=== PATIENT | female | born 1950 ===

== ENCOUNTER 2017-09-09 10:27 | Emergency (ER) | payer BC, MEDICARE ==
[2017-09-09 10:28] VITALS: BMI 35.9
[2017-09-09 10:37] VITALS: RESP 18
--- NOTE | 2017-09-09 11:09 | C.PDOC ---
History Of Present Illness 66-YEAR-OLD FEMALE, PRESENTS TO THE EMERGENCY DEPARTMENT, REFERRED FOR POSSIBLE HIGH GLUCOSE. PS HAD OUTPT LABS 09/08, "GLU OVER 600". PT OTHERWISE ASYMPT. COMPLIANT W MEDS. HAD COFFEE W SUGAR THIS MORNING EXAM NEG Time Seen by Provider: 09/09/17 10:39 Chief Complaint (Nursing): Abnormal Labs History Per: Patient History/Exam Limitations: no limitations Onset/Duration Of Symptoms: Days Current Symptoms Are (Timing): Still Present Past Medical History Reviewed: Historical Data, Nursing Documentation, Vital Signs Vital Signs: Last Vital Signs Temp 97.9 F 09/09/17 12:23 Pulse 75 09/09/17 12:23 Resp 18 09/09/17 12:23 BP 148/77 09/09/17 12:23 Pulse Ox 96 09/09/17 13:05 - Medical History PMH: Asthma, Atrial Fibrillation, Fractures (left foot), HTN Surgical History: Coronary Stent (03/2014), Tonsillectomy - [facility] Procedures CORONAR ARTERIOGR-2 CATH (04/10/14) CORONARY ARTERY STENT INSERTION [id number] (04/10/14) DX ULTRASOUND-HEART (04/09/14) HEART COUNTERSHOCK NEC (04/09/14) INJECT/INFUSE PLATELET INHIBITOR (04/10/14) INSERTION OF ONE VASCULAR STENT (04/10/14) INSERTION OF TWO VASCULAR STENTS (04/09/14) LEFT HEART CARDIAC CATH (04/10/14) LT HEART ANGIOCARDIOGRAM (04/10/14) PERCUTANEOUS TRANSLUMINAL CORONARY ANGIOPLASTY [PTCA] (04/10/14) PROCEDURE ON SINGLE VESSEL (04/10/14) PROCEDURE ON TWO VESSELS (04/09/14) Family History: States: No Known Family Hx - Social History Hx Tobacco Use: No Hx Alcohol Use: No Hx Substance Use: No - Immunization History Hx Tetanus Toxoid Vaccination: No Hx Influenza Vaccination: No Hx Pneumococcal Vaccination: No Review Of Systems Except As Marked, All Systems Reviewed And Found Negative. Constitutional: Negative for: Fever, Chills Cardiovascular: Negative for: Chest Pain, Palpitations Respiratory: Negative for: Cough, Shortness of Breath Gastrointestinal: Negative for: Vomiting Genitourinary: Negative for: Dysuria, Frequency Musculoskeletal: Negative for: Neck Pain, Back Pain Skin: Negative for: Rash Neurological: Negative for: Weakness, Numbness, Headache Physical Exam - Physical Exam Appears: Non-toxic, No Acute Distress Skin: Normal Color, Warm, Dry, No Rash Head: Normacephalic Eye(s): bilateral: PERRL Nose: Normal Oral Mucosa: Moist Lips: Normal Appearing Neck: Normal ROM Chest: Symmetrical Cardiovascular: Rhythm Regular, No Murmur Respiratory: Normal Breath Sounds, No Accessory Muscle Use Extremity: Normal ROM, No Deformity, No Swelling Neurological/Psych: Oriented x3, Normal Speech ED Course And Treatment - Laboratory Results Result Diagrams: 09/09/17 11:20 09/09/17 11:20 O2 Sat by Pulse Oximetry: 96 (RA) Pulse Ox Interpretation: Normal Progress - Re-Evaluation Re-evaluation Note: 09/09/17 12:17 APPEARS COMFORTABLE NONTOXIC. ADVISED DIET MODIFICATION, POSSIBLE NEED FOR ADDL DM CONTROL. PS HAS GLUCOMETER BUT DOESNT USE. FU PMD - Data Reviewed Data Reviewed: Lab Disposition Counseled Patient/Family Regarding: Studies Performed, Diagnosis, Need For Followup - Disposition Referrals: YOUR,PMD [Other] Disposition: HOME/ ROUTINE Disposition Time: 12:18 Condition: IMPROVED Instructions: Hyperglycemia, Adult (DC) Forms: [employer] (Macedonian) - Clinical Impression Clinical Impression: Hyperglycemia - Scribe Statement The provider has reviewed the documentation as recorded by the Scribe (Mere Mooney) All medical record entries made by the Scribe were at my direction and personally dictated by me. I have reviewed the chart and agree that the record accurately reflects my personal performance of the history, physical exam, medical decision making, and the department course for this patient. I have also personally directed, reviewed, and agree with the discharge instructions and disposition.
[2017-09-09 11:23] LABS: BASO % 0.4 % (0.0-2.0); EOS % 0.4 % (0.0-4.0); HEMOGLOBIN 13.7 g/dL (11.0-16.0); LYMPH # 0.5 K/uL (1.0-4.3); LYMPH % 4.9 % (20.0-40.0); MEAN CORPUSCULAR HEMOGLOBIN 28.1 pg (27.0-31.0); MEAN CORPUSCULAR HGB CONC 33.7 g/dL (33.0-37.0); MEAN PLATELET VOLUME 8.7 fL (7.2-11.7); MONO # 0.6 K/uL (0.0-0.8); MONO % 5.3 % (0.0-10.0); NEUT # 9.5 K/uL (1.8-7.0); PLATELET COUNT 192 K/uL (130-400); RBC 4.86 Mil/uL (3.80-5.20)
[2017-09-09 11:25] LABS: MEAN CELL VOLUME 83.5 fL (81.0-99.0); WHITE BLOOD COUNT 10.7 K/uL (4.8-10.8)
[2017-09-09 11:30] LABS: VENOUS BLOOD GAS BASE EXCESS 2.8 mmol/L (0.0-2.0); VENOUS BLOOD GAS PCO2 47 mmHg (40-60); VENOUS BLOOD GAS PO2 44 mm/Hg (30-55); VENOUS BLOOD PH 7.39 (7.32-7.43)
[2017-09-09] MEDS ORDERED: Sodium Chloride 0.9% 1,000 ML IV SCH (11:30)
[2017-09-09 11:32] LABS: SQUAMOUS EPITHIAL < 1 /hpf (0-5); URINE BACTERIA RARE (<OCC); URINE BILIRUBIN NEGATIVE (NEGATIVE); URINE BLOOD 1+ (NEGATIVE); URINE CLARITY Clear (Clear); URINE COLOR Straw (YELLOW); URINE GLUCOSE (UA) 3+ mg/dL (Normal); URINE LEUKOCYTE ESTERASE TRACE Leu/uL (Negative); URINE PROTEIN NEGATIVE (NEGATIVE); URINE UROBILINOGEN NORMAL mg/dL (0.2-1.0)
[2017-09-09 11:55] LABS: ANISOCYTOSIS SLIGHT; BANDS 1 % (0-2); HYPOCHROMIC SLIGHT; LYMPHOCYTE 5 % (20-40); MONOCYTE 6 % (0-10); NEUTROPHIL 88 % (50-75); PLATELET ESTIMATE NORMAL (NORMAL); POLYCHROMIC SLIGHT; TOTAL CELLS COUNTED 100
[2017-09-09 11:56] LABS: LARGE PLATELETS PRESENT
[2017-09-09 11:57] LABS: ALBUMIN 3.2 g/dL (3.5-5.0); ALT/SGPT 42 U/L (9-52); AST/SGOT 31 U/L (14-36); BLOOD UREA NITROGEN 10 mg/dL (7-17); CALCIUM 8.7 mg/dl (8.6-10.4); GFR AFRICAN-AMERICAN > 60; GFR NON-AFRICAN AMERICAN > 60
[2017-09-09] MEDS ORDERED: (Novolin R) Insulin Human Regular 100 units/ml vial IV STA (12:00)
[2017-09-09] MEDS ORDERED: (Novolin R) Insulin Human Regular 100 units/ml vial ONE (12:14)
[2017-09-09 12:24] VITALS: BP 148/77; PULSE 75; TEMP 97.9
[2017-09-09 12:41] VITALS: O2SAT 96
== END 2017-09-09 12:43 | disposition home or self-care (01) ==
LOC: C.ER 10:27
DX: R73.9 Hyperglycemia, unspecified (principal); I10 Essential (primary) hypertension; I48.91 Unspecified atrial fibrillation
CPT/HCPCS: 80053; 81001; 82009; 82803; 85025; 99283; J7040

== ENCOUNTER 2017-12-11 12:17 | Observation (INO) | payer MEDICARE ==
[2017-12-11 12:17] VITALS: BMI 35.9
[2017-12-11 13:47] LABS: BASO % 0.5 % (0.0-2.0); EOS % 0.5 % (0.0-4.0); HEMOGLOBIN 12.4 g/dL (11.0-16.0); LYMPH # 0.9 K/uL (1.0-4.3); LYMPH % 9.8 % (20.0-40.0); MEAN CORPUSCULAR HEMOGLOBIN 26.9 pg (27.0-31.0); MEAN CORPUSCULAR HGB CONC 33.4 g/dL (33.0-37.0); MEAN PLATELET VOLUME 7.7 fL (7.2-11.7); MONO # 0.4 K/uL (0.0-0.8); MONO % 4.5 % (0.0-10.0); NEUT # 7.5 K/uL (1.8-7.0); NEUT % 84.7 % (50.0-75.0); PLATELET COUNT 258 K/uL (130-400); RBC 4.62 Mil/uL (3.80-5.20); RED CELL DISTRIBUTION WIDTH 15.7 % (11.5-14.5); WHITE BLOOD COUNT 8.9 K/uL (4.8-10.8)
--- NOTE | 2017-12-11 13:47 | RAD ---
PROCEDURE: CHEST RADIOGRAPH, 1 VIEW HISTORY: SOB COMPARISON: 08/19/2015. FINDINGS: LUNGS: There is worsening diffuse interstitial thickening in both lungs. PLEURA: No pneumothorax or pleural fluid seen. CARDIOVASCULAR: There is mild cardiomegaly. OSSEOUS STRUCTURES: No significant abnormalities. VISUALIZED UPPER ABDOMEN: Normal. OTHER FINDINGS: None. IMPRESSION: Worsening diffuse interstitial thickening in the lungs which may represent interstitial fibrosis or lymphangitis carcinomatosis. Clinical correlation and follow-up is advised. No acute findings.
[2017-12-11 14:03] LABS: MEAN CELL VOLUME 80.6 fL (81.0-99.0)
[2017-12-11 14:06] LABS: ALB/GLOB RATIO 1.2 (1.0-2.1); ALBUMIN 3.7 g/dL (3.5-5.0); ALT/SGPT 26 U/L (9-52); AST/SGOT 23 U/L (14-36); BLOOD UREA NITROGEN 15 mg/dL (7-17); CALCIUM 9.6 mg/dl (8.6-10.4); GFR AFRICAN-AMERICAN > 60; GFR NON-AFRICAN AMERICAN > 60
--- NOTE | 2017-12-11 14:07 | C.PDOC ---
History Of Present Illness 66 y/o female presents to the ER for evaluation upon referral of her PMD Dr. Arjun Trimble secondary to abnormal EKG. Patient denies having any active physical complaint at thus time. 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 Time Seen by Provider: 12/11/17 12:51 Chief Complaint (Nursing): Medical Clearance History Per: Patient History/Exam Limitations: no limitations Past Medical History Reviewed: Historical Data, Nursing Documentation, Vital Signs Vital Signs: Last Vital Signs Temp 97.6 F 12/11/17 14:33 Pulse 84 12/11/17 14:33 Resp 16 12/11/17 14:33 BP 160/84 H 12/11/17 14:33 Pulse Ox 98 12/11/17 14:46 - Medical History PMH: Asthma, Atrial Fibrillation, Fractures (left foot), HTN Surgical History: Coronary Stent (03/2014), Tonsillectomy - [facility] Procedures CORONAR ARTERIOGR-2 CATH (04/10/14) CORONARY ARTERY STENT INSERTION [id number] (04/10/14) DX ULTRASOUND-HEART (04/09/14) HEART COUNTERSHOCK NEC (04/09/14) INJECT/INFUSE PLATELET INHIBITOR (04/10/14) INSERTION OF ONE VASCULAR STENT (04/10/14) INSERTION OF TWO VASCULAR STENTS (04/09/14) LEFT HEART CARDIAC CATH (04/10/14) LT HEART ANGIOCARDIOGRAM (04/10/14) PERCUTANEOUS TRANSLUMINAL CORONARY ANGIOPLASTY [PTCA] (04/10/14) PROCEDURE ON SINGLE VESSEL (04/10/14) PROCEDURE ON TWO VESSELS (04/09/14) Family History: States: No Known Family Hx - Social History Hx Tobacco Use: No Hx Alcohol Use: No Hx Substance Use: No - Immunization History Hx Tetanus Toxoid Vaccination: No Hx Influenza Vaccination: No Hx Pneumococcal Vaccination: No Review Of Systems Except As Marked, All Systems Reviewed And Found Negative. Constitutional: Negative for: Fever, Chills Cardiovascular: Negative for: Chest Pain Respiratory: Negative for: Cough, Shortness of Breath Physical Exam - Physical Exam Appears: Non-toxic, No Acute Distress Skin: Normal Color, Warm, Dry Head: Atraumatic, Normacephalic Eye(s): bilateral: Normal Inspection Nose: Normal Oral Mucosa: Moist Neck: Supple Chest: Symmetrical Cardiovascular: Rhythm Regular Respiratory: Normal Breath Sounds, No Rales, No Rhonchi, No Wheezing Gastrointestinal/Abdominal: Normal Exam, Bowel Sounds ((+) bowel sounds), Soft, No Tenderness, No Guarding, No Rebound Neurological/Psych: Oriented x3, Normal Speech ED Course And Treatment - Laboratory Results Result Diagrams: 12/11/17 13:41 12/11/17 13:41 ECG: Interpreted By Me, Viewed By Me ECG Rhythm: Sinus Rhythm Interpretation Of ECG: NSR with left axis deviation, LVH, T wave inversion in Lead V2, and biphasic T wave in Lead III Rate From EC O2 Sat by Pulse Oximetry: 98 (RA) Pulse Ox Interpretation: Normal Medical Decision Making Medical Decision Making: Plan: --Labs --CXR Updates: Case discussed with , hospitalist. Patient has been admitted to [facility] for abnormal EKG. Disposition Discussed With : Komal Thornton Doctor Will See Patient In The: Hospital Counseled Patient/Family Regarding: Studies Performed, Diagnosis - Disposition Disposition: HOSPITALIZED Disposition Time: 14:07 Condition: FAIR - Clinical Impression Clinical Impression: Abnormal EKG - Scribe Statement The provider has reviewed the documentation as recorded by the Scribe Robina Melendrez Provider Attestation: All medical record entries made by the Scribe were at my direction and personally dictated by me. I have reviewed the chart and agree that the record accurately reflects my personal performance of the history, physical exam, medical decision making, and the department course for this patient. I have also personally directed, reviewed, and agree with the discharge instructions and disposition.
[2017-12-11 14:14] LABS: B-TYPE NATRIURETIC PEPTIDE 269 pg/mL (0-900)
[2017-12-11 14:45] LABS: LYMPHOCYTE 6 % (20-40); MONOCYTE 3 % (0-10); NEUTROPHIL 91 % (50-75); PLATELET ESTIMATE NORMAL (NORMAL); TOTAL CELLS COUNTED 100
[2017-12-11 14:46] LABS: ANISOCYTOSIS SLIGHT; HYPOCHROMIC SLIGHT; OVALOCYTES SLIGHT; POLYCHROMIC SLIGHT
[2017-12-11 15:12] VITALS: RESP 20
[2017-12-11] MEDS ORDERED: Dextrose 50% SYRINGE Inj (50 ml) IV PRN (17:53)
[2017-12-11] MEDS ORDERED: Glucagon Recombinant 1 mg Inj IM PRN (17:53)
--- NOTE | 2017-12-11 18:05 | CP.PCM.HP ---
<JovannaShaekaleb Bose - Last Filed: 12/11/17 20:44> History of Present Illness - History of Present Illness History of Present Illness: H&P Hospitalist Service CC: sent here by PMD for new EKG finding T wave inversions HPI: Patient is a 66 year old female with history of CAD s/p coronary stent in 2016, Atrial fibrillation, HTN, DM, rheumatoid arthritis, renal lesion who presents to the ED after she was sent here by her PMD Dr. Faiza Trimble for abnormal EKG finding of T wave inversions in office today. She states she feels comfortable currently. She denies headache, dizziness, chest pain, palpitations , abdominal pain, vomiting, nausea. She denies calf tenderness, but states her calves feel sore due to her varicose veins. ROS: admits to rectal bleeding this week, has had colonoscopy with her GI Dr. Cortes. Admits that her calves feel sore but states she thinks it is because of her varicose veins. PMH: CAD with stents 2016, Atrial fibrillation, HTN, DM, RA, renal lesion, right shoulder pain, varicose veins. PSH: coronary stents, laser surgery of veins, tonsillectomy Family hx: Father - [place], Mother- cancer of stomach/colon, Daughter of myasthenia gravis few months ago social hx: former smoker; quit 30 years ago - smoked 2ppd for unknown period. Denies alcohol or drugs. Lives by herself - lives in a 3 family house with her son in the same building. Retired. Home Meds: Prednisone 5mg BID, Leflunomide 20mg QD, Metformin 500mg BID, Xarelto 10mg QD, Metoprolol 50mg QD, Allergies: PCN - unable to recall reaction PMD: Dr. Faiza Trimble Cardio: Dr. Plascencia Rheum: Dr. Reich Present on Admission - Present on Admission Any Indicators Present on Admission: Yes History of DVT/PE: No History of Uncontrolled Diabetes: Yes Review of Systems - Constitutional Constitutional: absent: Chills, Fever - EENT Eyes: absent: Change in Vision, Loss of Vision Nose/Mouth/Throat: absent: Dry Mouth, Sore Throat - Cardiovascular Cardiovascular: absent: Chest Pain, Chest Pain with Activity, Dyspnea, Dyspnea on Exertion, Pain Radiating to Arm/Neck/Jaw, Palpitations - Respiratory Respiratory: absent: Cough, Dyspnea - Gastrointestinal Gastrointestinal: absent: Abdominal Pain - Neurological Neurological: absent: Abnormal Movements, Behavioral Changes - Psychiatric Psychiatric: absent: Anxiety, Depression Past Patient History - Infectious Disease Hx of Infectious Diseases: None - Tetanus Immunizations Tetanus Immunization: Unknown - Past Medical History & Family History Past Medical History?: Yes - Past Social History Smoking Status: Never Smoked - CARDIAC Hx Atrial Fibrillation: Yes Hx Hypertension: Yes - PULMONARY Hx Asthma: Yes - HEENT Hx HEENT Problems: Yes Hx Cataracts: Yes (surgery both eyes) Other/Comment: tonsillectomy - INTEGUMENTARY Hx Dermatological Problems: Yes Hx Psoriasis: Yes - MUSCULOSKELETAL/RHEUMATOLOGICAL Hx Fractures: Yes (left foot) - GASTROINTESTINAL Hx Gastrointestinal Disorders: No - GENITOURINARY/GYNECOLOGICAL Hx Genitourinary Disorders: No - PSYCHIATRIC Hx Substance Use: No - SURGICAL HISTORY Hx Coronary Stent: Yes (03/2014) Hx Tonsillectomy: Yes - ANESTHESIA Hx Anesthesia: No Hx Anesthesia Reactions: No Meds Allergies/Adverse Reactions: Allergies Allergy/AdvReac Type Severity Reaction Status Date / Time Penicillins Allergy RASH Verified 12/11/17 12:36 Physical Exam - Constitutional Appears: Well, No Acute Distress - Head Exam Head Exam: ATRAUMATIC, NORMOCEPHALIC - Eye Exam Eye Exam: EOMI - ENT Exam ENT Exam: Mucous Membranes Moist - Expanded Neck Exam Expanded Expanded Neck Exam: absent: Carotid Bruit - Respiratory Exam Respiratory Exam: Clear to Auscultation Bilateral, NORMAL BREATHING PATTERN - Cardiovascular Exam Cardiovascular Exam: REGULAR RHYTHM, +S1, +S2 - GI/Abdominal Exam GI & Abdominal Exam: Normal Bowel Sounds, Soft. absent: Distended, Firm, Tenderness - Extremities Exam Extremities exam: Positive for: pedal pulses present. Negative for: pedal edema Additional comments: varicose veins present bilaterally. Results - Vital Signs Recent Vital Signs: Last Vital Signs Temp 97.7 F 12/11/17 15:15 Pulse 80 12/11/17 15:15 Resp 20 12/11/17 15:15 BP 151/81 H 12/11/17 15:15 Pulse Ox 94 L 12/11/17 15:15 - Labs Result Diagrams: 12/11/17 13:41 12/11/17 13:41 Labs: Laboratory Results - last 24 hr 12/11/17 12/11/17 13:41 13:41 WBC 8.9 RBC 4.62 Hgb 12.4 Hct 37.3 MCV 80.6 L D MCH 26.9 L MCHC 33.4 RDW 15.7 H Plt Count 258 MPV 7.7 Neut % (Auto) 84.7 H Lymph % (Auto) 9.8 L Ray % (Auto) 4.5 Eos % (Auto) 0.5 Baso % (Auto) 0.5 Neut # (Auto) 7.5 H Lymph # (Auto) 0.9 L Ray # (Auto) 0.4 Eos # (Auto) 0.0 Baso # (Auto) 0.0 Neutrophils % (Manual) 91 H Lymphocytes % (Manual) 6 L Monocytes % (Manual) 3 Platelet Estimate Normal Polychromasia Slight Hypochromasia (manual) Slight Anisocytosis (manual) Slight Ovalocytes Slight Sodium 139 Potassium 3.9 Chloride 102 Carbon Dioxide 27 Anion Gap 15 BUN 15 Creatinine 0.4 L Est GFR ( Amer) > 60 Est GFR (Non-Af Amer) > 60 Random Glucose 226 H Calcium 9.6 Total Bilirubin 0.8 AST 23 ALT 26 Alkaline Phosphatase 73 Troponin I < 0.0120 NT-Pro-B Natriuret Pep 269 Total Protein 6.9 Albumin 3.7 Globulin 3.1 Albumin/Globulin Ratio 1.2 Assessment & Plan - Assessment and Plan (Free Text) Plan: Assessment and plan 1. Abnormal EKG --> T wave inversions in V2, V3 * Admit to telemetry * Cardiology, Dr. Plascencia consulted, help appreciated * ROMIs and EKG Q 6 hrs x3 * lipid panel, HgbA1c, TSH in AM * Abnormal EKG: T waves inversions in V2/V3 * Cardiac risk factors: CAD, HTN, DM, former smoker, prior [place] * LIZZIE score: 3 points. 13% risk at 14 days * Heart score: 7, high risk for major adverse cardiac events * ASA 81mg PO daily * Crestor 10mg PO HS 2. Hypertension * Heart healthy diet * Start Coreg 3.125mg PO BID 3. Atrial fibrillation * CHADsVasc: 3+ * HASBLED: 1+ * Continue Xarelto 10mg PO daily * Start Coreg 3.125mg PO BID * Follow up with ECHO 4. Diabetes, insulin dependent * Hemoglobin A1c, lipid panel * Accuchecks QAC/HS * hypoglycemic protocol * Continue Lantus 30mg SQ Q12 * Continue Amaryl 4mg PO BID * Regular ISS SQ 5. abnormal CXR * CXR: Worsening diffuse interstitial thickening in the lungs which may represent interstitial fibrosis or lymphangitis carcinomatosis. Clinical correlation and follow-up is advised. No acute findings. * follow up CT chest without contrast 6. History of RA * Continue Prednisone 5mg PO BID * Follows with Dr. Reich outpatient for RA 7. Prophylaxis * Continue with Xarelto 10mg PO daily * Pepcid 20mg PO BID * PT/OT evaluation * Palliative care consulted for POLST form Kay Nugent, PGY1 Case discussed with Dr. Thornton - Date & Time Date: 12/11/17 Time: 21:22 <Komal Thornton V - Last Filed: 12/12/17 10:06> Results - Vital Signs Recent Vital Signs: Last Vital Signs Temp 97.7 F 12/12/17 07:25 Pulse 85 12/12/17 07:25 Resp 20 12/12/17 07:25 BP 178/97 H 12/12/17 07:25 Pulse Ox 96 12/12/17 07:25 - Labs Result Diagrams: 12/11/17 13:41 12/11/17 13:41 Labs: Laboratory Results - last 24 hr 12/11/17 12/11/17 12/11/17 13:41 13:41 19:24 WBC 8.9 RBC 4.62 Hgb 12.4 Hct 37.3 MCV 80.6 L D MCH 26.9 L MCHC 33.4 RDW 15.7 H Plt Count 258 MPV 7.7 Neut % (Auto) 84.7 H Lymph % (Auto) 9.8 L Ray % (Auto) 4.5 Eos % (Auto) 0.5 Baso % (Auto) 0.5 Neut # (Auto) 7.5 H Lymph # (Auto) 0.9 L Ray # (Auto) 0.4 Eos # (Auto) 0.0 Baso # (Auto) 0.0 Neutrophils % (Manual) 91 H Lymphocytes % (Manual) 6 L Monocytes % (Manual) 3 Platelet Estimate Normal Polychromasia Slight Hypochromasia (manual) Slight Anisocytosis (manual) Slight Ovalocytes Slight PT 15.8 H INR 1.4 APTT 33 Sodium 139 Potassium 3.9 Chloride 102 Carbon Dioxide 27 Anion Gap 15 BUN 15 Creatinine 0.4 L Est GFR ( Amer) > 60 Est GFR (Non-Af Amer) > 60 POC Glucose (mg/dL) Random Glucose 226 H Calcium 9.6 Total Bilirubin 0.8 AST 23 ALT 26 Alkaline Phosphatase 73 Total Creatine Kinase CK-MB (Mass) Troponin I < 0.0120 NT-Pro-B Natriuret Pep 269 Total Protein 6.9 Albumin 3.7 Globulin 3.1 Albumin/Globulin Ratio 1.2 Digoxin 12/11/17 12/11/17 12/11/17 19:24 19:24 22:14 WBC RBC Hgb Hct MCV MCH MCHC RDW Plt Count MPV Neut % (Auto) Lymph % (Auto) Ray % (Auto) Eos % (Auto) Baso % (Auto) Neut # (Auto) Lymph # (Auto) Ray # (Auto) Eos # (Auto) Baso # (Auto) Neutrophils % (Manual) Lymphocytes % (Manual) Monocytes % (Manual) Platelet Estimate Polychromasia Hypochromasia (manual) Anisocytosis (manual) Ovalocytes PT INR APTT Sodium Potassium Chloride Carbon Dioxide Anion Gap BUN Creatinine Est GFR ( Amer) Est GFR (Non-Af Amer) POC Glucose (mg/dL) 167 H Random Glucose Calcium Total Bilirubin AST ALT Alkaline Phosphatase Total Creatine Kinase 29 L CK-MB (Mass) 0.67 Troponin I < 0.0120 NT-Pro-B Natriuret Pep Total Protein Albumin Globulin Albumin/Globulin Ratio Digoxin < 0.4 L 12/12/17 12/12/17 02:20 06:18 WBC RBC Hgb Hct MCV MCH MCHC RDW Plt Count MPV Neut % (Auto) Lymph % (Auto) Ray % (Auto) Eos % (Auto) Baso % (Auto) Neut # (Auto) Lymph # (Auto) Ray # (Auto) Eos # (Auto) Baso # (Auto) Neutrophils % (Manual) Lymphocytes % (Manual) Monocytes % (Manual) Platelet Estimate Polychromasia Hypochromasia (manual) Anisocytosis (manual) Ovalocytes PT INR APTT Sodium Potassium Chloride Carbon Dioxide Anion Gap BUN Creatinine Est GFR ( Amer) Est GFR (Non-Af Amer) POC Glucose (mg/dL) 147 H Random Glucose Calcium Total Bilirubin AST ALT Alkaline Phosphatase Total Creatine Kinase < 20 L CK-MB (Mass) 0.59 Troponin I 0.0140 NT-Pro-B Natriuret Pep Total Protein Albumin Globulin Albumin/Globulin Ratio Digoxin Attending/Attestation - Attestation I have personally seen and examined this patient.: Yes I have fully participated in the care of the patient.: Yes I have reviewed all pertinent clinical information: Yes Notes (Text): This is a late entry for 12/11/2017. Patient seen on [facility] at 4: 30 p.m. on 12/11/2017 with company with her son Weston who is at bedside. Patient reports that she was following up with Dr. Arjun Trimble for routine visit for diabetes management. She denies any feeling any acute complaints in terms of chest pain shortness of breath or heart dyspnea however she at the office had abnormal EKG which is a change from prior in terms or T-wave inversions. Patient has significant cardiac history including for coronary artery disease with stent hypertension uncontrolled diabetic former smoker as well as a perform history of [place]. Cardiology on the case help appreciated. Will be scheduled for stress test in the a.m. In addition patient has also abnormal chest x-ray are smoking history as well as a rheumatologic disease we will further evaluate with CT chest without contrast impossibly consult pulmonary depending on the results of CT chest. Patient also reports that she is DNR/DNI does not have any formal documentation does not have an official health proxy though she defers to her son Weston I have suggested return for her to create POLST plan we will consult palliative care for creation of one. Admitting orders and assessment plan discussed with the resident at time of admission. Assessment and plan 1. Abnormal EKG --> T wave inversions in V2, V3 * Admit to telemetry * Cardiology, Dr. Plascencia consulted, help appreciated * ROMIs and EKG Q 6 hrs x3 * lipid panel, HgbA1c, TSH in AM * Abnormal EKG: T waves inversions in V2/V3 * Cardiac risk factors: CAD, HTN, DM, former smoker, prior [place] * LIZZIE score: 3 points. 13% risk at 14 days * Heart score: 7, high risk for major adverse cardiac events * ASA 81mg PO daily * Crestor 10mg PO HS 2. Hypertension * Heart healthy diet * Start Coreg 3.125mg PO BID 3. Known hx of Atrial fibrillation * CHADsVasc: 3+ * HASBLED: 1+ * Continue Xarelto 10mg PO daily * Start Coreg 3.125mg PO BID * Follow up with ECHO 4. Diabetes, insulin dependent * Hemoglobin A1c, lipid panel * Accuchecks QAC/HS * hypoglycemic protocol * Continue Lantus 30mg SQ Q12 * Continue Amaryl 4mg PO BID * Regular ISS SQ 5. Abnormal CXR * CXR: Worsening diffuse interstitial thickening in the lungs which may represent interstitial fibrosis or lymphangitis carcinomatosis. Clinical correlation and follow-up is advised. No acute findings. * follow up CT chest without contrast 6. History of RA * Continue Prednisone 5mg PO BID * Follows with Dr. Reich outpatient for RA 7. Prophylaxis * Continue with Xarelto 10mg PO daily * Pepcid 20mg PO BID * PT/OT evaluation * Palliative care consulted for POLST form
[2017-12-11 19:38] LABS: INR 1.4; PROTHROMBIN TIME 15.8 SECONDS (9.7-12.2)
[2017-12-11 20:26] LABS: CK-MB 0.67 ng/mL (0.0-3.38)
[2017-12-11] MEDS: (Lantus) Insulin Glargine, Recombinant SC SCH (21:55)
[2017-12-11] MEDS: (Novolin R) Insulin Human Regular 100 units/ml vial SC SCH (22:23)
--- NOTE | 2017-12-11 23:13 | CP.PCM.CON ---
History of Present Illness - History of Present Illness History of Present Illness: Sent by PMD due to abnormal EKG HPI: Patient is a 66 year old female with history of CAD s/p coronary stent in 2016, Atrial fibrillation, HTN, DM, rheumatoid arthritis, renal lesion who presents to the ED after she was sent here by her PMD Dr. Faiza Trimble for abnormal EKG finding of T wave inversions in office today. She states she feels comfortable currently. She denies headache, dizziness, chest pain, palpitations , abdominal pain, vomiting, nausea. She denies calf tenderness, but states her calves feel sore due to her varicose veins. ROS: admits to rectal bleeding this week, has had colonoscopy with her GI Dr. Cortes. Admits that her calves feel sore but states she thinks it is because of her varicose veins. PMH: CAD with stents 2016, Atrial fibrillation, HTN, DM, RA, renal lesion, right shoulder pain, varicose veins. PSH: coronary stents, laser surgery of veins, tonsillectomy Family hx: Father - OR, Mother- cancer of stomach/colon, Daughter of myasthenia gravis few months ago social hx: former smoker; quit 30 years ago - smoked 2ppd for unknown period. Denies alcohol or drugs. Lives by herself - lives in a 3 family house with her son in the same building. Retired. Home Meds: Prednisone 5mg BID, Leflunomide 20mg QD, Metformin 500mg BID, Xarelto 10mg QD, Metoprolol 50mg QD, Allergies: PCN - unable to recall reaction PMD: Dr. Faiza Trimble Cardio: Dr. Plascencia Rheum: Dr. Reich Present on Admission - Present on Admission Any Indicators Present on Admission: Yes History of DVT/PE: No History of Uncontrolled Diabetes: Yes Review of Systems - Constitutional Constitutional: absent: Chills, Fever - EENT Eyes: absent: Change in Vision, Loss of Vision Nose/Mouth/Throat: absent: Dry Mouth, Sore Throat - Cardiovascular Cardiovascular: absent: Chest Pain, Chest Pain with Activity, Dyspnea, Dyspnea on Exertion, Pain Radiating to Arm/Neck/Jaw, Palpitations - Respiratory Respiratory: absent: Cough, Dyspnea - Gastrointestinal Gastrointestinal: absent: Abdominal Pain - Neurological Neurological: absent: Abnormal Movements, Behavioral Changes - Psychiatric Psychiatric: absent: Anxiety, Depression Physical Exam - Constitutional Appears: Well, No Acute Distress - Head Exam Head Exam: ATRAUMATIC, NORMOCEPHALIC - Eye Exam Eye Exam: EOMI - ENT Exam ENT Exam: Mucous Membranes Moist - Expanded Neck Exam Expanded Expanded Neck Exam: absent: Carotid Bruit - Respiratory Exam Respiratory Exam: Clear to Auscultation Bilateral, NORMAL BREATHING PATTERN - Cardiovascular Exam Cardiovascular Exam: REGULAR RHYTHM, +S1, +S2 - GI/Abdominal Exam GI & Abdominal Exam: Normal Bowel Sounds, Soft. absent: Distended, Firm, Tenderness - Extremities Exam Extremities exam: Positive for: pedal pulses present. Negative for: pedal edema Additional comments: varicose veins present bilaterally. Past Patient History - Infectious Disease Hx of Infectious Diseases: None - Tetanus Immunizations Tetanus Immunization: Unknown - Past Medical History & Family History Past Medical History?: Yes - Past Social History Smoking Status: Never Smoked - CARDIAC Hx Atrial Fibrillation: Yes Hx Hypertension: Yes - PULMONARY Hx Asthma: Yes - HEENT Hx HEENT Problems: Yes Hx Cataracts: Yes (surgery both eyes) Other/Comment: tonsillectomy - INTEGUMENTARY Hx Dermatological Problems: Yes Hx Psoriasis: Yes - MUSCULOSKELETAL/RHEUMATOLOGICAL Hx Fractures: Yes (left foot) - GASTROINTESTINAL Hx Gastrointestinal Disorders: No - GENITOURINARY/GYNECOLOGICAL Hx Genitourinary Disorders: No - PSYCHIATRIC Hx Substance Use: No - SURGICAL HISTORY Hx Coronary Stent: Yes (03/2014) Hx Tonsillectomy: Yes - ANESTHESIA Hx Anesthesia: No Hx Anesthesia Reactions: No Meds Allergies/Adverse Reactions: Allergies Allergy/AdvReac Type Severity Reaction Status Date / Time Penicillins Allergy RASH Verified 12/11/17 12:36 - Medications Medications: Current Medications Aspirin (Aspirin Chewable) 81 mg PO DAILY [facility] Carvedilol (Coreg) 3.125 mg PO BID [facility] Last Admin: 12/11/17 18:52 Dose: 3.125 mg Dextrose (Dextrose 50% Inj) 0 ml IV STAT PRN; Protocol PRN Reason: Hypoglycemia Protocol Dextrose (Glutose 15) 0 gm PO ONCE PRN; Protocol PRN Reason: Hypoglycemia Protocol Famotidine (Pepcid) 20 mg PO BID [facility] Last Admin: 12/11/17 18:52 Dose: 20 mg Glimepiride (Amaryl) 4 mg PO BID [facility] Last Admin: 12/11/17 18:52 Dose: 4 mg Glucagon (Glucagen Diagnostic Kit) 0 mg IM STAT PRN; Protocol PRN Reason: Hypoglycemia Protocol Dextrose (Dextrose 5% In Water 1000 Ml) 1,000 mls @ 0 mls/hr IV .Q0M PRN; Protocol; Per Protocol PRN Reason: Hypoglycemia Protocol Insulin Glargine (Lantus) 30 unit SC Q12 [facility] Last Admin: 12/11/17 21:55 Dose: 30 units Insulin Human Regular (Novolin R) 0 unit SC ACHS [facility] PRN Reason: Protocol Last Admin: 12/11/17 22:23 Dose: Not Given Prednisone (Prednisone Tab) 5 mg PO BID [facility] Last Admin: 12/11/17 18:52 Dose: 5 mg Rivaroxaban (Xarelto) 10 mg PO DAILY [facility] Rosuvastatin Calcium (Crestor) 10 mg PO HS [facility] Last Admin: 12/11/17 21:54 Dose: 10 mg Results - Vital Signs Recent Vital Signs: Last Vital Signs Temp 97.7 F 12/11/17 15:15 Pulse 95 H 12/11/17 16:44 Resp 20 12/11/17 15:15 BP 151/81 H 12/11/17 15:15 Pulse Ox 94 L 12/11/17 15:15 - Labs Result Diagrams: 12/11/17 13:41 12/11/17 13:41 Labs: Laboratory Results - last 24 hr 12/11/17 12/11/17 12/11/17 13:41 13:41 19:24 WBC 8.9 RBC 4.62 Hgb 12.4 Hct 37.3 MCV 80.6 L D MCH 26.9 L MCHC 33.4 RDW 15.7 H Plt Count 258 MPV 7.7 Neut % (Auto) 84.7 H Lymph % (Auto) 9.8 L Dunn % (Auto) 4.5 Eos % (Auto) 0.5 Baso % (Auto) 0.5 Neut # (Auto) 7.5 H Lymph # (Auto) 0.9 L Dunn # (Auto) 0.4 Eos # (Auto) 0.0 Baso # (Auto) 0.0 Neutrophils % (Manual) 91 H Lymphocytes % (Manual) 6 L Monocytes % (Manual) 3 Platelet Estimate Normal Polychromasia Slight Hypochromasia (manual) Slight Anisocytosis (manual) Slight Ovalocytes Slight PT 15.8 H INR 1.4 APTT 33 Sodium 139 Potassium 3.9 Chloride 102 Carbon Dioxide 27 Anion Gap 15 BUN 15 Creatinine 0.4 L Est GFR ( Amer) > 60 Est GFR (Non-Af Amer) > 60 POC Glucose (mg/dL) Random Glucose 226 H Calcium 9.6 Total Bilirubin 0.8 AST 23 ALT 26 Alkaline Phosphatase 73 Total Creatine Kinase CK-MB (Mass) Troponin I < 0.0120 NT-Pro-B Natriuret Pep 269 Total Protein 6.9 Albumin 3.7 Globulin 3.1 Albumin/Globulin Ratio 1.2 Digoxin 12/11/17 12/11/17 12/11/17 19:24 19:24 22:14 WBC RBC Hgb Hct MCV MCH MCHC RDW Plt Count MPV Neut % (Auto) Lymph % (Auto) Dunn % (Auto) Eos % (Auto) Baso % (Auto) Neut # (Auto) Lymph # (Auto) Dunn # (Auto) Eos # (Auto) Baso # (Auto) Neutrophils % (Manual) Lymphocytes % (Manual) Monocytes % (Manual) Platelet Estimate Polychromasia Hypochromasia (manual) Anisocytosis (manual) Ovalocytes PT INR APTT Sodium Potassium Chloride Carbon Dioxide Anion Gap BUN Creatinine Est GFR ( Amer) Est GFR (Non-Af Amer) POC Glucose (mg/dL) 167 H Random Glucose Calcium Total Bilirubin AST ALT Alkaline Phosphatase Total Creatine Kinase 29 L CK-MB (Mass) 0.67 Troponin I < 0.0120 NT-Pro-B Natriuret Pep Total Protein Albumin Globulin Albumin/Globulin Ratio Digoxin < 0.4 L Assessment & Plan - Assessment and Plan (Free Text) Assessment: 1. Abnormal EKG --> T wave inversions in V2, V3 * Admit to telemetry * ROMIs and EKG Q 6 hrs x3 * lipid panel, HgbA1c, TSH in AM * Abnormal EKG: T waves inversions in V2/V3 * Cardiac risk factors: CAD, HTN, DM, former smoker, prior OR * LIZZIE score: 3 points. 13% risk at 14 days * Heart score: 7, high risk for major adverse cardiac events * ASA 81mg PO daily * Crestor 10mg PO HS 2. Hypertension * Heart healthy diet * Start Coreg 3.125mg PO BID 3. Atrial fibrillation * CHADsVasc: 3+ * HASBLED: 1+ * Continue Xarelto 10mg PO daily * Start Coreg 3.125mg PO BID * Follow up with ECHO 4. Diabetes, insulin dependent * Hemoglobin A1c, lipid panel * Accuchecks QAC/HS * hypoglycemic protocol * Continue Lantus 30mg SQ Q12 * Continue Amaryl 4mg PO BID * Regular ISS SQ 5. abnormal CXR * CXR: Worsening diffuse interstitial thickening in the lungs which may represent interstitial fibrosis or lymphangitis carcinomatosis. Clinical correlation and follow-up is advised. No acute findings. * follow up CT chest without contrast 6. History of RA * Continue Prednisone 5mg PO BID * Follows with Dr. Reich outpatient for RA 7. Prophylaxis * Continue with Xarelto 10mg PO daily * Pepcid 20mg PO BID * PT/OT evaluation * Palliative care consulted for POLST form Will check stress test in am
[2017-12-12 03:27] LABS: CK-MB 0.59 ng/mL (0.0-3.38)
--- NOTE | 2017-12-12 07:28 | CP.PCM.PN ---
Subjective - Date & Time of Evaluation Date of Evaluation: 12/12/17 Time of Evaluation: 07:28 - Subjective Subjective: Patient seen and examined at bedside. She states that she did not have rectal bleeding over the past week, but has noticed blood in her urine instead. She states she is hungry since she has been NPO for her studies today. She denies chest pain, shortness of breath, palpitations, abdominal pain, nausea, vomiting, diarrhea, rectal bleeding. She states her legs feel sore due to her varicose veins. Objective - Vital Signs/Intake and Output Vital Signs (last 24 hours): Temp Pulse Resp BP Pulse Ox 97.7 F 85 20 178/97 H 96 12/12/17 07:25 12/12/17 07:25 12/12/17 07:25 12/12/17 07:25 12/12/17 07:25 - Medications Medications: Current Medications Aspirin (Aspirin Chewable) 81 mg PO DAILY [facility] B[facility]S AT [facility] Carvedilol (Coreg) 3.125 mg PO BID [facility] 234 BEDS AT THE [facility] Last Admin: 12/11/17 18:52 Dose: 3.125 mg Dextrose (Dextrose 50% Inj) 0 ml IV STAT PRN; Protocol PRN Reason: Hypoglycemia Protocol Dextrose (Glutose 15) 0 gm PO ONCE PRN; Protocol PRN Reason: Hypoglycemia Protocol Famotidine (Pepcid) 20 mg PO BID [facility] 234 B[facility]S AT [facility] Last Admin: 12/11/17 18:52 Dose: 20 mg Glimepiride (Amaryl) 4 mg PO BID [facility] 234 BEDS AT THE [facility] Last Admin: 12/11/17 18:52 Dose: 4 mg Glucagon (Glucagen Diagnostic Kit) 0 mg IM STAT PRN; Protocol PRN Reason: Hypoglycemia Protocol Dextrose (Dextrose 5% In Water 1000 Ml) 1,000 mls @ 0 mls/hr IV .Q0M PRN; Protocol; Per Protocol PRN Reason: Hypoglycemia Protocol Insulin Glargine (Lantus) 30 unit SC Q12 [facility] 234 B[facility]S AT [facility] Last Admin: 12/11/17 21:55 Dose: 30 units Insulin Human Regular (Novolin R) 0 unit SC ACHS [facility] 234 BEDS AT [facility] PRN Reason: Protocol Last Admin: 12/11/17 22:23 Dose: Not Given Prednisone (Prednisone Tab) 5 mg PO BID [facility] 234 BEDS AT [facility] Last Admin: 12/11/17 18:52 Dose: 5 mg Rivaroxaban (Xarelto) 10 mg PO DAILY [facility] 234 BEDS AT [facility] Rosuvastatin Calcium (Crestor) 10 mg PO HS [facility] 234 BEDS AT THE [facility] Last Admin: 12/11/17 21:54 Dose: 10 mg - Labs Labs: 12/11/17 13:41 12/11/17 13:41 PT 15.8 SECONDS (9.7-12.2) H 12/11/17 19:24 INR 1.4 12/11/17 19:24 APTT 33 SECONDS (21-34) 12/11/17 19:24
[2017-12-12] MEDS: (Novolin R) Insulin Human Regular 100 units/ml vial SC SCH ×2 (08:22→12:30)
[2017-12-12] MEDS: (Lantus) Insulin Glargine, Recombinant SC SCH (10:45)
[2017-12-12 11:09] LABS: BASO % 0.5 % (0.0-2.0); EOS # 0.1 K/uL (0.0-0.7); EOS % 1.6 % (0.0-4.0); LYMPH # 1.1 K/uL (1.0-4.3); MEAN CELL VOLUME 80.5 fL (81.0-99.0); MEAN CORPUSCULAR HEMOGLOBIN 26.3 pg (27.0-31.0); MEAN CORPUSCULAR HGB CONC 32.6 g/dL (33.0-37.0); MEAN PLATELET VOLUME 8.1 fL (7.2-11.7); MONO # 0.6 K/uL (0.0-0.8); MONO % 7.6 % (0.0-10.0); NEUT % 76.3 % (50.0-75.0); NRBC % 0.1 % (0.0-2.0); RBC 4.58 Mil/uL (3.80-5.20); RED CELL DISTRIBUTION WIDTH 15.4 % (11.5-14.5); WHITE BLOOD COUNT 7.8 K/uL (4.8-10.8)
[2017-12-12 11:28] VITALS: O2SAT 96
[2017-12-12 11:57] LABS: LDL CHOLESTEROL 63 mg/dL (0-129)
[2017-12-12 12:03] LABS: ALB/GLOB RATIO 1.1 (1.0-2.1); ALBUMIN 3.4 g/dL (3.5-5.0); ALT/SGPT 24 U/L (9-52); AST/SGOT 22 U/L (14-36); BLOOD UREA NITROGEN 10 mg/dL (7-17); CALCIUM 9.2 mg/dl (8.6-10.4); GFR AFRICAN-AMERICAN > 60; GFR NON-AFRICAN AMERICAN > 60; HDL CHOLESTEROL 37 mg/dL (30-70)
--- NOTE | 2017-12-12 12:37 | CP.PCM.CON ---
History of Present Illness - History of Present Illness History of Present Illness: Palliative consult requested by Doctor Thornton for Code status discussion per patient's request Patient is a 66 yo female sent from her PMD's office, Doctor Faiza Trimble with abnormal EKG. Patient was asymptomatic at the office as well on admission. CXR showed some changes indicating fibrosis vs. carcinomatosis. CT chest fallows. Stress test done this am. PMH: asthma, A fib, HTN, Left foot fracture, arthritis of both hands Soc. 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 Hx: daughter 7 months ago from [place], mother from unknown form of cancer. Review of Systems - Constitutional Constitutional: absent: As Per HPI, Anorexia, Chills, Daytime Sleepiness, Excessive Sweating, Fatigue, Fever, Frequent Falls, Headache, Increased Appetite , Lethargy, Malaise, Night Sweats, Snoring, Sleep Apnea, Weight Gain, Weight Loss, Weakness, Other - EENT Eyes: absent: As Per HPI, Blind Spots, Blurred Vision, Change in Vision, Decreased Night Vision, Diplopia, Discharge, Dry Eye, Exophthalmos, Floaters, Irritation, Itchy Eyes, Loss of Peripheral Vision, Pain, Photophobia, Requires Corrective Lenses, Sees Flashes, Spots in Vision, Tunnel Vision, Other Visual Disturbances, Loss of Vision, Other Ears: absent: As Per HPI, Decreased Hearing, Ear Discharge, Ear Pain, Tinnitus, Abnormal Hearing, Disequilibrium, Dizziness, Other Nose/Mouth/Throat: absent: As Per HPI, Epistaxis, Nasal Congestion, Nasal Discharge, Nasal Obstruction, Nasal Trauma, Nose Pain, Post Nasal Drip, Sinus Pain, Sinus Pressure, Bleeding Gums, Change in Voice, Dental Pain, Dry Mouth, Dysphagia, Halitosis, Hoarsness, Lip Swelling, Mouth Lesions, Mouth Pain, Odynophagia, Sore Throat, Throat Swelling, Tongue Swelling, Facial Pain, Neck Pain, Neck Mass, Other - Breasts Breasts: absent: As Per HPI, Change in Shape, Mass, Pain, Nipple Discharge, Nipple Inversion, Skin Changes, Swelling, Other - Cardiovascular Cardiovascular: absent: As Per HPI, Acrocyanosis, Chest Pain, Chest Pain at Rest , Chest Pain with Activity, Claudication, Diaphoresis, Dyspnea, Dyspnea on Exertion, Edema, Irregular Heart Rhythm, Pain Radiating to Arm/Neck/Jaw, Leg Edema, Leg Ulcers, Lightheadedness, Orthopnea, Palpitations, Paroxysmal Nocturnal Dyspnea, Pedal Edema, Radiating Pain, Rapid Heart Rate, Slow Heart Rate, Syncope, Other - Respiratory Respiratory: absent: As Per HPI, Cough, Dyspnea, Hemoptysis, Dyspnea on Exertion , Wheezing, Snoring, Stridor, Pain on Inspiration, Chest Congestion, Excessive Mucous Production, Change in Mucous Color, Pain with Coughing, Other - Gastrointestinal Gastrointestinal: absent: As Per HPI, Abdominal Pain, Belching, Bloating, Change in Bowel Habits, Change in Stool Character, Coffee Ground Emesis, Constipation, Cramping, Diarrhea, Dyspepsia, Dysphagia, Early Satiety, Excessive Flatus, Fecal Incontinence, Heartburn, Hematemesis, Hematochezia, Loose Stools, Melena, Nausea, Odynophagia, Temesmus, Vomiting, Other - Genitourinary Genitourinary: absent: As Per HPI, Change in Urinary Stream, Difficulty Urinating, Dysuria, Flank Pain, Hematuria, Pyuria, Nocturia, Urinary Incontinence, Urinary Frequency, Urinary Hesitance, Urinary Urgency, Voiding Freq/Small Amts, Freq UTI, Hx Renal/Bladder Calculi, Hx /Renal Surgery, Bladder Distension, Other - Reproductive: Female Reproductive:Female: Post Menopausal - Menstruation Menstruation: Post Menopausal - Musculoskeletal Musculoskeletal: absent: As Per HPI, Abnormal Gait, Arthralgias, Atrophy, Back Pain, Deformity, Joint Swelling, Limited Range of Motion, Loss of Height, Muscle Cramps, Muscle Weakness, Myalgias, Neck Pain, Numbness, Radiating Pain into Limb, Stiffness, Tingling, Other - Integumentary Integumentary: absent: As Per HPI, Acne, Alopecia, Bleeding Lesions, Change in Hair, Change in Nails, Change in Pigmentation, Changing Lesions, Dry Skin, Erythema, Furuncle, Hirsutism, Lesions, New Lesions, Non-Healing Lesions, Photosensitivity, Pruritus, Rash, Skin Pain, Skin Ulcer, Sores, Striae, Swelling , Unusual Bruising, Wounds, Jaundice, Other - Neurological Neurological: absent: As Per HPI, Abnormal Gait, Abnormal Hearing, Abnormal Movements, Abnormal Speech, Behavioral Changes, Burning Sensations, Confusion, Convulsions, Disequilibrium, Dizziness, Numbness, Focal Weakness, Frequent Falls , Headaches, Lack of Coordination, Loss of Vision, Memory Loss, Paresthesias, Radicular Pain, Restless Legs, Sensory Deficit, Syncope, Tingling, Tremor, Vertigo, Weakness, Other Visual Disturbances, Other - Psychiatric Psychiatric: absent: As Per HPI, Abnormal Sleep Pattern, Anhedonia, Anxiety, Auditory Hallucinations, Behavioral Changes, Change in Appetite, Change in Libido, Confusion, Depression, Difficulty Concentrating, Hallucinations, Homicidal Ideation, Hopelessness, Irritability, Memory Loss, Mood Swings, Panic Attacks, Paranoia, Suicidal Ideation, Visual Hallucinations, Tactile Hallucinations, Other - Endocrine Endocrine: absent: As Per HPI, Change in Body Appearance, Change in Libido, Cold Intolorance, Deepening of Voice, Excessive Sweating, Fatigue, Flushing, Heat Intolorance, Increase in Ring/Shoe/Hat Size, Palpitations, Polydipsia, Polyphagia, Polyuria, Other - Hematologic/Lymphatic Hematologic: absent: As Per HPI, Easy Bleeding, Easy Bruising, Lymphadenopathy, Other Past Patient History - Infectious Disease Hx of Infectious Diseases: None - Tetanus Immunizations Tetanus Immunization: Unknown - Past Medical History & Family History Past Medical History?: Yes - Past Social History Smoking Status: Never Smoked - CARDIAC Hx Hypertension: Yes - PULMONARY Hx Asthma: Yes - HEENT Hx HEENT Problems: Yes Hx Cataracts: Yes (surgery both eyes) Other/Comment: tonsillectomy - INTEGUMENTARY Hx Dermatological Problems: Yes Hx Psoriasis: Yes - MUSCULOSKELETAL/RHEUMATOLOGICAL Hx Fractures: Yes (left foot) - GASTROINTESTINAL Hx Gastrointestinal Disorders: No - GENITOURINARY/GYNECOLOGICAL Hx Genitourinary Disorders: No - PSYCHIATRIC Hx Substance Use: No - SURGICAL HISTORY Hx Coronary Stent: Yes (03/2014) Hx Tonsillectomy: Yes - ANESTHESIA Hx Anesthesia: No Hx Anesthesia Reactions: No Meds Allergies/Adverse Reactions: Allergies Allergy/AdvReac Type Severity Reaction Status Date / Time Penicillins Allergy RASH Verified 12/11/17 12:36 - Medications Medications: Current Medications Aspirin (Aspirin Chewable) 81 mg PO DAILY [facility] Last Admin: 12/12/17 10:46 Dose: 81 mg Carvedilol (Coreg) 3.125 mg PO BID [facility] Last Admin: 12/12/17 10:46 Dose: 3.125 mg Dextrose (Dextrose 50% Inj) 0 ml IV STAT PRN; Protocol PRN Reason: Hypoglycemia Protocol Dextrose (Glutose 15) 0 gm PO ONCE PRN; Protocol PRN Reason: Hypoglycemia Protocol Famotidine (Pepcid) 20 mg PO BID [facility] Last Admin: 12/12/17 10:46 Dose: 20 mg Glimepiride (Amaryl) 4 mg PO BID [facility] Last Admin: 12/12/17 10:45 Dose: Not Given Glucagon (Glucagen Diagnostic Kit) 0 mg IM STAT PRN; Protocol PRN Reason: Hypoglycemia Protocol Dextrose (Dextrose 5% In Water 1000 Ml) 1,000 mls @ 0 mls/hr IV .Q0M PRN; Protocol; Per Protocol PRN Reason: Hypoglycemia Protocol Insulin Glargine (Lantus) 30 unit SC Q12 [facility] Last Admin: 12/12/17 10:45 Dose: Not Given Insulin Human Regular (Novolin R) 0 unit SC ACHS [facility] PRN Reason: Protocol Last Admin: 12/12/17 08:22 Dose: Not Given Prednisone (Prednisone Tab) 5 mg PO BID [facility] Last Admin: 12/12/17 10:46 Dose: 5 mg Rivaroxaban (Xarelto) 10 mg PO DAILY [facility] Last Admin: 12/12/17 10:46 Dose: 10 mg Rosuvastatin Calcium (Crestor) 10 mg PO HS [facility] Last Admin: 12/11/17 21:54 Dose: 10 mg Physical Exam - Constitutional Appears: No Acute Distress - Head Exam Head Exam: ATRAUMATIC, NORMAL INSPECTION, NORMOCEPHALIC - Eye Exam Eye Exam: EOMI, Normal appearance, PERRL Pupil Exam: NORMAL ACCOMODATION, PERRL - ENT Exam ENT Exam: Mucous Membranes Moist, Normal Exam - Neck Exam Neck exam: Positive for: Normal Inspection - Respiratory Exam Respiratory Exam: Clear to Auscultation Bilateral, NORMAL BREATHING PATTERN - Cardiovascular Exam Cardiovascular Exam: Tachycardia - GI/Abdominal Exam GI & Abdominal Exam: Normal Bowel Sounds, Soft - Rectal Exam Rectal Exam: Deferred - Extremities Exam Extremities exam: Positive for: normal inspection - Back Exam Back exam: NORMAL INSPECTION - Neurological Exam Neurological exam: Alert, Normal Gait, Oriented x3 - Psychiatric Exam Psychiatric exam: Normal Affect, Normal Mood - Skin Skin Exam: Dry, Intact, Normal Color, Warm Results - Vital Signs Recent Vital Signs: Last Vital Signs Temp 98.7 F 12/12/17 10:44 Pulse 93 H 12/12/17 10:44 Resp 20 12/12/17 10:44 BP 161/88 H 12/12/17 11:16 Pulse Ox 96 12/12/17 11:16 - Labs Result Diagrams: 12/12/17 10:58 12/12/17 10:58 Labs: Laboratory Results - last 24 hr 12/11/17 12/11/17 12/11/17 13:41 13:41 19:24 WBC 8.9 RBC 4.62 Hgb 12.4 Hct 37.3 MCV 80.6 L D MCH 26.9 L MCHC 33.4 RDW 15.7 H Plt Count 258 MPV 7.7 Neut % (Auto) 84.7 H Lymph % (Auto) 9.8 L [place] % (Auto) 4.5 Eos % (Auto) 0.5 Baso % (Auto) 0.5 Neut # (Auto) 7.5 H Lymph # (Auto) 0.9 L [place] # (Auto) 0.4 Eos # (Auto) 0.0 Baso # (Auto) 0.0 Neutrophils % (Manual) 91 H Lymphocytes % (Manual) 6 L Monocytes % (Manual) 3 Platelet Estimate Normal Polychromasia Slight Hypochromasia (manual) Slight Anisocytosis (manual) Slight Ovalocytes Slight PT 15.8 H INR 1.4 APTT 33 Sodium 139 Potassium 3.9 Chloride 102 Carbon Dioxide 27 Anion Gap 15 BUN 15 Creatinine 0.4 L Est GFR ( Amer) > 60 Est GFR (Non-Af Amer) > 60 POC Glucose (mg/dL) Random Glucose 226 H Hemoglobin A1c Calcium 9.6 Total Bilirubin 0.8 AST 23 ALT 26 Alkaline Phosphatase 73 Total Creatine Kinase CK-MB (Mass) Troponin I < 0.0120 NT-Pro-B Natriuret Pep 269 Total Protein 6.9 Albumin 3.7 Globulin 3.1 Albumin/Globulin Ratio 1.2 Triglycerides Cholesterol LDL Cholesterol Direct HDL Cholesterol Free T4 TSH 3rd Generation Digoxin 12/11/17 12/11/17 12/11/17 19:24 19:24 22:14 WBC RBC Hgb Hct MCV MCH MCHC RDW Plt Count MPV Neut % (Auto) Lymph % (Auto) [place] % (Auto) Eos % (Auto) Baso % (Auto) Neut # (Auto) Lymph # (Auto) [place] # (Auto) Eos # (Auto) Baso # (Auto) Neutrophils % (Manual) Lymphocytes % (Manual) Monocytes % (Manual) Platelet Estimate Polychromasia Hypochromasia (manual) Anisocytosis (manual) Ovalocytes PT INR APTT Sodium Potassium Chloride Carbon Dioxide Anion Gap BUN Creatinine Est GFR ( Amer) Est GFR (Non-Af Amer) POC Glucose (mg/dL) 167 H Random Glucose Hemoglobin A1c Calcium Total Bilirubin AST ALT Alkaline Phosphatase Total Creatine Kinase 29 L CK-MB (Mass) 0.67 Troponin I < 0.0120 NT-Pro-B Natriuret Pep Total Protein Albumin Globulin Albumin/Globulin Ratio Triglycerides Cholesterol LDL Cholesterol Direct HDL Cholesterol Free T4 TSH 3rd Generation Digoxin < 0.4 L 12/12/17 12/12/17 12/12/17 02:20 06:18 10:58 WBC RBC Hgb Hct MCV MCH MCHC RDW Plt Count MPV Neut % (Auto) Lymph % (Auto) [place] % (Auto) Eos % (Auto) Baso % (Auto) Neut # (Auto) Lymph # (Auto) [place] # (Auto) Eos # (Auto) Baso # (Auto) Neutrophils % (Manual) Lymphocytes % (Manual) Monocytes % (Manual) Platelet Estimate Polychromasia Hypochromasia (manual) Anisocytosis (manual) Ovalocytes PT INR APTT Sodium 140 Potassium 3.5 L Chloride 104 Carbon Dioxide 26 Anion Gap 14 BUN 10 Creatinine 0.4 L Est GFR ( Amer) > 60 Est GFR (Non-Af Amer) > 60 POC Glucose (mg/dL) 147 H Random Glucose 217 H Hemoglobin A1c Calcium 9.2 Total Bilirubin 0.5 AST 22 ALT 24 Alkaline Phosphatase 66 Total Creatine Kinase < 20 L CK-MB (Mass) 0.59 Troponin I 0.0140 NT-Pro-B Natriuret Pep Total Protein 6.4 Albumin 3.4 L Globulin 3.0 Albumin/Globulin Ratio 1.1 Triglycerides 166 H D Cholesterol 127 LDL Cholesterol Direct 63 HDL Cholesterol 37 Free T4 TSH 3rd Generation 1.57 Digoxin 12/12/17 12/12/17 12/12/17 10:58 10:58 10:58 WBC 7.8 RBC 4.58 Hgb 12.0 Hct 36.9 MCV 80.5 L MCH 26.3 L MCHC 32.6 L RDW 15.4 H Plt Count 247 MPV 8.1 Neut % (Auto) 76.3 H Lymph % (Auto) 14.0 L [place] % (Auto) 7.6 Eos % (Auto) 1.6 Baso % (Auto) 0.5 Neut # (Auto) 6.0 Lymph # (Auto) 1.1 [place] # (Auto) 0.6 Eos # (Auto) 0.1 Baso # (Auto) 0.0 Neutrophils % (Manual) Lymphocytes % (Manual) Monocytes % (Manual) Platelet Estimate Polychromasia Hypochromasia (manual) Anisocytosis (manual) Ovalocytes PT INR APTT Sodium Potassium Chloride Carbon Dioxide Anion Gap BUN Creatinine Est GFR ( Amer) Est GFR (Non-Af Amer) POC Glucose (mg/dL) Random Glucose Hemoglobin A1c 9.2 H D Calcium Total Bilirubin AST ALT Alkaline Phosphatase Total Creatine Kinase CK-MB (Mass) Troponin I NT-Pro-B Natriuret Pep Total Protein Albumin Globulin Albumin/Globulin Ratio Triglycerides Cholesterol LDL Cholesterol Direct HDL Cholesterol Free T4 1.49 TSH 3rd Generation Digoxin Assessment & Plan - Assessment and Plan (Free Text) Assessment: Palliative consult Full Code prior to consult, no Advance directive on the chart, PPS 100% I reviewed medical records, all diagnostic studies, examined and interviewed patient in the bed. Patient is alert, oriented X 3, S/P stress test this am, states is hungry. Patient also ambulated with PT in all way and had no complaints of SOB or chest an. Head to toe physical exam was negative acute findings. BP 161/88,Coreg on board. Per Doctor Thornton, patient stated she wanted to be DNR/DNI. I questioned patient about it. Patient said she had bad experience with her mother suffering before she . Patient stated she wanted to natural without use of agressive measures. I specifically asked about CPR and gave enough information to patient about it. Patient was very clear she had made her mind long ago and wanted DNR/DNi status. Patient also stated , in this way her wishes will be known to er health care givers as well as to her children. RASHAWN introduced. Patient chose DNR/DNI. This was shared wt Doctor Norberto andKamila NUNEZ. Patient was given copy for herself and for her primary MD. Impression * No acute distress * CT chest still pending * Patient is requesting DNR/DNI Suggestion * Discharge home if CT chest and stress test negative * DNR/DNI Advance planing time 30 min
--- NOTE | 2017-12-12 13:41 | CT ---
PROCEDURE: CT Chest without contrast HISTORY: abnormal CXR COMPARISON: None. TECHNIQUE: Contiguous axial images were obtained through the chest without intravenous contrast enhancement. Sagittal and coronal reconstructions were performed. Radiation dose (DLP): 475.66 mGy-cm. This CT exam was performed using one or more of the following dose reduction techniques: Automated exposure control, adjustment of the mA and/or kV according to patient size, and/or use of iterative reconstruction technique. FINDINGS: LUNGS: Interlobular septal thickening most prominent at the lung bases. Scattered bilateral subpleural fibrosis. No mass. No consolidation. MEDIASTINUM: Unremarkable thoracic aorta. No aneurysm. Normal sized heart. Coronary arterial calcification. Main pulmonary artery unremarkable. No lymphadenopathy. Small hiatal hernia. 1.5 cm nodule in right lobe of thyroid. Recommend correlation with thyroid ultrasound examination. PLEURA: No pleural fluid. No pneumothorax. BONES: No fracture. No destructive lesion. UPPER ABDOMEN: In the jhonathan hepatis region, there is a rounded structure measuring approximately 3.6 cm in diameter. There is a fluid fluid level within this structure. There is floating fat attenuation material. Significance uncertain. This is only partially included in the most caudal aspect of this examination. Recommend CT of the abdomen/pelvis with oral and intravenous contrast administration. OTHER FINDINGS: None. IMPRESSION: Nonspecific interstitial infiltrate with interlobular septal thickening at lung bases and scattered subpleural fibrosis bilaterally. No acute infiltrate. Incidental nodule in right lobe of thyroid. Correlate with ultrasound examination. Nonspecific 3.6 cm rounded structure in jhonathan hepatis region only partially included in this examination. Recommend further evaluation with abdominal/ pelvic CT as detailed above.
[2017-12-12] MEDS ORDERED: Potassium Chloride 20 mEq ER Tab PO ONE (15:44)
[2017-12-12 16:36] VITALS: PULSE 90
[2017-12-12 16:40] VITALS: BP 118/73; TEMP 97.3
--- NOTE | 2017-12-12 17:26 | CP.PCM.DIS ---
<Kay Nugent - Last Filed: 12/12/17 19:38> Provider - Provider Date of Admission: 12/11/17 14:06 Attending physician: Komal Thornton DO Primary care physician: Dr. Faiza Trimble Consults: Cardiology: Dr. Plascencia Palliative care: Jessica Webber Pulmonology: Dr. Wilson Time Spent in preparation of Discharge (in minutes): 35 Hospital Course - Lab Results Lab Results: Most Recent Lab Values WBC 7.8 K/uL (4.8-10.8) 12/12/17 10:58 RBC 4.58 Mil/uL (3.80-5.20) 12/12/17 10:58 Hgb 12.0 g/dL (11.0-16.0) 12/12/17 10:58 Hct 36.9 % (34.0-47.0) 12/12/17 10:58 MCV 80.5 fL (81.0-99.0) L 12/12/17 10:58 MCH 26.3 pg (27.0-31.0) L 12/12/17 10:58 MCHC 32.6 g/dL (33.0-37.0) L 12/12/17 10:58 RDW 15.4 % (11.5-14.5) H 12/12/17 10:58 Plt Count 247 K/uL (130-400) 12/12/17 10:58 MPV 8.1 fL (7.2-11.7) 12/12/17 10:58 Neut % (Auto) 76.3 % (50.0-75.0) H 12/12/17 10:58 Lymph % (Auto) 14.0 % (20.0-40.0) L 12/12/17 10:58 Berg[place] % (Auto) 7.6 % (0.0-10.0) 12/12/17 10:58 Eos % (Auto) 1.6 % (0.0-4.0) 12/12/17 10:58 Baso % (Auto) 0.5 % (0.0-2.0) 12/12/17 10:58 Neut # (Auto) 6.0 K/uL (1.8-7.0) 12/12/17 10:58 Lymph # (Auto) 1.1 K/uL (1.0-4.3) 12/12/17 10:58 Bergen # (Auto) 0.6 K/uL (0.0-0.8) 12/12/17 10:58 Eos # (Auto) 0.1 K/uL (0.0-0.7) 12/12/17 10:58 Baso # (Auto) 0.0 K/uL (0.0-0.2) 12/12/17 10:58 Neutrophils % (Manual) 91 % (50-75) H 12/11/17 13:41 Lymphocytes % (Manual) 6 % (20-40) L 12/11/17 13:41 Monocytes % (Manual) 3 % (0-10) 12/11/17 13:41 Platelet Estimate Normal (NORMAL) 12/11/17 13:41 Polychromasia Slight 12/11/17 13:41 Hypochromasia (manual) Slight 12/11/17 13:41 Anisocytosis (manual) Slight 12/11/17 13:41 Ovalocytes Slight 12/11/17 13:41 PT 15.8 SECONDS (9.7-12.2) H 12/11/17 19:24 INR 1.4 12/11/17 19:24 APTT 33 SECONDS (21-34) 12/11/17 19:24 Sodium 140 mmol/L (132-148) 12/12/17 10:58 Potassium 3.5 mmol/L (3.6-5.2) L 12/12/17 10:58 Chloride 104 mmol/L (98-107) 12/12/17 10:58 Carbon Dioxide 26 mmol/L (22-30) 12/12/17 10:58 Anion Gap 14 (10-20) 12/12/17 10:58 BUN 10 mg/dL (7-17) 12/12/17 10:58 Creatinine 0.4 mg/dL (0.7-1.2) L 12/12/17 10:58 Est GFR ( Amer) > 60 12/12/17 10:58 Est GFR (Non-Af Amer) > 60 12/12/17 10:58 POC Glucose (mg/dL) 230 mg/dL (65-110) H 12/12/17 11:43 Random Glucose 217 mg/dL (65-105) H 12/12/17 10:58 Hemoglobin A1c 9.2 % (4.2-6.5) H D 12/12/17 10:58 Calcium 9.2 mg/dl (8.6-10.4) 12/12/17 10:58 Magnesium 1.8 mg/dL (1.6-2.3) 12/12/17 10:58 Total Bilirubin 0.5 mg/dL (0.2-1.3) 12/12/17 10:58 AST 22 U/L (14-36) 12/12/17 10:58 ALT 24 U/L (9-52) 12/12/17 10:58 Alkaline Phosphatase 66 U/L (38-126) 12/12/17 10:58 Total Creatine Kinase < 20 U/L (30-135) L 12/12/17 02:20 CK-MB (Mass) 0.59 ng/mL (0.0-3.38) 12/12/17 02:20 Troponin I 0.0140 ng/mL (0.00-0.120) 12/12/17 02:20 NT-Pro-B Natriuret Pep 269 pg/mL (0-900) 12/11/17 13:41 Total Protein 6.4 g/dL (6.3-8.3) 12/12/17 10:58 Albumin 3.4 g/dL (3.5-5.0) L 12/12/17 10:58 Globulin 3.0 gm/dL (2.2-3.9) 12/12/17 10:58 Albumin/Globulin Ratio 1.1 (1.0-2.1) 12/12/17 10:58 Triglycerides 166 mg/dL (0-149) H D 12/12/17 10:58 Cholesterol 127 mg/dL (0-199) 12/12/17 10:58 LDL Cholesterol Direct 63 mg/dL (0-129) 12/12/17 10:58 HDL Cholesterol 37 mg/dL (30-70) 12/12/17 10:58 Free T4 1.49 ng/dL (0.78-2.19) 12/12/17 10:58 TSH 3rd Generation 1.57 mIU/L (0.46-4.68) 12/12/17 10:58 Digoxin < 0.4 ng/mL (0.8-2.0) L 12/11/17 19:24 - Hospital Course Hospital Course: HPI: Patient is a 66 year old female with history of CAD s/p coronary stent in 2016, Atrial fibrillation, HTN, DM, rheumatoid arthritis, renal lesion who presents to the ED after she was sent here by her PMD Dr. Faiza Trimble for abnormal EKG finding of T wave inversions in office today. She states she feels comfortable currently. She denies headache, dizziness, chest pain, palpitations , abdominal pain, vomiting, nausea She denies calf tenderness, but states her calves feel sore due to her varicose veins. Hospital course: patient was admitted to telemetry for observation. During admission, she denied chest pain, shortness of breath, palpitations, abdominal pain, nausea, vomiting , diarrhea. She stated that she did not have rectal bleeding. Instead, she stated that she had blood in her urine for which she had seen Dr. Faiza Trimble who recommended that she follow up outpatient with a bladder and kidney ultrasound. She was worked up to rule out acute coronary syndrome. Troponins and EKGs x3 were done, which were negative for acute coronary syndrome. Hemoglobin a1c was found to be 9.2 and lipid panel revealed triglycerides 166, total cholesterol 127, LDL 63 HDL 37. TSH was normal at 1.57. She had stress test, ECHO and nuclear scan performed during her hospitalization. Per Dr. Plascencia, patient's cardiology tests were normal and she could be discharged and follow up outpatient in his office. Patient was started on Coreg 3.125mg PO BID and ASA 81mg PO daily. Imaging: CXR: worsening diffuse interstitial thickening in the lungs which may represent interstitial fibrosis or lymphangitis carcinomatosis. clinical correlation and follow up is advised. no acute findings. Chest CT: nonspecific interstital infiltrate with interlobular septal thickening at lung abases and scattered subpleurla fibrosis bilateraly. no acute infiltrate. incidental nodule in right lobe of thyroid. correlate with ultrasound examination. nonspecific 3.6cm rounded structure in jhonathan hepatis region only partially included in this examination. recommend further evaluation with abdominal/pelvic CT as detailed above. Nuclear scan: official report to follow. Can follow up with Dr. Plascencia in office for report. ECHO: official report to follow. Can follow up with Dr. Plascencia in office for report. Discharge instructions: Patient is stable for discharge per Dr. Thornton. Patient is to follow up with PMD Dr. Faiza Trimble within 1 week of discharge. Patient is to follow up with Dr. Plascencia within the next week. Patient is to complete renal ultrasound as outpatient and follow results up with PMD. Patient can follow up outpatient for thyroid ultrasound and abdominal/pelvis CT. Patient is to resume her home medications, in addition to Coreg 3.125mg by mouth twice a day and Aspirin 81mg by mouth once daily. Patient should return to ER if symptoms recur or worsen. This was explained to the patient who understands and agrees. This is a summary of patient's hospital course. Please refer to EMR for full medical course. - Date & Time of H&P Date of H&P: 12/11/17 Time of H&P: 16:00 Discharge Exam - Head Exam Head Exam: ATRAUMATIC, NORMOCEPHALIC - Eye Exam Eye Exam: EOMI - ENT Exam ENT Exam: Mucous Membranes Moist - Neck Exam Neck exam: Full Rom - Respiratory Exam Respiratory Exam: Clear to PA & Lateral, NORMAL BREATHING PATTERN. absent: Rales, Rhonchi, Wheezes, Respiratory Distress, Stridor - Cardiovascular Exam Cardiovascular Exam: REGULAR RHYTHM, +S1, +S2 Additional comments: no carotid bruit - GI/Abdominal Exam GI & Abdominal Exam: Normal Bowel Sounds. absent: Distended, Firm, Guarding, Tenderness - Extremities Exam Extremities exam: pedal pulses present Additional comments: no calf tenderness, (+) varicose veins present. no pedal edema. - Psychiatric Exam Psychiatric exam: Normal Mood Discharge Plan - Discharge Medications Prescriptions: Aspirin [Aspirin Chewable] 81 mg PO DAILY #30 chew Carvedilol [Coreg] 3.125 mg PO BID #60 tab - Follow Up Plan Condition: STABLE Disposition: HOME/ ROUTINE Instructions: Heart Healthy Diet, Atrial Fibrillation (DC), High Blood Pressure (DC), Low Salt Diet, Aspirin, Carvedilol Additional Instructions: Patient is stable for discharge per Dr. Thornton. Patient is to follow up with PMD Dr. Faiza Trimble within 1 week of discharge. Patient is to follow up with Dr. Plascencia within the next week. Patient is to complete renal ultrasound as outpatient and follow results up with PMD. Patient is to resume her home medications, in addition to Coreg 3.125mg by mouth twice a day and Aspirin 81mg by mouth once daily. Patient should return to ER if symptoms recur or worsen. This was explained to the patient who understands and agrees. Referrals: Driss Plascencia MD [Staff Provider] - Tala Trimble MD [Staff Provider] - <Komal Thornton V - Last Filed: 12/12/17 21:04> Provider - Provider Date of Admission: 12/11/17 14:06 Attending physician: Komal Thornton DO Diagnosis - Discharge Diagnosis (1) Abnormal EKG Status: Resolved (2) Diabetes Status: Chronic (3) Hypertension Status: Chronic (4) Left bundle branch block Status: Chronic (5) Atrial fibrillation Status: Chronic Hospital Course - Lab Results Lab Results: Most Recent Lab Values WBC 7.8 K/uL (4.8-10.8) 12/12/17 10:58 RBC 4.58 Mil/uL (3.80-5.20) 12/12/17 10:58 Hgb 12.0 g/dL (11.0-16.0) 12/12/17 10:58 Hct 36.9 % (34.0-47.0) 12/12/17 10:58 MCV 80.5 fL (81.0-99.0) L 12/12/17 10:58 MCH 26.3 pg (27.0-31.0) L 12/12/17 10:58 MCHC 32.6 g/dL (33.0-37.0) L 12/12/17 10:58 RDW 15.4 % (11.5-14.5) H 12/12/17 10:58 Plt Count 247 K/uL (130-400) 12/12/17 10:58 MPV 8.1 fL (7.2-11.7) 12/12/17 10:58 Neut % (Auto) 76.3 % (50.0-75.0) H 12/12/17 10:58 Lymph % (Auto) 14.0 % (20.0-40.0) L 12/12/17 10:58 [place] % (Auto) 7.6 % (0.0-10.0) 12/12/17 10:58 Eos % (Auto) 1.6 % (0.0-4.0) 12/12/17 10:58 Baso % (Auto) 0.5 % (0.0-2.0) 12/12/17 10:58 Neut # (Auto) 6.0 K/uL (1.8-7.0) 12/12/17 10:58 Lymph # (Auto) 1.1 K/uL (1.0-4.3) 12/12/17 10:58 [place] # (Auto) 0.6 K/uL (0.0-0.8) 12/12/17 10:58 Eos # (Auto) 0.1 K/uL (0.0-0.7) 12/12/17 10:58 Baso # (Auto) 0.0 K/uL (0.0-0.2) 12/12/17 10:58 Neutrophils % (Manual) 91 % (50-75) H 12/11/17 13:41 Lymphocytes % (Manual) 6 % (20-40) L 12/11/17 13:41 Monocytes % (Manual) 3 % (0-10) 12/11/17 13:41 Platelet Estimate Normal (NORMAL) 12/11/17 13:41 Polychromasia Slight 12/11/17 13:41 Hypochromasia (manual) Slight 12/11/17 13:41 Anisocytosis (manual) Slight 12/11/17 13:41 Ovalocytes Slight 12/11/17 13:41 PT 15.8 SECONDS (9.7-12.2) H 12/11/17 19:24 INR 1.4 12/11/17 19:24 APTT 33 SECONDS (21-34) 12/11/17 19:24 Sodium 140 mmol/L (132-148) 12/12/17 10:58 Potassium 3.5 mmol/L (3.6-5.2) L 12/12/17 10:58 Chloride 104 mmol/L (98-107) 12/12/17 10:58 Carbon Dioxide 26 mmol/L (22-30) 12/12/17 10:58 Anion Gap 14 (10-20) 12/12/17 10:58 BUN 10 mg/dL (7-17) 12/12/17 10:58 Creatinine 0.4 mg/dL (0.7-1.2) L 12/12/17 10:58 Est GFR ( Amer) > 60 12/12/17 10:58 Est GFR (Non-Af Amer) > 60 12/12/17 10:58 POC Glucose (mg/dL) 230 mg/dL (65-110) H 12/12/17 11:43 Random Glucose 217 mg/dL (65-105) H 12/12/17 10:58 Hemoglobin A1c 9.2 % (4.2-6.5) H D 12/12/17 10:58 Calcium 9.2 mg/dl (8.6-10.4) 12/12/17 10:58 Magnesium 1.8 mg/dL (1.6-2.3) 12/12/17 10:58 Total Bilirubin 0.5 mg/dL (0.2-1.3) 12/12/17 10:58 AST 22 U/L (14-36) 12/12/17 10:58 ALT 24 U/L (9-52) 12/12/17 10:58 Alkaline Phosphatase 66 U/L (38-126) 12/12/17 10:58 Total Creatine Kinase < 20 U/L (30-135) L 12/12/17 02:20 CK-MB (Mass) 0.59 ng/mL (0.0-3.38) 12/12/17 02:20 Troponin I 0.0140 ng/mL (0.00-0.120) 12/12/17 02:20 NT-Pro-B Natriuret Pep 269 pg/mL (0-900) 12/11/17 13:41 Total Protein 6.4 g/dL (6.3-8.3) 12/12/17 10:58 Albumin 3.4 g/dL (3.5-5.0) L 12/12/17 10:58 Globulin 3.0 gm/dL (2.2-3.9) 12/12/17 10:58 Albumin/Globulin Ratio 1.1 (1.0-2.1) 12/12/17 10:58 Triglycerides 166 mg/dL (0-149) H D 12/12/17 10:58 Cholesterol 127 mg/dL (0-199) 12/12/17 10:58 LDL Cholesterol Direct 63 mg/dL (0-129) 12/12/17 10:58 HDL Cholesterol 37 mg/dL (30-70) 12/12/17 10:58 Free T4 1.49 ng/dL (0.78-2.19) 12/12/17 10:58 TSH 3rd Generation 1.57 mIU/L (0.46-4.68) 12/12/17 10:58 Digoxin < 0.4 ng/mL (0.8-2.0) L 12/11/17 19:24 Attending/Attestation - Attestation I have personally seen and examined this patient.: Yes I have fully participated in the care of the patient.: Yes I have reviewed all pertinent clinical information, including history, physical exam and plan: Yes Notes (Text): Patient seen, examined, case discussed with medical data entry clerk. Patient seen this morning patient is doing well patient denies acute complaints. Patient denies any dyspnea on exertion denies cough denies chest pain denies palpitation. Patient does note mild rectal bleeding. Patient also notes some mild hematuria. Patient has prescriptions for outpatient renal bladder ultrasound. Patient underwent nuclear stress test today and discussed with Dr. Plascencia following suit results are normal with a normal LV patient is stable from cardiac standpoint for discharge today. Patient also underwent a CT chest noting for interstitial fibrosis. Case discussed with with pulmonary noted for interstitial fibrosis does not recommend treatment since patient is asymptomatic. Discharge Diagnoses: 1. Abnormal EKG --> T wave inversions in V2, V3-->resolved Assessment/Plan * Admit to telemetry * Cardiology, Dr. Plascencia consulted, help appreciated * Cardiac enzymes are negative * lipid panel: triglycerides 166, cholesterol 127, HDL 37, LDL 63 * Abnormal EKG: T waves inversions in V2/V3 * Cardiac risk factors: CAD, HTN, DM, former smoker, prior RI * LIZZIE score: 3 points. 13% risk at 14 days * Heart score: 7, high risk for major adverse cardiac events * ASA 81mg PO daily * Crestor 10mg PO HS * Coreg 3.125mg PO BID * Per cardiology, patient is stable for discharge after reviewing myocardial stress test and echocardiogram 2. Hypertension-->chronic Assessment/Plan * Heart healthy diet * Start Coreg 3.125mg PO BID * Discussed with cardiology, agrees. Will need blood pressure check as outpatient. 3. Known hx of Atrial fibrillation-->chronic Assessment/Plan * CHADsVasc: 3+ * HASBLED: 1+ * Continue Xarelto 10mg PO daily * Start Coreg 3.125mg PO BID * Per cardiology, patient is stable for discharge after reviewing myocardial stress test and echocardiogram 4. 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 Abnormal CXR-->stable Interstital Fibrosis Assessment/Plan * CXR: Worsening diffuse interstitial thickening in the lungs which may represent interstitial fibrosis or lymphangitis carcinomatosis. Clinical correlation and follow-up is advised. No acute findings. * CT Chest (12/12/17): nonspecific interstitial infiltrate with interlocular septal thickening at lung bases and scattered subpleural fibrosis bilaterally. no acute infiltrate. Incidental nodule in the right lobe of thyroid. * Pulmonary (Dr. Wilson) seen and evaluated patient-->stable from his standpoint; asymptomatic, no treatment at this time 6. History of RA-->chronic * Continue Prednisone 5mg PO BID * Follows with Dr. Reich outpatient for RA 7. Prophylaxis * Continue with Xarelto 10mg PO daily * Pepcid 20mg PO BID Case discussed with patient's primary care doctor, Dr. Arjun Trimble at time of discharge.
--- NOTE | 2017-12-12 17:59 | CP.PCM.CON ---
History of Present Illness - History of Present Illness History of Present Illness: 66 year old female patient with past medical history of Afib, asthma, and HTN. Patient presented to the emergency room as instructed by primary care physician Dr. Faiza Trimble after abnormal EKG performed in the office. Patient was examined at bedside. Patient is asymptomatic and has no acute complaints. Patient had CXR performed on 12/11/17 showed worsening diffuse interstitial thickening in both lungs. Chest CT performed on 12/11/17 showed interlobular septal thickening that is most prominent at the lung bases. ROS: Constitutional: Patient denies fever and chills. Cardiovascular: Patient denies chest pain, palpitations Respiratory: Patient denies shortness of breath and cough. Gastrointestinal: Patient denies nausea, vomiting, diarrhea. PMHx: Afib, asthma, HTN, arthritis Medications: Aspirin 81 mg PO daily Carvedilol 3.125 mg PO BID Famotidine 20 mg PO BID Glimepiride - 4mg PO BID Insulin Glargine - 30 units SC Q 12 Prednisone - 5 mg PO BID Rivaroxaban - 10 mg PO Daily Rosuvastatin Calcium - 10 mg PO HS Physical Exam HEENT: Atraumatic, normocephalic, mucuous membranes moist, EOMI Repiratory: Clear to auscultation bilaterally, no rales, wheezing, rhonchi. No use of accessory muscles. Cardiovascular: +S1/ S2, regular rate and rhythm GI: Normal bowel sounds in all 4 quadrants, no tenderness, no distention Extremities: No LE edema. Neurological: Alert, awake, oriented X3 Assessment: 66 year old female patient with past medical history of Afib, asthma, and HTN; patient found to have pulmonary fibrosis. 1. Pulmonary Fibrosis Status: Chronic 2. Hypertension Status: Chronic - Carvedilol 3.125 mg PO BID 3.Diabetes Status: Chronic - Glimepiride - 4mg PO BID -Insulin Glargine - 30 units SC Q 12 Past Patient History - Infectious Disease Hx of Infectious Diseases: None - Tetanus Immunizations Tetanus Immunization: Unknown - Past Medical History & Family History Past Medical History?: Yes - Past Social History Smoking Status: Never Smoked - CARDIAC Hx Hypertension: Yes - PULMONARY Hx Asthma: Yes - HEENT Hx HEENT Problems: Yes Hx Cataracts: Yes (surgery both eyes) Other/Comment: tonsillectomy - INTEGUMENTARY Hx Dermatological Problems: Yes Hx Psoriasis: Yes - MUSCULOSKELETAL/RHEUMATOLOGICAL Hx Fractures: Yes (left foot) - GASTROINTESTINAL Hx Gastrointestinal Disorders: No - GENITOURINARY/GYNECOLOGICAL Hx Genitourinary Disorders: No - PSYCHIATRIC Hx Substance Use: No - SURGICAL HISTORY Hx Coronary Stent: Yes (03/2014) Hx Tonsillectomy: Yes - ANESTHESIA Hx Anesthesia: No Hx Anesthesia Reactions: No Meds Home Medications: Home Medication List Medication Instructions Recorded Confirmed Type Aspirin [Aspirin Chewable] 81 mg PO DAILY #30 chew 12/12/17 Rx Carvedilol [Coreg] 3.125 mg PO BID #60 tab 12/12/17 Rx Glimepiride [amaRYL] 4 mg PO BID tab 12/12/17 Rx Insulin Glargine, Recombina 30 unit SC Q12 unit 12/12/17 Rx [Lantus] Rosuvastatin Calcium [Crestor] 10 mg PO HS tab 12/12/17 Rx predniSONE [predniSONE Tab] 5 mg PO BID tab 12/12/17 Rx Allergies/Adverse Reactions: Allergies Allergy/AdvReac Type Severity Reaction Status Date / Time Penicillins Allergy RASH Verified 12/11/17 12:36 - Medications Medications: Current Medications Aspirin (Aspirin Chewable) 81 mg PO DAILY [facility] Last Admin: 12/12/17 10:46 Dose: 81 mg Carvedilol (Coreg) 3.125 mg PO BID [facility] Last Admin: 12/12/17 17:31 Dose: 3.125 mg Dextrose (Dextrose 50% Inj) 0 ml IV STAT PRN; Protocol PRN Reason: Hypoglycemia Protocol Dextrose (Glutose 15) 0 gm PO ONCE PRN; Protocol PRN Reason: Hypoglycemia Protocol Famotidine (Pepcid) 20 mg PO BID [facility] Last Admin: 12/12/17 17:31 Dose: 20 mg Glimepiride (Amaryl) 4 mg PO BID [facility] Last Admin: 12/12/17 17:31 Dose: 4 mg Glucagon (Glucagen Diagnostic Kit) 0 mg IM STAT PRN; Protocol PRN Reason: Hypoglycemia Protocol Dextrose (Dextrose 5% In Water 1000 Ml) 1,000 mls @ 0 mls/hr IV .Q0M PRN; Protocol; Per Protocol PRN Reason: Hypoglycemia Protocol Insulin Glargine (Lantus) 30 unit SC Q12 [facility] Last Admin: 12/12/17 10:45 Dose: Not Given Insulin Human Regular (Novolin R) 0 unit SC ACHS [facility] PRN Reason: Protocol Last Admin: 12/12/17 12:30 Dose: Not Given Prednisone (Prednisone Tab) 5 mg PO BID [facility] Last Admin: 12/12/17 17:31 Dose: 5 mg Rivaroxaban (Xarelto) 10 mg PO DAILY [facility] Last Admin: 12/12/17 10:46 Dose: 10 mg Rosuvastatin Calcium (Crestor) 10 mg PO HS [facility] Last Admin: 12/11/17 21:54 Dose: 10 mg Results - Vital Signs Recent Vital Signs: Last Vital Signs Temp 97.3 F L 12/12/17 15:39 Pulse 90 12/12/17 16:00 Resp 20 12/12/17 15:39 BP 118/73 12/12/17 15:39 Pulse Ox 96 12/12/17 15:39 - Labs Result Diagrams: 12/12/17 10:58 12/12/17 10:58 Labs: Laboratory Results - last 24 hr 12/11/17 12/11/17 12/11/17 19:24 19:24 19:24 WBC RBC Hgb Hct MCV MCH MCHC RDW Plt Count MPV Neut % (Auto) Lymph % (Auto) [place] % (Auto) Eos % (Auto) Baso % (Auto) Neut # (Auto) Lymph # (Auto) [place] # (Auto) Eos # (Auto) Baso # (Auto) PT 15.8 H INR 1.4 APTT 33 Sodium Potassium Chloride Carbon Dioxide Anion Gap BUN Creatinine Est GFR ( Amer) Est GFR (Non-Af Amer) POC Glucose (mg/dL) Random Glucose Hemoglobin A1c Calcium Magnesium Total Bilirubin AST ALT Alkaline Phosphatase Total Creatine Kinase 29 L CK-MB (Mass) 0.67 Troponin I < 0.0120 Total Protein Albumin Globulin Albumin/Globulin Ratio Triglycerides Cholesterol LDL Cholesterol Direct HDL Cholesterol Free T4 TSH 3rd Generation Digoxin < 0.4 L 12/11/17 12/12/17 12/12/17 22:14 02:20 06:18 WBC RBC Hgb Hct MCV MCH MCHC RDW Plt Count MPV Neut % (Auto) Lymph % (Auto) [place] % (Auto) Eos % (Auto) Baso % (Auto) Neut # (Auto) Lymph # (Auto) [place] # (Auto) Eos # (Auto) Baso # (Auto) PT INR APTT Sodium Potassium Chloride Carbon Dioxide Anion Gap BUN Creatinine Est GFR ( Amer) Est GFR (Non-Af Amer) POC Glucose (mg/dL) 167 H 147 H Random Glucose Hemoglobin A1c Calcium Magnesium Total Bilirubin AST ALT Alkaline Phosphatase Total Creatine Kinase < 20 L CK-MB (Mass) 0.59 Troponin I 0.0140 Total Protein Albumin Globulin Albumin/Globulin Ratio Triglycerides Cholesterol LDL Cholesterol Direct HDL Cholesterol Free T4 TSH 3rd Generation Digoxin 12/12/17 12/12/17 12/12/17 10:58 10:58 10:58 WBC RBC Hgb Hct MCV MCH MCHC RDW Plt Count MPV Neut % (Auto) Lymph % (Auto) [place] % (Auto) Eos % (Auto) Baso % (Auto) Neut # (Auto) Lymph # (Auto) [place] # (Auto) Eos # (Auto) Baso # (Auto) PT INR APTT Sodium 140 Potassium 3.5 L Chloride 104 Carbon Dioxide 26 Anion Gap 14 BUN 10 Creatinine 0.4 L Est GFR ( Amer) > 60 Est GFR (Non-Af Amer) > 60 POC Glucose (mg/dL) Random Glucose 217 H Hemoglobin A1c 9.2 H D Calcium 9.2 Magnesium 1.8 Total Bilirubin 0.5 AST 22 ALT 24 Alkaline Phosphatase 66 Total Creatine Kinase CK-MB (Mass) Troponin I Total Protein 6.4 Albumin 3.4 L Globulin 3.0 Albumin/Globulin Ratio 1.1 Triglycerides 166 H D Cholesterol 127 LDL Cholesterol Direct 63 HDL Cholesterol 37 Free T4 1.49 TSH 3rd Generation 1.57 Digoxin 12/12/17 12/12/17 10:58 11:43 WBC 7.8 RBC 4.58 Hgb 12.0 Hct 36.9 MCV 80.5 L MCH 26.3 L MCHC 32.6 L RDW 15.4 H Plt Count 247 MPV 8.1 Neut % (Auto) 76.3 H Lymph % (Auto) 14.0 L [place] % (Auto) 7.6 Eos % (Auto) 1.6 Baso % (Auto) 0.5 Neut # (Auto) 6.0 Lymph # (Auto) 1.1 [place] # (Auto) 0.6 Eos # (Auto) 0.1 Baso # (Auto) 0.0 PT INR APTT Sodium Potassium Chloride Carbon Dioxide Anion Gap BUN Creatinine Est GFR ( Amer) Est GFR (Non-Af Amer) POC Glucose (mg/dL) 230 H Random Glucose Hemoglobin A1c Calcium Magnesium Total Bilirubin AST ALT Alkaline Phosphatase Total Creatine Kinase CK-MB (Mass) Troponin I Total Protein Albumin Globulin Albumin/Globulin Ratio Triglycerides Cholesterol LDL Cholesterol Direct HDL Cholesterol Free T4 TSH 3rd Generation Digoxin
--- NOTE | 2017-12-12 20:12 | CP.PCM.PN ---
Subjective - Date & Time of Evaluation Date of Evaluation: 12/12/17 Time of Evaluation: 15:20 - Subjective Subjective: Patient seen and evaluated denies chest pain and dyspnea Review of Systems - Constitutional Constitutional: absent: Chills, Fever - EENT Eyes: absent: Change in Vision, Loss of Vision Nose/Mouth/Throat: absent: Dry Mouth, Sore Throat - Cardiovascular Cardiovascular: absent: Chest Pain, Chest Pain with Activity, Dyspnea, Dyspnea on Exertion, Pain Radiating to Arm/Neck/Jaw, Palpitations - Respiratory Respiratory: absent: Cough, Dyspnea - Gastrointestinal Gastrointestinal: absent: Abdominal Pain - Neurological Neurological: absent: Abnormal Movements, Behavioral Changes - Psychiatric Psychiatric: absent: Anxiety, Depression Physical Exam - Constitutional Appears: Well, No Acute Distress - Head Exam Head Exam: ATRAUMATIC, NORMOCEPHALIC - Eye Exam Eye Exam: EOMI - ENT Exam ENT Exam: Mucous Membranes Moist - Expanded Neck Exam Expanded Expanded Neck Exam: absent: Carotid Bruit - Respiratory Exam Respiratory Exam: Clear to Auscultation Bilateral, NORMAL BREATHING PATTERN - Cardiovascular Exam Cardiovascular Exam: REGULAR RHYTHM, +S1, +S2 - GI/Abdominal Exam GI & Abdominal Exam: Normal Bowel Sounds, Soft. absent: Distended, Firm, Tenderness - Extremities Exam Extremities exam: Positive for: pedal pulses present. Negative for: pedal edema Additional comments: varicose veins present bilaterally. Objective - Vital Signs/Intake and Output Vital Signs (last 24 hours): Temp Pulse Resp BP Pulse Ox 97.3 F L 90 20 118/73 96 12/12/17 15:39 12/12/17 16:00 12/12/17 15:39 12/12/17 15:39 12/12/17 15:39 - Labs Labs: 12/12/17 10:58 12/12/17 10:58 PT 15.8 SECONDS (9.7-12.2) H 12/11/17 19:24 INR 1.4 12/11/17 19:24 APTT 33 SECONDS (21-34) 12/11/17 19:24 Assessment and Plan - Assessment and Plan (Free Text) Assessment: 1. Abnormal EKG --> T wave inversions in V2, V3 * Admit to telemetry * ROMIs and EKG Q 6 hrs x3 * lipid panel, HgbA1c, TSH in AM * Abnormal EKG: T waves inversions in V2/V3 * Cardiac risk factors: CAD, HTN, DM, former smoker, prior IA * LIZZIE score: 3 points. 13% risk at 14 days * Heart score: 7, high risk for major adverse cardiac events * ASA 81mg PO daily * Crestor 10mg PO HS 2. Hypertension * Heart healthy diet * Start Coreg 3.125mg PO BID 3. Atrial fibrillation * CHADsVasc: 3+ * HASBLED: 1+ * Continue Xarelto 10mg PO daily * Start Coreg 3.125mg PO BID * Follow up with ECHO 4. Diabetes, insulin dependent * Hemoglobin A1c, lipid panel * Accuchecks QAC/HS * hypoglycemic protocol * Continue Lantus 30mg SQ Q12 * Continue Amaryl 4mg PO BID * Regular ISS SQ 5. abnormal CXR * CXR: Worsening diffuse interstitial thickening in the lungs which may represent interstitial fibrosis or lymphangitis carcinomatosis. Clinical correlation and follow-up is advised. No acute findings. * follow up CT chest without contrast 6. History of RA * Continue Prednisone 5mg PO BID * Follows with Dr. Reich outpatient for RA 7. Prophylaxis * Continue with Xarelto 10mg PO daily * Pepcid 20mg PO BID * PT/OT evaluation * Palliative care consulted for POLST form Patient s/p stress test and ECHO EF Normal Stress test normal D/C patient to f/u as out patient
--- NOTE | 2017-12-12 23:23 | CARD ---
APPROVED REPORT EKG Measurement Heart [id number] [id number] <Conclusion> Normal sinus rhythm Left axis deviation Left ventricular hypertrophy with repolarization abnormality Prolonged QT Abnormal ECG
--- NOTE | 2017-12-12 23:42 | CARD ---
APPROVED REPORT EKG Measurement Heart [id number] NM [id number] <Conclusion> Normal sinus rhythm Left axis deviation Left ventricular hypertrophy with repolarization abnormality Prolonged QT Abnormal ECG
--- NOTE | 2017-12-13 00:17 | CARD ---
APPROVED REPORT EXAM: Two-dimensional and M-mode echocardiogram with Doppler and color Doppler. Other Information Quality : GoodRhythm : INDICATION Abnormal EKG/Arrhythmia Acute MS Dyspnea Atrial Fibrillation RISK FACTORS Hypertension 2D DIMENSIONS IVSd1.1 (0.7-1.1cm)LVDd5.7 (3.9-5.9cm) PWd1.1 (0.7-1.1cm)LVDs3.4 (2.5-4.0cm) FS (%) 41.4 %PWs3.7 (0.8-1.2cm) LVEF (%)71.6 (>50%) M-Mode DIMENSIONS RVDd1.01 (2.1-3.2cm)Left Atrium (MM)4.03 (2.5-4.0cm) IVSd1.17 (0.7-1.1cm)Aortic Root3.35 (2.2-3.7cm) LVDd5.82 (4.0-5.6cm)Aortic Cusp Exc.2.16 (1.5-2.0cm) PWd1.14 (0.7-1.1cm)FS (%) 35 % LVDs3.77 (2.0-3.8cm)LVEF (%)64 (>50%) Mitral Valve MV E Ybxvsiov65.2cm/sMV A Loegbebm024.7cm/sE/A ratio0.6 TDI E/Lateral E'0.0E/Medial E'0.0 Tricuspid Valve TR Peak Tshqfeuh789ro/sTR Peak Gr.21lnCjKTHI74scJr LEFT VENTRICLE The left ventricle is normal size. There is borderline concentric left ventricular hypertrophy. Left ventricle systolic function is normal. The Ejection Fraction is >70%. There is normal LV segmental wall motion. Tissue Doppler imaging reveals abnormal left ventricular diastolic dysfunction. RIGHT VENTRICLE The right ventricle is normal size. There is normal right ventricular wall thickness. The right ventricular systolic function is normal. ATRIA The left atrium is mildly dilated. The right atrium size is normal. The interatrial septum is intact with no evidence for an atrial septal defect. AORTIC VALVE The aortic valve is normal in structure. No aortic regurgitation is present. There is no aortic valvular stenosis. There is no aortic valvular vegetation. MITRAL VALVE The mitral valve is normal in structure. There is no evidence of mitral valve prolapse. There is no mitral valve stenosis. Mitral regurgitation is mild. TRICUSPID VALVE The tricuspid valve is normal in structure. There is trace to mild tricuspid regurgitation. Right ventricular systolic pressure is estimated at less than 30 mmHg. There is no pulmonary hypertension. PULMONIC VALVE The pulmonary valve is normal in structure. There is no pulmonic valvular regurgitation. There is no pulmonic valvular stenosis. GREAT VESSELS The aortic root is normal in size. PERICARDIAL EFFUSION There is no significant pericardial effusion. <Conclusion> Left ventricle systolic function is normal. The Ejection Fraction is >70%. Hypertensive heart disease. Diastolic dysfunction. No aortic regurgitation is present. Mitral regurgitation is mild. There is trace to mild tricuspid regurgitation. There is no pulmonary hypertension. There is no pulmonic valvular regurgitation.
[2017-12-13] MEDS ORDERED: Potassium Chloride 20 mEq ER Tab PO SCH (10:00)
[2017-12-13] MEDS ORDERED: Potassium Chloride 20 mEq ER Tab PO ONE (15:30)
--- NOTE | 2017-12-13 21:08 | CARD ---
APPROVED REPORT EKG Measurement Heart [id number] [place] 158P7 [id number] <Conclusion> Normal sinus rhythm Left axis deviation Left ventricular hypertrophy with QRS widening and repolarization abnormality Prolonged QT Abnormal ECG
--- NOTE | 2017-12-14 07:05 | CARD ---
APPROVED REPORT Protocol: LEXISCAN Test Type: LEXISCAN STRESS Test Indications: CHEST PAIN Medications: LIST Target HR: 153 bpm Resting ECG: NSR W/ NS ST T CHANGES Resting Heart Rate: 81 bpm Resting Blood Pressure: 150/80mmHg submaximum (85%): 130 bpm TEST SUMMARY QEBYDRLQIRDNFK45:01..1.081/.0. PREINFSNHYPERV.02:540.00.01.112275/80.1. INFUSIONDOSE 100:300.00.01.082/.1. XJAZOTLAR06:[id number]/50.0. PROCEDURE Pharmacologic stress testing was performed using 0.4mg per 5ml of regadenoson given intravenously over 7-10 seconds. Reversal agent aminophyline 100 mg, given intravenously for Headache. POST EXERCISE Reason for Termination: Protocol Completed Target HR: No Max HR: 82 bpm 69% of Maximum Predicted HR: 153 bpm Exercise duration: 00:30 min:sec, 0 Stage Exercise capacity: 1.0METs Max Blood Pressure: 150/80mmHg Blood Pressure response to exercise: normal resting BP - appropriate response Heart Rate response to exercise: appropriate Chest Pain: No, none Angina index: 0 Arrhythmia: No, none ST Change: No, none FROM BASELINE Deviation: 0 mm INTERPRETATION Stress EKG Conclusion: NEGATIVE LEXISCAN STRESS TEST NORMAL BP RESPONSE TO LEXISCAN NUCLEAR STUDIES TO BE READ SEPARATELY EXAM: Myocardial Perfusion STRESS/REST Imaging Protocol The imaging protocol used to acquire images was Stress Tc-99m/rest Tc-99m 1 day Stress Spect myocardial perfusion imaging was performed in supine position 40 minutes following the injection of 13 mCi of Tc-99 Myoview. Gated Rest Spect was performed 41 minutes after intravenous 32 mCi Tc-99 Myoview injection. The images were gated to evaluate regional wall motion and calculate ventricular ejection fraction.Images were reconstructed using backfilter projection method in short horizontal and verticle long axis. Spect slices were generated. RESTING DATA UNV917.34etWZ0.90L/min ESV44.00mlMyocardial Qadh579.00g Av. Heart Rate84.00bpm EF57.00% STRESS DATA WYN643.29acYA0.40L/min ESV43.00mlMyocardial Yugz400.00g EF65.00% Regional WT score at stress:0.00 Regional WM score at stress:0.00 Summed WT score at stress:10.00 Av. Heart Rate82.00bpmSummed WM score at stress:1.00 LV Perf. Quant 17 Seg. SSS0.00 17 Seg. SRS7.00 17 Seg. SDS0.00 Stress Defect Extent (% LAD)0.00Rest Defect Extent (% LAD)0.00Rev. Defect Extent (% LAD)0.00 Stress Defect Extent (% LCX)5.00Rest Defect Extent (% LCX)46.30Rev. Defect Extent (% LCX)0.00 Stress Defect Extent (% RCA)6.70Rest Defect Extent (% RCA)27.80Rev. Defect Extent (% RCA)0.00 Stress Defect Extent (% FLOWER)2.80Rest Defect Extent (% FLOWER)18.00Rev. Defect Extent (% FLOWER)0.00 Other Information Quality:Good IMPRESSION Normal Myocardial Perfusion exercise stress study Left Ventricle LV Function:Left ventricle systolic function is normal. The Ejection Fraction is >55%. Metabolism/Perfusion There are no perfusion/metabolism defects. Conclusion 1. Normal Lexiscan Nuclear stress test. Normal EF
== END 2017-12-12 18:05 | disposition home or self-care (01) ==
LOC: C.ER 12:17 → C.9E 14:06 → C.6T 14:25
PROVIDERS: ADMIT Hospitalist; ATTEND Hospitalist
DX: I44.7 Left bundle-branch block, unspecified (principal); I48.91 Unspecified atrial fibrillation; I10 Essential (primary) hypertension; I25.10 Atherosclerotic heart disease of native coronary artery without angina pectoris; E11.9 Type 2 diabetes mellitus without complications; J45.909 Unspecified asthma, uncomplicated; Z66 Do not resuscitate; Z79.4 Long term (current) use of insulin; Z87.891 Personal history of nicotine dependence; Z95.5 Presence of coronary angioplasty implant and graft; I25.2 Old myocardial infarction
CPT/HCPCS: 36415; 71045; 71250; 80053; 80061; 80162; 82948; 83036; 83735; 83880; 84439; 84443; 84484; 85025; 85610; 85730; 93005; 93306; 97116; 97162; 97165; 97530; 99283; G0378; G8987; G8988; G8989; J2785

== ENCOUNTER 2018-10-08 16:32 | Inpatient (IN) | payer MEDICARE ==
[2018-10-08 16:32] VITALS: BMI 35.9
--- NOTE | 2018-10-08 19:42 | C.PDOC ---
History Of Present Illness 67-year-old female presents to the ED for evaluation of abnormal labs. Patient states she followed-up with Dr. Gaytan for a regular checkup. During her visit, patient's lab results from her previous visit were reviewed and she was found to be anemic, with hemoglobin level noted to be 9.6 on 09/24. Patient previous bloodwork from 02/10/18 was reviewed, and she had hemoglobin of 11.4 at the time. Patient states she was advised by her proofreader, Dr. Miltons, staff to present to the ED for evaluation of possible internal bleeding. She states she is currently asymptomatic and denies fever, chills, chest pain, shortness of breath, vomiting, changes in bowel habits, dark/bloody stools. Time Seen by Provider: 10/08/18 18:13 Chief Complaint (Nursing): Abnormal Labs History Per: Patient History/Exam Limitations: no limitations Additional History Per: Patient Past Medical History Reviewed: Historical Data, Nursing Documentation, Vital Signs Vital Signs: Last Vital Signs Temp 98.1 F 10/08/18 16:52 Pulse 108 H 10/08/18 16:52 Resp 18 10/08/18 16:52 BP 162/79 H 10/08/18 16:52 Pulse Ox 94 L 10/08/18 16:52 - Medical History PMH: Asthma, Atrial Fibrillation, Fractures (left foot), HTN Surgical History: Coronary Stent (03/2014), Tonsillectomy - [facility] CORONAR ARTERIOGR-2 CATH (04/10/14) CORONARY ARTERY STENT INSERTION [id number] (04/10/14) DX ULTRASOUND-HEART (04/09/14) HEART COUNTERSHOCK NEC (04/09/14) INJECT/INFUSE PLATELET INHIBITOR (04/10/14) INSERTION OF ONE VASCULAR STENT (04/10/14) INSERTION OF TWO VASCULAR STENTS (04/09/14) LEFT HEART CARDIAC CATH (04/10/14) LT HEART ANGIOCARDIOGRAM (04/10/14) PERCUTANEOUS TRANSLUMINAL CORONARY ANGIOPLASTY [PTCA] (04/10/14) PROCEDURE ON SINGLE VESSEL (04/10/14) PROCEDURE ON TWO VESSELS (04/09/14) Family History: States: Unknown Family Hx - Social History Hx Tobacco Use: No Hx Alcohol Use: No Hx Substance Use: No - Immunization History Hx Tetanus Toxoid Vaccination: No Hx Influenza Vaccination: No Hx Pneumococcal Vaccination: No Review Of Systems Except As Marked, All Systems Reviewed And Found Negative. Respiratory: Negative for: Shortness of Breath Gastrointestinal: Negative for: Vomiting Physical Exam - Physical Exam Additional Physical Exam Comments: Constitutional: No acute distress. Head: Normocephalic. Atraumatic. Eyes: PERRL. No pallor. ENT: Moist mucous membranes. Neck: Supple. Cardiovascular: Regular rate. Radial pulse 2+ bilaterally. Chest: No tenderness. Respiratory: Clear to auscultation bilaterally. GI: Soft. Nontender. Nondistended. Rectal: negative guiac test Back: No CVA tenderness. Musculoskeletal: No tenderness or swelling of extremities. Skin: No rash. Neurologic: Alert, no focal deficit. ED Course And Treatment - Laboratory Results Result Diagrams: 10/08/18 20:31 10/08/18 20:31 O2 Sat by Pulse Oximetry: 94 Medical Decision Making Medical Decision Making: Discussed case with Dr Plascencia, recommends patient observation, needs colonoscopy, needs to continue Xarelto, recommends consult to Dr. Mann, Dr. Plascencia states he will notify him. Disposition - Disposition Disposition: HOSPITALIZED Disposition Time: 19:16 Condition: FAIR Forms: [facility] (Mongolian) - Clinical Impression Clinical Impression: Anemia, Chronic anticoagulation - Scribe Statement The provider has reviewed the documentation as recorded by the Scribe (Clari Trimble) Provider Attestation: All medical record entries made by the Scribe were at my direction and personally dictated by me. I have reviewed the chart and agree that the record accurately reflects my personal performance of the history, physical exam, medical decision making, and the department course for this patient. I have also personally directed, reviewed, and agree with the discharge instructions and disposition.
[2018-10-08 20:45] LABS: BASO % 0.4 % (0.0-2.0); EOS # 0.1 K/uL (0.0-0.7); EOS % 2.1 % (0.0-4.0); HEMOGLOBIN 9.8 g/dL (11.0-16.0); LYMPH # 1.6 K/uL (1.0-4.3); LYMPH % 23.2 % (20.0-40.0); MEAN CELL VOLUME 66.6 fL (81.0-99.0); MEAN CORPUSCULAR HEMOGLOBIN 20.4 pg (27.0-31.0); MEAN CORPUSCULAR HGB CONC 30.6 g/dL (33.0-37.0); MEAN PLATELET VOLUME 7.3 fL (7.2-11.7); MONO # 0.7 K/uL (0.0-0.8); MONO % 10.7 % (0.0-10.0); NEUT # 4.3 K/uL (1.8-7.0); NEUT % 63.6 % (50.0-75.0); NRBC % 0.1 % (0.0-2.0); RBC 4.81 Mil/uL (3.80-5.20); WHITE BLOOD COUNT 6.8 K/uL (4.8-10.8)
[2018-10-08 20:49] LABS: INR 1.3; PROTHROMBIN TIME 14.2 SECONDS (9.7-12.2)
[2018-10-08 21:14] LABS: BLOOD UREA NITROGEN 14 mg/dL (7-17); CALCIUM 10.3 mg/dl (8.6-10.4); GFR NON-AFRICAN AMERICAN > 60
[2018-10-08 21:46] LABS: ALB/GLOB RATIO 1.1 (1.0-2.1); ALT/SGPT 11 U/L (9-52); AST/SGOT 61 U/L (14-36)
--- NOTE | 2018-10-08 23:05 | CP.PCM.HP ---
<Kay Nugent - Last Filed: 10/09/18 06:26> History of Present Illness - History of Present Illness History of Present Illness: H&P for Dr. Walker HPI: Patient is a 67 year old female with history of A fib on Xarelto who presents after she was sent in Dr. Ryan and Dr. Plascencia for a drop in Hb from 11.4 from January 2018 to 9.6 in September 2018. She denies any current bleeding however she admits that she had intermittent bright blood in her urine, about once every few days, from last fall until Jun 2018 which resolved after she had a procedure for kidney stones with Dr. San. She denies any current bleeding in her urine or stool. She has not had her period since age 34, no current vaginal bleeding. She admits to losing about 40lbs unintentionally over the past year, denies night sweats, unspecified if decreased appetite stating she doesn't usually eat much. She states she had her last colonoscopy 2 years ago which was normal. She states she has normal brown stools, with no change in stool size. She states she has a nonproductive cough currently, but states it is from allergies. She denies any blood in her cough. She denies fevers, chills, headache, lightheadedness, dizzness, sore throat, pain with swallowing, chest pain, palpitations, abdominal pain, nausea, vomiting, diarrhea, constipation, easy bruising, recent travel, sick contacts. Of note, she recently started Olumiant (Baricitinib 2mg one tablet daily last week) for her rheumatoid arthritis. PMH: CAD with stents, A fib, HTN, DM, RA PSH: cardiac stents, vein surgery, tonsillectomy, tubal ligation Family hx: Father of DE in 60s, Mother of stomach cancer in 70s Social hx: former smoker - quit 30 years, smoked 2ppd x20 years, denies alcohol or drug use. Retired 2 years ago, worked as [email or web address] and [employer]. Has 4 children. Home meds: Baricitinib 2mg once in AM, Prednisone 5mg once daily , Sulfasalazine 500mg 3 tabs BID, Tramadol 50mg QHS, Metformin 500mg PO BID, Glimepiride 4mg PO BID, Insulin 20 units in AM, Metoprolol 50mg PO BID, Xarelto 15mg daily, Crestor 10mg PO HS Allergies: PCN - unsure of reaction, she was told she was allergic, PMD: Dr. Arjun Trimble Endo: Dr. Lake Cardio: Temo Uro: Jaswinder DNR/DNI, confirmed with patient. POLST signed during last admission in December 2017 Healthcare proxy: Son Jerry [phone] Present on Admission - Present on Admission Any Indicators Present on Admission: No Review of Systems - Constitutional Constitutional: Weight Loss. absent: Chills, Fever - EENT Eyes: absent: Change in Vision Ears: absent: Decreased Hearing Nose/Mouth/Throat: absent: Sore Throat - Cardiovascular Cardiovascular: absent: Chest Pain, Dyspnea, Palpitations, Syncope - Respiratory Respiratory: Cough. absent: Dyspnea - Gastrointestinal Gastrointestinal: absent: Abdominal Pain, Change in Stool Character, Constipation, Diarrhea, Nausea, Vomiting - Genitourinary Genitourinary: Hematuria. absent: Dysuria - Reproductive: Female Reproductive:Female: Post Menopausal - Musculoskeletal Musculoskeletal: absent: Neck Pain, Tingling - Neurological Neurological: absent: Confusion, Headaches, Syncope, Tingling - Psychiatric Psychiatric: absent: Anxiety, Depression - Hematologic/Lymphatic Hematologic: absent: Easy Bruising Past Patient History - Infectious Disease Hx of Infectious Diseases: None - Tetanus Immunizations Tetanus Immunization: Unknown - Past Medical History & Family History Past Medical History?: Yes - Past Social History Smoking Status: Never Smoked - CARDIAC Hx Atrial Fibrillation: Yes Hx Hypertension: Yes - PULMONARY Hx Asthma: Yes - HEENT Hx HEENT Problems: Yes Hx Cataracts: Yes (surgery both eyes) Other/Comment: tonsillectomy - INTEGUMENTARY Hx Dermatological Problems: Yes Hx Psoriasis: Yes - MUSCULOSKELETAL/RHEUMATOLOGICAL Hx Fractures: Yes (left foot) - GASTROINTESTINAL Hx Gastrointestinal Disorders: No - GENITOURINARY/GYNECOLOGICAL Hx Genitourinary Disorders: No - PSYCHIATRIC Hx Substance Use: No - SURGICAL HISTORY Hx Coronary Stent: Yes (03/2014) Hx Tonsillectomy: Yes - ANESTHESIA Hx Anesthesia: No Hx Anesthesia Reactions: No Meds Allergies/Adverse Reactions: Allergies Allergy/AdvReac Type Severity Reaction Status Date / Time Penicillins Allergy RASH Verified 12/11/17 12:36 Physical Exam - Constitutional Appears: Well, Non-toxic, No Acute Distress - Head Exam Head Exam: ATRAUMATIC, NORMOCEPHALIC - Eye Exam Eye Exam: EOMI, PERRL. absent: Scleral icterus Additional comments: Mild conjunctival pallor - ENT Exam ENT Exam: Mucous Membranes Moist - Neck Exam Neck exam: Positive for: Full Rom. Negative for: Lymphadenopathy, Tenderness, Thyromegaly - Respiratory Exam Respiratory Exam: Clear to Auscultation Bilateral, NORMAL BREATHING PATTERN. absent: Rales, Rhonchi, Wheezes, Respiratory Distress, Stridor - Cardiovascular Exam Cardiovascular Exam: REGULAR RHYTHM, +S1, +S2. absent: Gallop, Rubs, Systolic Murmur - GI/Abdominal Exam GI & Abdominal Exam: Normal Bowel Sounds, Soft. absent: Distended, Guarding, Hernia, Tenderness Additional comments: Scar from tubal ligation - Extremities Exam Extremities exam: Positive for: normal capillary refill (Cap refill <2 secs ), pedal edema (trace ), pedal pulses present. Negative for: calf tenderness Additional comments: bilateral varicosities of veins on lower extremities with erythema that does not resolve with elevation of legs no calf tenderness - Back Exam Back exam: absent: CVA tenderness (L), CVA tenderness (R), rash noted - Neurological Exam Neurological exam: Alert, CN II-XII Intact, Oriented x3 - Psychiatric Exam Psychiatric exam: Normal Affect, Normal Mood - Skin Skin Exam: Dry, Intact, Warm Results - Vital Signs Recent Vital Signs: Last Vital Signs Temp 98.4 F 10/08/18 23:04 Pulse 91 H 10/08/18 23:04 Resp 18 10/08/18 23:04 BP 146/81 10/08/18 23:04 Pulse Ox 95 10/08/18 23:04 - Labs Result Diagrams: 10/08/18 20:31 10/08/18 20:31 Labs: Laboratory Results - last 24 hr 10/08/18 10/08/18 10/08/18 20:31 20:31 20:31 WBC 6.8 RBC 4.81 Hgb 9.8 L D Hct 32.0 L MCV 66.6 L D MCH 20.4 L MCHC 30.6 L RDW 18.0 H Plt Count 317 MPV 7.3 Neut % (Auto) 63.6 Lymph % (Auto) 23.2 Schuyler % (Auto) 10.7 H Eos % (Auto) 2.1 Baso % (Auto) 0.4 Neut # (Auto) 4.3 Lymph # (Auto) 1.6 Schuyler # (Auto) 0.7 Eos # (Auto) 0.1 Baso # (Auto) 0.0 Differential Comment PT 14.2 H INR 1.3 APTT 38.0 H Sodium 139 Potassium 5.1 Chloride 102 Carbon Dioxide 28 Anion Gap 15 BUN 14 Creatinine 0.4 L Est GFR ( Amer) > 60 Est GFR (Non-Af Amer) > 60 Random Glucose 134 H D Calcium 10.3 Total Bilirubin 0.8 AST 61 H D ALT 11 Alkaline Phosphatase 56 Total Protein 7.8 Albumin 4.0 Globulin 3.8 Albumin/Globulin Ratio 1.1 Assessment & Plan - Assessment and Plan (Free Text) Assessment: 67 year old female with history of DM, HTN, RA, A fib on Xarelto who presents for drop in hemoglobin from 11.4 to 9.6. Plan: Drop in Hemoglobin Possible GI Bleed H/H 9.8/32.0 - baseline Hb in 11s Follow up repeat CBC in AM. GI Dr. Mann consulted, help appreciated NPO Protonix 40mg IV BID NS @ 100cc/hr IV Repeat FOBT x3 ordered, initial guaic in ED negative CT abdomen/pelvis with PO and IV contrast ordered History of recent stephy hematuria UA and urine culture ordered History of A fib Cardio Dr. Plascencia consulted, help appreciated On Xarelto 15mg daily - held History of CAD with stents Crestor 10mg PO HS EKG: SR 98 LVH History of HTN Continue Metoprolol 50mg PO BID History of DM Confirm insulin dose with pharmacy in AM, patient does not have insulin with her NPO Low dose ISS Hypoglycemic protocol History of RA On Baricitinib 2mg in AM - held currently Prednisone 5mg daily Sulfasalazine held currently Prophylaxis: DVT prophlaxis held given drop in Hb On Protonox 40mg IV BID NPO Code status: DNR/DNI Case discussed with Dr. Denise Nugent, PGY1 <Dilan Walker - Last Filed: 10/09/18 06:35> Results - Vital Signs Recent Vital Signs: Last Vital Signs Temp 98.7 F 10/09/18 00:37 Pulse 93 H 10/09/18 00:37 Resp 20 10/09/18 00:37 BP 163/80 H 10/09/18 00:37 Pulse Ox 96 10/09/18 00:37 - Labs Result Diagrams: 10/08/18 20:31 10/08/18 20:31 Labs: Laboratory Results - last 24 hr 10/08/18 10/08/18 10/08/18 20:31 20:31 20:31 WBC 6.8 RBC 4.81 Hgb 9.8 L D Hct 32.0 L MCV 66.6 L D MCH 20.4 L MCHC 30.6 L RDW 18.0 H Plt Count 317 MPV 7.3 Neut % (Auto) 63.6 Lymph % (Auto) 23.2 Schuyler % (Auto) 10.7 H Eos % (Auto) 2.1 Baso % (Auto) 0.4 Neut # (Auto) 4.3 Lymph # (Auto) 1.6 Schuyler # (Auto) 0.7 Eos # (Auto) 0.1 Baso # (Auto) 0.0 Differential Comment PT 14.2 H INR 1.3 APTT 38.0 H Sodium 139 Potassium 5.1 Chloride 102 Carbon Dioxide 28 Anion Gap 15 BUN 14 Creatinine 0.4 L Est GFR ( Amer) > 60 Est GFR (Non-Af Amer) > 60 Random Glucose 134 H D Calcium 10.3 Total Bilirubin 0.8 AST 61 H D ALT 11 Alkaline Phosphatase 56 Total Protein 7.8 Albumin 4.0 Globulin 3.8 Albumin/Globulin Ratio 1.1 Urine Color Urine Clarity Urine pH Ur Specific Cumming Urine Protein Urine Glucose (UA) Urine Ketones Urine Blood Urine Nitrate Urine Bilirubin Urine Urobilinogen Ur Leukocyte Esterase Urine WBC (Auto) Urine RBC (Auto) Ur Squamous Epith Cells Calcium Oxalate Crystal 10/09/18 03:19 WBC RBC Hgb Hct MCV MCH MCHC RDW Plt Count MPV Neut % (Auto) Lymph % (Auto) Schuyler % (Auto) Eos % (Auto) Baso % (Auto) Neut # (Auto) Lymph # (Auto) Schuyler # (Auto) Eos # (Auto) Baso # (Auto) Differential Comment PT INR APTT Sodium Potassium Chloride Carbon Dioxide Anion Gap BUN Creatinine Est GFR ( Amer) Est GFR (Non-Af Amer) Random Glucose Calcium Total Bilirubin AST ALT Alkaline Phosphatase Total Protein Albumin Globulin Albumin/Globulin Ratio Urine Color Yellow Urine Clarity Clear Urine pH 5.0 Ur Specific Cumming 1.018 Urine Protein Negative Urine Glucose (UA) Normal Urine Ketones Negative Urine Blood Negative Urine Nitrate Negative Urine Bilirubin Negative Urine Urobilinogen Normal Ur Leukocyte Esterase Neg Urine WBC (Auto) 2 Urine RBC (Auto) 1 Ur Squamous Epith Cells 3 Calcium Oxalate Crystal Occ H Assessment & Plan - Date & Time Date: 10/09/18 (I have seen and examined the patient. I agree with the findings and plan of care as documented by Dr. Nugent. Patient with anemia. Sent by Dr. Plascencia for suspicion of GI bleed. Consult to GI. Check for stool OB. History of a fib and CAD with stents. Hold Xarelto for now. Protonix drip. Monitor for acute changes. Monitor hemodynamic stability.) Time: 06:33 Attending/Attestation - Attestation I have personally seen and examined this patient.: Yes I have fully participated in the care of the patient.: Yes I have reviewed all pertinent clinical information: Yes
[2018-10-08] MEDS ORDERED: Sodium Chloride 0.9% 250 ML IV ONE (23:33)
[2018-10-08] MEDS ORDERED: Dextrose 50% SYRINGE Inj (50 ml) IV PRN (23:41)
[2018-10-08] MEDS ORDERED: Glucagon Recombinant 1 mg Inj IM PRN (23:41)
[2018-10-09] MEDS: Sodium Chloride 0.9% 1,000 ML IV SCH ×3 (00:28→18:46)
[2018-10-09 04:18] LABS: SQUAMOUS EPITHIAL 3 /hpf (0-5); URINE BILIRUBIN NEGATIVE (NEGATIVE); URINE BLOOD NEGATIVE (NEGATIVE); URINE CALCIUM OXALATE CRYSTALS OCC /hpf (<OCC); URINE CLARITY Clear (Clear); URINE COLOR Yellow (YELLOW); URINE GLUCOSE (UA) NORMAL (Normal); URINE LEUKOCYTE ESTERASE NEG Leu/uL (Negative); URINE PROTEIN NEGATIVE (NEGATIVE); URINE UROBILINOGEN NORMAL mg/dL (0.2-1.0)
[2018-10-09] MEDS ORDERED: Phytonadione 10 mg/ml Inj (Adult) SC STA ×2 (07:16→07:35)
[2018-10-09] MEDS ORDERED: (Novolin R) Insulin Human Regular 100 units/ml vial SC SCH (07:30)
[2018-10-09 07:55] LABS: BASO % 0.6 % (0.0-2.0); EOS # 0.1 K/uL (0.0-0.7); EOS % 1.9 % (0.0-4.0); HEMOGLOBIN 9.4 g/dL (11.0-16.0); MEAN CELL VOLUME 67.9 fL (81.0-99.0); MEAN CORPUSCULAR HEMOGLOBIN 20.9 pg (27.0-31.0); MEAN CORPUSCULAR HGB CONC 30.8 g/dL (33.0-37.0); MEAN PLATELET VOLUME 7.2 fL (7.2-11.7); MONO # 0.7 K/uL (0.0-0.8); MONO % 10.4 % (0.0-10.0); NEUT # 4.6 K/uL (1.8-7.0); NEUT % 71.1 % (50.0-75.0); RBC 4.49 Mil/uL (3.80-5.20); RED CELL DISTRIBUTION WIDTH 18.7 % (11.5-14.5); WHITE BLOOD COUNT 6.5 K/uL (4.8-10.8)
[2018-10-09 08:24] LABS: ALB/GLOB RATIO 1.2 (1.0-2.1); ALBUMIN 3.7 g/dL (3.5-5.0); ALT/SGPT 19 U/L (9-52); AST/SGOT 23 U/L (14-36); BLOOD UREA NITROGEN 14 mg/dL (7-17); CALCIUM 9.8 mg/dl (8.6-10.4); GFR NON-AFRICAN AMERICAN > 60
--- NOTE | 2018-10-09 08:53 | CP.PCM.PN ---
<Antoinette Norris - Last Filed: 10/09/18 17:52> Subjective - Date & Time of Evaluation Date of Evaluation: 10/09/18 Time of Evaluation: 08:53 - Subjective Subjective: PGY-1 Antoinette Norris D.O. Medicine progress note for Dr. Patrick Trimble's service: Patient was seen and examined this morning. She is sitting up in bed. She says that she feels very tired and a little frustrated because she is not allowed to eat, specifically she wants coffee. She denies any weakness or lightheadedness, SOB or palpitations. She denies any bleeding or bruising. She affirms she had a colonscopy in the past (2 years ago) but never EGD. Objective - Vital Signs/Intake and Output Vital Signs (last 24 hours): Temp Pulse Resp BP Pulse Ox 98.1 F 91 H 20 165/87 H 95 10/09/18 08:33 10/09/18 08:33 10/09/18 08:33 10/09/18 08:33 10/09/18 08:33 - Medications Medications: Current Medications Dextrose (Dextrose 50% Inj) 0 ml IV STAT PRN; Protocol PRN Reason: Hypoglycemia Protocol Dextrose (Glutose 15) 0 gm PO ONCE PRN; Protocol PRN Reason: Hypoglycemia Protocol Glucagon (Glucagen Diagnostic Kit) 0 mg IM STAT PRN; Protocol PRN Reason: Hypoglycemia Protocol Dextrose (Dextrose 5% In Water 1000 Ml) 1,000 mls @ 0 mls/hr IV .Q0M PRN; Protocol PRN Reason: Hypoglycemia Protocol Sodium Chloride (Sodium Chloride 0.9%) 1,000 mls @ 100 mls/hr IV .Q10H KIM Last Admin: 10/09/18 00:28 Dose: 100 mls/hr Insulin Human Regular (Novolin R) 0 unit SC ACHS KIM; Protocol Last Admin: 10/09/18 07:47 Dose: Not Given Metoprolol Tartrate (Lopressor) 50 mg PO BID [facility] Metoprolol Tartrate (Lopressor) 50 mg PO DAILY [facility] Pantoprazole Sodium (Protonix Inj) 40 mg IVP Q12H KIM Last Admin: 10/09/18 00:28 Dose: 40 mg Prednisone (Prednisone Tab) 5 mg PO DAILY [facility] Rosuvastatin Calcium (Crestor) 10 mg PO HS KIM - Labs Labs: 10/09/18 07:45 10/09/18 07:45 PT 14.2 SECONDS (9.7-12.2) H 10/08/18 20:31 INR 1.3 10/08/18 20:31 APTT 38.0 SECONDS (21-34) H 10/08/18 20:31 - Constitutional Appears: Non-toxic, No Acute Distress - Head Exam Head Exam: ATRAUMATIC, NORMAL INSPECTION - Eye Exam Eye Exam: EOMI, Normal appearance - ENT Exam ENT Exam: Mucous Membranes Moist - Neck Exam Neck Exam: Normal Inspection - Respiratory Exam Respiratory Exam: Clear to Ausculation Bilateral, NORMAL BREATHING PATTERN - Cardiovascular Exam Cardiovascular Exam: RRR, +S1, +S2 - GI/Abdominal Exam GI & Abdominal Exam: Soft. 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 Patient is asymptomatic. Her cruise consultant wants to r/o GI bleed as she needs to be anticoagulated for her Afib. Plan: Anemia, acute - Baseline Hgb 12-14, now 9.4 - MCV low (67) - UA: no blood - CT C/A/P pending - FOBT x3 pending (negative in ED) - Iron studies, B12/folate pending - Monitor H&H - NPO after midnight - Vit K 10 mg SC in ED - NS @ 100 cc/hr - Protonix 40 mg IV Q12H - GI consulted (Johnathan)- EGD tomorrow 10/10 Pancreatic abnormality- suspicious for malignancy - CT A/P: Hypoattenuation of the liver compatible with hepatic steatosis. Splenomegaly. 3 mm too small to characterize hypodensity within the anterior aspect of the spleen, nonspecific. Heterogeneity/fullness of the pancreatic head; underlying neoplasm such as adenocarcinoma must be excluded. Alternatives such as focal pancreatitis may also be considered. No associated inflammatory changes are evident. No evidence of bulky adenopathy. Recommend correlation with amylase and lipase as well as CT pancreatic protocol for further evaluation. - Pancreatic protocol CT pending - Amylase, lipase pending - Tumor markers pending - Hepatobiliary surgery consulted (Alexander) Gallbladder distention - CT A/P: Gallbladder distension. Punctate density at the gallbladder neck, favored to reflect tiny gallstone. Common bile duct measures approximately 7 mm, mildly dilated. - Abd US pending - Hepatobiliary surgery consulted (Alexander) Atrial fibrillation on anticoagulation - EKG: NSR, LVH - Hold Xarelto - Cardiology consulted (Temo) Coronary artery disease, chronic- s/p stents - EKG: NSR, LVH - Crestor 10 mg PO QHS Hypertension, chronic - Vitals Q6H - Metoprolol 50 mg PO BID Type 2 diabetes mellitus, chronic - Accuchecks Q6H - Hypoglycemia protocol - ISS low Rheumatoid arthritis - Hold Baricitinib - Hold Sulfasalazine - Prednisone 5 mg PO daily Ppx: VTE: contraindicated GI: Protonix 40 mg IV Q12H Diet: Full liquids Code status: DNR/DNI- POLST 12/2017 Healthcare proxy: SonJerry [phone] Dispo: Monitor H&H. Patient for CT, US, and EGD tomorrow. Case discussed with attending, Dr. Patrick Trimble. <Geovanny Trimble - Last Filed: 10/12/18 19:02> Objective - Vital Signs/Intake and Output Vital Signs (last 24 hours): Temp Pulse Resp BP Pulse Ox 98.1 F 89 20 145/90 95 10/12/18 17:12 10/12/18 17:12 10/12/18 17:12 10/12/18 17:12 10/12/18 17:12 Intake and Output: 10/12/18 10/13/18 18:59 06:59 Intake Total 480 Balance 480 - Medications Medications: Current Medications Dextrose (Dextrose 50% Inj) 0 ml IV STAT PRN; Protocol PRN Reason: Hypoglycemia Protocol Dextrose (Glutose 15) 0 gm PO ONCE PRN; Protocol PRN Reason: Hypoglycemia Protocol Enoxaparin Sodium (Lovenox) 80 mg SC Q12 [facility] Last Admin: 10/11/18 22:24 Dose: 80 mg Glucagon (Glucagen Diagnostic Kit) 0 mg IM STAT PRN; Protocol PRN Reason: Hypoglycemia Protocol Dextrose (Dextrose 5% In Water 1000 Ml) 1,000 mls @ 0 mls/hr IV .Q0M PRN; Protocol PRN Reason: Hypoglycemia Protocol Insulin Human Regular (Novolin R) 0 unit SC Q6H KIM; Protocol Last Admin: 10/12/18 17:35 Dose: 3 units Metoprolol Tartrate (Lopressor) 50 mg PO BID [facility] Last Admin: 10/12/18 17:34 Dose: 50 mg Pantoprazole Sodium (Protonix Inj) 40 mg IVP DAILY [facility] Last Admin: 10/12/18 11:01 Dose: 40 mg Prednisone (Prednisone Tab) 5 mg PO DAILY [facility] Last Admin: 10/12/18 11:00 Dose: 5 mg Rosuvastatin Calcium (Crestor) 10 mg PO HS [facility] Last Admin: 10/11/18 22:23 Dose: 10 mg - Labs Labs: 10/12/18 08:21 10/12/18 08:21 PT 13.1 SECONDS (9.7-12.2) H 10/12/18 08:21 INR 1.2 10/12/18 08:21 APTT 38.0 SECONDS (21-34) H 10/08/18 20:31 Attending/Attestation - Attestation I have personally seen and examined this patient.: Yes I have fully participated in the care of the patient.: Yes I have reviewed all pertinent clinical information, including history, physical exam and plan: Yes Notes (Text): 10/12/18 19:02 This is a late entry. Patient was seen and examined with resident Dr. Norris. Care of this patient was gone over in detail with resident Dr. Norris. Geovanny Trimble D.O.
[2018-10-09] MEDS ORDERED: Iohexol 240 (50 ml) PO ONE (09:00)
[2018-10-09] MEDS: (Novolin R) Insulin Human Regular 100 units/ml vial SC SCH ×3 (10:18→21:22)
[2018-10-09 11:45] LABS: IRON 13 ug/dL (37-170)
[2018-10-09 11:54] LABS: % IRON SATURATION 3 (20-55); TOTAL IRON BINDING CAPACITY 391 ug/dL (250-450)
[2018-10-09] MEDS ORDERED: Iodixanol 320 MG/ML 100 ML BOTTLE IV ONE (12:14)
[2018-10-09 12:21] LABS: FERRITIN 6.9 ng/mL
--- NOTE | 2018-10-09 12:47 | CP.PCM.PN ---
Subjective - Date & Time of Evaluation Date of Evaluation: 10/09/18 Time of Evaluation: 14:00 - Subjective Subjective: GI Fellow PGY 5 Pt seen and examined at bedside, doing okay, Pt was scheduled for EGD this am but received po contrast for imaging prior to EGD. Procedure was canceled and re-scheduled for tomorrow. No active GI bleeding at this time. Pt denies any abdominal pain, jaundice, hx of pancreatitis or family hx of pancreatic cancer. Pt reports unintentional weight loss and back pain. ROS: A 12pt ROS was negative except as above. Objective - Vital Signs/Intake and Output Vital Signs (last 24 hours): Temp Pulse Resp BP Pulse Ox 98.1 F 91 H 20 165/87 H 95 10/09/18 08:33 10/09/18 08:33 10/09/18 08:33 10/09/18 08:33 10/09/18 08:33 - Medications Medications: Current Medications Dextrose (Dextrose 50% Inj) 0 ml IV STAT PRN; Protocol PRN Reason: Hypoglycemia Protocol Dextrose (Glutose 15) 0 gm PO ONCE PRN; Protocol PRN Reason: Hypoglycemia Protocol Glucagon (Glucagen Diagnostic Kit) 0 mg IM STAT PRN; Protocol PRN Reason: Hypoglycemia Protocol Dextrose (Dextrose 5% In Water 1000 Ml) 1,000 mls @ 0 mls/hr IV .Q0M PRN; Protocol PRN Reason: Hypoglycemia Protocol Sodium Chloride (Sodium Chloride 0.9%) 1,000 mls @ 100 mls/hr IV .Q10H [facility] Last Admin: 10/09/18 10:19 Dose: Not Given Insulin Human Regular (Novolin R) 0 unit SC Q6H [facility]IM; Protocol Last Admin: 10/09/18 10:18 Dose: Not Given Metoprolol Tartrate (Lopressor) 50 mg PO BID [facility] Last Admin: 10/09/18 09:17 Dose: 50 mg Pantoprazole Sodium (Protonix Inj) 40 mg IVP Q12H [facility] Last Admin: 10/09/18 11:05 Dose: 40 mg Prednisone (Prednisone Tab) 5 mg PO DAILY [facility] Last Admin: 10/09/18 09:17 Dose: 5 mg Rosuvastatin Calcium (Crestor) 10 mg PO HS [facility]IM - Labs Labs: 10/09/18 07:45 10/09/18 07:45 PT 14.2 SECONDS (9.7-12.2) H 10/08/18 20:31 INR 1.3 10/08/18 20:31 APTT 38.0 SECONDS (21-34) H 10/08/18 20:31 - Constitutional Appears: Non-toxic, No Acute Distress - Head Exam Head Exam: ATRAUMATIC, NORMAL INSPECTION, NORMOCEPHALIC - Eye Exam Eye Exam: EOMI, Normal appearance, PERRL - ENT Exam ENT Exam: Mucous Membranes Moist, Normal Exam - Neck Exam Neck Exam: Full ROM, Normal Inspection - Respiratory Exam Respiratory Exam: Clear to Ausculation Bilateral, NORMAL BREATHING PATTERN - Cardiovascular Exam Cardiovascular Exam: REGULAR RHYTHM, RRR, +S1, +S2 - GI/Abdominal Exam GI & Abdominal Exam: Soft, Normal Bowel Sounds - Rectal Exam Rectal Exam: Deferred - Extremities Exam Extremities Exam: Full ROM, Normal Inspection - Neurological Exam Neurological Exam: Alert, Awake, Oriented x3 - Psychiatric Exam Psychiatric exam: Normal Affect, Normal Mood - Skin Skin Exam: Dry, Intact, Normal Color, Warm Assessment and Plan - Assessment and Plan (Free Text) Assessment: Patient is a 67 yo female with Afib, CAD s/p stents, HTN, T2DM, and RA who presented after being sent by her doctor for anemia. 1. Acute Anemia-Baseline Hgb 12-14, now 9.4. 2. Afib on OAC 3. CAD 4. RA 5. Pancreatic head lesion -Pt was planned for EGD today, pt received po contrast prior to procedure, rescheduled for tomorrow -Full liquid diet today -NPO for tomorrow -Monitor H&H -Protonix 40 mg IV Q12H -Hold Xarelto -Most likely multifactorial from OAC, steroid use -Recommend CT Pancreatic Protocil for tomorrow -Will do EGD tomorrow and after review of CT and EGD will decide on EUS -Will continue to follow
[2018-10-09 12:52] LABS: FOLATE 14.8 ng/mL
--- NOTE | 2018-10-09 14:39 | CT ---
Date of service: 10/09/2018 CT chest, abdomen, and pelvis with IV contrast Indication: unintentional weight loss, former smoker Technique: Contiguous axial images of the chest, abdomen, and pelvis. Coronal and Sagittal reformats generated and reviewed. This CT exam was performed using 1 or more of the following dose reduction techniques: Automated exposure control, adjustment of the MAA and/or kV according to patient size, and/or use of iterative reconstruction technique. Contrast: Chest CT without contrast performed 12/11/17 Radiation dose: Total exam DLP = 1410.15 MGy-cm. Comparison: Noncontrast chest CT performed 12/11/17 Findings: Visualized portions of the inferior thyroid gland demonstrates hypodense nodules measuring up to 7 mm at the right lower pole. The mediastinal and hilar vascular structures appear within normal limits. The heart appears within normal limits of size. Coronary artery calcifications. Interlobular septal thickening. Scattered regions of subpleural fibrosis. No focal consolidation. No pleural effusion. No pneumothorax. Hypoattenuation of the liver compatible with hepatic steatosis. Gallbladder distension. No calcified gallstones identified. Splenomegaly. 3 mm too small to characterize hypodensity within the anterior aspect of the spleen, nonspecific. Fatty atrophy of the pancreas. The kidneys enhance symmetrically. No evidence of hydronephrosis or obstructing calculus. Nonobstructing bilateral renal calculi. Small to moderate hiatal hernia with evidence of gastroesophageal reflux. The stomach is nondistended. The bowel loops appear within normal limits of caliber without evidence of intestinal obstruction. There is no definite free air. The appendix appears within normal limits of caliber. No secondary signs of acute appendicitis. Uterus is present. The urinary bladder appears unremarkable. Kyphosis. Mild degenerative changes. Impression: Nonspecific interlobular septal thickening and scattered subpleural fibrosis. Visualized portions of the inferior thyroid gland demonstrates hypodense nodules measuring up to 7 mm at the right lower pole. Hypoattenuation of the liver compatible with hepatic steatosis. Gallbladder distension. No calcified gallstones identified. Splenomegaly. 3 mm too small to characterize hypodensity within the anterior aspect of the spleen, nonspecific. Fatty atrophy of the pancreas. Small to moderate hiatal hernia with evidence of gastroesophageal reflux.
--- NOTE | 2018-10-09 16:53 | CP.PCM.CON ---
History of Present Illness - History of Present Illness History of Present Illness: 67 year old woman with a history of afib admitted for anemia. She denies fatigue, however admits to a 40 pound weight loss over the last year as well as being diagnosed with non-insulin dependent diabetes about 1-2 years ago. She has a remote smoking history. She had a routine CT scan of the chest abdomen and pelvis that showed a markedly distended gallbladder and an irregular head of pancreas. The liver and lungs are clear. Past Patient History - Infectious Disease Hx of Infectious Diseases: None - Tetanus Immunizations Tetanus Immunization: Unknown - Past Medical History & Family History Past Medical History?: Yes - Past Social History Smoking Status: Never Smoked - CARDIAC Hx Atrial Fibrillation: Yes Hx Hypertension: Yes - PULMONARY Hx Asthma: Yes - HEENT Hx HEENT Problems: Yes Hx Cataracts: Yes (surgery both eyes) Other/Comment: tonsillectomy - INTEGUMENTARY Hx Dermatological Problems: Yes Hx Psoriasis: Yes - MUSCULOSKELETAL/RHEUMATOLOGICAL Hx Fractures: Yes (left foot) - GASTROINTESTINAL Hx Gastrointestinal Disorders: No - GENITOURINARY/GYNECOLOGICAL Hx Genitourinary Disorders: No - PSYCHIATRIC Hx Substance Use: No - SURGICAL HISTORY Hx Coronary Stent: Yes (03/2014) Hx Tonsillectomy: Yes - ANESTHESIA Hx Anesthesia: No Hx Anesthesia Reactions: No Meds Allergies/Adverse Reactions: Allergies Allergy/AdvReac Type Severity Reaction Status Date / Time Penicillins Allergy RASH Verified 12/11/17 12:36 - Medications Medications: Current Medications Dextrose (Dextrose 50% Inj) 0 ml IV STAT PRN; Protocol PRN Reason: Hypoglycemia Protocol Dextrose (Glutose 15) 0 gm PO ONCE PRN; Protocol PRN Reason: Hypoglycemia Protocol Glucagon (Glucagen Diagnostic Kit) 0 mg IM STAT PRN; Protocol PRN Reason: Hypoglycemia Protocol Dextrose (Dextrose 5% In Water 1000 Ml) 1,000 mls @ 0 mls/hr IV .Q0M PRN; Protocol PRN Reason: Hypoglycemia Protocol Sodium Chloride (Sodium Chloride 0.9%) 1,000 mls @ 100 mls/hr IV .Q10H KIM Last Admin: 10/09/18 10:19 Dose: Not Given Insulin Human Regular (Novolin R) 0 unit SC Q6H KIM; Protocol Last Admin: 10/09/18 10:18 Dose: Not Given Metoprolol Tartrate (Lopressor) 50 mg PO BID KIM Last Admin: 10/09/18 09:17 Dose: 50 mg Pantoprazole Sodium (Protonix Inj) 40 mg IVP Q12H [facility] Last Admin: 10/09/18 11:05 Dose: 40 mg Prednisone (Prednisone Tab) 5 mg PO DAILY [facility] Last Admin: 10/09/18 09:17 Dose: 5 mg Rosuvastatin Calcium (Crestor) [address] [facility] Physical Exam - Head Exam Head Exam: NORMAL INSPECTION - Eye Exam Eye Exam: Normal appearance - Neck Exam Neck exam: Positive for: Normal Inspection - Respiratory Exam Respiratory Exam: NORMAL BREATHING PATTERN - Cardiovascular Exam Cardiovascular Exam: REGULAR RHYTHM - GI/Abdominal Exam GI & Abdominal Exam: Soft - Rectal Exam Rectal Exam: Deferred Results - Vital Signs Recent Vital Signs: Last Vital Signs Temp 98.5 F 10/09/18 16:00 Pulse 91 H 10/09/18 16:00 Resp 20 10/09/18 16:00 BP 158/89 H 10/09/18 16:00 Pulse Ox 95 10/09/18 16:00 - Labs Result Diagrams: 10/09/18 07:45 10/09/18 07:45 Labs: Laboratory Results - last 24 hr 10/08/18 10/08/18 10/08/18 20:31 20:31 20:31 WBC 6.8 RBC 4.81 Hgb 9.8 L D Hct 32.0 L MCV 66.6 L D MCH 20.4 L MCHC 30.6 L RDW 18.0 H Plt Count 317 MPV 7.3 Neut % (Auto) 63.6 Lymph % (Auto) 23.2 [place] % (Auto) 10.7 H Eos % (Auto) 2.1 Baso % (Auto) 0.4 Neut # (Auto) 4.3 Lymph # (Auto) 1.6 [place] # (Auto) 0.7 Eos # (Auto) 0.1 Baso # (Auto) 0.0 Differential Comment PT 14.2 H INR 1.3 APTT 38.0 H Sodium 139 Potassium 5.1 Chloride 102 Carbon Dioxide 28 Anion Gap 15 BUN 14 Creatinine 0.4 L Est GFR ( Amer) > 60 Est GFR (Non-Af Amer) > 60 POC Glucose (mg/dL) Random Glucose 134 H D Calcium 10.3 Phosphorus Magnesium Iron TIBC % Saturation Ferritin Total Bilirubin 0.8 AST 61 H D ALT 11 Alkaline Phosphatase 56 Total Protein 7.8 Albumin 4.0 Globulin 3.8 Albumin/Globulin Ratio 1.1 Vitamin B12 Folate Urine Color Urine Clarity Urine pH Ur Specific [place] Urine Protein Urine Glucose (UA) Urine Ketones Urine Blood Urine Nitrate Urine Bilirubin Urine Urobilinogen Ur Leukocyte Esterase Urine WBC (Auto) Urine RBC (Auto) Ur Squamous Epith Cells Calcium Oxalate Crystal Blood Type Antibody Screen 10/09/18 10/09/18 10/09/18 03:19 07:29 07:45 WBC 6.5 RBC 4.49 Hgb 9.4 L Hct 30.5 L MCV 67.9 L MCH 20.9 L MCHC 30.8 L RDW 18.7 H Plt Count 291 MPV 7.2 Neut % (Auto) 71.1 Lymph % (Auto) 16.0 L [place] % (Auto) 10.4 H Eos % (Auto) 1.9 Baso % (Auto) 0.6 Neut # (Auto) 4.6 Lymph # (Auto) 1.0 [place] # (Auto) 0.7 Eos # (Auto) 0.1 Baso # (Auto) 0.0 Differential Comment PT INR APTT Sodium Potassium Chloride Carbon Dioxide Anion Gap BUN Creatinine Est GFR ( Amer) Est GFR (Non-Af Amer) POC Glucose (mg/dL) 137 H Random Glucose Calcium Phosphorus Magnesium Iron TIBC % Saturation Ferritin Total Bilirubin AST ALT Alkaline Phosphatase Total Protein Albumin Globulin Albumin/Globulin Ratio Vitamin B12 Folate Urine Color Yellow Urine Clarity Clear Urine pH 5.0 Ur Specific [place] 1.018 Urine Protein Negative Urine Glucose (UA) Normal Urine Ketones Negative Urine Blood Negative Urine Nitrate Negative Urine Bilirubin Negative Urine Urobilinogen Normal Ur Leukocyte Esterase Neg Urine WBC (Auto) 2 Urine RBC (Auto) 1 Ur Squamous Epith Cells 3 Calcium Oxalate Crystal Occ H Blood Type Antibody Screen 10/09/18 10/09/18 10/09/18 07:45 07:45 11:15 WBC RBC Hgb Hct MCV MCH MCHC RDW Plt Count MPV Neut % (Auto) Lymph % (Auto) [place] % (Auto) Eos % (Auto) Baso % (Auto) Neut # (Auto) Lymph # (Auto) [place] # (Auto) Eos # (Auto) Baso # (Auto) Differential Comment PT INR APTT Sodium 142 Potassium 3.7 Chloride 102 Carbon Dioxide 29 Anion Gap 14 BUN 14 Creatinine 0.4 L Est GFR ( Amer) > 60 Est GFR (Non-Af Amer) > 60 POC Glucose (mg/dL) Random Glucose 125 H Calcium 9.8 Phosphorus 3.5 Magnesium 1.6 Iron 13 L TIBC 391 % Saturation 3 L Ferritin Total Bilirubin 0.3 AST 23 ALT 19 Alkaline Phosphatase 73 Total Protein 7.0 Albumin 3.7 Globulin 3.2 Albumin/Globulin Ratio 1.2 Vitamin B12 Folate Urine Color Urine Clarity Urine pH Ur Specific [place] Urine Protein Urine Glucose (UA) Urine Ketones Urine Blood Urine Nitrate Urine Bilirubin Urine Urobilinogen Ur Leukocyte Esterase Urine WBC (Auto) Urine RBC (Auto) Ur Squamous Epith Cells Calcium Oxalate Crystal Blood Type A POSITIVE Antibody Screen Negative 10/09/18 10/09/18 11:15 11:26 WBC RBC Hgb Hct MCV MCH MCHC RDW Plt Count MPV Neut % (Auto) Lymph % (Auto) [place] % (Auto) Eos % (Auto) Baso % (Auto) Neut # (Auto) Lymph # (Auto) [place] # (Auto) Eos # (Auto) Baso # (Auto) Differential Comment PT INR APTT Sodium Potassium Chloride Carbon Dioxide Anion Gap BUN Creatinine Est GFR ( Amer) Est GFR (Non-Af Amer) POC Glucose (mg/dL) 140 H Random Glucose Calcium Phosphorus Magnesium Iron TIBC % Saturation Ferritin 6.9 Total Bilirubin AST ALT Alkaline Phosphatase Total Protein Albumin Globulin Albumin/Globulin Ratio Vitamin B12 336 Folate 14.8 Urine Color Urine Clarity Urine pH Ur Specific [place] Urine Protein Urine Glucose (UA) Urine Ketones Urine Blood Urine Nitrate Urine Bilirubin Urine Urobilinogen Ur Leukocyte Esterase Urine WBC (Auto) Urine RBC (Auto) Ur Squamous Epith Cells Calcium Oxalate Crystal Blood Type Antibody Screen - Imaging and Cardiology CT scan - abdomen Status: Image reviewed by me (distended gallbladder, no stones, heterogenous head of pancreas, no obvious adenopathy) Assessment & Plan - Assessment and Plan (Free Text) Assessment: 67 year old female with a distended gallbladder and heterogenous pancreas in the setting of a 40 pound unexplained weight loss and relatively recent onset diabetes. She is also on prednisone for rheumatoid arthritis. Given these findings, one must consider a head of pancreas neoplasm/malignancy. There is no obvious portal vein invasion. Plan: Send tumor markers CEA, [id number], chromogranin A. Patient should be considered for endoscopic ultrasound with biopsy of questionable areas. - Date & Time Date: 10/09/18 Time: 16:42
[2018-10-10] MEDS: (Novolin R) Insulin Human Regular 100 units/ml vial SC SCH ×5 (04:33→22:01)
[2018-10-10] MEDS: Sodium Chloride 0.9% 1,000 ML IV SCH ×2 (06:17→15:30)
--- NOTE | 2018-10-10 06:39 | CP.PCM.CON ---
History of Present Illness - History of Present Illness History of Present Illness: CC: Anemia, A Fib on NOAC HPI: Patient is a 67 year old female with history of A fib on Xarelto who presents after she was sent in Dr. Ryan for a drop in Hb from 11.4 from January 2018 to 9.6 in September 2018. She denies any current bleeding however she admits that she had intermittent bright blood in her urine, about once every few days, from last fall until Jun 2018 which resolved after she had a procedure for kidney stones with Dr. San. She denies any current bleeding in her urine or stool. She has not had her period since age 34, no current vaginal bleeding. She admits to losing about 40lbs unintentionally over the past year, denies night sweats, unspecified if decreased appetite stating she doesn't usually eat much. She states she had her last colonoscopy 2 years ago which was normal. She states she has normal brown stools, with no change in stool size. She states she has a nonproductive cough currently, but states it is from allergies. She denies any blood in her cough. She denies fevers, chills, headache, lightheadedness, dizzness, sore throat, pain with swallowing, chest pain, palpitations, abdominal pain, nausea, vomiting, diarrhea, constipation, easy bruising, recent travel, sick contacts. Of note, she recently started Olumiant (Baricitinib 2mg one tablet daily last week) for her rheumatoid arthritis. PMH: CAD with stents, A fib, HTN, DM, RA PSH: cardiac stents, vein surgery, tonsillectomy, tubal ligation Family hx: Father of [place] in 60s, Mother of stomach cancer in 70s Social hx: former smoker - quit 30 years, smoked 2ppd x20 years, denies alcohol or drug use. Retired 2 years ago, worked as [employer] and [employer]. Has 4 children. Home meds: Baricitinib 2mg once in AM, Prednisone 5mg once daily , Sulfasalazine 500mg 3 tabs BID, Tramadol 50mg QHS, Metformin 500mg PO BID, Glimepiride 4mg PO BID, Insulin 20 units in AM, Metoprolol 50mg PO BID, Xarelto 15mg daily, Crestor 10mg PO HS Allergies: PCN - unsure of reaction, she was told she was allergic, PMD: Dr. Arjun Trimble Endo: Dr. Lake Uro: Jaswinder DNR/DNI, confirmed with patient. POLST signed during last admission in December 2017 Healthcare proxy: Son Jerry [phone] Present on Admission - Present on Admission Any Indicators Present on Admission: No Review of Systems - Constitutional Constitutional: Weight Loss. absent: Chills, Fever - EENT Eyes: absent: Change in Vision Ears: absent: Decreased Hearing Nose/Mouth/Throat: absent: Sore Throat - Cardiovascular Cardiovascular: absent: Chest Pain, Dyspnea, Palpitations, Syncope - Respiratory Respiratory: Cough. absent: Dyspnea - Gastrointestinal Gastrointestinal: absent: Abdominal Pain, Change in Stool Character, Constipation, Diarrhea, Nausea, Vomiting - Genitourinary Genitourinary: Hematuria. absent: Dysuria - Reproductive: Female Reproductive:Female: Post Menopausal - Musculoskeletal Musculoskeletal: absent: Neck Pain, Tingling - Neurological Neurological: absent: Confusion, Headaches, Syncope, Tingling - Psychiatric Psychiatric: absent: Anxiety, Depression - Hematologic/Lymphatic Hematologic: absent: Easy Bruising Physical Exam - Constitutional Appears: Well, Non-toxic, No Acute Distress - Head Exam Head Exam: ATRAUMATIC, NORMOCEPHALIC - Eye Exam Eye Exam: EOMI, PERRL. absent: Scleral icterus Additional comments: Mild conjunctival pallor - ENT Exam ENT Exam: Mucous Membranes Moist - Neck Exam Neck exam: Positive for: Full Rom. Negative for: Lymphadenopathy, Tenderness, Thyromegaly - Respiratory Exam Respiratory Exam: Clear to Auscultation Bilateral, NORMAL BREATHING PATTERN. absent: Rales, Rhonchi, Wheezes, Respiratory Distress, Stridor - Cardiovascular Exam Cardiovascular Exam: REGULAR RHYTHM, +S1, +S2. absent: Gallop, Rubs, Systolic Murmur - GI/Abdominal Exam GI & Abdominal Exam: Normal Bowel Sounds, Soft. absent: Distended, Guarding, Hernia, Tenderness Additional comments: Scar from tubal ligation - Extremities Exam Extremities exam: Positive for: normal capillary refill (Cap refill <2 secs ), pedal edema (trace ), pedal pulses present. Negative for: calf tenderness Additional comments: bilateral varicosities of veins on lower extremities with erythema that does not resolve with elevation of legs no calf tenderness - Back Exam Back exam: absent: CVA tenderness (L), CVA tenderness (R), rash noted - Neurological Exam Neurological exam: Alert, CN II-XII Intact, Oriented x3 - Psychiatric Exam Psychiatric exam: Normal Affect, Normal Mood - Skin Skin Exam: Dry, Intact, Warm Assessment & Plan - Assessment and Plan (Free Text) Assessment: 67 year old female with history of DM, HTN, RA, A fib on Xarelto who presents for drop in hemoglobin from 11.4 to 9.6. Plan: Drop in Hemoglobin Possible GI Bleed H/H 9.8/32.0 - baseline Hb in 11s Follow up repeat CBC in AM. GI Dr. Mann consulted, help appreciated NPO Protonix 40mg IV BID NS @ 100cc/hr IV Repeat FOBT x3 ordered, initial guaic in ED negative CT abdomen/pelvis with PO and IV contrast ordered History of recent stephy hematuria UA and urine culture ordered History of A fib On Xarelto 15mg daily - held History of CAD with stents Crestor 10mg PO HS EKG: SR 98 LVH History of HTN Continue Metoprolol 50mg PO BID History of DM Confirm insulin dose with pharmacy in AM, patient does not have insulin with her NPO Low dose ISS Hypoglycemic protocol History of RA On Baricitinib 2mg in AM - held currently Prednisone 5mg daily Sulfasalazine held currently Prophylaxis: DVT prophlaxis held given drop in Hb On Protonox 40mg IV BID NPO Code status: DNR/DNI Past Patient History - Infectious Disease Hx of Infectious Diseases: None - Tetanus Immunizations Tetanus Immunization: Unknown - Past Medical History & Family History Past Medical History?: Yes - Past Social History Smoking Status: Never Smoked - CARDIAC Hx Atrial Fibrillation: Yes Hx Hypertension: Yes - PULMONARY Hx Asthma: Yes - HEENT Hx HEENT Problems: Yes Hx Cataracts: Yes (surgery both eyes) Other/Comment: tonsillectomy - INTEGUMENTARY Hx Dermatological Problems: Yes Hx Psoriasis: Yes - MUSCULOSKELETAL/RHEUMATOLOGICAL Hx Fractures: Yes (left foot) - GASTROINTESTINAL Hx Gastrointestinal Disorders: No - GENITOURINARY/GYNECOLOGICAL Hx Genitourinary Disorders: No - PSYCHIATRIC Hx Substance Use: No - SURGICAL HISTORY Hx Coronary Stent: Yes (03/2014) Hx Tonsillectomy: Yes - ANESTHESIA Hx Anesthesia: No Hx Anesthesia Reactions: No Meds Allergies/Adverse Reactions: Allergies Allergy/AdvReac Type Severity Reaction Status Date / Time Penicillins Allergy RASH Verified 12/11/17 12:36 - Medications Medications: Current Medications Dextrose (Dextrose 50% Inj) 0 ml IV STAT PRN; Protocol PRN Reason: Hypoglycemia Protocol Dextrose (Glutose 15) 0 gm PO ONCE PRN; Protocol PRN Reason: Hypoglycemia Protocol Glucagon (Glucagen Diagnostic Kit) 0 mg IM STAT PRN; Protocol PRN Reason: Hypoglycemia Protocol Dextrose (Dextrose 5% In Water 1000 Ml) 1,000 mls @ 0 mls/hr IV .Q0M PRN; Protocol PRN Reason: Hypoglycemia Protocol Sodium Chloride (Sodium Chloride 0.9%) 1,000 mls @ 100 mls/hr IV .Q10H KIM Last Admin: 10/10/18 06:17 Dose: 100 mls/hr Insulin Human Regular (Novolin R) 0 unit SC Q6H KIM; Protocol Last Admin: 10/10/18 05:44 Dose: Not Given Metoprolol Tartrate (Lopressor) 50 mg PO BID [facility] Last Admin: 10/09/18 17:58 Dose: 50 mg Pantoprazole Sodium (Protonix Inj) 40 mg IVP Q12H [facility] Last Admin: 10/09/18 23:52 Dose: 40 mg Prednisone (Prednisone Tab) 5 mg PO DAILY KIM Last Admin: 10/09/18 09:17 Dose: 5 mg Rosuvastatin Calcium (Crestor) 10 mg PO HS [facility] Last Admin: 10/09/18 21:24 Dose: 10 mg Results - Vital Signs Recent Vital Signs: Last Vital Signs Temp 98.1 F 10/10/18 00:00 Pulse 77 10/10/18 00:00 Resp 20 10/10/18 00:00 BP 153/80 H 10/10/18 00:00 Pulse Ox 94 L 10/10/18 00:00 - Labs Result Diagrams: 10/09/18 07:45 10/09/18 07:45 Labs: Laboratory Results - last 24 hr 10/09/18 10/09/18 10/09/18 07:29 07:45 07:45 WBC 6.5 RBC 4.49 Hgb 9.4 L Hct 30.5 L MCV 67.9 L MCH 20.9 L MCHC 30.8 L RDW 18.7 H Plt Count 291 MPV 7.2 Neut % (Auto) 71.1 Lymph % (Auto) 16.0 L [place] % (Auto) 10.4 H Eos % (Auto) 1.9 Baso % (Auto) 0.6 Neut # (Auto) 4.6 Lymph # (Auto) 1.0 [place] # (Auto) 0.7 Eos # (Auto) 0.1 Baso # (Auto) 0.0 Sodium 142 Potassium 3.7 Chloride 102 Carbon Dioxide 29 Anion Gap 14 BUN 14 Creatinine 0.4 L Est GFR ( Amer) > 60 Est GFR (Non-Af Amer) > 60 POC Glucose (mg/dL) 137 H Random Glucose 125 H Calcium 9.8 Phosphorus 3.5 Magnesium 1.6 Iron TIBC % Saturation Ferritin Total Bilirubin 0.3 AST 23 ALT 19 Alkaline Phosphatase 73 Total Protein 7.0 Albumin 3.7 Globulin 3.2 Albumin/Globulin Ratio 1.2 Amylase Lipase Alpha Fetoprotein Carcinoembryonic Ag CA 19-9 Antigen CA 125 Antigen Vitamin B12 Folate Blood Type Antibody Screen 10/09/18 10/09/18 10/09/18 07:45 11:15 11:15 WBC RBC Hgb Hct MCV MCH MCHC RDW Plt Count MPV Neut % (Auto) Lymph % (Auto) [place] % (Auto) Eos % (Auto) Baso % (Auto) Neut # (Auto) Lymph # (Auto) [place] # (Auto) Eos # (Auto) Baso # (Auto) Sodium Potassium Chloride Carbon Dioxide Anion Gap BUN Creatinine Est GFR ( Amer) Est GFR (Non-Af Amer) POC Glucose (mg/dL) Random Glucose Calcium Phosphorus Magnesium Iron 13 L TIBC 391 % Saturation 3 L Ferritin 6.9 Total Bilirubin AST ALT Alkaline Phosphatase Total Protein Albumin Globulin Albumin/Globulin Ratio Amylase Lipase Alpha Fetoprotein Carcinoembryonic Ag CA 19-9 Antigen CA 125 Antigen Vitamin B12 336 Folate 14.8 Blood Type A POSITIVE Antibody Screen Negative 10/09/18 10/09/18 10/09/18 11:26 16:28 17:34 WBC RBC Hgb Hct MCV MCH MCHC RDW Plt Count MPV Neut % (Auto) Lymph % (Auto) [place] % (Auto) Eos % (Auto) Baso % (Auto) Neut # (Auto) Lymph # (Auto) [place] # (Auto) Eos # (Auto) Baso # (Auto) Sodium Potassium Chloride Carbon Dioxide Anion Gap BUN Creatinine Est GFR ( Amer) Est GFR (Non-Af Amer) POC Glucose (mg/dL) 140 H 216 H Random Glucose Calcium Phosphorus Magnesium Iron TIBC % Saturation Ferritin Total Bilirubin AST ALT Alkaline Phosphatase Total Protein Albumin Globulin Albumin/Globulin Ratio Amylase Lipase Alpha Fetoprotein 3.3 Carcinoembryonic Ag CA 19-9 Antigen CA 125 Antigen Vitamin B12 Folate Blood Type Antibody Screen 10/09/18 10/09/18 10/10/18 17:34 21:09 05:43 WBC RBC Hgb Hct MCV MCH MCHC RDW Plt Count MPV Neut % (Auto) Lymph % (Auto) [place] % (Auto) Eos % (Auto) Baso % (Auto) Neut # (Auto) Lymph # (Auto) [place] # (Auto) Eos # (Auto) Baso # (Auto) Sodium Potassium Chloride Carbon Dioxide Anion Gap BUN Creatinine Est GFR ( Amer) Est GFR (Non-Af Amer) POC Glucose (mg/dL) 202 H 165 H Random Glucose Calcium Phosphorus Magnesium Iron TIBC % Saturation Ferritin Total Bilirubin AST ALT Alkaline Phosphatase Total Protein Albumin Globulin Albumin/Globulin Ratio Amylase 72 Lipase 146 Alpha Fetoprotein Carcinoembryonic Ag 2.9 CA 19-9 Antigen 220 H CA 125 Antigen 65.1 H Vitamin B12 Folate Blood Type Antibody Screen
[2018-10-10 07:41] LABS: BASO % 0.5 % (0.0-2.0); EOS # 0.1 K/uL (0.0-0.7); EOS % 2.5 % (0.0-4.0); HEMOGLOBIN 9.4 g/dL (11.0-16.0); LYMPH # 0.8 K/uL (1.0-4.3); LYMPH % 14.5 % (20.0-40.0); MEAN CORPUSCULAR HGB CONC 30.4 g/dL (33.0-37.0); MEAN PLATELET VOLUME 7.3 fL (7.2-11.7); MONO # 0.7 K/uL (0.0-0.8); MONO % 11.6 % (0.0-10.0); NEUT # 4.1 K/uL (1.8-7.0); NEUT % 70.9 % (50.0-75.0); RBC 4.47 Mil/uL (3.80-5.20); RED CELL DISTRIBUTION WIDTH 18.4 % (11.5-14.5); WHITE BLOOD COUNT 5.7 K/uL (4.8-10.8)
[2018-10-10 08:26] LABS: ALB/GLOB RATIO 1.1 (1.0-2.1); ALBUMIN 3.6 g/dL (3.5-5.0); ALT/SGPT 23 U/L (9-52); AST/SGOT 32 U/L (14-36); BLOOD UREA NITROGEN 7 mg/dL (7-17); CALCIUM 9.7 mg/dl (8.6-10.4); GFR NON-AFRICAN AMERICAN > 60
--- NOTE | 2018-10-10 09:25 | CP.PCM.PN ---
<Hanane Root - Last Filed: 10/10/18 16:45> Subjective - Date & Time of Evaluation Date of Evaluation: 10/10/18 Time of Evaluation: 09:25 - Subjective Subjective: Progress note for Dr. Plascencia Patient was seen and examined at bedside in no acute distress. Patient complains about being hungry and still having leg swelling. She otherwise has no additional complaints. She denies chest pain, palpitations, dyspnea, abdominal pain, nausea, vomiting, fevers, headaches, leg pain. Objective - Vital Signs/Intake and Output Vital Signs (last 24 hours): Temp Pulse Resp BP Pulse Ox 97.6 F 86 20 167/90 H 95 10/10/18 08:20 10/10/18 08:20 10/10/18 08:20 10/10/18 08:20 10/10/18 08:20 Intake and Output: 10/10/18 10/10/18 06:59 18:59 Intake Total 800 Balance 800 - Medications Medications: Current Medications Dextrose (Dextrose 50% Inj) 0 ml IV STAT PRN; Protocol PRN Reason: Hypoglycemia Protocol Dextrose (Glutose 15) 0 gm PO ONCE PRN; Protocol PRN Reason: Hypoglycemia Protocol Glucagon (Glucagen Diagnostic Kit) 0 mg IM STAT PRN; Protocol PRN Reason: Hypoglycemia Protocol Dextrose (Dextrose 5% In Water 1000 Ml) 1,000 mls @ 0 mls/hr IV .Q0M PRN; Protocol PRN Reason: Hypoglycemia Protocol Sodium Chloride (Sodium Chloride 0.9%) 1,000 mls @ 100 mls/hr IV .Q10H [facility] Last Admin: 10/10/18 06:17 Dose: 100 mls/hr Insulin Human Regular (Novolin R) 0 unit SC Q6H [facility]; Protocol Last Admin: 10/10/18 05:44 Dose: Not Given Metoprolol Tartrate (Lopressor) 50 mg PO BID [facility] Last Admin: 10/09/18 17:58 Dose: 50 mg Pantoprazole Sodium (Protonix Inj) 40 mg IVP Q12H [facility] Last Admin: 10/09/18 23:52 Dose: 40 mg Prednisone (Prednisone Tab) 5 mg PO DAILY [facility] Last Admin: 10/09/18 09:17 Dose: 5 mg Rosuvastatin Calcium (Crestor) 10 mg PO HS [facility] Last Admin: 04/30/19 21:24 Dose: 10 mg - Labs Labs: 10/10/18 07:23 10/10/18 07:23 PT 14.2 SECONDS (9.7-12.2) H 10/08/18 20:31 INR 1.3 10/08/18 20:31 APTT 38.0 SECONDS (21-34) H 10/08/18 20:31 - Constitutional Appears: No Acute Distress - Head Exam Head Exam: ATRAUMATIC, NORMAL INSPECTION - Eye Exam Eye Exam: EOMI, Normal appearance - ENT Exam ENT Exam: Mucous Membranes Moist - Respiratory Exam Respiratory Exam: Clear to Ausculation Bilateral, NORMAL BREATHING PATTERN. absent: Rhonchi, Wheezes, Respiratory Distress - Cardiovascular Exam Cardiovascular Exam: Irregular Rhythm, +S1, +S2 - GI/Abdominal Exam GI & Abdominal Exam: Soft, Normal Bowel Sounds. absent: Tenderness - Extremities Exam Extremities Exam: Pedal Edema (mild pitting edema b/l extending from knee down). absent: Tenderness - Neurological Exam Neurological Exam: Alert, Awake, Oriented x3 - Psychiatric Exam Psychiatric exam: Normal Affect, Normal Mood - Skin Skin Exam: Dry, Normal Color, Warm Assessment and Plan - Assessment and Plan (Free Text) Plan: 67 year old female with history of DM, HTN, RA, A fib on Xarelto who presents for drop in hemoglobin from 11.4 to 9.6. Afib - Home medication: Xarelto 15mg PO daily- HELD for procedure. - Continue Metoprolol 50mg PO BID - Will start Lovenox 80mg BID post procedure Anemia - H/H 9.8/32.0 - baseline Hb in 11s - FOBT x3 pending (negative in ED) - On CT, Pancreatic abnormality- suspicious for malignancy. S/p EGD today. Will start Lovenox post procedure. CAD w/Stents - Crestor 10mg PO HS - EKG at admission: SR@98; LVH HTN - Continue Metoprolol 50mg PO BID Case discussed with Hanane Lynch, PGY2 <Driss Plascencia - Last Filed: 10/10/18 23:27> Objective - Vital Signs/Intake and Output Vital Signs (last 24 hours): Temp Pulse Resp BP Pulse Ox 98.4 F 86 20 162/83 H 95 10/10/18 16:00 10/10/18 16:00 10/10/18 16:00 10/10/18 21:38 10/10/18 17:02 Intake and Output: 10/10/18 10/11/18 18:59 06:59 Intake Total 700 1100 Balance 700 1100 - Medications Medications: Current Medications Dextrose (Dextrose 50% Inj) 0 ml IV STAT PRN; Protocol PRN Reason: Hypoglycemia Protocol Dextrose (Glutose 15) 0 gm PO ONCE PRN; Protocol PRN Reason: Hypoglycemia Protocol Enoxaparin Sodium (Lovenox) 80 mg SC Q12 [facility] Last Admin: 10/10/18 21:55 Dose: 80 mg Glucagon (Glucagen Diagnostic Kit) 0 mg IM STAT PRN; Protocol PRN Reason: Hypoglycemia Protocol Dextrose (Dextrose 5% In Water 1000 Ml) 1,000 mls @ 0 mls/hr IV .Q0M PRN; Pr otocol PRN Reason: Hypoglycemia Protocol Sodium Chloride (Sodium Chloride 0.9%) 1,000 mls @ 100 mls/hr IV .Q10H [facility] Last Admin: 10/10/18 15:30 Dose: 100 mls/hr Insulin Human Regular (Novolin R) 0 unit SC Q6H [facility]; Protocol Last Admin: 10/10/18 22:01 Dose: Not Given Metoprolol Tartrate (Lopressor) 50 mg PO BID [facility] Last Admin: 10/10/18 17:42 Dose: 50 mg Pantoprazole Sodium (Protonix Inj) 40 mg IVP Q12H [facility] Last Admin: 10/10/18 23:03 Dose: 40 mg Prednisone (Prednisone Tab) 5 mg PO DAILY [facility] Last Admin: 10/10/18 10:53 Dose: Not Given Rosuvastatin Calcium (Crestor) 10 mg PO HS [facility] Last Admin: 10/10/18 21:37 Dose: 10 mg - Labs Labs: 10/10/18 07:23 10/10/18 07:23 PT 14.2 SECONDS (9.7-12.2) H 10/08/18 20:31 INR 1.3 10/08/18 20:31 APTT 38.0 SECONDS (21-34) H 10/08/18 20:31 Assessment and Plan - Assessment and Plan (Free Text) Plan: Patient seen and evaluated pesronally by me. Plan of care d/w the medical assistant and as documented
--- NOTE | 2018-10-10 10:13 | US ---
Abdominal ultrasound History: Abdominal pain. Comparison: CT scan dated 10/09/2018 Technique: Real-time sonography was performed through the abdomen. Findings: Liver: 17.2 centimeters in length. Prominent. Increased echogenicity of the hepatic parenchymal cortex suggestive for fatty infiltration versus hepatic parenchymal disease. Clinical correlation. Gallbladder: Distended. Cholelithiasis. Top normal gallbladder wall thickness of 3 millimeters. No gross wall edema. Negative sonographic Collins's sign. Dilated common bile duct measuring up to 1.1 centimeters. Limited visualization of the pancreas. Prominent spleen measuring up to 12.5 centimeters in length. Small hypodensity seen on the CT scan was not well appreciated on the current study. Limited visualization of the aorta and IVC. Right kidney: 12.8 x 4.5 x 4.5 centimeters. Lower pole right renal calculus noted on CT scan was not well appreciated on the ultrasound. In addition, low-attenuation lesions seen within the midpole of the right kidney were not well appreciated on the ultrasound. Left Kidney: 12.6 x 5.2 x 4.9 centimeters. Midpole hypoechoic cyst measuring 1.5 x 1.3 x 1.5 centimeters. No calculi or hydronephrosis. Impression: Limited study secondary to gaseous distention of bowel. 1. Cholelithiasis in a distended gallbladder. Top normal wall thickness of 3 millimeters. No gross wall edema. Negative sonographic Collins's sign. 2. Dilated common bile duct. Further evaluation with MRCP is recommended if clinically indicated to better evaluate for possible calculi within the common bile duct. Clinical correlation. 3. Prominent liver measuring 17.2 centimeters in length with associated increased echogenicity of the hepatic parenchymal cortex suggestive for fatty infiltration versus hepatic parenchymal disease. Clinical correlation. 4. Limited visualization of the pancreas. 5. Prominent spleen measuring up to 12.5 centimeters in length. 6. Midpole 1.5 centimeter left renal cyst.
--- NOTE | 2018-10-10 10:35 | CP.PCM.PN ---
<Antoinette Norris - Last Filed: 10/10/18 20:06> Subjective - Date & Time of Evaluation Date of Evaluation: 10/10/18 Time of Evaluation: 10:34 - Subjective Subjective: PGY-1 Antoinette Norris D.O. Medicine progress note for Dr. Patrick Trimble's service: Patient was seen and examined this morning. She has no new complaints. Explained to patient and grandson the plan for the patient's continued hospitalization. Patient denies any weakness, fatigue, lightheadedness, abdominal pain. Objective - Vital Signs/Intake and Output Vital Signs (last 24 hours): Temp Pulse Resp BP Pulse Ox 97.6 F 86 20 167/90 H 95 10/10/18 08:20 10/10/18 08:20 10/10/18 08:20 10/10/18 08:20 10/10/18 08:20 Intake and Output: 10/10/18 10/10/18 06:59 18:59 Intake Total 800 Balance 800 - Medications Medications: Current Medications Dextrose (Dextrose 50% Inj) 0 ml IV STAT PRN; Protocol PRN Reason: Hypoglycemia Protocol Dextrose (Glutose 15) 0 gm PO ONCE PRN; Protocol PRN Reason: Hypoglycemia Protocol Glucagon (Glucagen Diagnostic Kit) 0 mg IM STAT PRN; Protocol PRN Reason: Hypoglycemia Protocol Dextrose (Dextrose 5% In Water 1000 Ml) 1,000 mls @ 0 mls/hr IV .Q0M PRN; Protocol PRN Reason: Hypoglycemia Protocol Sodium Chloride (Sodium Chloride 0.9%) 1,000 mls @ 100 mls/hr IV .Q10H [facility] Last Admin: 10/10/18 06:17 Dose: 100 mls/hr Insulin Human Regular (Novolin R) 0 unit SC Q6H [facility]; Protocol Last Admin: 10/10/18 05:44 Dose: Not Given Metoprolol Tartrate (Lopressor) 50 mg PO BID [facility] Last Admin: 10/09/18 17:58 Dose: 50 mg Pantoprazole Sodium (Protonix Inj) 40 mg IVP Q12H [facility] Last Admin: 10/09/18 23:52 Dose: 40 mg Prednisone (Prednisone Tab) 5 mg PO DAILY [facility] Last Admin: 10/09/18 09:17 Dose: 5 mg Rosuvastatin Calcium (Crestor) 10 mg PO HS [facility] Last Admin: 10/09/18 21:24 Dose: 10 mg - Labs Labs: 10/10/18 07:23 10/10/18 07:23 PT 14.2 SECONDS (9.7-12.2) H 10/08/18 20:31 INR 1.3 10/08/18 20:31 APTT 38.0 SECONDS (21-34) H 10/08/18 20:31 - Additional Findings Additional findings: - Constitutional Appears: Non-toxic, No Acute Distress - Head Exam Head Exam: ATRAUMATIC, NORMAL INSPECTION - Eye Exam Eye Exam: EOMI, Normal appearance - ENT Exam ENT Exam: Mucous Membranes Moist - Neck Exam Neck Exam: Normal Inspection - Respiratory Exam Respiratory Exam: Clear to Ausculation Bilateral, NORMAL BREATHING PATTERN - Cardiovascular Exam Cardiovascular Exam: RRR, +S1, +S2 - GI/Abdominal Exam GI & Abdominal Exam: Soft. absent: Distended, Tenderness - Extremities Exam Extremities Exam: absent: Pedal Edema, Tenderness Additional comments: bilateral varicosities of veins on lower extremities - Back Exam Back Exam: NORMAL INSPECTION - Neurological Exam Neurological Exam: Alert, Awake, CN II-XII Intact, Normal Gait, Oriented x3 - Psychiatric Exam Psychiatric exam: Normal Affect, Normal Mood - Skin Skin Exam: Dry, Normal Color, Warm Assessment and Plan - Assessment and Plan (Free Text) Assessment: Patient is a 67 yo female with Afib, CAD s/p stents, HTN, T2DM, and RA who presented after being sent by her workforce investment act career manager for acute drop in Hgb. Patient is asymptomatic. 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 Patient's anemia is stable and no GI bleed on EGD. CT showed abnormalities of pancreas. Plan: Pancreatic abnormality- suspicious for malignancy - CT A/P: Hypoattenuation of the liver compatible with hepatic steatosis. Splenomegaly. 3 mm too small to characterize hypodensity within the anterior aspect of the spleen, nonspecific. Heterogeneity/fullness of the pancreatic head; underlying neoplasm such as adenocarcinoma must be excluded. Alternatives such as focal pancreatitis may also be considered. No associated inflammatory changes are evident. No evidence of bulky adenopathy. Recommend correlation with amylase and lipase as well as CT pancreatic protocol for further evaluation. - Pancreatic protocol CT pending for 10/11 - NPO after midnight - Amylase, lipase wnl - CA 19-9 elev (220), CA-125 elev (65) - AFP, CEA wnl - Hepatobiliary surgery consulted (Alexander) - GI consulted (Emmy)- EUS on Thursday 10/12 Gallbladder distention - CT A/P: Gallbladder distension. Punctate density at the gallbladder neck, favored to reflect tiny gallstone. Common bile duct measures approximately 7 mm, mildly dilated. - Abd US: Cholelithiasis in a distended gallbladder. Top normal wall thickness of 3 millimeters. No gross wall edema. Negative sonographic Collins's sign. Dilated common bile duct. Further evaluation with MRCP is recommended if clinically indicated to better evaluate for possible calculi within the common bile duct. Prominent liver measuring 17.2 centimeters in length with associated increased echogenicity of the hepatic parenchymal cortex suggestive for fatty infiltration versus hepatic parenchymal disease. Limited visualization of the pancreas. Prominent spleen measuring up to 12.5 centimeters in length. Midpole 1.5 centimeter left renal cyst. - Hepatobiliary surgery consulted (Alexander) Anemia, acute, stable - Baseline Hgb 12-14, now 9.4, stable - MCV low (67) - UA: no blood - CT C/A/P: no signs of bleeding - FOBT x3 pending (negative in ED) - Iron low (13), ferritin low (6.9), % sat low (3), TIBC wnl (391 - B12, folate wnl - EGD: no active bleed - Monitor H&H - Vit K 10 mg SC in ED - NS @ 100 cc/hr - Protonix 40 mg IV Q12H - GI consulted (Johnathan)- EGD today 10/10 Atrial fibrillation on anticoagulation - EKG: NSR, LVH - Hold Xarelto - Start Lovenox 80 mg SC Q12H - Cardiology consulted (Temo) Coronary artery disease, chronic- s/p stents - EKG: NSR, LVH - Crestor 10 mg PO QHS Hypertension, chronic - Vitals Q6H - Metoprolol 50 mg PO BID Type 2 diabetes mellitus, chronic - Accuchecks Q6H - Hypoglycemia protocol - ISS low Rheumatoid arthritis - Hold Baricitinib - Hold Sulfasalazine - Prednisone 5 mg PO daily Ppx: VTE: SCDs, Lovenox 80 mg SC Q12H GI: Protonix 40 mg IV Q12H Diet: Full liquids, NPO after midnight for CT Code status: DNR/DNI- POLST 12/2017 Healthcare proxy: SonJerry [phone] Dispo: Pending CT pancreatic protocol and EUS. Case discussed with attending, Dr. Patrick Trimble. <Geovanny Trimble - Last Filed: 10/13/18 19:58> Objective - Vital Signs/Intake and Output Vital Signs (last 24 hours): Temp Pulse Resp BP Pulse Ox 98.3 F 86 20 166/85 H 95 10/13/18 16:00 10/13/18 17:31 10/13/18 16:00 10/13/18 17:31 10/13/18 16:00 Intake and Output: 10/13/18 10/14/18 18:59 06:59 Intake Total 240 Balance 240 - Medications Medications: Current Medications Dextrose (Dextrose 50% Inj) 0 ml IV STAT PRN; Protocol PRN Reason: Hypoglycemia Protocol Dextrose (Glutose 15) 0 gm PO ONCE PRN; Protocol PRN Reason: Hypoglycemia Protocol Enoxaparin Sodium (Lovenox) 80 mg SC Q12 [facility] Last Admin: 10/13/18 10:47 Dose: 80 mg Glucagon (Glucagen Diagnostic Kit) 0 mg IM STAT PRN; Protocol PRN Reason: Hypoglycemia Protocol Dextrose (Dextrose 5% In Water 1000 Ml) 1,000 mls @ 0 mls/hr IV .Q0M PRN; Protocol PRN Reason: Hypoglycemia Protocol Insulin Human Regular (Novolin R) 0 unit SC ACHS [facility]; Protocol Last Admin: 10/13/18 17:28 Dose: 2 units Metoprolol Tartrate (Lopressor) 50 mg PO BID [facility] Last Admin: 10/13/18 17:27 Dose: 50 mg Pantoprazole Sodium (Protonix Inj) 40 mg IVP DAILY [facility] Last Admin: 10/13/18 10:33 Dose: 40 mg Prednisone (Prednisone Tab) 5 mg PO DAILY [facility] Last Admin: 10/13/18 10:33 Dose: 5 mg Rosuvastatin Calcium (Crestor) 10 mg PO HS [facility] Last Admin: 10/12/18 21:34 Dose: 10 mg - Labs Labs: 10/13/18 07:37 10/13/18 07:37 PT 13.1 SECONDS (9.7-12.2) H 10/12/18 08:21 INR 1.2 10/12/18 08:21 APTT 38.0 SECONDS (21-34) H 10/08/18 20:31 Attending/Attestation - Attestation I have personally seen and examined this patient.: Yes I have fully participated in the care of the patient.: Yes I have reviewed all pertinent clinical information, including history, physical exam and plan: Yes Notes (Text): 10/13/18 19:56 This is a late entry. Care of this patient was gone over in detail with resident Dr. Norris. Geovanny Trimble D.O.
--- NOTE | 2018-10-10 11:25 | CARD ---
APPROVED REPORT Date of service: 10/09/2018 EKG Measurement Heart [id number] <Conclusion> Normal sinus rhythm Left axis deviation Left ventricular hypertrophy with repolarization abnormality Prolonged QT Abnormal ECG
[2018-10-10] MEDS ORDERED: Propofol 10 mg/ml Inj (20 ML) ONE (12:54)
[2018-10-10] MEDS ORDERED: Lidocaine Hydrochloride 5 ML INJ ONE (12:58)
--- NOTE | 2018-10-10 14:21 | CP.PCM.PN ---
<Marcos Navarrete - Last Filed: 10/10/18 14:19> Subjective - Date & Time of Evaluation Date of Evaluation: 10/10/18 Time of Evaluation: 12:30 - Subjective Subjective: Pt seen and examined in the endoscopy suite. Patient obtained upper EGD by Dr. Mann. Findings of bile gastritis noted. Patient currently denies any complaints. CT Abdomen Pancreatic triple phase protocol pending. Objective - Vital Signs/Intake and Output Vital Signs (last 24 hours): Temp Pulse Resp BP Pulse Ox 97.5 F L 74 11 L 146/75 94 L 10/10/18 13:12 10/10/18 13:42 10/10/18 13:42 10/10/18 13:42 10/10/18 13:42 Intake and Output: 10/10/18 10/10/18 06:59 18:59 Intake Total 800 200 Balance 800 200 - Medications Medications: Current Medications Dextrose (Dextrose 50% Inj) 0 ml IV STAT PRN; Protocol PRN Reason: Hypoglycemia Protocol Dextrose (Glutose 15) 0 gm PO ONCE PRN; Protocol PRN Reason: Hypoglycemia Protocol Glucagon (Glucagen Diagnostic Kit) 0 mg IM STAT PRN; Protocol PRN Reason: Hypoglycemia Protocol Dextrose (Dextrose 5% In Water 1000 Ml) 1,000 mls @ 0 mls/hr IV .Q0M PRN; Protocol PRN Reason: Hypoglycemia Protocol Sodium Chloride (Sodium Chloride 0.9%) 1,000 mls @ 100 mls/hr IV .Q10H [facility] Last Admin: 10/10/18 06:17 Dose: 100 mls/hr Insulin Human Regular (Novolin R) 0 unit SC Q6H [facility]; Protocol Last Admin: 10/10/18 10:53 Dose: Not Given Metoprolol Tartrate (Lopressor) 50 mg PO BID [facility] Last Admin: 10/10/18 10:52 Dose: 50 mg Pantoprazole Sodium (Protonix Inj) 40 mg IVP Q12H [facility] Last Admin: 10/10/18 10:53 Dose: 40 mg Prednisone (Prednisone Tab) 5 mg PO DAILY [facility] Last Admin: 10/10/18 10:53 Dose: Not Given Rosuvastatin Calcium (Crestor) 10 mg PO HS [facility] Last Admin: 10/09/18 21:24 Dose: 10 mg - Labs Labs: 10/10/18 07:23 10/10/18 07:23 PT 14.2 SECONDS (9.7-12.2) H 10/08/18 20:31 INR 1.3 10/08/18 20:31 APTT 38.0 SECONDS (21-34) H 10/08/18 20:31 - Constitutional Appears: Well, Non-toxic - Head Exam Head Exam: ATRAUMATIC, NORMAL INSPECTION, NORMOCEPHALIC - Eye Exam Eye Exam: EOMI, Normal appearance. absent: Scleral icterus - Respiratory Exam Respiratory Exam: NORMAL BREATHING PATTERN. absent: Accessory Muscle Use, Respiratory Distress - Cardiovascular Exam Cardiovascular Exam: absent: JVD - GI/Abdominal Exam GI & Abdominal Exam: Soft. absent: Distended, Guarding, Tenderness, Rebound - Extremities Exam Extremities Exam: Normal Inspection. absent: Calf Tenderness - Neurological Exam Neurological Exam: Awake Additional comments: somnolent but easily arousable. - Psychiatric Exam Psychiatric exam: Normal Affect, Normal Mood - Skin Skin Exam: Dry, Intact, Normal Color, Warm Assessment and Plan - Assessment and Plan (Free Text) Assessment: 67yo F with a distended GB and presumptive pancreatic head mass in the setting of unexplained weight loss. s/p EGD today by Dr. Mann. -CA 19-9 and CA 125 elevated -CEA and AFP are within normal limits Plan: - f/u Triple Phase Pancreatic CT scan - f/u MRCP as ordered by GI team - f/u possible EUS tomorrow for tissue bx pending results of the MRCP Further recs as per Dr. Patino PGY2 surgery <Rolo Lobo - Last Filed: 10/12/18 10:26> Objective - Vital Signs/Intake and Output Vital Signs (last 24 hours): Temp Pulse Resp BP Pulse Ox 98.9 F 81 20 138/72 95 10/12/18 00:00 10/12/18 00:00 10/12/18 00:00 10/12/18 00:00 10/12/18 00:00 Intake and Output: 10/12/18 10/12/18 06:59 18:59 Intake Total 0 Balance 0 - Medications Medications: Current Medications Dextrose (Dextrose 50% Inj) 0 ml IV STAT PRN; Protocol PRN Reason: Hypoglycemia Protocol Dextrose (Glutose 15) 0 gm PO ONCE PRN; Protocol PRN Reason: Hypoglycemia Protocol Enoxaparin Sodium (Lovenox) 80 mg SC Q12 [facility] Last Admin: 10/11/18 22:24 Dose: 80 mg Glucagon (Glucagen Diagnostic Kit) 0 mg IM STAT PRN; Protocol PRN Reason: Hypoglycemia Protocol Dextrose (Dextrose 5% In Water 1000 Ml) 1,000 mls @ 0 mls/hr IV .Q0M PRN; Protocol PRN Reason: Hypoglycemia Protocol Insulin Human Regular (Novolin R) 0 unit SC Q6H [facility]; Protocol Last Admin: 10/12/18 05:14 Dose: Not Given Metoprolol Tartrate (Lopressor) 50 mg PO BID [facility] Last Admin: 10/11/18 17:18 Dose: 50 mg Pantoprazole Sodium (Protonix Inj) 40 mg IVP DAILY [facility] Prednisone (Prednisone Tab) 5 mg PO DAILY [facility] Last Admin: 10/11/18 11:32 Dose: 5 mg Rosuvastatin Calcium (Crestor) 10 mg PO HS [facility] Last Admin: 10/11/18 22:23 Dose: 10 mg - Labs Labs: 10/12/18 08:21 10/12/18 08:21 PT 13.1 SECONDS (9.7-12.2) H 10/12/18 08:21 INR 1.2 10/12/18 08:21 APTT 38.0 SECONDS (21-34) H 10/08/18 20:31 Assessment and Plan - Assessment and Plan (Free Text) Plan: All medical record entries made by the resident were at my direction. I have reviewed the chart and agree that the record accurately reflects my personal performance of the history, physical exam, and medical decision making.
--- NOTE | 2018-10-10 16:16 | CARD ---
APPROVED REPORT Date of service: 10/10/2018 EXAM: Two-dimensional and M-mode echocardiogram with Doppler and color Doppler. INDICATION Abnormal EKG/Arrhythmia Atrial Fibrillation cad with stents, mi, nstemi, lbbb RISK FACTORS Hypertension Diabetes 2D DIMENSIONS IVSd1.1 (0.7-1.1cm)LVDd4.7 (3.9-5.9cm) PWd1.1 (0.7-1.1cm)LA Eenbss00 (18-58mL) LVDs3.1 (2.5-4.0cm)FS (%) 35.0 % LVEF (%)60.0 (>50%)LVEF (Zamudio's)55 % M-Mode DIMENSIONS Left Atrium (MM)3.69 (2.5-4.0cm)IVSd1.01 (0.7-1.1cm) Aortic Root3.69 (2.2-3.7cm)LVDd5.64 (4.0-5.6cm) Aortic Cusp Exc.2.16 (1.5-2.0cm)PWd0.85 (0.7-1.1cm) FS (%) 32 %LVDs3.84 (2.0-3.8cm) LVEF (%)59 (>50%) Mitral Valve MV E Xxjgxnvw90.6cm/sMV A Yrdelrkt085.9cm/sE/A ratio0.5 TDI Lateral E' Peak V7.83cm/sMedial E' Peak V3.45cm/sE/Lateral E'6.2 E/Medial E'14.1 <Conclusion> tds. poor window. normal size la,lv & ra rv. normal lv thickness & overall systolic funciton with lvef of 55-60%, inferoapical is hypokinetic.poss cad. lv diastolic dysfunciton grade one. normal aortic,mitral,tv & pv. moderate tr & trace pi. no pericrdial effusion. normal size aortic root.
--- NOTE | 2018-10-10 19:52 | CP.PCM.PCO ---
Physician Communication Note - Physician Communication Note Physician Communication Note: Please see above
[2018-10-10] MEDS: Enoxaparin 80 mg Syringe SC SCH (21:55)
[2018-10-11] MEDS: Sodium Chloride 0.9% 1,000 ML IV SCH ×2 (01:45→06:24)
[2018-10-11] MEDS: (Novolin R) Insulin Human Regular 100 units/ml vial SC SCH ×4 (05:41→22:25)
--- NOTE | 2018-10-11 07:10 | CP.PCM.PN ---
<Antoinette Norris - Last Filed: 10/11/18 14:53> Subjective - Date & Time of Evaluation Date of Evaluation: 10/11/18 Time of Evaluation: 07:09 - Subjective Subjective: PGY-1 Antoinette Norris D.O. Medicine progress note for Dr. Patrick Trmible's service: Patient was seen and examined this morning. She has no acute complaints. She is eager for the results of all of her tests. She says the main thing that bothers her is being NPO because she cannot have any coffee. She says last night was the first night she slept well in the hospital. Objective - Vital Signs/Intake and Output Vital Signs (last 24 hours): Temp Pulse Resp BP Pulse Ox 98.3 F 91 H 20 156/78 H 98 10/11/18 00:00 10/11/18 00:00 10/11/18 00:00 10/11/18 00:00 10/11/18 00:00 Intake and Output: 10/11/18 10/11/18 06:59 18:59 Intake Total 1900 Balance 1900 - Medications Medications: Current Medications Dextrose (Dextrose 50% Inj) 0 ml IV STAT PRN; Protocol PRN Reason: Hypoglycemia Protocol Dextrose (Glutose 15) 0 gm PO ONCE PRN; Protocol PRN Reason: Hypoglycemia Protocol Enoxaparin Sodium (Lovenox) 80 mg SC Q12 [facility] Last Admin: 10/10/18 21:55 Dose: 80 mg Glucagon (Glucagen Diagnostic Kit) 0 mg IM STAT PRN; Protocol PRN Reason: Hypoglycemia Protocol Dextrose (Dextrose 5% In Water 1000 Ml) 1,000 mls @ 0 mls/hr IV .Q0M PRN; Protocol PRN Reason: Hypoglycemia Protocol Sodium Chloride (Sodium Chloride 0.9%) 1,000 mls @ 100 mls/hr IV .Q10H [facility] Last Admin: 10/11/18 06:24 Dose: 100 mls/hr Insulin Human Regular (Novolin R) 0 unit SC Q6H [facility]; Protocol Last Admin: 10/11/18 05:41 Dose: Not Given Metoprolol Tartrate (Lopressor) 50 mg PO BID [facility] Last Admin: 10/10/18 17:42 Dose: 50 mg Pantoprazole Sodium (Protonix Inj) 40 mg IVP Q12H [facility] Last Admin: 10/10/18 23:03 Dose: 40 mg Prednisone (Prednisone Tab) 5 mg PO DAILY [facility] Last Admin: 10/10/18 10:53 Dose: Not Given Rosuvastatin Calcium (Crestor) 10 mg PO HS [facility] Last Admin: 10/10/18 21:37 Dose: 10 mg - Labs Labs: 10/10/18 07:23 10/10/18 07:23 PT 14.2 SECONDS (9.7-12.2) H 10/08/18 20:31 INR 1.3 10/08/18 20:31 APTT 38.0 SECONDS (21-34) H 10/08/18 20:31 - Additional Findings Additional findings: - Constitutional Appears: Non-toxic, No Acute Distress - Head Exam Head Exam: ATRAUMATIC, NORMAL INSPECTION - Eye Exam Eye Exam: EOMI, Normal appearance - ENT Exam ENT Exam: Mucous Membranes Moist - Neck Exam Neck Exam: Normal Inspection - Respiratory Exam Respiratory Exam: Clear to Auscultation Bilateral, NORMAL BREATHING PATTERN - Cardiovascular Exam Cardiovascular Exam: Irregular rhythm, +S1, +S2 - GI/Abdominal Exam GI & Abdominal Exam: Soft. 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 Patient is asymptomatic. Her divorce attorney wanted to r/o GI bleed as she needs to be anticoagulated for her Afib. Patient's anemia is stable and no GI bleed on EGD. CT showed abnormalities of pancreas. which patient is being worked up for. Plan: Pancreatic abnormality- suspicious for malignancy - CT A/P: Hypoattenuation of the liver compatible with hepatic steatosis. Splenomegaly. 3 mm too small to characterize hypodensity within the anterior aspect of the spleen, nonspecific. Heterogeneity/fullness of the pancreatic head; underlying neoplasm such as adenocarcinoma must be excluded. Alternatives such as focal pancreatitis may also be considered. No associated inflammatory changes are evident. No evidence of bulky adenopathy. Recommend correlation with amylase and lipase as well as CT pancreatic protocol for further evaluation. - MRCP: Poorly delineated region of decreased enhancement/heterogeneity noted at the pancreatic head on post-contrast imaging; infiltrating neoplasm must be excluded. A discrete pancreatic mass is not identified. No evidence of pancreatic duct dilatation. No peripancreatic inflammatory stranding evident. Splenomegaly. - Pancreatic protocol CT pending read - Amylase, lipase wnl - CA 19-9 elev (220), CA-125 elev (65) - AFP, CEA wnl - Hepatobiliary surgery consulted ([facility]) - GI consulted ([facility])- EUS tomorrow 10/12 Gallbladder distention - CT A/P: Gallbladder distension. Punctate density at the gallbladder neck, favored to reflect tiny gallstone. Common bile duct measures approximately 7 mm, mildly dilated. - Abd US: Cholelithiasis in a distended gallbladder. Top normal wall thickness of 3 millimeters. No gross wall edema. Negative sonographic Collins's sign. Dilated common bile duct. Further evaluation with MRCP is recommended if clinically indicated to better evaluate for possible calculi within the common b ile duct. Prominent liver measuring 17.2 centimeters in length with associated increased echogenicity of the hepatic parenchymal cortex suggestive for fatty infiltration versus hepatic parenchymal disease. Limited visualization of the pancreas. Prominent spleen measuring up to 12.5 centimeters in length. Midpole 1.5 centimeter left renal cyst. - MRCP: Marked gallbladder distension. Cholelithiasis. Gallstone noted at the gallbladder neck measuring approximately 11 mm. The common bile duct appears minimally dilated measuring approximately 7 mm without evidence of focal filling defect. - Hepatobiliary surgery consulted ([facility]) - GI consulted (Johnathan) Asymptomatic anemia, acute - Baseline Hgb 12-14, 9.4 on admission--> 8.5 - MCV low (67) - UA: no blood - CT C/A/P: no signs of bleeding - FOBT x3 pending (negative in ED) - Iron low (13), ferritin low (6.9), % sat low (3), TIBC wnl (391) - B12, folate wnl - EGD: no active bleed - Monitor H&H daily - Vit K 10 mg SC in ED - Discontinue NS @ 100 cc/hr - GI consulted (Johnathan) Atrial fibrillation on anticoagulation, chronic - EKG: NSR, LVH - Hold Xarelto - Lovenox 80 mg SC Q12H - Cardiology consulted ([facility]) Coronary artery disease, chronic- s/p stents - EKG: NSR, LVH - Stress test pending in anticipation of surgery - Crestor 10 mg PO QHS Hypertension, chronic - Vitals Q6H - Metoprolol 50 mg PO BID Type 2 diabetes mellitus, chronic - Accuchecks Q6H - Hypoglycemia protocol - ISS low Rheumatoid arthritis, chronic - Hold Baricitinib - Hold Sulfasalazine - Prednisone 5 mg PO daily Ppx: VTE: SCDs, Lovenox 80 mg SC Q12H GI: Protonix 40 mg IV daily Diet: Full liquids, NPO after midnight for EUS Code status: DNR/DNI- POLST 12/2017 Healthcare proxy: Jerry Rivera [phone] Dispo: Pending CT pancreatic protocol and EUS. Case discussed with attending, Dr. Patrick Trimble. <Geovanny Trimble - Last Filed: 10/14/18 18:04> Objective - Vital Signs/Intake and Output Vital Signs (last 24 hours): Temp Pulse Resp BP Pulse Ox 98 F 82 20 149/84 95 10/14/18 16:47 10/14/18 16:47 10/14/18 16:47 10/14/18 16:47 10/14/18 16:47 Intake and Output: 10/14/18 10/14/18 06:59 18:59 Intake Total 650 Balance 650 - Medications Medications: Current Medications Dextrose (Dextrose 50% Inj) 0 ml IV STAT PRN; Protocol PRN Reason: Hypoglycemia Protocol Dextrose (Glutose 15) 0 gm PO ONCE PRN; Protocol PRN Reason: Hypoglycemia Protocol Enoxaparin Sodium (Lovenox) 80 mg SC ONCE ONE Stop: 10/14/18 22:01 Glucagon (Glucagen Diagnostic Kit) 0 mg IM STAT PRN; Protocol PRN Reason: Hypoglycemia Protocol Dextrose (Dextrose 5% In Water 1000 Ml) 1,000 mls @ 0 mls/hr IV .Q0M PRN; Protocol PRN Reason: Hypoglycemia Protocol Insulin Human Regular (Novolin R) 0 unit SC [facility]; Protocol Last Admin: 10/14/18 17:43 Dose: 2 units Metoprolol Tartrate (Lopressor) 50 mg PO BID [facility] Last Admin: 10/14/18 17:43 Dose: 50 mg Pantoprazole Sodium (Protonix Inj) 40 mg IVP DAILY [facility] Last Admin: 10/14/18 10:33 Dose: 40 mg Prednisone (Prednisone Tab) 5 mg PO DAILY [facility] Last Admin: 10/14/18 10:33 Dose: 5 mg Rosuvastatin Calcium (Crestor) 10 mg PO HS [facility] Last Admin: 10/13/18 21:58 Dose: 10 mg - Labs Labs: 10/14/18 07:41 10/14/18 07:41 PT 12.3 SECONDS (9.7-12.2) H 10/14/18 11:18 INR 1.1 10/14/18 11:18 APTT 38.0 SECONDS (21-34) H 10/08/18 20:31 Attending/Attestation - Attestation I have personally seen and examined this patient.: Yes I have fully participated in the care of the patient.: Yes I have reviewed all pertinent clinical information, including history, physical exam and plan: Yes Notes (Text): 10/14/18 18:03 This is a late entry. Care of this patient was gone over in detail with resident Dr. Norris. Geovanny Trimble D.O.
[2018-10-11 07:26] LABS: BASO % 0.7 % (0.0-2.0); EOS # 0.1 K/uL (0.0-0.7); EOS % 2.7 % (0.0-4.0); HEMOGLOBIN 8.5 g/dL (11.0-16.0); LYMPH # 0.9 K/uL (1.0-4.3); LYMPH % 18.6 % (20.0-40.0); MEAN CELL VOLUME 68.1 fL (81.0-99.0); MEAN CORPUSCULAR HEMOGLOBIN 20.7 pg (27.0-31.0); MEAN CORPUSCULAR HGB CONC 30.3 g/dL (33.0-37.0); MEAN PLATELET VOLUME 7.6 fL (7.2-11.7); MONO # 0.6 K/uL (0.0-0.8); MONO % 12.8 % (0.0-10.0); NEUT # 3.2 K/uL (1.8-7.0); NEUT % 65.2 % (50.0-75.0); RBC 4.13 Mil/uL (3.80-5.20); RED CELL DISTRIBUTION WIDTH 18.5 % (11.5-14.5); WHITE BLOOD COUNT 4.9 K/uL (4.8-10.8)
[2018-10-11 07:53] LABS: ALB/GLOB RATIO 1.1 (1.0-2.1); ALBUMIN 3.2 g/dL (3.5-5.0); ALT/SGPT 31 U/L (9-52); AST/SGOT 33 U/L (14-36); BLOOD UREA NITROGEN 5 mg/dL (7-17); CALCIUM 9.2 mg/dl (8.6-10.4); GFR NON-AFRICAN AMERICAN > 60
--- NOTE | 2018-10-11 08:33 | CP.PCM.PN ---
<Bean Hernandez - Last Filed: 10/11/18 08:34> Subjective - Date & Time of Evaluation Date of Evaluation: 10/11/18 Time of Evaluation: 08:27 - Subjective Subjective: HBP Surgery Note for Dr. Liu Patient seen and examined at bedside. No acute event overnight. Patient has no complaints. He is hungry though. Patient to got fot CT pancreatic protocol today. Possible MRCP today as well. Objective - Vital Signs/Intake and Output Vital Signs (last 24 hours): Temp Pulse Resp BP Pulse Ox 98.7 F 98 H 20 142/89 95 10/11/18 07:57 10/11/18 07:57 10/11/18 07:57 10/11/18 07:57 10/11/18 07:57 Intake and Output: 10/11/18 10/11/18 06:59 18:59 Intake Total 1900 Balance 1900 - Medications Medications: Current Medications Dextrose (Dextrose 50% Inj) 0 ml IV STAT PRN; Protocol PRN Reason: Hypoglycemia Protocol Dextrose (Glutose 15) 0 gm PO ONCE PRN; Protocol PRN Reason: Hypoglycemia Protocol Enoxaparin Sodium (Lovenox) 80 mg SC Q12 [facility] Last Admin: 10/10/18 21:55 Dose: 80 mg Glucagon (Glucagen Diagnostic Kit) 0 mg IM STAT PRN; Protocol PRN Reason: Hypoglycemia Protocol Dextrose (Dextrose 5% In Water 1000 Ml) 1,000 mls @ 0 mls/hr IV .Q0M PRN; Protocol PRN Reason: Hypoglycemia Protocol Sodium Chloride (Sodium Chloride 0.9%) 1,000 mls @ 100 mls/hr IV .Q10H [facility] Last Admin: 10/11/18 06:24 Dose: 100 mls/hr Insulin Human Regular (Novolin R) 0 unit SC Q6H [facility]; Protocol Last Admin: 10/11/18 05:41 Dose: Not Given Metoprolol Tartrate (Lopressor) 50 mg PO BID [facility] Last Admin: 10/10/18 17:42 Dose: 50 mg Pantoprazole Sodium (Protonix Inj) 40 mg IVP Q12H [facility] Last Admin: 10/10/18 23:03 Dose: 40 mg Prednisone (Prednisone Tab) 5 mg PO DAILY [facility] Last Admin: 10/10/18 10:53 Dose: Not Given Rosuvastatin Calcium (Crestor) 10 mg PO HS [facility] Last Admin: 10/10/18 21:37 Dose: 10 mg - Labs Labs: 10/11/18 07:15 10/11/18 07:15 PT 14.2 SECONDS (9.7-12.2) H 10/08/18 20:31 INR 1.3 10/08/18 20:31 APTT 38.0 SECONDS (21-34) H 10/08/18 20:31 - Additional Findings Additional findings: - Constitutional Appears: Well, Non-toxic - Head Exam Head Exam: ATRAUMATIC, NORMAL INSPECTION, NORMOCEPHALIC - Eye Exam Eye Exam: EOMI, Normal appearance. absent: Scleral icterus - Respiratory Exam Respiratory Exam: NORMAL BREATHING PATTERN. absent: Accessory Muscle Use, Respiratory Distress - Cardiovascular Exam Cardiovascular Exam: absent: JVD - GI/Abdominal Exam GI & Abdominal Exam: Soft. absent: Distended, Guarding, Tenderness, Rebound - Extremities Exam Extremities Exam: Normal Inspection. absent: Calf Tenderness - Neurological Exam Neurological Exam: Awake Additional comments: somnolent but easily arousable. - Psychiatric Exam Psychiatric exam: Normal Affect, Normal Mood - Skin Skin Exam: Dry, Intact, Normal Color, Warm Assessment and Plan - Assessment and Plan (Free Text) Assessment: 67F with a distended GB and presumptive pancreatic head mass in the setting of u nexplained weight loss s/p EGD CA 19-9 and CA 125 elevated CEA and AFP are within normal limits Plan: - f/u Triple Phase Pancreatic CT scan - f/u MRCP - f/u GI for possible EUS - Will need stress test prior to OR - Further recs as per Dr. Alford PGY2 <Rolo Lobo N - Last Filed: 10/12/18 10:23> Objective - Vital Signs/Intake and Output Vital Signs (last 24 hours): Temp Pulse Resp BP Pulse Ox 98.9 F 81 20 138/72 95 10/12/18 00:00 10/12/18 00:00 10/12/18 00:00 10/12/18 00:00 10/12/18 00:00 Intake and Output: 10/12/18 10/12/18 06:59 18:59 Intake Total 0 Balance 0 - Medications Medications: Current Medications Dextrose (Dextrose 50% Inj) 0 ml IV STAT PRN; Protocol PRN Reason: Hypoglycemia Protocol Dextrose (Glutose 15) 0 gm PO ONCE PRN; Protocol PRN Reason: Hypoglycemia Protocol Enoxaparin Sodium (Lovenox) 80 mg SC Q12 [facility] Last Admin: 10/11/18 22:24 Dose: 80 mg Glucagon (Glucagen Diagnostic Kit) 0 mg IM STAT PRN; Protocol PRN Reason: Hypoglycemia Protocol Dextrose (Dextrose 5% In Water 1000 Ml) 1,000 mls @ 0 mls/hr IV .Q0M PRN; Protocol PRN Reason: Hypoglycemia Protocol Insulin Human Regular (Novolin R) 0 unit SC Q6H [facility]; Protocol Last Admin: 10/12/18 05:14 Dose: Not Given Metoprolol Tartrate (Lopressor) 50 mg PO BID [facility] Last Admin: 10/11/18 17:18 Dose: 50 mg Pantoprazole Sodium (Protonix Inj) 40 mg IVP DAILY [facility] Prednisone (Prednisone Tab) 5 mg PO DAILY [facility] Last Admin: 10/11/18 11:32 Dose: 5 mg Rosuvastatin Calcium (Crestor) 10 mg PO HS [facility] Last Admin: 10/11/18 22:23 Dose: 10 mg - Labs Labs: 10/12/18 08:21 10/12/18 08:21 PT 13.1 SECONDS (9.7-12.2) H 10/12/18 08:21 INR 1.2 10/12/18 08:21 APTT 38.0 SECONDS (21-34) H 10/08/18 20:31 Assessment and Plan - Assessment and Plan (Free Text) Assessment: All medical record entries made by the resident were at my direction. I have rev iewed the chart and agree that the record accurately reflects my personal performance of the history, physical exam, and medical decision making Await EUS, if cancer found, and a surgical candidate, will need stress test.
[2018-10-11] MEDS ORDERED: Iohexol 240 (50 ml) PO ONE ×2 (08:45→11:00)
[2018-10-11] MEDS ORDERED: Iodixanol 320 mg/ml 150 ml Bottle IV ONE (09:25)
--- NOTE | 2018-10-11 09:25 | CP.PCM.CON ---
<Angie Foster - Last Filed: 10/11/18 09:30> History of Present Illness - History of Present Illness History of Present Illness: GI Fellow PGY5 Consult Note This is a 67 year old female with a past medical history of A fib on Xarelto, CAD with stents, HTN, DM, RA who was sent to the ER by her doctor when found to have a low Hgb of 9.6 from 12 last year. She denies any melena, hematochezia, hematemesis. She reports having a Colonoscopy 2 years ago that was normal, no records for review. No prior EGD to this admission. She admits to losing about 40lbs unintentionally over the past year, decreased appetite stating she doesn't usually eat much. She reports chronic back pain, no hx of pancreatitis, no alcohol abuse, former heavy smoker quit 30yrs ago. No family hx of pancreatic cancer, but mother and sister both cancer, unknown to her. She denies fevers, abdominal pain, nausea, vomiting, diarrhea, constipation. Pt had an EGD with anemia in setting of OAC and steroid use, EGD just showed bile gastritis. Pt had a CT scan done which was concerning for a pancreatic head lesion and a c onsult was placed to Surgical Team and GI for possible EUS. ROS: A 12pt ROS was negative except as above. PMH: As stated in HPI PSH: cardiac stents, vein surgery, tonsillectomy, tubal ligation Family hx: Father of MD in 60s, Mother and sister of cancer Social hx: former smoker - quit 30 years, smoked 2ppd x20 years, denies alcohol or drug use Past Patient History - Infectious Disease Hx of Infectious Diseases: None - Tetanus Immunizations Tetanus Immunization: Unknown - Past Medical History & Family History Past Medical History?: Yes - Past Social History Smoking Status: Never Smoked - CARDIAC Hx Atrial Fibrillation: Yes Hx Hypertension: Yes - PULMONARY Hx Asthma: Yes - HEENT Hx HEENT Problems: Yes Hx Cataracts: Yes (surgery both eyes) Other/Comment: tonsillectomy - INTEGUMENTARY Hx Dermatological Problems: Yes Hx Psoriasis: Yes - MUSCULOSKELETAL/RHEUMATOLOGICAL Hx Falls: No - GASTROINTESTINAL Hx Gastrointestinal Disorders: No - GENITOURINARY/GYNECOLOGICAL Hx Genitourinary Disorders: No - PSYCHIATRIC Hx Substance Use: No - SURGICAL HISTORY Hx Coronary Stent: Yes (03/2014) Hx Tonsillectomy: Yes - ANESTHESIA Hx Anesthesia: No Hx Anesthesia Reactions: No Meds Allergies/Adverse Reactions: Allergies Allergy/AdvReac Type Severity Reaction Status Date / Time Penicillins Allergy RASH Verified 12/11/17 12:36 - Medications Medications: Current Medications Dextrose (Dextrose 50% Inj) 0 ml IV STAT PRN; Protocol PRN Reason: Hypoglycemia Protocol Dextrose (Glutose 15) 0 gm PO ONCE PRN; Protocol PRN Reason: Hypoglycemia Protocol Enoxaparin Sodium (Lovenox) 80 mg SC Q12 [facility] Last Admin: 10/10/18 21:55 Dose: 80 mg Glucagon (Glucagen Diagnostic Kit) 0 mg IM STAT PRN; Protocol PRN Reason: Hypoglycemia Protocol Dextrose (Dextrose 5% In Water 1000 Ml) 1,000 mls @ 0 mls/hr IV .Q0M PRN; Protocol PRN Reason: Hypoglycemia Protocol Sodium Chloride (Sodium Chloride 0.9%) 1,000 mls @ 100 mls/hr IV .Q10H [facility] Last Admin: 10/11/18 06:24 Dose: 100 mls/hr Insulin Human Regular (Novolin R) 0 unit SC Q6H [facility]; Protocol Last Admin: 10/11/18 05:41 Dose: Not Given Metoprolol Tartrate (Lopressor) 50 mg PO BID [facility] Last Admin: 10/10/18 17:42 Dose: 50 mg Pantoprazole Sodium (Protonix Inj) 40 mg IVP Q12H [facility] Last Admin: 10/10/18 23:03 Dose: 40 mg Prednisone (Prednisone Tab) 5 mg PO DAILY [facility] Last Admin: 10/10/18 10:53 Dose: Not Given Rosuvastatin Calcium (Crestor) 10 mg PO HS [facility] Last Admin: 10/10/18 21:37 Dose: 10 mg Physical Exam - Constitutional Appears: Non-toxic, No Acute Distress - Head Exam Head Exam: ATRAUMATIC, NORMAL INSPECTION, NORMOCEPHALIC - Eye Exam Eye Exam: EOMI, Normal appearance, PERRL - ENT Exam ENT Exam: Mucous Membranes Dry - Neck Exam Neck exam: Positive for: Full Rom, Normal Inspection - Respiratory Exam Respiratory Exam: Clear to Auscultation Bilateral, NORMAL BREATHING PATTERN - Cardiovascular Exam Cardiovascular Exam: REGULAR RHYTHM, RRR, +S1, +S2 - GI/Abdominal Exam GI & Abdominal Exam: Normal Bowel Sounds, Soft. absent: Distended, Firm, Guarding, Organomegaly, Tenderness - Rectal Exam Rectal Exam: Deferred - Extremities Exam Extremities exam: Positive for: full ROM, normal inspection - Neurological Exam Neurological exam: Alert, Oriented x3 - Psychiatric Exam Psychiatric exam: Normal Affect, Normal Mood - Skin Skin Exam: Dry, Intact, Normal Color, Warm Results - Vital Signs Recent Vital Signs: Last Vital Signs Temp 98.7 F 10/11/18 07:57 Pulse 98 H 10/11/18 07:57 Resp 20 10/11/18 07:57 BP 142/89 10/11/18 07:57 Pulse Ox 95 10/11/18 07:57 - Labs Result Diagrams: 10/11/18 07:15 10/11/18 07:15 Labs: Laboratory Results - last 24 hr 10/10/18 10/10/18 10/11/18 10:10 21:59 04:17 WBC RBC Hgb Hct MCV MCH MCHC RDW Plt Count MPV Neut % (Auto) Lymph % (Auto) [place] % (Auto) Eos % (Auto) Baso % (Auto) Neut # (Auto) Lymph # (Auto) [place] # (Auto) Eos # (Auto) Baso # (Auto) Sodium Potassium Chloride Carbon Dioxide Anion Gap BUN Creatinine Est GFR ( Amer) Est GFR (Non-Af Amer) POC Glucose (mg/dL) 172 H 211 H 133 H Random Glucose Calcium Phosphorus Magnesium Total Bilirubin AST ALT Alkaline Phosphatase Total Protein Albumin Globulin Albumin/Globulin Ratio 10/11/18 10/11/18 07:15 07:15 WBC 4.9 RBC 4.13 Hgb 8.5 L Hct 28.1 L MCV 68.1 L MCH 20.7 L MCHC 30.3 L RDW 18.5 H Plt Count 248 MPV 7.6 Neut % (Auto) 65.2 Lymph % (Auto) 18.6 L [place] % (Auto) 12.8 H Eos % (Auto) 2.7 Baso % (Auto) 0.7 Neut # (Auto) 3.2 Lymph # (Auto) 0.9 L [place] # (Auto) 0.6 Eos # (Auto) 0.1 Baso # (Auto) 0.0 Sodium 138 Potassium 3.6 Chloride 102 Carbon Dioxide 29 Anion Gap 11 BUN 5 L Creatinine 0.4 L Est GFR ( Amer) > 60 Est GFR (Non-Af Amer) > 60 POC Glucose (mg/dL) Random Glucose 122 H D Calcium 9.2 Phosphorus 3.7 Magnesium 1.6 Total Bilirubin 0.3 AST 33 ALT 31 Alkaline Phosphatase 66 Total Protein 6.1 L Albumin 3.2 L Globulin 2.9 Albumin/Globulin Ratio 1.1 Assessment & Plan - Assessment and Plan (Free Text) Assessment: 1. Anemia 2. Possible pancreatic head lesion 3. Dilated CBD 4. Elevated CA19-9 5. Afib on OAC with lovenox 6. CAD 7. RA -Pt s/p EGD with no active GI bleeding, PUD or esophagitis -Monitor H/H and transfuse if <7 -CT imaging, Abd US reviewed and discussed with Dr. Booth and Surgical team -LFTs are normal so unlikely to be obstruction -Surgical team ordered Pancreatic CT -GI team has also MRCP to r/o cholagiocarcinoma with such elevated CA19-9 and better evaluation of CBD -If MRCP concerning will plan for possible EUS tomorrow, if so patient's Lovenox tonight will need to be held and NPO past midnight -Pt only needs to be NPO for MRCP and can eat for CT scan -This plan was discussed with primary team <Shaunna Booth - Last Filed: 10/11/18 14:54> Meds - Medications Medications: Current Medications Dextrose (Dextrose 50% Inj) 0 ml IV STAT PRN; Protocol PRN Reason: Hypoglycemia Protocol Dextrose (Glutose 15) 0 gm PO ONCE PRN; Protocol PRN Reason: Hypoglycemia Protocol Enoxaparin Sodium (Lovenox) 80 mg SC Q12 [facility] Last Admin: 10/11/18 11:34 Dose: Not Given Glucagon (Glucagen Diagnostic Kit) 0 mg IM STAT PRN; Protocol PRN Reason: Hypoglycemia Protocol Dextrose (Dextrose 5% In Water 1000 Ml) 1,000 mls @ 0 mls/hr IV .Q0M PRN; Protocol PRN Reason: Hypoglycemia Protocol Insulin Human Regular (Novolin R) 0 unit SC Q6H [facility]; Protocol Last Admin: 10/11/18 11:23 Dose: Not Given Metoprolol Tartrate (Lopressor) 50 mg PO BID [facility] Last Admin: 10/11/18 11:32 Dose: 50 mg Pantoprazole Sodium (Protonix Inj) 40 mg IVP Q12H [facility] Last Admin: 10/11/18 11:32 Dose: 40 mg Prednisone (Prednisone Tab) 5 mg PO DAILY [facility] Last Admin: 10/11/18 11:32 Dose: 5 mg Rosuvastatin Calcium (Crestor) 10 mg PO HS [facility] Last Admin: 10/10/18 21:37 Dose: 10 mg Results - Vital Signs Recent Vital Signs: Last Vital Signs Temp 98.7 F 10/11/18 07:57 Pulse 98 H 10/11/18 07:57 Resp 20 10/11/18 07:57 BP 142/89 10/11/18 07:57 Pulse Ox 95 10/11/18 07:57 - Labs Result Diagrams: 10/11/18 07:15 10/11/18 07:15 Labs: Laboratory Results - last 24 hr 10/10/18 10/11/18 10/11/18 21:59 04:17 07:15 WBC 4.9 RBC 4.13 Hgb 8.5 L Hct 28.1 L MCV 68.1 L MCH 20.7 L MCHC 30.3 L RDW 18.5 H Plt Count 248 MPV 7.6 Neut % (Auto) 65.2 Lymph % (Auto) 18.6 L [place] % (Auto) 12.8 H Eos % (Auto) 2.7 Baso % (Auto) 0.7 Neut # (Auto) 3.2 Lymph # (Auto) 0.9 L [place] # (Auto) 0.6 Eos # (Auto) 0.1 Baso # (Auto) 0.0 Sodium Potassium Chloride Carbon Dioxide Anion Gap BUN Creatinine Est GFR ( Amer) Est GFR (Non-Af Amer) POC Glucose (mg/dL) 211 H 133 H Random Glucose Calcium Phosphorus Magnesium Total Bilirubin AST ALT Alkaline Phosphatase Total Protein Albumin Globulin Albumin/Globulin Ratio 10/11/18 10/11/18 07:15 10:14 WBC RBC Hgb Hct MCV MCH MCHC RDW Plt Count MPV Neut % (Auto) Lymph % (Auto) [place] % (Auto) Eos % (Auto) Baso % (Auto) Neut # (Auto) Lymph # (Auto) [place] # (Auto) Eos # (Auto) Baso # (Auto) Sodium 138 Potassium 3.6 Chloride 102 Carbon Dioxide 29 Anion Gap 11 BUN 5 L Creatinine 0.4 L Est GFR ( Amer) > 60 Est GFR (Non-Af Amer) > 60 POC Glucose (mg/dL) 163 H Random Glucose 122 H D Calcium 9.2 Phosphorus 3.7 Magnesium 1.6 Total Bilirubin 0.3 AST 33 ALT 31 Alkaline Phosphatase 66 Total Protein 6.1 L Albumin 3.2 L Globulin 2.9 Albumin/Globulin Ratio 1.1 Attending/Attestation - Attestation I have personally seen and examined this patient.: Yes I have fully participated in the care of the patient.: Yes I have reviewed all pertinent clinical information: Yes Notes (Text): 10/11/18 14:41 I have seen and examined the patient with the GI fellow. This is a 67 yo F ex- smoker with DM on insulin and unintentional wt loss of 40 lbs found to have questionable HOP mass. MRCP done also shows possible area of unenhancement near the HOP. LFTs have remained normal. CA 19-9 elevated at 220. Also noted to have distended GB with multiple large stones, but no choledocholithiasis. Quit smoking 20+ yrs ago. No family h/o pancreatic cancer. Denies EtOH use and no prior episodes of pancreatitis. General: NAD, pleasant, elderly woman Abd: soft, nt, nd Plan: -Will plan for EGD w/ EUS tmrw -NPO after midnight -d/w pt and pt's daughter at bedside 10/11/18 14:44
[2018-10-11] MEDS ORDERED: Gadodiamide 287 mg/ml 20 ml IV ONE (09:55)
--- NOTE | 2018-10-11 10:32 | CP.PCM.PN ---
<Hanane Root - Last Filed: 10/11/18 16:16> Subjective - Date & Time of Evaluation Date of Evaluation: 10/11/18 Time of Evaluation: 10:32 - Subjective Subjective: Progress note for Dr. Plascencia Patient was seen and examined at bedside in no acute distress. Patient states she is feeling fine and looking forward to drinking her coffee. She otherwise has no additional complaints. She denies chest pain, palpitations, dyspnea, ab dominal pain, nausea, vomiting, fevers, headaches, leg pain. Objective - Vital Signs/Intake and Output Vital Signs (last 24 hours): Temp Pulse Resp BP Pulse Ox 98.7 F 98 H 20 142/89 95 10/11/18 07:57 10/11/18 07:57 10/11/18 07:57 10/11/18 07:57 10/11/18 07:57 Intake and Output: 10/11/18 10/11/18 06:59 18:59 Intake Total 1900 Balance 1900 - Medications Medications: Current Medications Dextrose (Dextrose 50% Inj) 0 ml IV STAT PRN; Protocol PRN Reason: Hypoglycemia Protocol Dextrose (Glutose 15) 0 gm PO ONCE PRN; Protocol PRN Reason: Hypoglycemia Protocol Enoxaparin Sodium (Lovenox) 80 mg SC Q12 [facility] Last Admin: 10/10/18 21:55 Dose: 80 mg Glucagon (Glucagen Diagnostic Kit) 0 mg IM STAT PRN; Protocol PRN Reason: Hypoglycemia Protocol Dextrose (Dextrose 5% In Water 1000 Ml) 1,000 mls @ 0 mls/hr IV .Q0M PRN; Protocol PRN Reason: Hypoglycemia Protocol Insulin Human Regular (Novolin R) 0 unit SC Q6H [facility]; Protocol Last Admin: 10/11/18 05:41 Dose: Not Given Metoprolol Tartrate (Lopressor) 50 mg PO BID [facility] Last Admin: 10/10/18 17:42 Dose: 50 mg Pantoprazole Sodium (Protonix Inj) 40 mg IVP Q12H [facility] Last Admin: 10/10/18 23:03 Dose: 40 mg Prednisone (Prednisone Tab) 5 mg PO DAILY [facility] Last Admin: 10/10/18 10:53 Dose: Not Given Rosuvastatin Calcium (Crestor) 10 mg PO HS [facility] Last Admin: 10/10/18 21:37 Dose: 10 mg - Labs Labs: 10/11/18 07:15 10/11/18 07:15 PT 14.2 SECONDS (9.7-12.2) H 10/08/18 20:31 INR 1.3 10/08/18 20:31 APTT 38.0 SECONDS (21-34) H 10/08/18 20:31 - Additional Findings Additional findings: - Constitutional Appears: No Acute Distress - Head Exam Head Exam: ATRAUMATIC, NORMAL INSPECTION - Eye Exam Eye Exam: EOMI, Normal appearance - ENT Exam ENT Exam: Mucous Membranes Moist - Respiratory Exam Respiratory Exam: Clear to Ausculation Bilateral, NORMAL BREATHING PATTERN. absent: Rhonchi, Wheezes, Respiratory Distress - Cardiovascular Exam Cardiovascular Exam: Irregular Rhythm, +S1, +S2 - GI/Abdominal Exam GI & Abdominal Exam: Soft, Normal Bowel Sounds. absent: Tenderness - Extremities Exam Extremities Exam: Pedal Edema (mild pitting edema b/l extending from knee down). absent: Tenderness - Neurological Exam Neurological Exam: Alert, Awake, Oriented x3 - Psychiatric Exam Psychiatric exam: Normal Affect, Normal Mood - Skin Skin Exam: Dry, Normal Color, Warm Assessment and Plan - Assessment and Plan (Free Text) Plan: 67 year old female with history of DM, HTN, RA, A fib on Xarelto who presents f or drop in hemoglobin from 11.4 to 9.6. Afib - Home medication: Xarelto 15mg PO daily- HELD for procedure. - Continue Metoprolol 50mg PO BID - Continue Lovenox 80mg BID Anemia - H/H 9.8/32.0 - baseline Hb in 11s - FOBT x3 pending (negative in ED) - On CT, Pancreatic abnormality- suspicious for malignancy. S/p EGD today. Will start Lovenox post procedure. CAD w/Stents - Crestor 10mg PO HS - EKG at admission: SR@98; LVH HTN - Continue Metoprolol 50mg PO BID Cardiac risk assessment, preop - EKG: SR@98; LVH - Echo (10/10/18): poor window, normal size of LA, LV, RA, RV, normal LV thickness and overall systolic function; EF 55-60%; inferoapical is hypokinetic, poss CAD; LV diastolic dysfunction; normal aortic, mitral, TV, and PV; moderate TR and trace PI; no pericardial effusion; normal aortic root root. *Patient has a moderate risk of cardiovascular event during EUS procedure. If patient goes for open surgery, stress test required. Planned for stress test on 10/15/18. Case discussed with Hanane Lynch, PGY2 <Driss Plascencia - Last Filed: 10/11/18 22:55> Objective - Vital Signs/Intake and Output Vital Signs (last 24 hours): Temp Pulse Resp BP Pulse Ox 98.3 F 88 20 152/81 H 95 10/11/18 15:00 10/11/18 15:00 10/11/18 15:00 10/11/18 15:00 10/11/18 16:02 - Medications Medications: Current Medications Dextrose (Dextrose 50% Inj) 0 ml IV STAT PRN; Protocol PRN Reason: Hypoglycemia Protocol Dextrose (Glutose 15) 0 gm PO ONCE PRN; Protocol PRN Reason: Hypoglycemia Protocol Enoxaparin Sodium (Lovenox) 80 mg SC Q12 [facility] Last Admin: 10/11/18 22:24 Dose: 80 mg Glucagon (Glucagen Diagnostic Kit) 0 mg IM STAT PRN; Protocol PRN Reason: Hypoglycemia Protocol Dextrose (Dextrose 5% In Water 1000 Ml) 1,000 mls @ 0 mls/hr IV .Q0M PRN; Protocol PRN Reason: Hypoglycemia Protocol Insulin Human Regular (Novolin R) 0 unit SC Q6H [facility]; Protocol Last Admin: 10/11/18 22:25 Dose: Not Given Metoprolol Tartrate (Lopressor) 50 mg PO BID [facility] Last Admin: 10/11/18 17:18 Dose: 50 mg Pantoprazole Sodium (Protonix Inj) 40 mg IVP DAILY [facility] Prednisone (Prednisone Tab) 5 mg PO DAILY [facility] Last Admin: 10/11/18 11:32 Dose: 5 mg Rosuvastatin Calcium (Crestor) 10 mg PO HS [facility] Last Admin: 10/11/18 22:23 Dose: 10 mg - Labs Labs: 10/11/18 07:15 10/11/18 07:15 PT 14.2 SECONDS (9.7-12.2) H 10/08/18 20:31 INR 1.3 10/08/18 20:31 APTT 38.0 SECONDS (21-34) H 10/08/18 20:31 Assessment and Plan - Assessment and Plan (Free Text) Plan: Patient seen and evaluated personally by me. Plan of care d/w the biomedical manager and as documented
[2018-10-11] MEDS: Enoxaparin 80 mg Syringe SC SCH ×2 (11:34→22:24)
--- NOTE | 2018-10-11 11:48 | MRI ---
Date of service: 10/11/2018 MRI abdomen without/with IV contrast MRCP Indication: Pancreatic lesion, r/o cholangio, elevated CA19-9 Technique: Multiplanar, multi sequence magnetic resonance images of the abdomen were obtained without and with the administration of intravenous gadolinium using a multi phase abdomen protocol. Rotating maximum intensity projection images of the biliary system were generated. A total of 1141 images submitted for review Comparison: Abdominal ultrasound performed 10/10/18, CT of the chest, abdomen, and pelvis with IV and p.o. contrast performed 10/09/18 Findings: Marked gallbladder distension. Cholelithiasis including gallstone at the gallbladder neck measuring approximately 11 mm. There is no intrahepatic biliary ductal dilatation. The common bile duct appears minimally dilated measuring approximately 7 mm. No evidence of focal filling defect within the common bile duct. The pancreatic duct appears within normal limits of caliber. Poorly delineated region of decreased enhancement/heterogeneity noted at the pancreatic head on post-contrast imaging; infiltrating neoplasm must be excluded. A discrete pancreatic mass is not identified. No peripancreatic inflammatory stranding. Splenomegaly. The liver and adrenal glands appear unremarkable. Too small to definitively characterize probable bilateral renal cysts. Kidneys enhance symmetrically. No evidence of hydronephrosis or obstructing calculi. No bulky abdominal adenopathy appreciated. Limited views of the inferior thorax appear unremarkable. Degenerative changes of the spine. 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 Mild curvature of the lumbar spine to the left. Impression: Marked gallbladder distension. Cholelithiasis. Gallstone noted at the gallbladder neck measuring approximately 11 mm. The common bile duct appears minimally dilated measuring approximately 7 mm without evidence of focal filling defect. Poorly delineated region of decreased enhancement/heterogeneity noted at the pancreatic head on post-contrast imaging; infiltrating neoplasm must be excluded. A discrete pancreatic mass is not identified. No evidence of pancreatic duct dilatation. No peripancreatic inflammatory stranding evident. Splenomegaly.
--- NOTE | 2018-10-11 15:51 | CT ---
Pancreatic protocol CT Indication: eval for pancreatic neoplasm Technique: Contiguous axial images of the abdomen without & with IV contrast utilizing pancreatic protocol. Coronal and Sagittal reformats generated and reviewed. This CT exam was performed using 1 or more of the following dose reduction techniques: Automated exposure control, adjustment of the MAA and/or kV according to patient size, and/or use of iterative reconstruction technique. Contrast: Oral contrast was administered. 90 mm omnipaque 300 mg injected. Radiation dose: Total exam DLP = 2232.81 MGy-cm. Comparison: CT of the chest, abdomen, and pelvis with IV contrast performed 10/09/18, abdominal ultrasound performed 10/10/18, MRCP and abdomen without and with IV contrast performed 10/11/18 Findings: Visualized portions of the heart appear within normal limits of size. The lung bases demonstrate evidence of interlobular septal thickening and subpleural fibrosis. No visible consolidation, pleural effusion, or pneumothorax. Moderate hiatal hernia and evidence of gastroesophageal reflux. Severe distention of the gallbladder. Punctate filling defect at the gallbladder neck consistent with gallstone evident on MRI performed earlier the same day. Additional cholelithiasis is not evident presumably noncalcified gallstones. The common bile duct measures approximately 8 mm. Hypoattenuation of the liver compatible with hepatic steatosis. Splenomegaly. Heterogeneous soft tissue density is noted inferior aspect of the pancreatic head which appears bulky without discrete borders evident and does not enhance to the same extent as the remainder of the pancreas. No pancreatic calcifications are identified. No evidence of peripancreatic inflammatory stranding. Nonobstructing bilateral renal calculi. The kidneys enhance symmetrically. No evidence of hydronephrosis. Too small to characterize renal hypodensities. Mild bilateral renal contour lobulations/scarring. The adrenal glands appear unremarkable. The stomach is nondistended. The bowel loops appear within normal limits of caliber without evidence of intestinal obstruction. There is no definite free air. Uterus is present. The urinary bladder appears unremarkable. Bilateral fat containing inguinal hernias. Scoliosis. Degenerative changes the spine. Impression: Heterogeneous soft tissue density noted at the inferior aspect of a bulky appearing pancreatic head. This heterogeneous/hypodense region does not demonstrate discrete borders and does not enhance to the same extent as the remainder of the pancreas. Appearance concerning for infiltrating neoplasm. Severe distention of the gallbladder. Punctate filling defect at the gallbladder neck consistent with gallstone evident on MRI performed earlier the same day. Please note more extensive cholelithiasis evident on MRI which suggests noncalcified gallstones. The common bile duct measures approximately 8 mm. Splenomegaly. Hypoattenuation of the liver compatible with hepatic steatosis. Nonobstructing bilateral renal calculi. The kidneys enhance symmetrically. No evidence of hydronephrosis. Too small to characterize renal hypodensities. Mild bilateral renal contour lobulations/scarring. Moderate hiatal hernia and evidence of gastroesophageal reflux.
[2018-10-12] MEDS: (Novolin R) Insulin Human Regular 100 units/ml vial SC SCH ×4 (05:14→21:35)
--- NOTE | 2018-10-12 07:36 | CP.PCM.PN ---
<Antoinette Norris - Last Filed: 10/12/18 17:03> Subjective - Date & Time of Evaluation Date of Evaluation: 10/12/18 Time of Evaluation: 07:35 - Subjective Subjective: PGY-1 Anotinette Norris D.O. Medicine progress note for Dr. Patrick Trimble's service: Patient was seen and examined this morning. Her family is at bedside. Patient is frustrated about having to stay in the hospital, but she is agreeable to getting everything done while she is here. She has no acute complaints. Objective - Vital Signs/Intake and Output Vital Signs (last 24 hours): Temp Pulse Resp BP Pulse Ox 98.9 F 81 20 138/72 95 10/12/18 00:00 10/12/18 00:00 10/12/18 00:00 10/12/18 00:00 10/12/18 00:00 Intake and Output: 10/12/18 10/12/18 06:59 18:59 Intake Total 0 Balance 0 - Medications Medications: Current Medications Dextrose (Dextrose 50% Inj) 0 ml IV STAT PRN; Protocol PRN Reason: Hypoglycemia Protocol Dextrose (Glutose 15) 0 gm PO ONCE PRN; Protocol PRN Reason: Hypoglycemia Protocol Enoxaparin Sodium (Lovenox) 80 mg SC Q12 [facility] Last Admin: 10/11/18 22:24 Dose: 80 mg Glucagon (Glucagen Diagnostic Kit) 0 mg IM STAT PRN; Protocol PRN Reason: Hypoglycemia Protocol Dextrose (Dextrose 5% In Water 1000 Ml) 1,000 mls @ 0 mls/hr IV .Q0M PRN; Protocol PRN Reason: Hypoglycemia Protocol Insulin Human Regular (Novolin R) 0 unit SC Q6H [facility]; Protocol Last Admin: 10/12/18 05:14 Dose: Not Given Metoprolol Tartrate (Lopressor) 50 mg PO BID [facility] Last Admin: 10/11/18 17:18 Dose: 50 mg Pantoprazole Sodium (Protonix Inj) 40 mg IVP DAILY [facility] Prednisone (Prednisone Tab) 5 mg PO DAILY [facility] Last Admin: 10/11/18 11:32 Dose: 5 mg Rosuvastatin Calcium (Crestor) 10 mg PO HS [facility] Last Admin: 10/11/18 22:23 Dose: 10 mg - Labs Labs: 10/11/18 07:15 05/02/19 07:15 PT 14.2 SECONDS (9.7-12.2) H 10/08/18 20:31 INR 1.3 10/08/18 20:31 APTT 38.0 SECONDS (21-34) H 10/08/18 20:31 - Additional Findings Additional findings: - Constitutional Appears: Non-toxic, No Acute Distress - Head Exam Head Exam: ATRAUMATIC, NORMAL INSPECTION - Eye Exam Eye Exam: EOMI, Normal appearance - ENT Exam ENT Exam: Mucous Membranes Moist - Neck Exam Neck Exam: Normal Inspection - Respiratory Exam Respiratory Exam: Clear to Auscultation Bilateral, NORMAL BREATHING PATTERN - Cardiovascular Exam Cardiovascular Exam: Irregular rhythm, +S1, +S2 - GI/Abdominal Exam GI & Abdominal Exam: Soft. 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 Patient is asymptomatic. 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 Patient's anemia is stable and no GI bleed on EGD. CT showed abnormalities of pancreas. Patient for stress test in anticipation of surgery. EUS scheduled for Sunday 10/15. Surgery ([facility]) anticipated depending on biopsy results. Plan: Pancreatic abnormality- suspicious for malignancy - CT A/P: Hypoattenuation of the liver compatible with hepatic steatosis. Splenomegaly. 3 mm too small to characterize hypodensity within the anterior aspect of the spleen, nonspecific. Heterogeneity/fullness of the pancreatic head; underlying neoplasm such as adenocarcinoma must be excluded. Alternatives such as focal pancreatitis may also be considered. No associated inflammatory changes are evident. No evidence of bulky adenopathy. Recommend correlation with amylase and lipase as well as CT pancreatic protocol for further evaluation. - MRCP: Poorly delineated region of decreased enhancement/heterogeneity noted at the pancreatic head on post-contrast imaging; infiltrating neoplasm must be excluded. A discrete pancreatic mass is not identified. No evidence of pancreatic duct dilatation. No peripancreatic inflammatory stranding evident. Splenomegaly. - Pancreatic protocol CT: Heterogeneous soft tissue density noted at the inferior aspect of a bulky appearing pancreatic head. This heterogeneous/hypodense region does not demonstrate discrete borders and does not enhance to the same extent as the remainder of the pancreas. Appearance concerning for infiltrating neoplasm. - Stress test- report pending - Amylase, lipase wnl - CA 19-9 elev (220), CA-125 elev (65) - AFP, CEA wnl - Hepatobiliary surgery consulted ([facility]) - GI consulted ([facility])- EUS Sunday 10/15 at 10 AM Gallbladder distention- suspect / to pancreatic abnormality - CT A/P: Gallbladder distension. Punctate density at the gallbladder neck, favored to reflect tiny gallstone. Common bile duct measures approximately 7 mm, mildly dilated. - Abd US: Cholelithiasis in a distended gallbladder. Top normal wall thickness of 3 millimeters. No gross wall edema. Negative sonographic Collins's sign. Dilated common bile duct. Further evaluation with MRCP is recommended if clinically indicated to better evaluate for possible calculi within the common bile duct. Prominent liver measuring 17.2 centimeters in length with associated increased echogenicity of the hepatic parenchymal cortex suggestive for fatty infiltration versus hepatic parenchymal disease. Limited visualization of the pancreas. Prominent spleen measuring up to 12.5 centimeters in length. Midpole 1.5 centimeter left renal cyst. - MRCP: Marked gallbladder distension. Cholelithiasis. Gallstone noted at the gallbladder neck measuring approximately 11 mm. The common bile duct appears minimally dilated measuring approximately 7 mm without evidence of focal filling defect. - Pancreatic protocol CT: Severe distention of the gallbladder. Punctate filling defect at the gallbladder neck consistent with gallstone evident on MRI performed earlier the same day. Please note more extensive cholelithiasis evident on MRI which suggests noncalcified gallstones. The common bile duct measures approximately 8 mm. - Hepatobiliary surgery consulted ([facility]) - GI consulted ([facility]) Asymptomatic anemia, acute, stable - Baseline Hgb 12-14, 9.4 on admission - MCV low (67) - UA: no blood - CT C/A/P: no signs of bleeding - FOBT negative - Iron low (13), ferritin low (6.9), % sat low (3), TIBC wnl (391) - B12, folate wnl - EGD: no active bleed - Monitor H&H daily - Vit K 10 mg SC in ED - GI consulted ([facility]) Atrial fibrillation on anticoagulation, chronic - EKG: NSR, LVH - Hold Xarelto - Lovenox 80 mg SC Q12H - Cardiology consulted ([facility]) Coronary artery disease, chronic- s/p stents - EKG: NSR, LVH - Stress test- report pending - Crestor 10 mg PO QHS Hypertension, chronic - Vitals Q6H - Metoprolol 50 mg PO BID Type 2 diabetes mellitus, chronic - Accuchecks Q6H - Hypoglycemia protocol - ISS low Rheumatoid arthritis, chronic - Hold Baricitinib - Hold Sulfasalazine - Prednisone 5 mg PO daily Ppx: VTE: SCDs, Lovenox 80 mg SC Q12H GI: Protonix 40 mg IV daily Diet: Full liquids, NPO after midnight for EUS Code status: DNR/DNI- POLST 12/2017 Healthcare proxy: Jerry Rivera [phone] Dispo: Pending EUS on Monday then further management per Dr. Alexander. Case discussed with attending, Dr. Patrick Trimble. <Geovanny Trimble - Last Filed: 10/14/18 18:03> Objective - Vital Signs/Intake and Output Vital Signs (last 24 hours): Temp Pulse Resp BP Pulse Ox 98 F 82 20 149/84 95 10/14/18 16:47 10/14/18 16:47 10/14/18 16:47 10/14/18 16:47 10/14/18 16:47 Intake and Output: 10/14/18 10/14/18 06:59 18:59 Intake Total 650 Balance 650 - Medications Medications: Current Medications Dextrose (Dextrose 50% Inj) 0 ml IV STAT PRN; Protocol PRN Reason: Hypoglycemia Protocol Dextrose (Glutose 15) 0 gm PO ONCE PRN; Protocol PRN Reason: Hypoglycemia Protocol Enoxaparin Sodium (Lovenox) 80 mg SC ONCE [facility] Stop: 10/14/18 22:01 Glucagon (Glucagen Diagnostic Kit) 0 mg IM STAT PRN; Protocol PRN Reason: Hypoglycemia Protocol Dextrose (Dextrose 5% In Water 1000 Ml) 1,000 mls @ 0 mls/hr IV .Q0M PRN; Protocol PRN Reason: Hypoglycemia Protocol Insulin Human Regular (Novolin R) 0 unit SC ACHS [facility]; Protocol Last Admin: 10/14/18 17:43 Dose: 2 units Metoprolol Tartrate (Lopressor) 50 mg PO BID [facility] Last Admin: 10/14/18 17:43 Dose: 50 mg Pantoprazole Sodium (Protonix Inj) 40 mg IVP DAILY [facility] Last Admin: 10/14/18 10:33 Dose: 40 mg Prednisone (Prednisone Tab) 5 mg PO DAILY [facility] Last Admin: 10/14/18 10:33 Dose: 5 mg Rosuvastatin Calcium (Crestor) 10 mg PO HS [facility] Last Admin: 10/13/18 21:58 Dose: 10 mg - Labs Labs: 10/14/18 07:41 10/14/18 07:41 PT 12.3 SECONDS (9.7-12.2) H 10/14/18 11:18 INR 1.1 10/14/18 11:18 APTT 38.0 SECONDS (21-34) H 10/08/18 20:31 Attending/Attestation - Attestation I have personally seen and examined this patient.: Yes I have fully participated in the care of the patient.: Yes I have reviewed all pertinent clinical information, including history, physical exam and plan: Yes Notes (Text): 10/14/18 18:03 This is a late entry. Care of this patient was gone over in detail with resident Dr. Norris. Geovanny Trimble D.O.
[2018-10-12] MEDS ORDERED: Caffeine Citrated **INJ** 20 MG/ML IV ONE (07:52)
[2018-10-12 08:25] LABS: BASO % 0.7 % (0.0-2.0); EOS # 0.2 K/uL (0.0-0.7); EOS % 3.4 % (0.0-4.0); HEMOGLOBIN 9.2 g/dL (11.0-16.0); LYMPH # 1.1 K/uL (1.0-4.3); MEAN CELL VOLUME 67.8 fL (81.0-99.0); MEAN CORPUSCULAR HEMOGLOBIN 20.9 pg (27.0-31.0); MEAN CORPUSCULAR HGB CONC 30.8 g/dL (33.0-37.0); MEAN PLATELET VOLUME 7.3 fL (7.2-11.7); MONO # 0.7 K/uL (0.0-0.8); NEUT # 3.3 K/uL (1.8-7.0); NEUT % 62.9 % (50.0-75.0); RBC 4.4 Mil/uL (3.80-5.20); RED CELL DISTRIBUTION WIDTH 19.3 % (11.5-14.5); WHITE BLOOD COUNT 5.3 K/uL (4.8-10.8)
[2018-10-12 08:31] LABS: INR 1.2; PROTHROMBIN TIME 13.1 SECONDS (9.7-12.2)
[2018-10-12 08:47] LABS: ALB/GLOB RATIO 1.2 (1.0-2.1); ALBUMIN 3.6 g/dL (3.5-5.0); ALT/SGPT 37 U/L (9-52); AST/SGOT 41 U/L (14-36); BLOOD UREA NITROGEN 6 mg/dL (7-17); CALCIUM 9.8 mg/dl (8.6-10.4); GFR NON-AFRICAN AMERICAN > 60
--- NOTE | 2018-10-12 09:54 | CP.PCM.PN ---
<Bean Hernandez - Last Filed: 10/12/18 10:40> Subjective - Date & Time of Evaluation Date of Evaluation: 10/12/18 Time of Evaluation: 07:05 - Subjective Subjective: HBP Surgery Note for Dr. Liu Patient seen and examined at bedside. No acute event overnight. Patient was suppose to go for EUS but instead was take to Cardio for stress test. Patient may have diet afterwards. Patient is a bit frustrated. Objective - Vital Signs/Intake and Output Vital Signs (last 24 hours): Temp Pulse Resp BP Pulse Ox 98.9 F 81 20 138/72 95 10/12/18 00:00 10/12/18 00:00 10/12/18 00:00 10/12/18 00:00 10/12/18 00:00 Intake and Output: 10/12/18 10/12/18 06:59 18:59 Intake Total 0 Balance 0 - Medications Medications: Current Medications Dextrose (Dextrose 50% Inj) 0 ml IV STAT PRN; Protocol PRN Reason: Hypoglycemia Protocol Dextrose (Glutose 15) 0 gm PO ONCE PRN; Protocol PRN Reason: Hypoglycemia Protocol Enoxaparin Sodium (Lovenox) 80 mg SC Q12 [facility] Last Admin: 10/11/18 22:24 Dose: 80 mg Glucagon (Glucagen Diagnostic Kit) 0 mg IM STAT PRN; Protocol PRN Reason: Hypoglycemia Protocol Dextrose (Dextrose 5% In Water 1000 Ml) 1,000 mls @ 0 mls/hr IV .Q0M PRN; Protocol PRN Reason: Hypoglycemia Protocol Insulin Human Regular (Novolin R) 0 unit SC Q6H [facility]; Protocol Last Admin: 10/12/18 05:14 Dose: Not Given Metoprolol Tartrate (Lopressor) 50 mg PO BID [facility] Last Admin: 10/11/18 17:18 Dose: 50 mg Pantoprazole Sodium (Protonix Inj) 40 mg IVP DAILY [facility] Prednisone (Prednisone Tab) 5 mg PO DAILY [facility] Last Admin: 10/11/18 11:32 Dose: 5 mg Rosuvastatin Calcium (Crestor) 10 mg PO HS [facility] Last Admin: 10/11/18 22:23 Dose: 10 mg - Labs Labs: 10/12/18 08:21 10/12/18 08:21 PT 13.1 SECONDS (9.7-12.2) H 10/12/18 08:21 INR 1.2 10/12/18 08:21 APTT 38.0 SECONDS (21-34) H 10/08/18 20:31 - Additional Findings Additional findings: - Constitutional Appears: Well, Non-toxic - Head Exam Head Exam: ATRAUMATIC, NORMAL INSPECTION, NORMOCEPHALIC - Eye Exam Eye Exam: EOMI, Normal appearance. absent: Scleral icterus - Respiratory Exam Respiratory Exam: NORMAL BREATHING PATTERN. absent: Accessory Muscle Use, Respiratory Distress - Cardiovascular Exam Cardiovascular Exam: absent: JVD - GI/Abdominal Exam GI & Abdominal Exam: Soft. absent: Distended, Guarding, Tenderness, Rebound - Extremities Exam Extremities Exam: Normal Inspection. absent: Calf Tenderness - Neurological Exam Neurological Exam: Awake Additional comments: somnolent but easily arousable. - Psychiatric Exam Psychiatric exam: Normal Affect, Normal Mood - Skin Skin Exam: Dry, Intact, Normal Color, Warm Assessment and Plan - Assessment and Plan (Free Text) Assessment: 67F with a distended GB and presumptive pancreatic head mass in the setting of unexplained weight loss s/p EGD CA 19-9 and CA 125 elevated CEA and AFP are within normal limits MRCP: no filling defect but mass in pancreatic head CT pancreas: soft tissue m,ass in head of pancreas (see full report) Plan: -Diet as tolerated -f/u Cardio -EUS on Monday -Further management is dependent on tissue diagnosis -Further recs as per Dr. Alford PGY2 <Rolo Lobo N - Last Filed: 10/17/18 06:28> Objective - Vital Signs/Intake and Output Vital Signs (last 24 hours): Temp Pulse Resp BP Pulse Ox 98.4 F 86 20 151/76 H 97 10/17/18 00:00 10/17/18 00:00 10/17/18 00:00 10/17/18 00:00 10/17/18 00:00 Intake and Output: 10/16/18 10/17/18 18:59 06:59 Intake Total 1000 1280 Output Total 250 Balance 750 1280 - Medications Medications: Current Medications Dextrose (Dextrose 50% Inj) 0 ml IV STAT PRN; Protocol PRN Reason: Hypoglycemia Protocol Dextrose (Glutose 15) 0 gm PO ONCE PRN; Protocol PRN Reason: Hypoglycemia Protocol Ferric Sodium Gluconate Complex (Ferrlecit) 125 mg IVPB DAILY [facility] Stop: 10/25/18 10:01 Glucagon (Glucagen Diagnostic Kit) 0 mg IM STAT PRN; Protocol PRN Reason: Hypoglycemia Protocol Hydromorphone HCl (Dilaudid) 2 mg PO Q4H PRN PRN Reason: Pain, severe (8-10) Last Admin: 10/17/18 02:25 Dose: 2 mg Dextrose (Dextrose 5% In Water 1000 Ml) 1,000 mls @ 0 mls/hr IV .Q0M PRN; Protocol PRN Reason: Hypoglycemia Protocol Lactated Ringer's (Lactated Ringer's) 1,000 mls @ 75 mls/hr IV .[id number] [facility] Last Admin: 10/17/18 05:47 Dose: 75 mls/hr Insulin Human Regular (Novolin R) 0 unit SC ACHS [facility]; Protocol Last Admin: 10/16/18 21:52 Dose: Not Given Metoprolol Tartrate (Lopressor) 50 mg PO BID [facility] Last Admin: 10/16/18 17:14 Dose: 50 mg Pantoprazole Sodium (Protonix Inj) 40 mg IVP DAILY [facility] Last Admin: 10/16/18 09:02 Dose: 40 mg Prednisone (Prednisone Tab) 5 mg PO DAILY [facility] Last Admin: 10/16/18 09:01 Dose: 5 mg Rosuvastatin Calcium (Crestor) 10 mg PO HS [facility] Last Admin: 10/16/18 21:50 Dose: 10 mg - Labs Labs: 10/16/18 07:19 10/16/18 07:19 PT 12.4 SECONDS (9.7-12.2) H 10/15/18 07:07 INR 1.1 10/15/18 07:07 APTT 38.0 SECONDS (21-34) H 10/08/18 20:31 Assessment and Plan - Assessment and Plan (Free Text) Assessment: All medical record entries made by the resident were at my direction. I have reviewed the chart and agree that the record accurately reflects my personal performance of the history, physical exam, and medical decision making.
--- NOTE | 2018-10-12 10:11 | CP.PCM.PN ---
<Angie Foster - Last Filed: 10/12/18 10:08> Subjective - Date & Time of Evaluation Date of Evaluation: 10/12/18 Time of Evaluation: 09:00 - Subjective Subjective: GI Fellow PGY5 Progress Note Pt seen and evaluated at stress test, pt denies any CP, SOB, or abdominal pain. No issues overnight. Pt upset about EUS being cancelled and will be rescheduled for Monday due to stress test being done prior to scheduled EUS time. ROS: A 12pt ROS was negative except as above. Objective - Vital Signs/Intake and Output Vital Signs (last 24 hours): Temp Pulse Resp BP Pulse Ox 98.9 F 81 20 138/72 95 10/12/18 00:00 10/12/18 00:00 10/12/18 00:00 10/12/18 00:00 10/12/18 00:00 Intake and Output: 10/12/18 10/12/18 06:59 18:59 Intake Total 0 Balance 0 - Medications Medications: Current Medications Dextrose (Dextrose 50% Inj) 0 ml IV STAT PRN; Protocol PRN Reason: Hypoglycemia Protocol Dextrose (Glutose 15) 0 gm PO ONCE PRN; Protocol PRN Reason: Hypoglycemia Protocol Enoxaparin Sodium (Lovenox) 80 mg SC Q12 [facility] Last Admin: 10/11/18 22:24 Dose: 80 mg Glucagon (Glucagen Diagnostic Kit) 0 mg IM STAT PRN; Protocol PRN Reason: Hypoglycemia Protocol Dextrose (Dextrose 5% In Water 1000 Ml) 1,000 mls @ 0 mls/hr IV .Q0M PRN; Protocol PRN Reason: Hypoglycemia Protocol Insulin Human Regular (Novolin R) 0 unit SC Q6H [facility]; Protocol Last Admin: 10/12/18 05:14 Dose: Not Given Metoprolol Tartrate (Lopressor) 50 mg PO BID [facility] Last Admin: 10/11/18 17:18 Dose: 50 mg Pantoprazole Sodium (Protonix Inj) 40 mg IVP DAILY [facility] Prednisone (Prednisone Tab) 5 mg PO DAILY [facility] Last Admin: 10/11/18 11:32 Dose: 5 mg Rosuvastatin Calcium (Crestor) 10 mg PO HS [facility] Last Admin: 10/11/18 22:23 Dose: 10 mg - Labs Labs: 10/12/18 08:21 10/12/18 08:21 PT 13.1 SECONDS (9.7-12.2) H 10/12/18 08:21 INR 1.2 10/12/18 08:21 APTT 38.0 SECONDS (21-34) H 10/08/18 20:31 - Constitutional Appears: Non-toxic, No Acute Distress - Head Exam Head Exam: ATRAUMATIC, NORMAL INSPECTION, NORMOCEPHALIC - Eye Exam Eye Exam: EOMI, Normal appearance, PERRL - ENT Exam ENT Exam: Mucous Membranes Moist - Neck Exam Neck Exam: Full ROM, Normal Inspection - Respiratory Exam Respiratory Exam: Clear to Ausculation Bilateral, NORMAL BREATHING PATTERN - Cardiovascular Exam Cardiovascular Exam: REGULAR RHYTHM, RRR, +S1, +S2 - GI/Abdominal Exam GI & Abdominal Exam: Soft, Normal Bowel Sounds. absent: Distended, Firm, Guarding, Tenderness, Organomegaly - Rectal Exam Rectal Exam: Deferred - Extremities Exam Extremities Exam: Full ROM, Normal Inspection - Neurological Exam Neurological Exam: Alert, Awake, Oriented x3 - Psychiatric Exam Psychiatric exam: Normal Affect, Normal Mood - Skin Skin Exam: Dry, Intact, Normal Color, Warm Assessment and Plan - Assessment and Plan (Free Text) Assessment: 1. Anemia 2. Possible pancreatic head lesion 3. Dilated CBD 4. Elevated CA19-9 5. Afib on OAC with lovenox 6. CAD 7. RA -Pt s/p EGD with no active GI bleeding, PUD or esophagitis -Monitor H/H and transfuse if <7 -CT imaging, Abd US, MRCP, Pacreatic CT protocol reviewed and discussed with Dr. Booth, Dr. Zheng, Dr. Wong -Concern for a heterogeneous soft tissue mass or infiltrative lesion at head of pancreas -LFTs are normal -Elevated CA19-9 nonspecific marker -Pt was scheduled for EUS today at 9am however pt was taken to nuclear stress test and EUS has now been rescheduled for Monday 10am -Please make pt NPO past midnight for procedure on Monday and hold Lovenox Monday night -This plan was discussed with patient and the primary team <Shaunna Booth - Last Filed: 10/12/18 15:03> Objective - Vital Signs/Intake and Output Vital Signs (last 24 hours): Temp Pulse Resp BP Pulse Ox 98.9 F 81 20 138/72 95 10/12/18 00:00 10/12/18 00:00 10/12/18 00:00 10/12/18 00:00 10/12/18 00:00 Intake and Output: 10/12/18 10/12/18 06:59 18:59 Intake Total 0 Balance 0 - Medications Medications: Current Medications Dextrose (Dextrose 50% Inj) 0 ml IV STAT PRN; Protocol PRN Reason: Hypoglycemia Protocol Dextrose (Glutose 15) 0 gm PO ONCE PRN; Protocol PRN Reason: Hypoglycemia Protocol Enoxaparin Sodium (Lovenox) 80 mg SC Q12 [facility] Last Admin: 10/11/18 22:24 Dose: 80 mg Glucagon (Glucagen Diagnostic Kit) 0 mg IM STAT PRN; Protocol PRN Reason: Hypoglycemia Protocol Dextrose (Dextrose 5% In Water 1000 Ml) 1,000 mls @ 0 mls/hr IV .Q0M PRN; Protocol PRN Reason: Hypoglycemia Protocol Insulin Human Regular (Novolin R) 0 unit SC Q6H [facility]; Protocol Last Admin: 10/12/18 11:11 Dose: 1 units Metoprolol Tartrate (Lopressor) 50 mg PO BID [facility] Last Admin: 10/12/18 11:00 Dose: 50 mg Pantoprazole Sodium (Protonix Inj) 40 mg IVP DAILY [facility] Last Admin: 10/12/18 11:01 Dose: 40 mg Prednisone (Prednisone Tab) 5 mg PO DAILY [facility] Last Admin: 10/12/18 11:00 Dose: 5 mg Rosuvastatin Calcium (Crestor) 10 mg PO HS [facility] Last Admin: 10/11/18 22:23 Dose: 10 mg - Labs Labs: 10/12/18 08:21 10/12/18 08:21 PT 13.1 SECONDS (9.7-12.2) H 10/12/18 08:21 INR 1.2 10/12/18 08:21 APTT 38.0 SECONDS (21-34) H 10/08/18 20:31 Attending/Attestation - Attestation I have personally seen and examined this patient.: Yes I have fully participated in the care of the patient.: Yes I have reviewed all pertinent clinical information, including history, physical exam and plan: Yes Notes (Text): 10/12/18 14:59 I have seen and examined the pt with the GI fellow. EUS this am was cancelled as pt was taken to cardiac stress test instead. Rescheduled for Monday at 10 am. Pt feels frustrated as she wants to go home. Ok to advance diet in the meantime. Discussed with primary team and surgery.
--- NOTE | 2018-10-12 14:26 | PN ---
DATE: 10/12/2018 LOCATION: 357, bed B. SUBJECTIVE: This 67-year-old female seen and examined early in rounds without significant clinical changes, post upper endoscopy with biopsy recently, reported to be in a status of DNR and DNI with status post MRCP yesterday, initial report is seen with evidence of cholelithiasis with a gallstone noted at the gallbladder neck, bile duct apparently reported to be 7 mm without evidence of feeling defects as well as poorly visualized the head of the pancreas, with infiltrate versus neoplasm should be ruled in or out. PHYSICAL EXAMINATION: GENERAL: A 67-year-old female awake, alert. VITAL SIGNS: Afebrile with pulse of 80, respiratory rate 20-22, blood pressure of 140/70. HEENT: Showed pale, dry oral mucous membrane. Nonicteric sclerae. LUNGS: Few scattered crepitation. Decreased air entry at bases. HEART: Positive S1 and S2. ABDOMEN: Soft with mild generalized tenderness. No mass or organomegaly. No rebound tenderness or guarding. Midepigastric and midabdominal line, mild tenderness noted. EXTREMITIES: Without significant clubbing, cyanosis or edema. No reported new neurological deficits, sensory or motor. IMPRESSION: 1. Re-exacerbation of peptic ulcer disease. 2. Anemia most likely secondary to above. 3. Known history of atrial fibrillation, coronary artery disease, status post cardiac stent insertion with hypertension and diabetes mellitus. 4. Known history of rheumatoid arthritis. 5. Reported abnormal radiology study results with possible pancreatic head lesion. 6. On record, the patient was scheduled for endoscopic ultrasound today, however, she is scheduled also for cardiac workup for which the endoscopic ultrasound was canceled in the meantime. 7. Further recommendation to follow, especially the patient is reported to have excessive elevation of CA 19-9 and surgical followup is required. Braxton Koch MD
[2018-10-12] MEDS: Enoxaparin 80 mg Syringe SC SCH (21:35)
--- NOTE | 2018-10-13 00:30 | CP.PCM.PN ---
<Andre Cherry - Last Filed: 10/13/18 00:28> Subjective - Date & Time of Evaluation Date of Evaluation: 10/13/18 Time of Evaluation: 00:28 - Subjective Subjective: HOSPITALIST SERVICE Pt s/e at bedside, denies CP SOB FC NV at this time, no acute events. understands and agrees with plan for EUS monday Objective - Vital Signs/Intake and Output Vital Signs (last 24 hours): Temp Pulse Resp BP Pulse Ox 98.1 F 89 20 145/90 95 10/12/18 17:12 10/12/18 17:12 10/12/18 17:12 10/12/18 17:12 10/12/18 17:12 Intake and Output: 10/12/18 10/13/18 18:59 06:59 Intake Total 480 300 Balance 480 300 - Medications Medications: Current Medications Dextrose (Dextrose 50% Inj) 0 ml IV STAT PRN; Protocol PRN Reason: Hypoglycemia Protocol Dextrose (Glutose 15) 0 gm PO ONCE PRN; Protocol PRN Reason: Hypoglycemia Protocol Enoxaparin Sodium (Lovenox) 80 mg SC Q12 [facility] Last Admin: 10/12/18 21:35 Dose: 80 mg Glucagon (Glucagen Diagnostic Kit) 0 mg IM STAT PRN; Protocol PRN Reason: Hypoglycemia Protocol Dextrose (Dextrose 5% In Water 1000 Ml) 1,000 mls @ 0 mls/hr IV .Q0M PRN; Protocol PRN Reason: Hypoglycemia Protocol Insulin Human Regular (Novolin R) 0 unit SC Q6H [facility]; Protocol Last Admin: 10/12/18 21:35 Dose: Not Given Metoprolol Tartrate (Lopressor) 50 mg PO BID [facility] Last Admin: 10/12/18 17:34 Dose: 50 mg Pantoprazole Sodium (Protonix Inj) 40 mg IVP DAILY [facility] Last Admin: 10/12/18 11:01 Dose: 40 mg Prednisone (Prednisone Tab) 5 mg PO DAILY [facility] Last Admin: 10/12/18 11:00 Dose: 5 mg Rosuvastatin Calcium (Crestor) 10 mg PO HS [facility] Last Admin: 10/12/18 21:34 Dose: 10 mg - Labs Labs: 10/12/18 08:21 10/12/18 08:21 PT 13.1 SECONDS (9.7-12.2) H 10/12/18 08:21 INR 1.2 10/12/18 08:21 APTT 38.0 SECONDS (21-34) H 10/08/18 20:31 - Additional Findings Additional findings: - Constitutional Appears: Non-toxic, No Acute Distress - Head Exam Head Exam: ATRAUMATIC, NORMAL INSPECTION - Eye Exam Eye Exam: EOMI, Normal appearance - ENT Exam ENT Exam: Mucous Membranes Moist - Neck Exam Neck Exam: Normal Inspection - Respiratory Exam Respiratory Exam: Clear to Auscultation Bilateral, NORMAL BREATHING PATTERN - Cardiovascular Exam Cardiovascular Exam: Irregular rhythm, +S1, +S2 - GI/Abdominal Exam GI & Abdominal Exam: Soft. absent: Distended, Tenderness - Extremities Exam Extremities Exam: absent: Pedal Edema, Tenderness Additional comments: bilateral varicosities of veins on lower extremities - Back Exam Back Exam: NORMAL INSPECTION - Neurological Exam Neurological Exam: Alert, Awake, CN II-XII Intact, Normal Gait, Oriented x3 - Psychiatric Exam Psychiatric exam: Normal Affect, Normal Mood - Skin Skin Exam: Dry, Normal Color, Warm Assessment and Plan - Assessment and Plan (Free Text) Assessment: Patient is a 67 yo female with Afib, CAD s/p stents, HTN, T2DM, and RA who presented after being sent by her studio engineer for acute drop in Hgb. Patient is asymptomatic. Her dealer relationship manager wanted to r/o GI bleed as she needs to be anticoagulated for her Afib. Patient's anemia is stable and no GI bleed on EGD. CT showed abnormalities of pancreas. Patient for stress test in anticipation of surgery. EUS scheduled for Sunday 10/15. Surgery ([facility]) anticipated depending on biopsy results. Plan: Pancreatic abnormality- suspicious for malignancy - CT A/P: Hypoattenuation of the liver compatible with hepatic steatosis. Splenomegaly. 3 mm too small to characterize hypodensity within the anterior aspect of the spleen, nonspecific. Heterogeneity/fullness of the pancreatic head; underlying neoplasm such as adenocarcinoma must be excluded. Alternatives such as focal pancreatitis may also be considered. No associated inflammatory changes are evident. No evidence of bulky adenopathy. Recommend correlation with amylase and lipase as well as CT pancreatic protocol for further evaluation. - MRCP: Poorly delineated region of decreased enhancement/heterogeneity noted at the pancreatic head on post-contrast imaging; infiltrating neoplasm must be excluded. A discrete pancreatic mass is not identified. No evidence of pancreatic duct dilatation. No peripancreatic inflammatory stranding evident. Splenomegaly. - Pancreatic protocol CT: Heterogeneous soft tissue density noted at the inferior aspect of a bulky appearing pancreatic head. This heterogeneous/hypodense region does not demonstrate discrete borders and does not enhance to the same extent as the remainder of the pancreas. Appearance concerning for infiltrating neoplasm. - Stress test- report pending - Amylase, lipase wnl - CA 19-9 elev (220), CA-125 elev (65) - AFP, CEA wnl - Hepatobiliary surgery consulted ([facility]) - GI consulted ([facility])- EUS Sunday 10/15 at 10 AM Gallbladder distention- suspect / to pancreatic abnormality - CT A/P: Gallbladder distension. Punctate density at the gallbladder neck, favored to reflect tiny gallstone. Common bile duct measures approximately 7 mm, mildly dilated. - Abd US: Cholelithiasis in a distended gallbladder. Top normal wall thickness of 3 millimeters. No gross wall edema. Negative sonographic Collins's sign. Dilated common bile duct. Further evaluation with MRCP is recommended if clinically indicated to better evaluate for possible calculi within the common bile duct. Prominent liver measuring 17.2 centimeters in length with associated increased echogenicity of the hepatic parenchymal cortex suggestive for fatty i nfiltration versus hepatic parenchymal disease. Limited visualization of the pancreas. Prominent spleen measuring up to 12.5 centimeters in length. Midpole 1.5 centimeter left renal cyst. - MRCP: Marked gallbladder distension. Cholelithiasis. Gallstone noted at the gallbladder neck measuring approximately 11 mm. The common bile duct appears minimally dilated measuring approximately 7 mm without evidence of focal filling defect. - Pancreatic protocol CT: Severe distention of the gallbladder. Punctate filling defect at the gallbladder neck consistent with gallstone evident on MRI performed earlier the same day. Please note more extensive cholelithiasis evident on MRI which suggests noncalcified gallstones. The common bile duct measures approximately 8 mm. - Hepatobiliary surgery consulted ([facility]) - GI consulted ([facility]) Asymptomatic anemia, acute, stable - Baseline Hgb 12-14, 9.4 on admission - MCV low (67) - UA: no blood - CT C/A/P: no signs of bleeding - FOBT negative - Iron low (13), ferritin low (6.9), % sat low (3), TIBC wnl (391) - B12, folate wnl - EGD: no active bleed - Monitor H&H daily - Vit K 10 mg SC in ED - GI consulted ([facility]) Atrial fibrillation on anticoagulation, chronic - EKG: NSR, LVH - Hold Xarelto - Lovenox 80 mg SC Q12H - Cardiology consulted ([facility]) Coronary artery disease, chronic- s/p stents - EKG: NSR, LVH - Stress test- report pending - Crestor 10 mg PO QHS Hypertension, chronic - Vitals Q6H - Metoprolol 50 mg PO BID Type 2 diabetes mellitus, chronic - Accuchecks Q6H - Hypoglycemia protocol - ISS low Rheumatoid arthritis, chronic - Hold Baricitinib - Hold Sulfasalazine - Prednisone 5 mg PO daily Ppx: VTE: SCDs, Lovenox 80 mg SC Q12H GI: Protonix 40 mg IV daily Diet: Full liquids, NPO after midnight for EUS Code status: DNR/DNI- POLST 12/2017 Healthcare proxy: Jerry Rivera [phone] Dispo: Pending EUS on Monday then further management per Dr. Alexander. Case discussed with attending, Dr. Patrick Trimble. <Geovanny Trimble - Last Filed: 10/13/18 12:03> Objective - Vital Signs/Intake and Output Vital Signs (last 24 hours): Temp Pulse Resp BP Pulse Ox 97.9 F 95 H 20 148/81 95 10/13/18 08:09 10/13/18 08:09 10/13/18 08:09 10/13/18 08:09 10/13/18 08:09 Intake and Output: 10/13/18 10/13/18 06:59 18:59 Intake Total 450 Balance 450 - Medications Medications: Current Medications Dextrose (Dextrose 50% Inj) 0 ml IV STAT PRN; Protocol PRN Reason: Hypoglycemia Protocol Dextrose (Glutose 15) 0 gm PO ONCE PRN; Protocol PRN Reason: Hypoglycemia Protocol Enoxaparin Sodium (Lovenox) 80 mg SC Q12 [facility] Last Admin: 10/13/18 10:47 Dose: 80 mg Glucagon (Glucagen Diagnostic Kit) 0 mg IM STAT PRN; Protocol PRN Reason: Hypoglycemia Protocol Dextrose (Dextrose 5% In Water 1000 Ml) 1,000 mls @ 0 mls/hr IV .Q0M PRN; Protocol PRN Reason: Hypoglycemia Protocol Insulin Human Regular (Novolin R) 0 unit SC Q6H [facility]; Protocol Last Admin: 10/13/18 04:20 Dose: Not Given Metoprolol Tartrate (Lopressor) 50 mg PO BID [facility] Last Admin: 10/13/18 10:33 Dose: 50 mg Pantoprazole Sodium (Protonix Inj) 40 mg IVP DAILY [facility] Last Admin: 10/13/18 10:33 Dose: 40 mg Prednisone (Prednisone Tab) 5 mg PO DAILY [facility] Last Admin: 10/13/18 10:33 Dose: 5 mg Rosuvastatin Calcium (Crestor) 10 mg PO HS [facility] Last Admin: 10/12/18 21:34 Dose: 10 mg - Labs Labs: 10/13/18 07:37 10/13/18 07:37 PT 13.1 SECONDS (9.7-12.2) H 10/12/18 08:21 INR 1.2 10/12/18 08:21 APTT 38.0 SECONDS (21-34) H 10/08/18 20:31 Attending/Attestation - Attestation I have personally seen and examined this patient.: Yes I have fully participated in the care of the patient.: Yes I have reviewed all pertinent clinical information, including history, physical exam and plan: Yes Notes (Text): 10/13/18 12:00 Patient was seen and examined at 11:45 AM 10/13/18 Upon FULL ROS: Currently NO issues Just looking forward to leaving when her workup is done HEENT, Cardio, Resp, GI, Ext, CN II through XII are uremarkable Plan: NPO after midnight 10/14/18 STOP Lovenox at 10 PM 10/14/18 For Endoscopy U/S Guided Biopsy of Pancreatic Lesion with GI Emmy at 10 AM Monday10/15/18 Based upon results of Biopsy, Hepatobiliary Surgeon Dr. Lobo to determine surgery Geovanny Trimble D.O.
--- NOTE | 2018-10-13 00:45 | CP.PCM.PN ---
Subjective - Date & Time of Evaluation Date of Evaluation: 10/12/18 Time of Evaluation: 18:30 - Subjective Subjective: Patient seen and evaluated denies chest pain and dyspnea Stress test: No stress induced ischemia, Normal EF Objective - Vital Signs/Intake and Output Vital Signs (last 24 hours): Temp Pulse Resp BP Pulse Ox 98.1 F 89 20 145/90 95 10/12/18 17:12 10/12/18 17:12 10/12/18 17:12 10/12/18 17:12 10/12/18 17:12 Intake and Output: 10/12/18 10/13/18 18:59 06:59 Intake Total 480 300 Balance 480 300 - Medications Medications: Current Medications Dextrose (Dextrose 50% Inj) 0 ml IV STAT PRN; Protocol PRN Reason: Hypoglycemia Protocol Dextrose (Glutose 15) 0 gm PO ONCE PRN; Protocol PRN Reason: Hypoglycemia Protocol Enoxaparin Sodium (Lovenox) 80 mg SC Q12 [facility] Last Admin: 10/12/18 21:35 Dose: 80 mg Glucagon (Glucagen Diagnostic Kit) 0 mg IM STAT PRN; Protocol PRN Reason: Hypoglycemia Protocol Dextrose (Dextrose 5% In Water 1000 Ml) 1,000 mls @ 0 mls/hr IV .Q0M PRN; Protocol PRN Reason: Hypoglycemia Protocol Insulin Human Regular (Novolin R) 0 unit SC Q6H [facility]; Protocol Last Admin: 10/12/18 21:35 Dose: Not Given Metoprolol Tartrate (Lopressor) 50 mg PO BID [facility] Last Admin: 10/12/18 17:34 Dose: 50 mg Pantoprazole Sodium (Protonix Inj) 40 mg IVP DAILY [facility] Last Admin: 10/12/18 11:01 Dose: 40 mg Prednisone (Prednisone Tab) 5 mg PO DAILY [facility] Last Admin: 10/12/18 11:00 Dose: 5 mg Rosuvastatin Calcium (Crestor) 10 mg PO HS [facility] Last Admin: 10/12/18 21:34 Dose: 10 mg - Labs Labs: 10/12/18 08:21 10/12/18 08:21 PT 13.1 SECONDS (9.7-12.2) H 10/12/18 08:21 INR 1.2 10/12/18 08:21 APTT 38.0 SECONDS (21-34) H 10/08/18 20:31
[2018-10-13] MEDS: (Novolin R) Insulin Human Regular 100 units/ml vial SC SCH ×4 (04:20→21:45)
--- NOTE | 2018-10-13 07:52 | PN ---
DATE: 10/12/2018 LOCATION: Room 357, bed B. SUBJECTIVE: This 67-year-old female, in a state of DNR and DNI as reported, seen and examined in rounds without any significant clinical changes, but intermittent period of abdominal pain and abdominal discomfort. No reported chest pain, significant shortness of breath, nausea and vomiting but less oral intake, was scheduled for potential EUS on Monday post results of cardiology workup. Most recent lab results yesterday showed low hemoglobin and hematocrit with low indices, highly suggestive of hypochromic microcytic anemia and increased AST to 41. Today's blood glucose level is 179. PHYSICAL EXAMINATION: GENERAL: A 67-year-old female, afebrile, awake, alert, oriented. VITAL SIGNS: Pulse of 74, respiratory rate 20-22, blood pressure of 148/78. HEENT: Showed pale, dry oral mucous membrane. Nonicteric sclerae. LUNGS: Few scattered crepitation. Decreased air entry at bases. HEART: Positive S1 and S2. ABDOMEN: Soft. Bowel sounds are present with mild to moderate generalized tenderness. No mass or organomegaly. No rebound tenderness or guarding. EXTREMITIES: Without edema, clubbing or cyanosis. NEUROLOGIC: No reported new neurological deficits, sensory or motor. IMPRESSION: 1. Re-exacerbation of peptic ulcer disease. 2. Abnormal radiology study results, with conflict report with questionable pancreatic mass lesion, but with cholelithiasis as reported with evidence of splenomegaly. 3. Poorly controlled hypertension. 4. Known history of atrial fibrillation, coronary artery disease, status post cardiac stent insertion. 5. Poorly controlled diabetes mellitus. 6. Known history of rheumatoid arthritis. SUGGESTIONS: 1. Continue current management. 2. Agreeable for potential EUS. 3. If the patient needs any ERCP in the near future, it will be performed by myself. 4. Further recommendation to follow and on record gastric biopsy results showed negative for Helicobacter. Braxton Koch MD
[2018-10-13 08:05] LABS: BASO % 0.5 % (0.0-2.0); EOS # 0.2 K/uL (0.0-0.7); EOS % 3.8 % (0.0-4.0); HEMOGLOBIN 8.8 g/dL (11.0-16.0); LYMPH # 1.1 K/uL (1.0-4.3); LYMPH % 20.3 % (20.0-40.0); MEAN CORPUSCULAR HGB CONC 30.9 g/dL (33.0-37.0); MEAN PLATELET VOLUME 7.4 fL (7.2-11.7); MONO # 0.7 K/uL (0.0-0.8); MONO % 11.9 % (0.0-10.0); NEUT # 3.5 K/uL (1.8-7.0); NEUT % 63.5 % (50.0-75.0); NRBC % 0.3 % (0.0-2.0); RBC 4.2 Mil/uL (3.80-5.20); RED CELL DISTRIBUTION WIDTH 18.8 % (11.5-14.5); WHITE BLOOD COUNT 5.6 K/uL (4.8-10.8)
[2018-10-13 08:17] LABS: ALB/GLOB RATIO 1.2 (1.0-2.1); ALBUMIN 3.6 g/dL (3.5-5.0); ALT/SGPT 28 U/L (9-52); AST/SGOT 26 U/L (14-36); BLOOD UREA NITROGEN 9 mg/dL (7-17); CALCIUM 9.6 mg/dl (8.6-10.4); GFR NON-AFRICAN AMERICAN > 60
[2018-10-13] MEDS: Enoxaparin 80 mg Syringe SC SCH ×2 (10:47→21:47)
--- NOTE | 2018-10-14 00:58 | CP.PCM.PN ---
<Andre Cherry - Last Filed: 10/14/18 00:56> Subjective - Date & Time of Evaluation Date of Evaluation: 10/14/18 Time of Evaluation: 00:56 - Subjective Subjective: HOSPITALIST SERVICE Pt s/e at bedside, reports no new complaints overnight, denies CP SOB FC NV, understands plan for EUS on monday with Dr Booth and will be pending Sx with Dr Piper based on her results, agrees with this plan Objective - Vital Signs/Intake and Output Vital Signs (last 24 hours): Temp Pulse Resp BP Pulse Ox 98.3 F 86 20 166/85 H 95 10/13/18 16:00 10/13/18 17:31 10/13/18 16:00 10/13/18 17:31 10/13/18 16:00 Intake and Output: 10/13/18 10/14/18 18:59 06:59 Intake Total 240 450 Balance 240 450 - Medications Medications: Current Medications Dextrose (Dextrose 50% Inj) 0 ml IV STAT PRN; Protocol PRN Reason: Hypoglycemia Protocol Dextrose (Glutose 15) 0 gm PO ONCE PRN; Protocol PRN Reason: Hypoglycemia Protocol Enoxaparin Sodium (Lovenox) 80 mg SC Q12 [facility] Last Admin: 10/13/18 21:47 Dose: 80 mg Glucagon (Glucagen Diagnostic Kit) 0 mg IM STAT PRN; Protocol PRN Reason: Hypoglycemia Protocol Dextrose (Dextrose 5% In Water 1000 Ml) 1,000 mls @ 0 mls/hr IV .Q0M PRN; Protocol PRN Reason: Hypoglycemia Protocol Insulin Human Regular (Novolin R) 0 unit SC ACHS [facility]; Protocol Last Admin: 10/13/18 21:45 Dose: Not Given Metoprolol Tartrate (Lopressor) 50 mg PO BID [facility] Last Admin: 10/13/18 17:27 Dose: 50 mg Pantoprazole Sodium (Protonix Inj) 40 mg IVP DAILY [facility] Last Admin: 10/13/18 10:33 Dose: 40 mg Prednisone (Prednisone Tab) 5 mg PO DAILY [facility] Last Admin: 10/13/18 10:33 Dose: 5 mg Rosuvastatin Calcium (Crestor) 10 mg PO HS [facility] Last Admin: 10/13/18 21:58 Dose: 10 mg - Labs Labs: 10/13/18 07:37 10/13/18 07:37 PT 13.1 SECONDS (9.7-12.2) H 10/12/18 08:21 INR 1.2 10/12/18 08:21 APTT 38.0 SECONDS (21-34) H 10/08/18 20:31 - Additional Findings Additional findings: - Constitutional Appears: Non-toxic, No Acute Distress - Head Exam Head Exam: ATRAUMATIC, NORMAL INSPECTION - Eye Exam Eye Exam: EOMI, Normal appearance - ENT Exam ENT Exam: Mucous Membranes Moist - Neck Exam Neck Exam: Normal Inspection - Respiratory Exam Respiratory Exam: Clear to Auscultation Bilateral, NORMAL BREATHING PATTERN - Cardiovascular Exam Cardiovascular Exam: Irregular rhythm, +S1, +S2 - GI/Abdominal Exam GI & Abdominal Exam: Soft. 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 Patient is asymptomatic. Her line pilot wanted to r/o GI bleed as she needs to be anticoagulated for her Afib. Patient's anemia is stable and no GI bleed on EGD. CT showed abnormalities of pancreas. Patient for stress test in anticipation of surgery. EUS scheduled for Sunday 10/15. Surgery ([facility]) anticipated depending on biopsy results. Plan: Pancreatic abnormality- suspicious for malignancy - CT A/P: Hypoattenuation of the liver compatible with hepatic steatosis. Splenomegaly. 3 mm too small to characterize hypodensity within the anterior aspect of the spleen, nonspecific. Heterogeneity/fullness of the pancreatic head; underlying neoplasm such as adenocarcinoma must be excluded. Alternatives such as focal pancreatitis may also be considered. No associated inflammatory changes are evident. No evidence of bulky adenopathy. Recommend correlation with amylase and lipase as well as CT pancreatic protocol for further evaluation. - MRCP: Poorly delineated region of decreased enhancement/heterogeneity noted at the pancreatic head on post-contrast imaging; infiltrating neoplasm must be excluded. A discrete pancreatic mass is not identified. No evidence of pancreatic duct dilatation. No peripancreatic inflammatory stranding evident. Splenomegaly. - Pancreatic protocol CT: Heterogeneous soft tissue density noted at the inferior aspect of a bulky appearing pancreatic head. This heterogeneous/hypodense region does not demonstrate discrete borders and does not enhance to the same extent as the remainder of the pancreas. Appearance concerning for infiltrating neoplasm. - Stress test- report pending - Amylase, lipase wnl - CA 19-9 elev (220), CA-125 elev (65) - AFP, CEA wnl - Hepatobiliary surgery consulted ([facility]) - GI consulted ([facility])- EUS Sunday 10/15 at 10 AM Gallbladder distention- suspect / to pancreatic abnormality - CT A/P: Gallbladder distension. Punctate density at the gallbladder neck, favored to reflect tiny gallstone. Common bile duct measures approximately 7 mm, mildly dilated. - Abd US: Cholelithiasis in a distended gallbladder. Top normal wall thickness of 3 millimeters. No gross wall edema. Negative sonographic Collins's sign. Dilated common bile duct. Further evaluation with MRCP is recommended if clinically indicated to better evaluate for possible calculi within the common bile duct. Prominent liver measuring 17.2 centimeters in length with associated increased echogenicity of the hepatic parenchymal cortex suggestive for fatty infiltration versus hepatic parenchymal disease. Limited visualization of the pancreas. Prominent spleen measuring up to 12.5 centimeters in length. Midpole 1.5 centimeter left renal cyst. - MRCP: Marked gallbladder distension. Cholelithiasis. Gallstone noted at the gallbladder neck measuring approximately 11 mm. The common bile duct appears minimally dilated measuring approximately 7 mm without evidence of focal filling defect. - Pancreatic protocol CT: Severe distention of the gallbladder. Punctate filling defect at the gallbladder neck consistent with gallstone evident on MRI performed earlier the same day. Please note more extensive cholelithiasis evident on MRI which suggests noncalcified gallstones. The common bile duct measures approximately 8 mm. - Hepatobiliary surgery consulted ([facility]) - GI consulted ([facility]) Asymptomatic anemia, acute, stable - Baseline Hgb 12-14, 9.4 on admission - MCV low (67) - UA: no blood - CT C/A/P: no signs of bleeding - FOBT negative - Iron low (13), ferritin low (6.9), % sat low (3), TIBC wnl (391) - B12, folate wnl - EGD: no active bleed - Monitor H&H daily - Vit K 10 mg SC in ED - GI consulted ([facility]) Atrial fibrillation on anticoagulation, chronic - EKG: NSR, LVH - Hold Xarelto - Lovenox 80 mg SC Q12H - Cardiology consulted ([facility]) Coronary artery disease, chronic- s/p stents - EKG: NSR, LVH - Stress test- report pending - Crestor 10 mg PO QHS Hypertension, chronic - Vitals Q6H - Metoprolol 50 mg PO BID Type 2 diabetes mellitus, chronic - Accuchecks Q6H - Hypoglycemia protocol - ISS low Rheumatoid arthritis, chronic - Hold Baricitinib - Hold Sulfasalazine - Prednisone 5 mg PO daily Ppx: VTE: SCDs, Lovenox 80 mg SC Q12H GI: Protonix 40 mg IV daily Diet: Full liquids, NPO after midnight for EUS Code status: DNR/DNI- POLST 12/2017 Healthcare proxy: Jerry Rivera [phone] Dispo: Pending EUS on Monday then further management per Dr. Alexander. Case discussed with attending, Dr. Patrick Trimble. <Geovanny Trimble - Last Filed: 10/14/18 18:03> Objective - Vital Signs/Intake and Output Vital Signs (last 24 hours): Temp Pulse Resp BP Pulse Ox 98 F 82 20 149/84 95 10/14/18 16:47 10/14/18 16:47 10/14/18 16:47 10/14/18 16:47 10/14/18 16:47 Intake and Output: 10/14/18 10/14/18 06:59 18:59 Intake Total 650 Balance 650 - Medications Medications: Current Medications Dextrose (Dextrose 50% Inj) 0 ml IV STAT PRN; Protocol PRN Reason: Hypoglycemia Protocol Dextrose (Glutose 15) 0 gm PO ONCE PRN; Protocol PRN Reason: Hypoglycemia Protocol Enoxaparin Sodium (Lovenox) 80 mg SC ONCE ONE Stop: 10/14/18 22:01 Glucagon (Glucagen Diagnostic Kit) 0 mg IM STAT PRN; Protocol PRN Reason: Hypoglycemia Protocol Dextrose (Dextrose 5% In Water 1000 Ml) 1,000 mls @ 0 mls/hr IV .Q0M PRN; Protocol PRN Reason: Hypoglycemia Protocol Insulin Human Regular (Novolin R) 0 unit SC ACHS [facility]; Protocol Last Admin: 10/14/18 17:43 Dose: 2 units Metoprolol Tartrate (Lopressor) 50 mg PO BID [facility] Last Admin: 10/14/18 17:43 Dose: 50 mg Pantoprazole Sodium (Protonix Inj) 40 mg IVP DAILY [facility] Last Admin: 10/14/18 10:33 Dose: 40 mg Prednisone (Prednisone Tab) 5 mg PO DAILY [facility] Last Admin: 10/14/18 10:33 Dose: 5 mg Rosuvastatin Calcium (Crestor) 10 mg PO HS [facility] Last Admin: 10/13/18 21:58 Dose: 10 mg - Labs Labs: 10/14/18 07:41 10/14/18 07:41 PT 12.3 SECONDS (9.7-12.2) H 10/14/18 11:18 INR 1.1 10/14/18 11:18 APTT 38.0 SECONDS (21-34) H 10/08/18 20:31 Attending/Attestation - Attestation I have personally seen and examined this patient.: Yes I have fully participated in the care of the patient.: Yes I have reviewed all pertinent clinical information, including history, physical exam and plan: Yes
--- NOTE | 2018-10-14 06:30 | CARD ---
APPROVED REPORT Date of service: 10/12/2018 Protocol: LEXISCAN Test Type: lexiscan stress Test Indications: CP Medical History: CP Target HR: 152 bpm Resting ECG: NSR W/ LBBB submaximum (85%): 129 bpm PROCEDURE Pharmacologic stress testing was performed using 0.4mg per 5ml of regadenoson given intravenously over 7-10 seconds. POST EXERCISE Reason for Termination: Protocol Completed Target HR: No 69% of Maximum Predicted HR: 152 bpm Exercise duration: 00:00 min:sec, 0 Stage Exercise capacity: 1.0METs Max Blood Pressure: 138/80mmHg Blood Pressure response to exercise: normal resting BP - appropriate response Heart Rate response to exercise: appropriate Chest Pain: No, none Angina index: 0 Arrhythmia: No, none ST Change: No, none Deviation: 0 mm INTERPRETATION Stress EKG Conclusion: INCONCLUSIVE LEXISCAN STRESS TEST DUE TO PRE-EXISTING LBBB APB'S NORMAL BP RESPONSE TO LEXISCAN NUCLEAR STUDIES TO BE READ SEPARATELY EXAM: Myocardial Perfusion REST/STRESS Imaging Protocol The imaging protocol used to acquire images was Rest Tc-99m/stress Tc-99m 1 day Rest Spect myocardial perfusion imaging was performed in supine position 45 minutes following the injection of 12.9 mCi of Tc-99 Myoview. Gated Stress Spect was performed 44 minutes after intravenous 32.6 mCi Tc-99 Myoview injection. The images were gated to evaluate regional wall motion and calculate ventricular ejection fraction.Images were reconstructed using backfilter projection method in short horizontal and verticle long axis. Spect slices were generated. RESTING DATA HLC523.40wbFO3.80L/min ESV38.00mlMyocardial Xpmb038.00g Av. Heart Rate86.00bpm EF64.00% STRESS DATA QMS159.33kjEB8.30L/min ESV45.00mlMyocardial Wpgi356.00g EF61.00% Regional WT score at stress:2.00 Regional WM score at stress:0.00 Summed WT score at stress:18.00 Av. Heart Rate89.00bpmSummed WM score at stress:4.00 LV Perf. Quant 17 Seg. SSS9.00 17 Seg. SRS5.00 17 Seg. SDS5.00 Stress Defect Extent (% LAD)0.00Rest Defect Extent (% LAD)0.00Rev. Defect Extent (% LAD)0.00 Stress Defect Extent (% LCX)56.30Rest Defect Extent (% LCX)37.50Rev. Defect Extent (% LCX)7.50 Stress Defect Extent (% RCA)26.70Rest Defect Extent (% RCA)15.60Rev. Defect Extent (% RCA)5.60 Stress Defect Extent (% FLOWER)18.90Rest Defect Extent (% FLOWER)13.90Rev. Defect Extent (% FLOWER)3.50 Other Information Quality:Good Left Ventricle LV Function:Left ventricle systolic function is normal. The Ejection Fraction is 60-65%. Conclusion 1. Small fixed inferior defect. No stress induced ischemia. Normal EF of 60%
--- NOTE | 2018-10-14 07:29 | CP.PCM.PN ---
Subjective - Date & Time of Evaluation Date of Evaluation: 10/13/18 Time of Evaluation: 16:20 - Subjective Subjective: Patient seen and evaluated Denies chest pain and dyspnea Objective - Additional Findings Additional findings: - Constitutional Appears: No Acute Distress - Head Exam Head Exam: ATRAUMATIC, NORMAL INSPECTION - Eye Exam Eye Exam: EOMI, Normal appearance - ENT Exam ENT Exam: Mucous Membranes Moist - Respiratory Exam Respiratory Exam: Clear to Ausculation Bilateral, NORMAL BREATHING PATTERN. absent: Rhonchi, Wheezes, Respiratory Distress - Cardiovascular Exam Cardiovascular Exam: Irregular Rhythm, +S1, +S2 - GI/Abdominal Exam GI & Abdominal Exam: Soft, Normal Bowel Sounds. absent: Tenderness - Extremities Exam Extremities Exam: Pedal Edema (mild pitting edema b/l extending from knee down). absent: Tenderness - Neurological Exam Neurological Exam: Alert, Awake, Oriented x3 - Psychiatric Exam Psychiatric exam: Normal Affect, Normal Mood - Skin Skin Exam: Dry, Normal Color, Warm Objective - Vital Signs/Intake and Output Vital Signs (last 24 hours): Temp Pulse Resp BP Pulse Ox 97.9 F 74 20 163/81 H 96 10/14/18 00:00 10/14/18 00:00 10/14/18 00:00 10/14/18 00:00 10/14/18 00:00 Intake and Output: 10/14/18 10/14/18 06:59 18:59 Intake Total 650 Balance 650 - Medications Medications: Current Medications Dextrose (Dextrose 50% Inj) 0 ml IV STAT PRN; Protocol PRN Reason: Hypoglycemia Protocol Dextrose (Glutose 15) 0 gm PO ONCE PRN; Protocol PRN Reason: Hypoglycemia Protocol Enoxaparin Sodium (Lovenox) 80 mg SC Q12 [facility] Last Admin: 10/13/18 21:47 Dose: 80 mg Glucagon (Glucagen Diagnostic Kit) 0 mg IM STAT PRN; Protocol PRN Reason: Hypoglycemia Protocol Dextrose (Dextrose 5% In Water 1000 Ml) 1,000 mls @ 0 mls/hr IV .Q0M PRN; Protocol PRN Reason: Hypoglycemia Protocol Insulin Human Regular (Novolin R) 0 unit SC ACHS [facility]; Protocol Last Admin: 10/13/18 21:45 Dose: Not Given Metoprolol Tartrate (Lopressor) 50 mg PO BID [facility] Last Admin: 10/13/18 17:27 Dose: 50 mg Pantoprazole Sodium (Protonix Inj) 40 mg IVP DAILY [facility] Last Admin: 10/13/18 10:33 Dose: 40 mg Prednisone (Prednisone Tab) 5 mg PO DAILY [facility] Last Admin: 10/13/18 10:33 Dose: 5 mg Rosuvastatin Calcium (Crestor) 10 mg PO HS [facility] Last Admin: 10/13/18 21:58 Dose: 10 mg - Labs Labs: 10/13/18 07:37 10/13/18 07:37 PT 13.1 SECONDS (9.7-12.2) H 10/12/18 08:21 INR 1.2 10/12/18 08:21 APTT 38.0 SECONDS (21-34) H 10/08/18 20:31 Assessment and Plan - Assessment and Plan (Free Text) Assessment: Assessment and Plan - Assessment and Plan (Free Text) Plan: 67 year old female with history of DM, HTN, RA, A fib on Xarelto who presents for drop in hemoglobin from 11.4 to 9.6. Afib - Home medication: Xarelto 15mg PO daily- HELD for procedure. - Continue Metoprolol 50mg PO BID - Continue Lovenox 80mg BID Anemia - H/H 9.8/32.0 - baseline Hb in 11s - FOBT x3 pending (negative in ED) - On CT, Pancreatic abnormality- suspicious for malignancy. S/p EGD today. Will start Lovenox post procedure. CAD w/Stents - Crestor 10mg PO HS - EKG at admission: SR@98; LVH HTN - Continue Metoprolol 50mg PO BID Cardiac risk assessment, preop - EKG: SR@98; LVH - Echo (10/10/18): poor window, normal size of LA, LV, RA, RV, normal LV thickness and overall systolic function; EF 55-60%; inferoapical is hypokinetic, poss CAD; LV diastolic dysfunction; normal aortic, mitral, TV, and PV; moderate TR and trace PI; no pericardial effusion; normal aortic root root. -Stress Test: No evidence of stress induved ischemia *Patient assessed low risk of cardiovascular events for EUS procedure and moder ate risk for open abdominal surgery under general anaesthesia. If benefit outweighs the risk please proceed with the necessary therapeutic procedures. Thank you
[2018-10-14 08:01] LABS: BASO % 0.6 % (0.0-2.0); EOS # 0.2 K/uL (0.0-0.7); EOS % 3.3 % (0.0-4.0); HEMOGLOBIN 8.6 g/dL (11.0-16.0); LYMPH % 18.8 % (20.0-40.0); MEAN CELL VOLUME 68.4 fL (81.0-99.0); MEAN CORPUSCULAR HEMOGLOBIN 21.2 pg (27.0-31.0); MEAN PLATELET VOLUME 7.4 fL (7.2-11.7); MONO # 0.6 K/uL (0.0-0.8); MONO % 11.6 % (0.0-10.0); NEUT # 3.5 K/uL (1.8-7.0); NEUT % 65.7 % (50.0-75.0); NRBC % 0.1 % (0.0-2.0); RBC 4.03 Mil/uL (3.80-5.20); RED CELL DISTRIBUTION WIDTH 18.8 % (11.5-14.5); WHITE BLOOD COUNT 5.3 K/uL (4.8-10.8)
[2018-10-14 08:19] LABS: ALB/GLOB RATIO 1.1 (1.0-2.1); ALBUMIN 3.2 g/dL (3.5-5.0); ALT/SGPT 29 U/L (9-52); AST/SGOT 28 U/L (14-36); BLOOD UREA NITROGEN 9 mg/dL (7-17); CALCIUM 9.3 mg/dl (8.6-10.4); GFR NON-AFRICAN AMERICAN > 60
--- NOTE | 2018-10-14 08:22 | CP.PCM.PCO ---
Physician Communication Note - Physician Communication Note Physician Communication Note: Please see above
[2018-10-14] MEDS: (Novolin R) Insulin Human Regular 100 units/ml vial SC SCH ×4 (08:41→21:50)
[2018-10-14] MEDS ORDERED: Enoxaparin 80 mg Syringe SC ONE ×2 (10:00→22:00)
--- NOTE | 2018-10-14 10:20 | PN ---
DATE: 10/14/2018 LOCATION: 357, bed B. SUBJECTIVE: This is a 67-year-old female in a status of DNR and DNR, seen and examined early today without significant clinical changes. Denied any actual chest pain, palpitation, significant shortness of breath, chills or fever, but bilateral lower extremities weakness with less oral intake. The entire chart is reviewed including the most recent lab and radiology study results and today's lab results still pending. However, the patient still have low hemoglobin and hematocrit with low indices, highly suggestive of hypochromic microcytic anemia with elevated blood glucose level. The patient recently had myocardial perfusion scan. Official report is seen with satisfactory results so far. PHYSICAL EXAMINATION: GENERAL: A 67-year-old female, awake, alert, oriented. VITAL SIGNS: Afebrile with pulse of 72, respiratory rate of 20 to 22, blood pressure of 150/76. HEENT: Showed pale, dry oral mucous membrane. Nonicteric sclerae. LUNGS: Few scattered crepitation. Decreased air entry at bases. HEART: Positive S1 and S2. ABDOMEN: Soft with mild generalized tenderness. No mass or organomegaly. No rebound tenderness or guarding but midepigastric and right upper quadrant tenderness. EXTREMITIES: With evidence of mild muscle wasting syndrome of the lower extremities but no clubbing, cyanosis or edema. NEUROLOGIC: No reported new neurological deficits, sensory or motor. IMPRESSION: 1. Abnormal radiology study results with excessive increase of CA 19-9. The possibility of pancreatic carcinoma was raised. 2. Re-exacerbation of peptic ulcer disease. 3. Anemia, most likely secondary to above. 4. Cholelithiasis by radiology study results. 6. Known history of hypertension, atrial fibrillation, diabetes mellitus. 7. Reported history of rheumatoid arthritis. SUGGESTIONS: 1. Agree with your plan. 2. The patient for EUS, then ERCP as needed to be done by myself. 3. Case to be discussed with the admitting medical team. Braxton Koch MD
[2018-10-14 11:33] LABS: INR 1.1; PROTHROMBIN TIME 12.3 SECONDS (9.7-12.2)
[2018-10-14] MEDS ORDERED: Potassium Chloride 20 mEq ER Tab PO ONE (18:30)
--- NOTE | 2018-10-14 21:29 | CP.PCM.PN ---
Subjective - Date & Time of Evaluation Date of Evaluation: 10/14/18 Time of Evaluation: 14:10 - Subjective Subjective: Patient seen and evaluated Denies chest pain and dyspnea Objective - Additional Findings Additional findings: - Constitutional Appears: No Acute Distress - Head Exam Head Exam: ATRAUMATIC, NORMAL INSPECTION - Eye Exam Eye Exam: EOMI, Normal appearance - ENT Exam ENT Exam: Mucous Membranes Moist - Respiratory Exam Respiratory Exam: Clear to Ausculation Bilateral, NORMAL BREATHING PATTERN. absent: Rhonchi, Wheezes, Respiratory Distress - Cardiovascular Exam Cardiovascular Exam: Irregular Rhythm, +S1, +S2 - GI/Abdominal Exam GI & Abdominal Exam: Soft, Normal Bowel Sounds. absent: Tenderness - Extremities Exam Extremities Exam: Pedal Edema (mild pitting edema b/l extending from knee down). absent: Tenderness - Neurological Exam Neurological Exam: Alert, Awake, Oriented x3 - Psychiatric Exam Psychiatric exam: Normal Affect, Normal Mood - Skin Skin Exam: Dry, Normal Color, Warm Objective - Vital Signs/Intake and Output Vital Signs (last 24 hours): Temp Pulse Resp BP Pulse Ox 98 F 82 20 149/84 95 10/14/18 16:47 10/14/18 16:47 10/14/18 16:47 10/14/18 16:47 10/14/18 16:47 - Medications Medications: Current Medications Dextrose (Dextrose 50% Inj) 0 ml IV STAT PRN; Protocol PRN Reason: Hypoglycemia Protocol Dextrose (Glutose 15) 0 gm PO ONCE PRN; Protocol PRN Reason: Hypoglycemia Protocol Enoxaparin Sodium (Lovenox) 80 mg SC ONCE ONE Stop: 10/14/18 22:01 Glucagon (Glucagen Diagnostic Kit) 0 mg IM STAT PRN; Protocol PRN Reason: Hypoglycemia Protocol Dextrose (Dextrose 5% In Water 1000 Ml) 1,000 mls @ 0 mls/hr IV .Q0M PRN; Protocol PRN Reason: Hypoglycemia Protocol Insulin Human Regular (Novolin R) 0 unit SC ACHS [facility]; Protocol Last Admin: 10/14/18 17:43 Dose: 2 units Metoprolol Tartrate (Lopressor) 50 mg PO BID [facility] Last Admin: 10/14/18 17:43 Dose: 50 mg Pantoprazole Sodium (Protonix Inj) 40 mg IVP DAILY [facility] Last Admin: 10/14/18 10:33 Dose: 40 mg Prednisone (Prednisone Tab) 5 mg PO DAILY [facility] Last Admin: 10/14/18 10:33 Dose: 5 mg Rosuvastatin Calcium (Crestor) 10 mg PO HS [facility] Last Admin: 10/13/18 21:58 Dose: 10 mg - Labs Labs: 10/14/18 07:41 10/14/18 07:41 PT 12.3 SECONDS (9.7-12.2) H 10/14/18 11:18 INR 1.1 10/14/18 11:18 APTT 38.0 SECONDS (21-34) H 10/08/18 20:31 Assessment and Plan - Assessment and Plan (Free Text) Assessment: 67 year old female with history of DM, HTN, RA, A fib on Xarelto who presents for drop in hemoglobin from 11.4 to 9.6. Afib - Home medication: Xarelto 15mg PO daily- HELD for procedure. - Continue Metoprolol 50mg PO BID - Continue Lovenox 80mg BID Anemia - H/H 9.8/32.0 - baseline Hb in 11s - FOBT x3 pending (negative in ED) - On CT, Pancreatic abnormality- suspicious for malignancy. S/p EGD today. Will start Lovenox post procedure. CAD w/Stents - Crestor 10mg PO HS - EKG at admission: SR@98; LVH HTN - Continue Metoprolol 50mg PO BID Cardiac risk assessment, preop - EKG: SR@98; LVH - Echo (10/10/18): poor window, normal size of LA, LV, RA, RV, normal LV thickness and overall systolic function; EF 55-60%; inferoapical is hypokinetic, poss CAD; LV diastolic dysfunction; normal aortic, mitral, TV, and PV; moderate TR and trace PI; no pericardial effusion; normal aortic root root. -Stress Test: No evidence of stress induved ischemia *Patient assessed low risk of cardiovascular events for EUS procedure and moderate risk for open abdominal surgery under general anaesthesia. If benefit outweighs the risk please proceed with the necessary therapeutic procedures. Thank you
[2018-10-15 07:31] LABS: BASO % 0.6 % (0.0-2.0); EOS # 0.2 K/uL (0.0-0.7); EOS % 2.9 % (0.0-4.0); HEMOGLOBIN 8.7 g/dL (11.0-16.0); LYMPH # 1.2 K/uL (1.0-4.3); LYMPH % 21.7 % (20.0-40.0); MEAN CELL VOLUME 68.4 fL (81.0-99.0); MEAN CORPUSCULAR HEMOGLOBIN 21.3 pg (27.0-31.0); MEAN CORPUSCULAR HGB CONC 31.2 g/dL (33.0-37.0); MEAN PLATELET VOLUME 7.4 fL (7.2-11.7); MONO # 0.6 K/uL (0.0-0.8); MONO % 11.3 % (0.0-10.0); NEUT # 3.5 K/uL (1.8-7.0); NEUT % 63.5 % (50.0-75.0); RBC 4.08 Mil/uL (3.80-5.20); RED CELL DISTRIBUTION WIDTH 18.6 % (11.5-14.5); WHITE BLOOD COUNT 5.6 K/uL (4.8-10.8)
[2018-10-15 07:34] LABS: INR 1.1; PROTHROMBIN TIME 12.4 SECONDS (9.7-12.2)
[2018-10-15 08:13] LABS: ALB/GLOB RATIO 1.2 (1.0-2.1); ALBUMIN 3.5 g/dL (3.5-5.0); ALT/SGPT 25 U/L (9-52); AST/SGOT 28 U/L (14-36); BLOOD UREA NITROGEN 11 mg/dL (7-17); CALCIUM 9.5 mg/dl (8.6-10.4); GFR NON-AFRICAN AMERICAN > 60
[2018-10-15] MEDS ORDERED: Midazolam 2 MG/2 ML VIAL ONE (10:02)
[2018-10-15] MEDS ORDERED: Propofol 10 mg/ml Inj (20 ML) ONE ×2 (10:02→10:15)
[2018-10-15] MEDS: (Novolin R) Insulin Human Regular 100 units/ml vial SC SCH ×4 (10:05→21:14)
--- NOTE | 2018-10-15 10:05 | CP.PCM.PN ---
<Bean Hernandez - Last Filed: 10/15/18 10:11> Subjective - Date & Time of Evaluation Date of Evaluation: 10/15/18 Time of Evaluation: 07:00 - Subjective Subjective: HBP Surgery Note for Dr. Liu Patient seen and examined at bedside. No acute event overnight. Patient to go for EUS today. No complaints at this time. Will follow pathlogy results to determine further management. Objective - Vital Signs/Intake and Output Vital Signs (last 24 hours): Temp Pulse Resp BP Pulse Ox 98.4 F 93 H 20 139/87 95 10/15/18 08:53 10/15/18 08:53 10/15/18 08:53 10/15/18 08:53 10/15/18 08:53 Intake and Output: 10/15/18 10/15/18 06:59 18:59 Intake Total 600 Balance 600 - Medications Medications: Current Medications Dextrose (Dextrose 50% Inj) 0 ml IV STAT PRN; Protocol PRN Reason: Hypoglycemia Protocol Dextrose (Glutose 15) 0 gm PO ONCE PRN; Protocol PRN Reason: Hypoglycemia Protocol Glucagon (Glucagen Diagnostic Kit) 0 mg IM STAT PRN; Protocol PRN Reason: Hypoglycemia Protocol Dextrose (Dextrose 5% In Water 1000 Ml) 1,000 mls @ 0 mls/hr IV .Q0M PRN; Protocol PRN Reason: Hypoglycemia Protocol Insulin Human Regular (Novolin R) 0 unit SC ACHS [facility]; Protocol Last Admin: 10/14/18 21:50 Dose: Not Given Metoprolol Tartrate (Lopressor) 50 mg PO BID [facility] Last Admin: 10/14/18 17:43 Dose: 50 mg Pantoprazole Sodium (Protonix Inj) 40 mg IVP DAILY [facility] Last Admin: 10/14/18 10:33 Dose: 40 mg Prednisone (Prednisone Tab) 5 mg PO DAILY [facility] Last Admin: 10/14/18 10:33 Dose: 5 mg Rosuvastatin Calcium (Crestor) 10 mg PO HS [facility] Last Admin: 10/14/18 21:32 Dose: 10 mg - Labs Labs: 10/15/18 07:07 10/15/18 07:07 PT 12.4 SECONDS (9.7-12.2) H 10/15/18 07:07 INR 1.1 10/15/18 07:07 APTT 38.0 SECONDS (21-34) H 10/08/18 20:31 - Additional Findings Additional findings: - Constitutional Appears: Well, Non-toxic - Head Exam Head Exam: ATRAUMATIC, NORMAL INSPECTION, NORMOCEPHALIC - Eye Exam Eye Exam: EOMI, Normal appearance. absent: Scleral icterus - Respiratory Exam Respiratory Exam: NORMAL BREATHING PATTERN. absent: Accessory Muscle Use, Respiratory Distress - Cardiovascular Exam Cardiovascular Exam: Regular Rhythm - GI/Abdominal Exam GI & Abdominal Exam: Soft. absent: Distended, Guarding, Tenderness, Rebound - Extremities Exam Extremities Exam: Normal Inspection. absent: Calf Tenderness - Neurological Exam Neurological Exam: Alert, Awake - Psychiatric Exam Psychiatric exam: Normal Affect, Normal Mood - Skin Skin Exam: Dry, Intact, Normal Color, Warm Assessment and Plan - Assessment and Plan (Free Text) Assessment: 67F with a distended GB and presumptive pancreatic head mass in the setting of unexplained weight loss s/p EGD CA 19-9 and CA 125 elevated CEA and AFP are within normal limits MRCP: no filling defect but mass in pancreatic head CT pancreas: soft tissue mass in head of pancreas (see full report) Plan: -NPO -f/u EUS today -f/u pathology -Further management is dependent on tissue diagnosis -Further recs as per Dr. Alford PGY2 <Rolo Lobo - Last Filed: 10/17/18 06:26> Objective - Vital Signs/Intake and Output Vital Signs (last 24 hours): Temp Pulse Resp BP Pulse Ox 98.4 F 86 20 151/76 H 97 10/17/18 00:00 10/17/18 00:00 10/17/18 00:00 10/17/18 00:00 10/17/18 00:00 Intake and Output: 10/16/18 10/17/18 18:59 06:59 Intake Total 1000 1280 Output Total 250 Balance 750 1280 - Medications Medications: Current Medications Dextrose (Dextrose 50% Inj) 0 ml IV STAT PRN; Protocol PRN Reason: Hypoglycemia Protocol Dextrose (Glutose 15) 0 gm PO ONCE PRN; Protocol PRN Reason: Hypoglycemia Protocol Ferric Sodium Gluconate Complex (Ferrlecit) 125 mg IVPB DAILY [facility] Stop: 10/25/18 10:01 Glucagon (Glucagen Diagnostic Kit) 0 mg IM STAT PRN; Protocol PRN Reason: Hypoglycemia Protocol Hydromorphone HCl (Dilaudid) 2 mg PO Q4H PRN PRN Reason: Pain, severe (8-10) Last Admin: 10/17/18 02:25 Dose: 2 mg Dextrose (Dextrose 5% In Water 1000 Ml) 1,000 mls @ 0 mls/hr IV .Q0M PRN; Protocol PRN Reason: Hypoglycemia Protocol Lactated Ringer's (Lactated Ringer's) 1,000 mls @ 75 mls/hr IV .[id number] [facility] Last Admin: 10/17/18 05:47 Dose: 75 mls/hr Insulin Human Regular (Novolin R) 0 unit SC ACHS [facility]; Protocol Last Admin: 10/16/18 21:52 Dose: Not Given Metoprolol Tartrate (Lopressor) 50 mg PO BID [facility] Last Admin: 10/16/18 17:14 Dose: 50 mg Pantoprazole Sodium (Protonix Inj) 40 mg IVP DAILY [facility] Last Admin: 10/16/18 09:02 Dose: 40 mg Prednisone (Prednisone Tab) 5 mg PO DAILY [facility] Last Admin: 10/16/18 09:01 Dose: 5 mg Rosuvastatin Calcium (Crestor) 10 mg PO HS [facility] Last Admin: 10/16/18 21:50 Dose: 10 mg - Labs Labs: 10/16/18 07:19 10/16/18 07:19 PT 12.4 SECONDS (9.7-12.2) H 10/15/18 07:07 INR 1.1 10/15/18 07:07 APTT 38.0 SECONDS (21-34) H 10/08/18 20:31 Assessment and Plan - Assessment and Plan (Free Text) Assessment: All medical record entries made by the resident were at my direction. I have reviewed the chart and agree that the record accurately reflects my personal performance of the history, physical exam, and medical decision making.
[2018-10-15] MEDS ORDERED: Lactated Ringer's 1,000 ML IV ONE (10:10)
[2018-10-15] MEDS ORDERED: Simethicone 40 mg/0.6 ml Liquid (30 ml) ONE (10:15)
--- NOTE | 2018-10-15 10:19 | CP.PCM.PN ---
<Andre Cherry - Last Filed: 10/15/18 17:04> Subjective - Date & Time of Evaluation Date of Evaluation: 10/15/18 Time of Evaluation: 10:19 - Subjective Subjective: HOSPITALIST SERVICE Pt s/e at bedside, denies CP SOB FC NV. Reports no acute symptoms overnight, would like to go home, is now hungry and would like to eat. 12 Point ROS reviewed and otherwise neg Objective - Vital Signs/Intake and Output Vital Signs (last 24 hours): Temp Pulse Resp BP Pulse Ox 98.4 F 93 H 20 139/87 95 10/15/18 08:53 10/15/18 08:53 10/15/18 08:53 10/15/18 08:53 10/15/18 08:53 Intake and Output: 10/15/18 10/15/18 06:59 18:59 Intake Total 600 Balance 600 - Medications Medications: Current Medications Dextrose (Dextrose 50% Inj) 0 ml IV STAT PRN; Protocol PRN Reason: Hypoglycemia Protocol Dextrose (Glutose 15) 0 gm PO ONCE PRN; Protocol PRN Reason: Hypoglycemia Protocol Glucagon (Glucagen Diagnostic Kit) 0 mg IM STAT PRN; Protocol PRN Reason: Hypoglycemia Protocol Dextrose (Dextrose 5% In Water 1000 Ml) 1,000 mls @ 0 mls/hr IV .Q0M PRN; Protocol PRN Reason: Hypoglycemia Protocol Insulin Human Regular (Novolin R) [address] [facility]; Protocol Last Admin: 10/15/18 10:05 Dose: Not Given Metoprolol Tartrate (Lopressor) 50 mg PO BID [facility] Last Admin: 10/15/18 10:05 Dose: Not Given Pantoprazole Sodium (Protonix Inj) 40 mg IVP DAILY [facility] Last Admin: 10/15/18 10:05 Dose: Not Given Prednisone (Prednisone Tab) 5 mg PO DAILY [facility] Last Admin: 10/15/18 10:05 Dose: Not Given Rosuvastatin Calcium (Crestor) 10 mg PO HS [facility] Last Admin: 10/14/18 21:32 Dose: 10 mg - Labs Labs: 10/15/18 07:07 10/15/18 07:07 PT 12.4 SECONDS (9.7-12.2) H 10/15/18 07:07 INR 1.1 10/15/18 07:07 APTT 38.0 SECONDS (21-34) H 10/08/18 20:31 - Additional Findings Additional findings: - Constitutional Appears: Non-toxic, No Acute Distress - Head Exam Head Exam: ATRAUMATIC, NORMAL INSPECTION - Eye Exam Eye Exam: EOMI, Normal appearance - ENT Exam ENT Exam: Mucous Membranes Moist - Neck Exam Neck Exam: Normal Inspection - Respiratory Exam Respiratory Exam: Clear to Auscultation Bilateral, NORMAL BREATHING PATTERN - Cardiovascular Exam Cardiovascular Exam: Irregular rhythm, +S1, +S2 - GI/Abdominal Exam GI & Abdominal Exam: Soft. absent: Distended, Tenderness - Extremities Exam Extremities Exam: absent: Pedal Edema, Tenderness Additional comments: bilateral varicosities of veins on lower extremities - Back Exam Back Exam: NORMAL INSPECTION - Neurological Exam Neurological Exam: Alert, Awake, CN II-XII Intact, Normal Gait, Oriented x3 - Psychiatric Exam Psychiatric exam: Normal Affect, Normal Mood - Skin Skin Exam: Dry, Normal Color, Warm Assessment and Plan - Assessment and Plan (Free Text) Assessment: Patient is a 67 yo female with Afib, CAD s/p stents, HTN, T2DM, and RA who presented after being sent by her project coordinator for acute drop in Hgb. Patient is asymptomatic. Her crab butcher wanted to r/o GI bleed as she needs to be anticoagulated for her Afib. Patient's anemia is stable and no GI bleed on EGD. CT showed abnormalities of pancreas. Patient for stress test in anticipation of surgery. EUS Sunday 10/15. Surgery ([facility]) anticipated depending on biopsy results. Plan: Pancreatic abnormality- suspicious for malignancy - CT A/P: Hypoattenuation of the liver compatible with hepatic steatosis. Splenomegaly. 3 mm too small to characterize hypodensity within the anterior aspect of the spleen, nonspecific. Heterogeneity/fullness of the pancreatic head; underlying neoplasm such as adenocarcinoma must be excluded. Alternatives such as focal pancreatitis may also be considered. No associated inflammatory changes are evident. No evidence of bulky adenopathy. Recommend correlation with amylase and lipase as well as CT pancreatic protocol for further evaluation. - MRCP: Poorly delineated region of decreased enhancement/heterogeneity noted at the pancreatic head on post-contrast imaging; infiltrating neoplasm must be excluded. A discrete pancreatic mass is not identified. No evidence of pancreatic duct dilatation. No peripancreatic inflammatory stranding evident. Sp lenomegaly. - Pancreatic protocol CT: Heterogeneous soft tissue density noted at the inferior aspect of a bulky appearing pancreatic head. This heterogeneous/hypodense region does not demonstrate discrete borders and does not enhance to the same extent as the remainder of the pancreas. Appearance co ncerning for infiltrating neoplasm. - Stress test- report pending - Amylase, lipase wnl - CA 19-9 elev (220), CA-125 elev (65) - AFP, CEA wnl - Hepatobiliary surgery consulted ([facility]) - GI consulted ([facility])- EUS Sunday 10/15 at 10 AM No acute path seen with pancreas gallbladder appears distended and w/ stones Gallbladder distention- suspect 2/2 to pancreatic abnormality - CT A/P: Gallbladder distension. Punctate density at the gallbladder neck, favored to reflect tiny gallstone. Common bile duct measures approximately 7 mm, mildly dilated. - Abd US: Cholelithiasis in a distended gallbladder. Top normal wall thickness of 3 millimeters. No gross wall edema. Negative sonographic Collins's sign. Dilated common bile duct. Further evaluation with MRCP is recommended if clinically indicated to better evaluate for possible calculi within the common bile duct. Prominent liver measuring 17.2 centimeters in length with associated increased echogenicity of the hepatic parenchymal cortex suggestive for fatty infiltration versus hepatic parenchymal disease. Limited visualization of the pancreas. Prominent spleen measuring up to 12.5 centimeters in length. Midpole 1.5 centimeter left renal cyst. - MRCP: Marked gallbladder distension. Cholelithiasis. Gallstone noted at the gallbladder neck measuring approximately 11 mm. The common bile duct appears minimally dilated measuring approximately 7 mm without evidence of focal filling defect. - Pancreatic protocol CT: Severe distention of the gallbladder. Punctate filling defect at the gallbladder neck consistent with gallstone evident on MRI performed earlier the same day. Please note more extensive cholelithiasis evident on MRI which suggests noncalcified gallstones. The common bile duct measures approximately 8 mm. - Hepatobiliary surgery consulted ([facility]) Russ tmrw Asymptomatic anemia, acute, stable - Baseline Hgb 12-14, 9.4 on admission - MCV low (67) - UA: no blood - CT C/A/P: no signs of bleeding - FOBT negative - Iron low (13), ferritin low (6.9), % sat low (3), TIBC wnl (391) - B12, folate wnl - EGD: no active bleed - Monitor H&H daily - Vit K 10 mg SC in ED Atrial fibrillation on anticoagulation, chronic - EKG: NSR, LVH - Hold Xarelto - Lovenox 80 mg SC Q12H, hold tmrw dose - Cardiology consulted ([facility]) Coronary artery disease, chronic- s/p stents - EKG: NSR, LVH - Stress test- report pending - Crestor 10 mg PO QHS Hypertension, chronic - Vitals Q6H - Metoprolol 50 mg PO BID Type 2 diabetes mellitus, chronic - Accuchecks Q6H - Hypoglycemia protocol - ISS low Rheumatoid arthritis, chronic - Hold Baricitinib - Hold Sulfasalazine - Prednisone 5 mg PO daily Ppx: VTE: SCDs, Lovenox 80 mg SC Q12H hold tmrw AM dose GI: Protonix 40 mg IV daily Diet: Full liquids, NPO after midnight for EUS Code status: DNR/DNI- POLST 12/2017 Healthcare proxy: Jerry Rivera [phone] Dispo: for lap eugene tmrw per Dr. Alexander. Case discussed with attending, Dr. Thornton <Komal Thornton V - Last Filed: 10/16/18 19:14> Objective - Vital Signs/Intake and Output Vital Signs (last 24 hours): Temp Pulse Resp BP Pulse Ox 98.6 F 81 24 165/72 H 100 10/16/18 16:15 10/16/18 16:15 10/16/18 16:15 10/16/18 16:15 10/16/18 16:15 Intake and Output: 10/16/18 10/16/18 06:59 18:59 Intake Total 1000 Output Total 250 Balance 750 - Medications Medications: Current Medications Dextrose (Dextrose 50% Inj) 0 ml IV STAT PRN; Protocol PRN Reason: Hypoglycemia Protocol Dextrose (Glutose 15) 0 gm PO ONCE PRN; Protocol PRN Reason: Hypoglycemia Protocol Glucagon (Glucagen Diagnostic Kit) 0 mg IM STAT PRN; Protocol PRN Reason: Hypoglycemia Protocol Hydromorphone HCl (Dilaudid) 2 mg PO Q4H PRN PRN Reason: Pain, severe (8-10) Last Admin: 10/16/18 17:13 Dose: 2 mg Dextrose (Dextrose 5% In Water 1000 Ml) 1,000 mls @ 0 mls/hr IV .Q0M PRN; Protocol PRN Reason: Hypoglycemia Protocol Lactated Ringer's (Lactated Ringer's) 1,000 mls @ 75 mls/hr IV .Q12O32H [facility] Last Admin: 10/16/18 16:45 Dose: 75 mls/hr Insulin Human Regular (Novolin R) 0 unit SC [facility]; Protocol Last Admin: 10/16/18 17:22 Dose: 3 units Metoprolol Tartrate (Lopressor) 50 mg PO BID [facility] Last Admin: 10/16/18 17:14 Dose: 50 mg Pantoprazole Sodium (Protonix Inj) 40 mg IVP DAILY [facility] Last Admin: 10/16/18 09:02 Dose: 40 mg Prednisone (Prednisone Tab) 5 mg PO DAILY [facility] Last Admin: 10/16/18 09:01 Dose: 5 mg Rosuvastatin Calcium (Crestor) 10 mg PO HS [facility] Last Admin: 10/15/18 21:13 Dose: 10 mg - Labs Labs: 10/16/18 07:19 10/16/18 07:19 PT 12.4 SECONDS (9.7-12.2) H 10/15/18 07:07 INR 1.1 10/15/18 07:07 APTT 38.0 SECONDS (21-34) H 10/08/18 20:31 Attending/Attestation - Attestation I have personally seen and examined this patient.: Yes I have fully participated in the care of the patient.: Yes I have reviewed all pertinent clinical information, including history, physical exam and plan: Yes Notes (Text): This is late computer entry for 10/15/18. Patient seen, examined and case discussed with medical or surgical instrument maker. Patient underwent EUS with GI, help appreciated; discussed with GI, no abnormality noted during the EUS. Recommended for CA 19-9 repeat in a month and repeat colonoscopy in a month. Discussed with hepatobiliary surgeon, will schedule for lap eugene tomorrow given gallbladder distension. Discussed with crab butcher, cardiac risk noted in his noted; patient has been off Xarelto for 6 days prior, recommend if surgery permits to resume Xarelto. Xarelto initially held given 11-->8 dropped noted on admission. Updated assessment and plan noted below. Assessment/Plan 1. Pancreatic abnormality Assessment/Plan * GI on case help appreciated * Hepatobiliary surgeon on case help appreciated * CT A/P (10/09/18): Hypoattenuation of the liver compatible with hepatic steato sis. Splenomegaly. 3 mm too small to characterize hypodensity within the anterior aspect of the spleen, nonspecific. Heterogeneity/fullness of the pancreatic head; underlying neoplasm such as adenocarcinoma must be excluded. Alternatives such as focal pancreatitis may also be considered. No associated inflammatory changes are evident. No evidence of bulky adenopathy. Recommend correlation with amylase and lipase as well as CT pancreatic protocol for further evaluation. * MRCP (10/10/18): cholelithiasis in a distended gallbladder. top normal wall thickness of 3mm. No gross wall edema. Negative sonographic Weir sign. Dilated common bile duct. prominent * Poorly delineated region of decreased enhancement/heterogeneity noted at the pancreatic head on post-contrast imaging; infiltrating neoplasm must be excluded. A discrete pancreatic mass is not identified. No evidence of pancreatic duct dilatation. No peripancreatic inflammatory stranding evident. Splenomegaly. * Pancreatic protocol CT: Heterogeneous soft tissue density noted at the inferior aspect of a bulky appearing pancreatic head. This heterogeneous/hypodense region does not demonstrate discrete borders and does not enhance to the same extent as the remainder of the pancreas. Appearance concerning for infiltrating neoplasm. * Amylase, lipase wnl * CA 19-9 elev (220), CA-125 elev (65) * AFP, CEA wnl * Endoscopy (10/10/18): medium sized hiatal hernia, erythematous mucosa in the incisura, antrum, and prepyloric region of the stomach. biopsied. Erythematous duodenopathy * GI consulted ([facility])- EUS Sunday 10/15 at 10 AM * No sign of significant pathology in the pancreatic head. parenchymal pancreatic abnormalities consisting of diffuse echogenicity and atrophy noted in pancreatic body and pancreatic tail. Distended gallbladder with multiple stones * Lap eugene scheduled by surgery tomorrow Monday 2.Gallbladder distention- suspect 2/2 to pancreatic abnormality Assessment/Plan * CT A/P: Gallbladder distension. Punctate density at the gallbladder neck, favored to reflect tiny gallstone. Common bile duct measures approximately 7 mm, mildly dilated. * CT A/P (10/09/18): Hypoattenuation of the liver compatible with hepatic steatosis. Splenomegaly. 3 mm too small to characterize hypodensity within the anterior aspect of the spleen, nonspecific. Heterogeneity/fullness of the pancreatic head; underlying neoplasm such as adenocarcinoma must be excluded. Alternatives such as focal pancreatitis may also be considered. No associated inflammatory changes are evident. No evidence of bulky adenopathy. Recommend correlation with amylase and lipase as well as CT pancreatic protocol for further evaluation. * MRCP (10/10/18): cholelithiasis in a distended gallbladder. top normal wall thickness of 3mm. No gross wall edema. Negative sonographic Weir sign. Dilated common bile duct. prominent * Poorly delineated region of decreased enhancement/heterogeneity noted at the pancreatic head on post-contrast imaging; infiltrating neoplasm must be excluded. A discrete pancreatic mass is not identified. No evidence of pancreatic duct dilatation. No peripancreatic inflammatory stranding evident. Splenomegaly. * Pancreatic protocol CT: Heterogeneous soft tissue density noted at the inferior aspect of a bulky appearing pancreatic head. This heterogeneous/hypodense region does not demonstrate discrete borders and does not enhance to the same extent as the remainder of the pancreas. Appearance concerning for infiltrating neoplasm. * Endoscopy (10/10/18): medium sized hiatal hernia, erythematous mucosa in the incisura, antrum, and prepyloric region of the stomach. biopsied. Erythematous duodenopathy * Endoscopy (10/15/18): normal esophagus, small hiatal hernia, normal examined d uodenum * Upper EUS (10/15/18): No sign of significant pathology in the pancreatic head. parenchymal pancreatic abnormalities consisting of diffuse echogenicity and atrophy noted in pancreatic body and pancreatic tail. Distended gallbladder with multiple stones * GI consulted ([facility])- EUS Mo * [facility].Anemia, acute, stable Assessment/Plan * Hgb 12-14, 9.4 on admission * MCV low (67) * UA: no blood * Imaging noted above * FOBT negative * Iron low (13), ferritin low (6.9), % sat low (3), TIBC wnl (391) * B12, folate wnl * EGD: no active bleed * Monitor H&H daily * Vit K 10 mg SC in ED on admission * Patient is off Xarelto for 6 days. 4. Atrial fibrillation Assessment/Plan * Prior was on anticoagulation on outpatient; held on admission when hemoglobin dropped 11-->8 * EKG: NSR, LVH * Hold Xarelto 6 days prior * Lovenox 80 mg once prior to OR 5. Coronary artery disease, chronic- s/p stents Assessment/Plan * EKG: NSR, LVH * Echo (10/10/18): poor window, normal size of LA, LV, RA, RV, normal LV thickness and overall systolic function; EF 55-60%; inferoapical is hypokinetic, poss CAD; LV diastolic dysfunction; normal aortic, mitral, TV, and PV; moderate TR and trace PI; no pericardial effusion; normal aortic root root. * Stress Test (10/14/18): small fixed inferior defect. no stress induced ischemia. normal EF of 60% * per cardiology, Patient assessed low risk of cardiovascular events for EUS procedure and moderate risk for open abdominal surgery under general anaesthesia. If benefit outweighs the risk please proceed with the necessary therapeutic procedures. * Crestor 10 mg PO QHS * Aspirin held 6. Hypertension, chronic Assessment/Plan * Vitals Q6H * Metoprolol 50 mg PO BID 7. Type 2 diabetes mellitus, chronic Assessment/Plan * Accuchecks Q6H * Hypoglycemia protocol * ISS low 8. Rheumatoid arthritis, chronic Assessment/Plan * Hold Baricitinib * Hold Sulfasalazine * Prednisone 5 mg PO daily 9. Ppx: * VTE: SCDs, patient off anticoagulation given EUS procedure today. given one dose lovenox today; will but NPO after midnight for lap eugene
[2018-10-15 11:19] LABS: IGG SUBCLASS 1 436 mg/dL
[2018-10-15 11:20] LABS: IGG SUBCLASS 2 264 mg/dL; IGG SUBCLASS 3 >220 mg/dL H
[2018-10-15 11:22] LABS: IGG SUBCLASS 4 173.7 mg/dL H
--- NOTE | 2018-10-15 13:11 | CP.PCM.DIS ---
Provider - Provider Date of Admission: 10/10/18 15:01 Attending physician: Komal Thornton DO Consults: 10/08/18 22:15 Gastroenterology Consult Stat Comment: Consulting Provider: Braxton Mann Consulting Physician: Braxton Mann Reason for Consult: anemia, on xarelto 10/08/18 23:43 Physician Consult Routine Comment: Consulting Provider: Driss Plascencia Consulting Physician: Driss Plascencia Reason for Consult: on Xarelto, drop in Hb 10/09/18 13:51 General Surgery Consult Routine Comment: Consulting Provider: Rolo Lobo Consulting Physician: Rolo Lobo Reason for Consult: Pancreatic Mass, Enlarged Gallbladder 10/10/18 16:22 Physician Consult Routine Comment: Consulting Provider: Shaunna Booth Consulting Physician: Shaunna Booth Reason for Consult: EUS Bx for pancreatic abnormality Time Spent in preparation of Discharge (in minutes): 45 Diagnosis - Discharge Diagnosis (1) CAD (coronary artery disease) Status: Chronic (2) Pancreatic mass Status: Chronic (3) Cholecystitis with cholelithiasis Status: Acute (4) Anemia Status: Resolved (5) Atrial fibrillation Status: Chronic (6) Diabetes Status: Chronic (7) Hypertension Status: Chronic Hospital Course - Lab Results Lab Results: Micro Results 10/09/18 06:00 Urine Random Urine Culture - Final <10,000 CFU/ML. MULTIPLE SPECIES. PROBABLE CONTAMINATION. Most Recent Lab Values WBC 5.6 K/uL (4.8-10.8) 10/15/18 07:07 RBC 4.08 Mil/uL (3.80-5.20) 10/15/18 07:07 Hgb 8.7 g/dL (11.0-16.0) L 10/15/18 07:07 Hct 27.9 % (34.0-47.0) L 10/15/18 07:07 MCV 68.4 fL (81.0-99.0) L 10/15/18 07:07 MCH 21.3 pg (27.0-31.0) L 10/15/18 07:07 MCHC 31.2 g/dL (33.0-37.0) L 10/15/18 07:07 RDW 18.6 % (11.5-14.5) H 10/15/18 07:07 Plt Count 267 K/uL (130-400) 10/15/18 07:07 MPV 7.4 fL (7.2-11.7) 10/15/18 07:07 Neut % (Auto) 63.5 % (50.0-75.0) 10/15/18 07:07 Lymph % (Auto) 21.7 % (20.0-40.0) 10/15/18 07:07 [place] % (Auto) 11.3 % (0.0-10.0) H 10/15/18 07:07 Eos % (Auto) 2.9 % (0.0-4.0) 10/15/18 07:07 Baso % (Auto) 0.6 % (0.0-2.0) 10/15/18 07:07 Neut # (Auto) 3.5 K/uL (1.8-7.0) 10/15/18 07:07 Lymph # (Auto) 1.2 K/uL (1.0-4.3) 10/15/18 07:07 [place] # (Auto) 0.6 K/uL (0.0-0.8) 10/15/18 07:07 Eos # (Auto) 0.2 K/uL (0.0-0.7) 10/15/18 07:07 Baso # (Auto) 0.0 K/uL (0.0-0.2) 10/15/18 07:07 Differential Comment 10/08/18 20:31 PT 12.4 SECONDS (9.7-12.2) H 10/15/18 07:07 INR 1.1 10/15/18 07:07 APTT 38.0 SECONDS (21-34) H 10/08/18 20:31 Sodium 137 mmol/L (132-148) 10/15/18 07:07 Potassium 4.0 mmol/L (3.6-5.2) 10/15/18 07:07 Chloride 101 mmol/L (98-107) 10/15/18 07:07 Carbon Dioxide 27 mmol/L (22-30) 10/15/18 07:07 Anion Gap 13 (10-20) 10/15/18 07:07 BUN 11 mg/dL (7-17) 10/15/18 07:07 Creatinine 0.4 mg/dL (0.7-1.2) L 10/15/18 07:07 Est GFR ( Amer) > 60 10/15/18 07:07 Est GFR (Non-Af Amer) > 60 10/15/18 07:07 POC Glucose (mg/dL) 172 mg/dL (65-110) H 10/15/18 12:10 Random Glucose 183 mg/dL (65-105) H D 10/15/18 07:07 Calcium 9.5 mg/dl (8.6-10.4) 10/15/18 07:07 Phosphorus 3.0 mg/dL (2.5-4.5) 10/15/18 07:07 Magnesium 1.6 mg/dL (1.6-2.3) 10/15/18 07:07 Iron 13 ug/dL (37-170) L 10/09/18 11:15 TIBC 391 ug/dL (250-450) 10/09/18 11:15 % Saturation 3 (20-55) L 10/09/18 11:15 Ferritin 6.9 ng/mL 10/09/18 11:15 Total Bilirubin 0.2 mg/dL (0.2-1.3) 10/15/18 07:07 AST 28 U/L (14-36) 10/15/18 07:07 ALT 25 U/L (9-52) 10/15/18 07:07 Alkaline Phosphatase 68 U/L (38-126) 10/15/18 07:07 Total Protein 6.4 g/dL (6.3-8.3) 10/15/18 07:07 Albumin 3.5 g/dL (3.5-5.0) 10/15/18 07:07 Globulin 3.0 gm/dL (2.2-3.9) 10/15/18 07:07 Albumin/Globulin Ratio 1.2 (1.0-2.1) 10/15/18 07:07 Amylase 72 U/L (30-110) 10/09/18 17:34 Lipase 146 U/L (23-300) 10/09/18 17:34 Alpha Fetoprotein 3.3 ng/mL (0.0-7.5) 10/09/18 17:34 Carcinoembryonic Ag 2.9 ng/mL (0-3.0) 10/09/18 17:34 CA 19-9 Antigen 220 U/mL (0-37) H 10/09/18 17:34 CA 125 Antigen 65.1 U/mL (0-35) H 10/09/18 17:34 Chromagranin A 164 ng/mL (25-140) H 10/10/18 07:23 Vitamin B12 336 pg/mL (239-931) 10/09/18 11:15 Folate 14.8 ng/mL 10/09/18 11:15 Urine Color Yellow (YELLOW) 10/09/18 03:19 Urine Clarity Clear (Clear) 10/09/18 03:19 Urine pH 5.0 (5.0-8.0) 10/09/18 03:19 Ur Specific [place] 1.018 (1.003-1.030) 10/09/18 03:19 Urine Protein Negative mg/dL (NEGATIVE) 10/09/18 03:19 Urine Glucose (UA) Normal mg/dL (Normal) 10/09/18 03:19 Urine Ketones Negative mg/dL (NEGATIVE) 10/09/18 03:19 Urine Blood Negative (NEGATIVE) 10/09/18 03:19 Urine Nitrate Negative (NEGATIVE) 10/09/18 03:19 Urine Bilirubin Negative (NEGATIVE) 10/09/18 03:19 Urine Urobilinogen Normal mg/dL (0.2-1.0) 10/09/18 03:19 Ur Leukocyte Esterase Neg Philip/uL (Negative) 10/09/18 03:19 Urine WBC (Auto) 2 /hpf (0-5) 10/09/18 03:19 Urine RBC (Auto) 1 /hpf (0-3) 10/09/18 03:19 Ur Squamous Epith Cells 3 /hpf (0-5) 10/09/18 03:19 Calcium Oxalate Crystal Occ /hpf (<OCC) H 10/09/18 03:19 IgG1 436 mg/dl 10/13/18 07:37 IgG2 264 mg/dl 10/13/18 07:37 IgG3 >220 mg/dl h 10/13/18 07:37 IgG4 173.7 mg/dl h 10/13/18 07:37 Blood Type A POSITIVE 10/09/18 07:45 Antibody Screen Negative 10/09/18 07:45 - Hospital Course Hospital Course: H&P for Dr. Walker HPI: Patient is a 67 year old female with history of A fib on Xarelto who presents after she was sent in Dr. Ryan and Dr. Plascencia for a drop in Hb from 11.4 from January 2018 to 9.6 in September 2018. She denies any current bleeding however she admits that she had intermittent bright blood in her urine, about once every few days, from last fall until Jun 2018 which resolved after she had a procedure for kidney stones with Dr. San. She denies any current bleeding in her urine or stool. She has not had her period since age 34, no current vaginal bleeding. She admits to losing about 40lbs unintentionally over the past year, denies night sweats, unspecified if decreased appetite stating she doesn't usually eat much. She states she had her last colonoscopy 2 years ago which was normal. She states she has normal brown stools, with no change in stool size. She states she has a nonproductive cough currently, but states it is from allergies. She denies any blood in her cough. She denies fevers, chills, headache, lightheadedness, dizzness, sore throat, pain with swallowing, chest pain, palpitations, abdominal pain, nausea, vomiting, diarrhea, constipation, easy bruising, recent travel, sick contacts. Of note, she recently started Olumiant (Baricitinib 2mg one tablet daily last week) for her rheumatoid arthritis. PMH: CAD with stents, A fib, HTN, DM, RA PSH: cardiac stents, vein surgery, tonsillectomy, tubal ligation Family hx: Father of [place] in 60s, Mother of stomach cancer in 70s Social hx: former smoker - quit 30 years, smoked 2ppd x20 years, denies alcohol or drug use. Retired 2 years ago, worked as [employer]. Has 4 children. Home meds: Baricitinib 2mg once in AM, Prednisone 5mg once daily , Sulfasalazine 500mg 3 tabs BID, Tramadol 50mg QHS, Metformin 500mg PO BID, Glimepiride 4mg PO BID, Insulin 20 units in AM, Metoprolol 50mg PO BID, Xarelto 15mg daily, Crestor 10mg PO HS Allergies: PCN - unsure of reaction, she was told she was allergic, PMD: Dr. Arjun Trimble Endo: Dr. Lake Cardio: Temo Uro: Jaswinder HOSPITAL COURSE DNR/DNI, confirmed with patient. POLST signed during last admission in December 2017 Healthcare proxy: Son Jerry [phone] Patient is a 67 yo female with Afib, CAD s/p stents, HTN, T2DM, and RA who presented after being sent by her entry level for acute drop in Hgb. Patient is asymptomatic. 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 Patient's anemia is stable and no GI bleed on EGD. CT showed abnormalities of pancreas. Patient had stress test in anticipation of surgery on monday and was cleared. EUS Sunday 10/15 showed no acute finds regarding pancreatic mass, however gallbladder appeared very distended and with stones. Pt diet was advanced and after speaking with Dr Lobo pt is to follow up outpt and schedule elective Lap Darshana. Discharge Exam - Head Exam Head Exam: ATRAUMATIC, NORMAL INSPECTION, NORMOCEPHALIC - Additional Findings Additional findings: - Constitutional Appears: Non-toxic, No Acute Distress - Head Exam Head Exam: ATRAUMATIC, NORMAL INSPECTION - Eye Exam Eye Exam: EOMI, Normal appearance - ENT Exam ENT Exam: Mucous Membranes Moist - Neck Exam Neck Exam: Normal Inspection - Respiratory Exam Respiratory Exam: Clear to Auscultation Bilateral, NORMAL BREATHING PATTERN - Cardiovascular Exam Cardiovascular Exam: Irregular rhythm, +S1, +S2 - GI/Abdominal Exam GI & Abdominal Exam: Soft. absent: Distended, Tenderness - Extremities Exam Extremities Exam: absent: Pedal Edema, Tenderness Additional comments: bilateral varicosities of veins on lower extremities - Back Exam Back Exam: NORMAL INSPECTION - Neurological Exam Neurological Exam: Alert, Awake, CN II-XII Intact, Normal Gait, Oriented x3 - Psychiatric Exam Psychiatric exam: Normal Affect, Normal Mood - Skin Skin Exam: Dry, Normal Color, Warm Discharge Plan - Discharge Medications Prescriptions: Baricitinib [Olumiant] 2 mg PO DAILY #14 tablet Glimepiride [amaRYL] 4 mg PO BID #24 tab metFORMIN [glucOPHAGE] 500 mg PO BID #28 tab Metoprolol Tartrate [Lopressor] 50 mg PO DAILY #14 tablet predniSONE [predniSONE Tab] 5 mg PO DAILY #14 tab Rosuvastatin Calcium [Crestor] 10 mg PO HS #14 tab - Follow Up Plan Condition: FAIR Disposition: HOME/ ROUTINE Additional Instructions: Pt is to be discharged home on the following medications Baricitinib [Olumiant] 2 mg PO DAILY #14 tablet Glimepiride [amaRYL] 4 mg PO BID #24 tab metFORMIN [glucOPHAGE] 500 mg PO BID #28 tab Metoprolol Tartrate [Lopressor] 50 mg PO DAILY #14 tablet predniSONE [predniSONE Tab] 5 mg PO DAILY #14 tab Rosuvastatin Calcium [Crestor] 10 mg PO HS #14 tab Please follow up in office with Dr Lobo within 7 days Please follow up with your PMD Dr Trimble within 7 days please note: CA 19-9 to be repeated in one month outpatient Please follow up with Dr Booth within 14 days Please seek medical attention immediately if symptoms return take care and be well [facility] PGY1 Referrals: Rolo Lobo MD [Staff Provider] - Shaunna Booth MD [Staff Provider] - Tala Trimble MD [Staff Provider] -
--- NOTE | 2018-10-15 14:03 | PN ---
DATE: 10/15/2018 LOCATION: 357, bed B. SUBJECTIVE: This is a 67-year-old female seen early in rounds today prior to her scheduled EUS without significant clinical changes or reported active bleeding. No reported chills or fever. The entire chart is reviewed including but not limited to the most recent lab and radiology study results, current and the previous medication list, current and the previous medical events. Case discussed with the staff at length. Today's lab results showed hemoglobin 8.7, hematocrit 27.9 with low indices, highly suggestive of hypochromic microcytic anemia with PT of 12.4, creatinine of 0.4, blood glucose level 195, but normal liver function test. PHYSICAL EXAMINATION: GENERAL: A 67-year-old female reported to be in a status of DNR and DNI. Appeared to be awake and alert. Denied any actual chest pain or palpitation. VITAL SIGNS: Afebrile with pulse of 90, respiratory rate 20 to 22, blood pressure 136/80. HEENT: Showed pale, dry oral mucous membrane. Nonicteric sclerae. LUNGS: Few scattered crepitation. Decreased air entry at bases. HEART: Positive S1 and S2. ABDOMEN: Soft with slight generalized tenderness. No mass or organomegaly. No rebound tenderness or guarding. EXTREMITIES: Without significant clubbing, cyanosis, or edema. NEUROLOGIC: No reported new neurological deficits, sensory or motor. IMPRESSION; 1. Re-exacerbation of peptic ulcer disease. 2. Abnormal radiology studies of the abdomen indicative of possible pancreatic mass lesion; however, this reported have been very conflicting and the patient for endoscopic ultrasound today. 3. Hypochromic microcytic anemia, most likely secondary to above. 4. Reported cholelithiasis by radiology study results. 5. Past medical history including but not limited to diabetes mellitus, hypertension, atrial fibrillation. 6. Known history of rheumatoid arthritis. SUGGESTIONS: 1. Continue current management. 2. Awaiting the outcome of the EUS, then further recommendation to follow. 3. Since the patient needs ERCP, then I would be more than glad to perform it. We will discuss the case with the admitting medical staff. Braxton Koch MD [facility] # [phone]
[2018-10-15] MEDS ORDERED: Enoxaparin 80 mg Syringe SC ONE (18:00)
--- NOTE | 2018-10-15 19:50 | CARD ---
APPROVED REPORT Date of service: 10/08/2018 EKG Measurement Heart [id number] <Conclusion> Normal sinus rhythm Left bundle branch block Abnormal ECG
[2018-10-16] MEDS: Lactated Ringer's 1,000 ML IV SCH ×2 (00:11→16:45)
[2018-10-16 07:28] LABS: BASO % 0.4 % (0.0-2.0); EOS # 0.1 K/uL (0.0-0.7); HEMOGLOBIN 8.5 g/dL (11.0-16.0); LYMPH % 20.3 % (20.0-40.0); MEAN CELL VOLUME 68.7 fL (81.0-99.0); MEAN CORPUSCULAR HEMOGLOBIN 21.3 pg (27.0-31.0); MEAN PLATELET VOLUME 7.6 fL (7.2-11.7); MONO # 0.6 K/uL (0.0-0.8); MONO % 11.8 % (0.0-10.0); NEUT # 3.1 K/uL (1.8-7.0); NEUT % 64.5 % (50.0-75.0); RBC 3.98 Mil/uL (3.80-5.20); RED CELL DISTRIBUTION WIDTH 18.7 % (11.5-14.5); WHITE BLOOD COUNT 4.8 K/uL (4.8-10.8)
--- NOTE | 2018-10-16 07:47 | CP.PCM.PN ---
<Andre Cherry - Last Filed: 10/16/18 15:53> Subjective - Date & Time of Evaluation Date of Evaluation: 10/16/18 Time of Evaluation: 07:47 - Subjective Subjective: HOSPITALIST SERVICE Pt s/e at bedside denies CP SOB FC NV overnight, says shes hungry, anxious for surgery but understands and agrees with plan. denies any abd pain Objective - Vital Signs/Intake and Output Vital Signs (last 24 hours): Temp Pulse Resp BP Pulse Ox 97.5 F L 83 20 130/79 95 10/16/18 00:00 10/16/18 00:00 10/16/18 00:00 10/16/18 00:00 10/16/18 00:00 - Medications Medications: Current Medications Dextrose (Dextrose 50% Inj) 0 ml IV STAT PRN; Protocol PRN Reason: Hypoglycemia Protocol Dextrose (Glutose 15) 0 gm PO ONCE PRN; Protocol PRN Reason: Hypoglycemia Protocol Glucagon (Glucagen Diagnostic Kit) 0 mg IM STAT PRN; Protocol PRN Reason: Hypoglycemia Protocol Dextrose (Dextrose 5% In Water 1000 Ml) 1,000 mls @ 0 mls/hr IV .Q0M PRN; Protocol PRN Reason: Hypoglycemia Protocol Lactated Ringer's (Lactated Ringer's) 1,000 mls @ 75 mls/hr IV .[id number] [facility] Last Admin: 10/16/18 00:11 Dose: 75 mls/hr Insulin Human Regular (Novolin R) 0 unit SC ACHS [facility]; Protocol Last Admin: 10/15/18 21:14 Dose: 2 units Metoprolol Tartrate (Lopressor) 50 mg PO BID [facility] Last Admin: 10/15/18 17:21 Dose: 50 mg Pantoprazole Sodium (Protonix Inj) 40 mg IVP DAILY [facility] Last Admin: 10/15/18 10:05 Dose: Not Given Prednisone (Prednisone Tab) 5 mg PO DAILY [facility] Last Admin: 10/15/18 13:59 Dose: 5 mg Rosuvastatin Calcium (Crestor) 10 mg PO HS [facility] Last Admin: 10/15/18 21:13 Dose: 10 mg - Labs Labs: 10/16/18 07:19 10/15/18 07:07 PT 12.4 SECONDS (9.7-12.2) H 10/15/18 07:07 INR 1.1 10/15/18 07:07 APTT 38.0 SECONDS (21-34) H 10/08/18 20:31 - Additional Findings Additional findings: - Constitutional Appears: Non-toxic, No Acute Distress - Head Exam Head Exam: ATRAUMATIC, NORMAL INSPECTION - Eye Exam Eye Exam: EOMI, Normal appearance - ENT Exam ENT Exam: Mucous Membranes Moist - Neck Exam Neck Exam: Normal Inspection - Respiratory Exam Respiratory Exam: Clear to Auscultation Bilateral, NORMAL BREATHING PATTERN - Cardiovascular Exam Cardiovascular Exam: Irregular rhythm, +S1, +S2 - GI/Abdominal Exam GI & Abdominal Exam: Soft. 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 Patient is asymptomatic. Her area safety manager wanted to r/o GI bleed as she needs to be anticoagulated for her Afib. Patient's anemia is stable and no GI bleed on EGD. CT showed abnormalities of pancreas. Patient for stress test in anticipation of surgery. EUS Sunday 10/15. Lap Darshana Surgery (Yamil) 10/16, pending biopsy results. Plan: Pancreatic abnormality- suspicious for malignancy - CT A/P: Hypoattenuation of the liver compatible with hepatic steatosis. Splenomegaly. 3 mm too small to characterize hypodensity within the anterior aspect of the spleen, nonspecific. Heterogeneity/fullness of the pancreatic head; underlying neoplasm such as adenocarcinoma must be excluded. Alternatives such as focal pancreatitis may also be considered. No associated inflammatory changes are evident. No evidence of bulky adenopathy. Recommend correlation with amylase and lipase as well as CT pancreatic protocol for further evaluation. - MRCP: Poorly delineated region of decreased enhancement/heterogeneity noted at the pancreatic head on post-contrast imaging; infiltrating neoplasm must be excluded. A discrete pancreatic mass is not identified. No evidence of pancreatic duct dilatation. No peripancreatic inflammatory stranding evident. Splenomegaly. - Pancreatic protocol CT: Heterogeneous soft tissue density noted at the inferior aspect of a bulky appearing pancreatic head. This heterogeneous/hypodense region does not demonstrate discrete borders and does not enhance to the same extent as the remainder of the pancreas. Appearance concerning for infiltrating neoplasm. - Stress test- report pending - Amylase, lipase wnl - CA 19-9 elev (220), CA-125 elev (65) - AFP, CEA wnl - Hepatobiliary surgery consulted (Alexander) - GI consulted ([facility])- EUS Sunday 10/15 at 10 AM No acute path seen with pancreas gallbladder appears distended and w/ stones - Specimen sent for Path during Sx w/ Dr Lobo, f/u Gallbladder distention- suspect 2/2 to pancreatic abnormality - CT A/P: Gallbladder distension. Punctate density at the gallbladder neck, favored to reflect tiny gallstone. Common bile duct measures approximately 7 mm, mildly dilated. - Abd US: Cholelithiasis in a distended gallbladder. Top normal wall thickness of 3 millimeters. No gross wall edema. Negative sonographic Collins's sign. Dilated common bile duct. Further evaluation with MRCP is recommended if clinically indicated to better evaluate for possible calculi within the common bile duct. Prominent liver measuring 17.2 centimeters in length with associated increased echogenicity of the hepatic parenchymal cortex suggestive for fatty infiltration versus hepatic parenchymal disease. Limited visualization of the pancreas. Prominent spleen measuring up to 12.5 centimeters in length. Midpole 1.5 centimeter left renal cyst. - MRCP: Marked gallbladder distension. Cholelithiasis. Gallstone noted at the gallbladder neck measuring approximately 11 mm. The common bile duct appears minimally dilated measuring approximately 7 mm without evidence of focal filling defect. - Pancreatic protocol CT: Severe distention of the gallbladder. Punctate filling defect at the gallbladder neck consistent with gallstone evident on MRI performed earlier the same day. Please note more extensive cholelithiasis evident on MRI which suggests noncalcified gallstones. The common bile duct measures approximately 8 mm. - Hepatobiliary surgery consulted (Alexander) LapChole today Gallbladder was very distended, fluid filled, with large stone in CBD neck abnormal appearing pancreas head, specimen take, f/u biopsy results Asymptomatic anemia, acute, stable - Baseline Hgb 12-14, 9.4 on admission - MCV low (67) - UA: no blood - CT C/A/P: no signs of bleeding - FOBT negative - Iron low (13), ferritin low (6.9), % sat low (3), TIBC wnl (391) - B12, folate wnl - EGD: no active bleed - Monitor H&H daily - Vit K 10 mg SC in ED Atrial fibrillation on anticoagulation, chronic - EKG: NSR, LVH - Hold Xarelto, restart tmrw - Cardiology consulted (Temo) Coronary artery disease, chronic- s/p stents - EKG: NSR, LVH - Stress test- report pending - Crestor 10 mg PO QHS Hypertension, chronic - Vitals Q6H - Metoprolol 50 mg PO BID Type 2 diabetes mellitus, chronic - Accuchecks Q6H - Hypoglycemia protocol - ISS low Rheumatoid arthritis, chronic - Hold Baricitinib - Hold Sulfasalazine - Prednisone 5 mg PO daily Ppx: VTE: SCDs, Lovenox 80 mg SC Q12H hold tmrw AM dose GI: Protonix 40 mg IV daily Diet: Diabetic , HHD Code status: DNR/DNI- POLST 12/2017 Healthcare proxy: Jerry Rivera [phone] Dispo: hoda knight today w/ Dr. Alexander, f/u specimen outpt, likely dc tmrw. may restart xarelto upon dc Case discussed with attending, Dr. Thornton CK PGY1 <Komal Thornton V - Last Filed: 10/16/18 19:31> Objective - Vital Signs/Intake and Output Vital Signs (last 24 hours): Temp Pulse Resp BP Pulse Ox 98.6 F 81 24 165/72 H 100 10/16/18 16:15 10/16/18 16:15 10/16/18 16:15 10/16/18 16:15 10/16/18 16:15 Intake and Output: 10/16/18 10/17/18 18:59 06:59 Intake Total 1000 Output Total 250 Balance 750 - Medications Medications: Current Medications Dextrose (Dextrose 50% Inj) 0 ml IV STAT PRN; Protocol PRN Reason: Hypoglycemia Protocol Dextrose (Glutose 15) 0 gm PO ONCE PRN; Protocol PRN Reason: Hypoglycemia Protocol Ferric Sodium Gluconate Complex (Ferrlecit) 125 mg IVPB DAILY [facility] Stop: 10/25/18 10:01 Glucagon (Glucagen Diagnostic Kit) 0 mg IM STAT PRN; Protocol PRN Reason: Hypoglycemia Protocol Hydromorphone HCl (Dilaudid) 2 mg PO Q4H PRN PRN Reason: Pain, severe (8-10) Last Admin: 10/16/18 17:13 Dose: 2 mg Dextrose (Dextrose 5% In Water 1000 Ml) 1,000 mls @ 0 mls/hr IV .Q0M PRN; Protocol PRN Reason: Hypoglycemia Protocol Lactated Ringer's (Lactated Ringer's) 1,000 mls @ 75 mls/hr IV .[id number] [facility] Last Admin: 10/16/18 16:45 Dose: 75 mls/hr Magnesium Sulfate/Dextrose (Magnesium Sulfate 1 Gm/100 Ml D5w) 1 gm in 100 mls @ 200 mls/hr IVPB ONCE ONE Stop: 10/16/18 18:59 Insulin Human Regular (Novolin R) 0 unit SC ACHS [facility]; Protocol Last Admin: 10/16/18 17:22 Dose: 3 units Metoprolol Tartrate (Lopressor) 50 mg PO BID [facility] Last Admin: 10/16/18 17:14 Dose: 50 mg Pantoprazole Sodium (Protonix Inj) 40 mg IVP DAILY [facility] Last Admin: 10/16/18 09:02 Dose: 40 mg Prednisone (Prednisone Tab) 5 mg PO DAILY [facility] Last Admin: 10/16/18 09:01 Dose: 5 mg Rosuvastatin Calcium (Crestor) 10 mg PO HS [facility] Last Admin: 10/15/18 21:13 Dose: 10 mg - Labs Labs: 10/16/18 07:19 10/16/18 07:19 PT 12.4 SECONDS (9.7-12.2) H 10/15/18 07:07 INR 1.1 10/15/18 07:07 APTT 38.0 SECONDS (21-34) H 10/08/18 20:31 Attending/Attestation - Attestation I have personally seen and examined this patient.: Yes I have fully participated in the care of the patient.: Yes I have reviewed all pertinent clinical information, including history, physical exam and plan: Yes Notes (Text): Patient seen, examined, and case discussed with medical administrative. Patient seen this morning prior to OR. patient eager to have surgery today and lap darshana. Preop/intraoperative/postoperative per surgery Electrolyte repleted Assessment/Plan 1. Pancreatic abnormality Assessment/Plan * GI on case help appreciated * Hepatobiliary surgeon on case help appreciated * CT A/P (10/09/18): Hypoattenuation of the liver compatible with hepatic steatosis. Splenomegaly. 3 mm too small to characterize hypodensity within the anterior aspect of the spleen, nonspecific. Heterogeneity/fullness of the pancreatic head; underlying neoplasm such as adenocarcinoma must be excluded. Alternatives such as focal pancreatitis may also be considered. No associated inflammatory changes are evident. No evidence of bulky adenopathy. Recommend correlation with amylase and lipase as well as CT pancreatic protocol for further evaluation. * MRCP (10/10/18): cholelithiasis in a distended gallbladder. top normal wall thickness of 3mm. No gross wall edema. Negative sonographic Quincy sign. Dil ated common bile duct. prominent * Poorly delineated region of decreased enhancement/heterogeneity noted at the pancreatic head on post-contrast imaging; infiltrating neoplasm must be excluded. A discrete pancreatic mass is not identified. No evidence of pancreatic duct dilatation. No peripancreatic inflammatory stranding evident. Splenomegaly. * Pancreatic protocol CT: Heterogeneous soft tissue density noted at the inferior aspect of a bulky appearing pancreatic head. This heterogeneous/hypodense region does not demonstrate discrete borders and does not enhance to the same extent as the remainder of the pancreas. Appearance concerning for infiltrating neoplasm. * Amylase, lipase wnl * CA 19-9 elev (220), CA-125 elev (65) * AFP, CEA wnl * Endoscopy (10/10/18): medium sized hiatal hernia, erythematous mucosa in the incisura, antrum, and prepyloric region of the stomach. biopsied. Erythematous duodenopathy * GI consulted (Emmy)- EUS Sunday 10/15 at 10 AM * No sign of significant pathology in the pancreatic head. parenchymal pancreatic abnormalities consisting of diffuse echogenicity and atrophy noted in pancreatic body and pancreatic tail. Distended gallbladder with multiple stones * Lap darshana scheduled by surgery tomorrow Monday 2.Gallbladder distention- suspect 2/2 to pancreatic abnormality Assessment/Plan * CT A/P: Gallbladder distension. Punctate density at the gallbladder neck, favored to reflect tiny gallstone. Common bile duct measures approximately 7 mm, mildly dilated. * CT A/P (10/09/18): Hypoattenuation of the liver compatible with hepatic steatosis. Splenomegaly. 3 mm too small to characterize hypodensity within the anterior aspect of the spleen, nonspecific. Heterogeneity/fullness of the pancreatic head; underlying neoplasm such as adenocarcinoma must be excluded. Alternatives such as focal pancreatitis may also be considered. No associated inflammatory changes are evident. No evidence of bulky adenopathy. Recommend correlation with amylase and lipase as well as CT pancreatic protocol for further evaluation. * MRCP (10/10/18): cholelithiasis in a distended gallbladder. top normal wall thickness of 3mm. No gross wall edema. Negative sonographic Quincy sign. Dilated common bile duct. prominent * Poorly delineated region of decreased enhancement/heterogeneity noted at the pancreatic head on post-contrast imaging; infiltrating neoplasm must be excluded. A discrete pancreatic mass is not identified. No evidence of pancreatic duct dilatation. No peripancreatic inflammatory stranding evident. Splenomegaly. * Pancreatic protocol CT: Heterogeneous soft tissue density noted at the inferior aspect of a bulky appearing pancreatic head. This heterogeneous/hypodense region does not demonstrate discrete borders and does not enhance to the same extent as the remainder of the pancreas. Appearance concerning for infiltrating neoplasm. * Endoscopy (10/10/18): medium sized hiatal hernia, erythematous mucosa in the incisura, antrum, and prepyloric region of the stomach. biopsied. Erythematous duodenopathy * Endoscopy (10/15/18): normal esophagus, small hiatal hernia, normal examined duodenum * Upper EUS (10/15/18): No sign of significant pathology in the pancreatic head. parenchymal pancreatic abnormalities consisting of diffuse echogenicity and atrophy noted in pancreatic body and pancreatic tail. Distended gallbladder with multiple stones * GI consulted (Emmy)- EUS Mo * [facility] 3.Anemia, acute, stable Assessment/Plan * Hgb 12-14, 9.4 on admission * MCV low (67) * UA: no blood * Imaging noted above * FOBT negative * Iron low (13), ferritin low (6.9), % sat low (3), TIBC wnl (391) * B12, folate wnl * EGD: no active bleed * Monitor H&H daily * Vit K 10 mg SC in ED on admission * Patient is off Xarelto for 6 days. 4. Atrial fibrillation Assessment/Plan * Prior was on anticoagulation on outpatient; held on admission when hemoglobin dropped 11-->8 * EKG: NSR, LVH * Hold Xarelto 6 days prior * Lovenox 80 mg once prior to OR 5. Coronary artery disease, chronic- s/p stents Assessment/Plan * EKG: NSR, LVH * Echo (10/10/18): poor window, normal size of LA, LV, RA, RV, normal LV thickness and overall systolic function; EF 55-60%; inferoapical is hypokinetic, poss CAD; LV diastolic dysfunction; normal aortic, mitral, TV, and PV; moderate TR and trace PI; no pericardial effusion; normal aortic root root. * Stress Test (10/14/18): small fixed inferior defect. no stress induced ischemia. normal EF of 60% * per cardiology, Patient assessed low risk of cardiovascular events for EUS procedure and moderate risk for open abdominal surgery under general anaesthesia. If benefit outweighs the risk please proceed with the necessary therapeutic procedures. * Crestor 10 mg PO QHS * Aspirin held 6. Hypertension, chronic Assessment/Plan * Vitals Q6H * Metoprolol 50 mg PO BID 7. Type 2 diabetes mellitus, chronic Assessment/Plan * Accuchecks Q6H * Hypoglycemia protocol * ISS low 8. Rheumatoid arthritis, chronic Assessment/Plan * Hold Baricitinib * Hold Sulfasalazine * Prednisone 5 mg PO daily 9. Ppx: * VTE: SCDs, patient off anticoagulation given EUS procedure today. given one dose lovenox today; will but NPO after midnight for lap darshana
[2018-10-16 07:49] LABS: ALB/GLOB RATIO 1.1 (1.0-2.1); ALBUMIN 3.2 g/dL (3.5-5.0); ALT/SGPT 34 U/L (9-52); AST/SGOT 24 U/L (14-36); BLOOD UREA NITROGEN 10 mg/dL (7-17); CALCIUM 9.4 mg/dl (8.6-10.4); GFR NON-AFRICAN AMERICAN > 60
[2018-10-16] MEDS: (Novolin R) Insulin Human Regular 100 units/ml vial SC SCH ×4 (08:21→21:52)
[2018-10-16] MEDS ORDERED: ceFAZolin 1 gm in NS 0 GM/0 ML BAG IVPB ONE (11:26)
[2018-10-16] MEDS ORDERED: Lidocaine/Epinephrine 1% 1:100000 10 ML IJ ONE (11:26)
--- NOTE | 2018-10-16 11:35 | PN ---
DATE: 10/16/2018 LOCATION: 357, bed B. SUBJECTIVE: This is a 67-year-old female seen and examined in rounds post EUS, done yesterday. Her case was discussed at length with the GI staff involved with EUS doctor, Dr. Shaunna Booth. The patient had much less complaint of abdominal pain, appeared to be awake, alert, oriented, tolerating oral DayQuil without reported nausea or vomiting. The most recent lab results showed today blood glucose level of 173. Rest of the lab results is still pending; however, she still has persistent hypochromic macrocytic anemia for which colonoscopy is to be considered keeping in mind the patient also recent history of body weight loss. PHYSICAL EXAMINATION: GENERAL: A 67-year-old female, awake, alert, and oriented. VITAL SIGNS: Afebrile with pulse of 80, respiratory rate 20-22, blood pressure 136/76. HEENT: Showed pale, dry oral mucous membrane. Nonicteric sclerae. LUNGS: Few scattered crepitation. Decreased air entry at bases. HEART: Positive S1 and S2. ABDOMEN: Soft with mild generalized tenderness. No masses or organomegaly. No rebound tenderness or guarding. EXTREMITIES: Without significant clubbing, cyanosis, or edema. NEUROLOGIC: No reported new neurological deficits, sensory or motor. IMPRESSION: 1. Anemia. 2. Re-exacerbation of peptic ulcer disease. 3. Abnormal radiology studies of the abdomen with questionable pancreatic lesion, endoscopic ultrasound was negative as per official report for possible pancreatic mass despite excessive increase of CA 19-9. 4. Cholelithiasis with cholecystitis, well controlled. 5. Known history of hypertension, atrial fibrillation, and diabetes mellitus. SUGGESTION: 1. Agree with your plan. 2. Due to the patient's recent excessive body weight loss and hypochromic macrocytic anemia, colonoscopy is to be scheduled after adequate level preparation. 3. Rheumatology consultation due to the patient's known history of rheumatoid arthritis. 4. Further recommendation to follow. Thank you for letting me participate in your patient's case management. Braxton Koch MD
[2018-10-16] MEDS ORDERED: Etomidate 20 mg/10ml Inj IV ONE (12:25)
[2018-10-16] MEDS ORDERED: ePHEDrine 50 mg/ml Inj ONE (12:25)
[2018-10-16] MEDS ORDERED: Midazolam 2 MG/2 ML VIAL ONE (12:25)
[2018-10-16] MEDS ORDERED: Clindamycin 600mg/50ml NS 600 MG/50 ML BAG IVPB ONE (12:31)
[2018-10-16] MEDS ORDERED: Neostigmine 1:1000 (1 mg/ml) Inj ONE (14:37)
--- NOTE | 2018-10-16 15:00 | PCM.SURG1 ---
Surgeon's Initial Post Op Note - Surgeon's Notes Surgeon: Dr. Liu Hand Box Coverer: David PGY2 Type of Anesthesia: General Endo, Local Anesthesia Administered By: Suki ASENCIO Pre-Operative Diagnosis: Acute on chronic cholecystitis, imapcted stone in neck of GB Operative Findings: large distended GB, hydrops fluid in GB, Acute on chronic cholecystitis, imapcted stone in neck of GB, fibrotic pancreatic head Post-Operative Diagnosis: Acute on chronic cholecystitis, imapcted stone in neck of GB, fibrosis of pancreatic head Operation Performed: Laparoscopic cholecystectomy, pancreatic head biopsy Specimen/Specimens Removed: GB fluid, gallbladder with stone, pancreatic head biopsy Estimated Blood Loss: EBL {In ML}: 50 Blood Products Given: N/A Drains Used: No Drains Post-Op Condition: Good Date of Surgery/Procedure: 10/16/18 Time of Surgery/Procedure: 14:59
[2018-10-16] MEDS ORDERED: Magnesium Sulfate 1 gm in D5W 1 GM/100 ML BAG IVPB ONE ×2 (18:30→21:39)
--- NOTE | 2018-10-16 21:42 | CP.PCM.PN ---
Subjective - Date & Time of Evaluation Date of Evaluation: 10/15/18 Time of Evaluation: 07:50 - Subjective Subjective: Patient seen and evaluated No cardiac events Objective - Additional Findings Additional findings: - Constitutional Appears: No Acute Distress - Head Exam Head Exam: ATRAUMATIC, NORMAL INSPECTION - Eye Exam Eye Exam: EOMI, Normal appearance - ENT Exam ENT Exam: Mucous Membranes Moist - Respiratory Exam Respiratory Exam: Clear to Ausculation Bilateral, NORMAL BREATHING PATTERN. absent: Rhonchi, Wheezes, Respiratory Distress - Cardiovascular Exam Cardiovascular Exam: Irregular Rhythm, +S1, +S2 - GI/Abdominal Exam GI & Abdominal Exam: Soft, Normal Bowel Sounds. absent: Tenderness - Extremities Exam Extremities Exam: Pedal Edema (mild pitting edema b/l extending from knee down). absent: Tenderness - Neurological Exam Neurological Exam: Alert, Awake, Oriented x3 - Psychiatric Exam Psychiatric exam: Normal Affect, Normal Mood - Skin Skin Exam: Dry, Normal Color, Warm Assessment and Plan - Assessment and Plan (Free Text) Assessment: 67 year old female with history of DM, HTN, RA, A fib on Xarelto who presents for drop in hemoglobin from 11.4 to 9.6. Afib - Home medication: Xarelto 15mg PO daily- HELD for procedure. - Continue Metoprolol 50mg PO BID - Continue Lovenox 80mg BID Anemia - H/H 9.8/32.0 - baseline Hb in 11s - FOBT x3 pending (negative in ED) - On CT, Pancreatic abnormality- suspicious for malignancy. S/p EGD today. Will start Lovenox post procedure. CAD w/Stents - Crestor 10mg PO HS - EKG at admission: SR@98; LVH HTN - Continue Metoprolol 50mg PO BID Cardiac risk assessment, preop - EKG: SR@98; LVH - Echo (10/10/18): poor window, normal size of LA, LV, RA, RV, normal LV thickness and overall systolic function; EF 55-60%; inferoapical is hypokinetic, poss CAD; LV diastolic dysfunction; normal aortic, mitral, TV, and PV; moderate TR and trace PI; no pericardial effusion; normal aortic root root. -Stress Test: No evidence of stress induved ischemia *Patient assessed low risk of cardiovascular events for EUS procedure and moderate risk for open abdominal surgery under general anaesthesia. If benefit outweighs the risk please proceed with the necessary therapeutic procedures. Objective - Vital Signs/Intake and Output Vital Signs (last 24 hours): Temp Pulse Resp BP Pulse Ox 98.6 F 81 24 165/72 H 100 10/16/18 16:15 10/16/18 16:15 10/16/18 16:15 10/16/18 16:15 10/16/18 16:15 Intake and Output: 10/16/18 10/17/18 18:59 06:59 Intake Total 1000 Output Total 250 Balance 750 - Medications Medications: Current Medications Dextrose (Dextrose 50% Inj) 0 ml IV STAT PRN; Protocol PRN Reason: Hypoglycemia Protocol Dextrose (Glutose 15) 0 gm PO ONCE PRN; Protocol PRN Reason: Hypoglycemia Protocol Ferric Sodium Gluconate Complex (Ferrlecit) 125 mg IVPB DAILY [facility] Stop: 10/25/18 10:01 Glucagon (Glucagen Diagnostic Kit) 0 mg IM STAT PRN; Protocol PRN Reason: Hypoglycemia Protocol Hydromorphone HCl (Dilaudid) 2 mg PO Q4H PRN PRN Reason: Pain, severe (8-10) Last Admin: 10/16/18 17:13 Dose: 2 mg Dextrose (Dextrose 5% In Water 1000 Ml) 1,000 mls @ 0 mls/hr IV .Q0M PRN; Protocol PRN Reason: Hypoglycemia Protocol Lactated Ringer's (Lactated Ringer's) 1,000 mls @ 75 mls/hr IV .[id number] [facility] Last Admin: 10/16/18 16:45 Dose: 75 mls/hr Magnesium Sulfate/Dextrose (Magnesium Sulfate 1 Gm/100 Ml D5w) 1 gm in 100 mls @ 200 mls/hr IVPB ONCE ONE Stop: 10/16/18 22:08 Insulin Human Regular (Novolin R) 0 unit SC ACHS [facility]; Protocol Last Admin: 10/16/18 17:22 Dose: 3 units Metoprolol Tartrate (Lopressor) 50 mg PO BID [facility] Last Admin: 10/16/18 17:14 Dose: 50 mg Pantoprazole Sodium (Protonix Inj) 40 mg IVP DAILY [facility] Last Admin: 10/16/18 09:02 Dose: 40 mg Prednisone (Prednisone Tab) 5 mg PO DAILY [facility] Last Admin: 10/16/18 09:01 Dose: 5 mg Rosuvastatin Calcium (Crestor) 10 mg PO HS [facility] Last Admin: 10/15/18 21:13 Dose: 10 mg - Labs Labs: 10/16/18 07:19 10/16/18 07:19 PT 12.4 SECONDS (9.7-12.2) H 10/15/18 07:07 INR 1.1 10/15/18 07:07 APTT 38.0 SECONDS (21-34) H 10/08/18 20:31
--- NOTE | 2018-10-16 21:42 | CP.PCM.PN ---
Subjective - Date & Time of Evaluation Date of Evaluation: 10/16/18 Time of Evaluation: 07:05 - Subjective Subjective: Patient seen and evaluated Denies chest pain and dyspnea Objective - Additional Findings Additional findings: - Constitutional Appears: No Acute Distress - Head Exam Head Exam: ATRAUMATIC, NORMAL INSPECTION - Eye Exam Eye Exam: EOMI, Normal appearance - ENT Exam ENT Exam: Mucous Membranes Moist - Respiratory Exam Respiratory Exam: Clear to Ausculation Bilateral, NORMAL BREATHING PATTERN. absent: Rhonchi, Wheezes, Respiratory Distress - Cardiovascular Exam Cardiovascular Exam: Irregular Rhythm, +S1, +S2 - GI/Abdominal Exam GI & Abdominal Exam: Soft, Normal Bowel Sounds. absent: Tenderness - Extremities Exam Extremities Exam: Pedal Edema (mild pitting edema b/l extending from knee down). absent: Tenderness - Neurological Exam Neurological Exam: Alert, Awake, Oriented x3 - Psychiatric Exam Psychiatric exam: Normal Affect, Normal Mood - Skin Skin Exam: Dry, Normal Color, Warm Assessment and Plan - Assessment and Plan (Free Text) Assessment: 67 year old female with history of DM, HTN, RA, A fib on Xarelto Afib - Home medication: Xarelto 15mg PO daily- HELD for procedure. - Continue Metoprolol 50mg PO BID - Continue Lovenox 80mg BID Anemia - H/H 9.8/32.0 - baseline Hb in 11s - FOBT x3 pending (negative in ED) - On CT, Pancreatic abnormality- suspicious for malignancy. S/p EGD today. Will start Lovenox post procedure. CAD w/Stents - Crestor 10mg PO HS - EKG at admission: SR@98; LVH HTN - Continue Metoprolol 50mg PO BID Cardiac risk assessment, preop - EKG: SR@98; LVH - Echo (10/10/18): poor window, normal size of LA, LV, RA, RV, normal LV thickness and overall systolic function; EF 55-60%; inferoapical is hypokinetic, poss CAD; LV diastolic dysfunction; normal aortic, mitral, TV, and PV; moderate TR and trace PI; no pericardial effusion; normal aortic root root. -Stress Test: No evidence of stress induved ischemia *Patient assessed low risk of cardiovascular events for EUS procedure and moderate risk for open abdominal surgery under general anaesthesia. If benefit outweighs the risk please proceed with the necessary therapeutic procedures. Objective - Vital Signs/Intake and Output Vital Signs (last 24 hours): Temp Pulse Resp BP Pulse Ox 98.6 F 81 24 165/72 H 100 10/16/18 16:15 10/16/18 16:15 10/16/18 16:15 10/16/18 16:15 10/16/18 16:15 Intake and Output: 10/16/18 10/17/18 18:59 06:59 Intake Total 1000 Output Total 250 Balance 750 - Medications Medications: Current Medications Dextrose (Dextrose 50% Inj) 0 ml IV STAT PRN; Protocol PRN Reason: Hypoglycemia Protocol Dextrose (Glutose 15) 0 gm PO ONCE PRN; Protocol PRN Reason: Hypoglycemia Protocol Ferric Sodium Gluconate Complex (Ferrlecit) 125 mg IVPB DAILY [facility] Stop: 10/25/18 10:01 Glucagon (Glucagen Diagnostic Kit) 0 mg IM STAT PRN; Protocol PRN Reason: Hypoglycemia Protocol Hydromorphone HCl (Dilaudid) 2 mg PO Q4H PRN PRN Reason: Pain, severe (8-10) Last Admin: 10/16/18 17:13 Dose: 2 mg Dextrose (Dextrose 5% In Water 1000 Ml) 1,000 mls @ 0 mls/hr IV .Q0M PRN; Protocol PRN Reason: Hypoglycemia Protocol Lactated Ringer's (Lactated Ringer's) 1,000 mls @ 75 mls/hr IV .[id number] [facility] Last Admin: 10/16/18 16:45 Dose: 75 mls/hr Magnesium Sulfate/Dextrose (Magnesium Sulfate 1 Gm/100 Ml D5w) 1 gm in 100 mls @ 200 mls/hr IVPB ONCE ONE Stop: 10/16/18 22:08 Insulin Human Regular (Novolin R) [address] [facility]; Protocol Last Admin: 10/16/18 17:22 Dose: 3 units Metoprolol Tartrate (Lopressor) 50 mg PO BID [facility] Last Admin: 10/16/18 17:14 Dose: 50 mg Pantoprazole Sodium (Protonix Inj) 40 mg IVP DAILY [facility] Last Admin: 10/16/18 09:02 Dose: 40 mg Prednisone (Prednisone Tab) 5 mg PO DAILY [facility] Last Admin: 10/16/18 09:01 Dose: 5 mg Rosuvastatin Calcium (Crestor) 10 mg PO HS [facility] Last Admin: 10/15/18 21:13 Dose: 10 mg - Labs Labs: 10/16/18 07:19 10/16/18 07:19 PT 12.4 SECONDS (9.7-12.2) H 10/15/18 07:07 INR 1.1 10/15/18 07:07 APTT 38.0 SECONDS (21-34) H 10/08/18 20:31
[2018-10-17] MEDS: Lactated Ringer's 1,000 ML IV SCH ×3 (02:45→17:26)
--- NOTE | 2018-10-17 03:19 | OP ---
PROCEDURE DATE: 10/15/2018 SURGEON: Rolo Liu MD GRAVEL SCREENER: Bean Hernandez DO ANESTHESIA: General. PREOPERATIVE DIAGNOSES: Uncertain behavior of pancreas, cholelithiasis. POSTOPERATIVE DIAGNOSES: Uncertain behavior of pancreas, cholelithiasis. PROCEDURES: Laparoscopic cholecystectomy, laparoscopic biopsy of head of pancreas. INDICATION: This is a 67-year-old female who presented to [facility] with anemia and was found to have markedly distended gallbladder with cholelithiasis and irregularity head of the pancreas. The patient also had a 40-pound weight loss, onset of diabetes just about a year ago. On evaluation, she had a CA-19 of 220 and chromogranin A about 170. The patient underwent an EUS a day before, which they did not recognize any mass, no biopsies are taken. Given the patient's distending gallbladder before she was discharged, she was going to have a laparoscopic cholecystectomy. DESCRIPTION OF PROCEDURE: The patient was transferred to the OR, placed in supine position. She was orotracheally intubated. General anesthesia was induced. Her abdomen was sterilely prepped and draped. After a time-out, a 5-mm infraumbilical transverse incision was made. Using a Veress needle, we were able to access and insufflate the abdomen to 15 mmHg pressure. A 15-mm 30-degree scope was placed intra-abdominally. The gallbladder was markedly distended. As we also explored the distal stomach and the duodenum, there appeared to be irregular looking tissue by the pancreas. The tissue was whitish and firm appearing. As such given the patient's history, we obtained several pieces of tissue. Frozen sections were obtained showing pancreatic tissue. Subsequently, a [id number] using SH needle and a 2-0 silk of the biopsy site was performed. The sutures were stitched down and clipped with 5-mm clips. At this point in time, the gallbladder was removed. The fundus was gasped and pushed anterior cephalad, and the infundibulum was likewise grasped and retracted to the patient's right side. The cystic duct was circumferentially dissected free, and we were able to separate the cystic artery from the cystic duct. Two clips were placed in the cystic duct proximally and distally, and they were divided between. Then, two clips were placed proximally on the cystic artery and that was likewise divided. The gallbladder was then removed using hook cautery from the gallbladder fossa. There was a little tearing in the fossa which was hemostased with electrocautery of the surface. The gallbladder was ultimately removed from the fossa. A 10-mm midline port was used to remove the specimen. The gallbladder was likewise removed. There were multiple gallstones within the gallbladder. The gallbladder fossa was irrigated with saline solution. There was good hemostasis. Clips were then removed under direct visualization. The fascia 10-mm port was closed with a simple 0 Vicryl on UR 6. The skin was closed with subcutaneous subcuticular Monocryl. Dermabond was used to seal the incision. The patient was then reversed from general anesthesia, transferred to the recovery room. ESTIMATED BLOOD LOSS: About 50 to 75 mL. SPECIMEN: The specimen was sent to Pathology. Rolo Liu M.D. MTDD
[2018-10-17] MEDS: (Novolin R) Insulin Human Regular 100 units/ml vial SC SCH ×4 (07:30→22:00)
[2018-10-17] MEDS: Ferric Sodium Gluconat Complex 62.5 mg/5 ml Vial IVPB SCH (10:05)
--- NOTE | 2018-10-17 10:21 | CP.PCM.PN ---
Subjective - Date & Time of Evaluation Date of Evaluation: 10/17/18 Time of Evaluation: 10:18 - Subjective Subjective: HOSPITALIST SERVICE Pt s/e at bedside, reports no acute abd pain, tolerating liquid diet, pt agrees for colonoscopy w/ Dr Johnathan andreaw. denies CP SOB FC NV Objective - Vital Signs/Intake and Output Vital Signs (last 24 hours): Temp Pulse Resp BP Pulse Ox 97.7 F 97 H 20 153/79 H 96 10/17/18 08:08 10/17/18 08:08 10/17/18 08:08 10/17/18 08:08 10/17/18 08:08 Intake and Output: 10/17/18 10/17/18 06:59 18:59 Intake Total 1280 Balance 1280 - Medications Medications: Current Medications Bisacodyl (Dulcolax) 10 mg PO ONCE ONE Stop: 10/17/18 17:01 Dextrose (Dextrose 50% Inj) 0 ml IV STAT PRN; Protocol PRN Reason: Hypoglycemia Protocol Dextrose (Glutose 15) 0 gm PO ONCE PRN; Protocol PRN Reason: Hypoglycemia Protocol Ferric Sodium Gluconate Complex (Ferrlecit) 125 mg IVPB DAILY [facility] Stop: 10/25/18 10:01 Last Admin: 10/17/18 10:05 Dose: 125 mg Glucagon (Glucagen Diagnostic Kit) 0 mg IM STAT PRN; Protocol PRN Reason: Hypoglycemia Protocol Hydromorphone HCl (Dilaudid) 2 mg PO Q4H PRN PRN Reason: Pain, severe (8-10) Last Admin: 10/17/18 10:02 Dose: 2 mg Lactated Ringer's (Lactated Ringer's) 1,000 mls @ 75 mls/hr IV .[id number] [facility] Last Admin: 10/17/18 05:47 Dose: 75 mls/hr Insulin Human Regular (Novolin R) 0 unit SC ACHS [facility]; Protocol Last Admin: 10/16/18 21:52 Dose: Not Given Metoclopramide HCl (Reglan) 5 mg IVP Q6H [facility] Stop: 10/19/18 06:00 Last Admin: 10/17/18 10:03 Dose: 5 mg Metoprolol Tartrate (Lopressor) 50 mg PO BID [facility] Last Admin: 10/17/18 10:04 Dose: 50 mg Pantoprazole Sodium (Protonix Inj) 40 mg IVP DAILY [facility] Last Admin: 10/17/18 10:03 Dose: 40 mg Polyethylene Glycol/Electrolytes (Golytely) 4,000 ml PO ONCE ONE Stop: 10/17/18 11:01 Prednisone (Prednisone Tab) 5 mg PO DAILY [facility] Last Admin: 10/17/18 10:04 Dose: 5 mg Rosuvastatin Calcium (Crestor) 10 mg PO HS [facility] Last Admin: 10/16/18 21:50 Dose: 10 mg - Labs Labs: 10/16/18 07:19 10/16/18 07:19 PT 12.4 SECONDS (9.7-12.2) H 10/15/18 07:07 INR 1.1 10/15/18 07:07 APTT 38.0 SECONDS (21-34) H 10/08/18 20:31 - Additional Findings Additional findings: - Constitutional Appears: Non-toxic, No Acute Distress - Head Exam Head Exam: ATRAUMATIC, NORMAL INSPECTION - Eye Exam Eye Exam: EOMI, Normal appearance - ENT Exam ENT Exam: Mucous Membranes Moist - Neck Exam Neck Exam: Normal Inspection - Respiratory Exam Respiratory Exam: Clear to Auscultation Bilateral, NORMAL BREATHING PATTERN - Cardiovascular Exam Cardiovascular Exam: Irregular rhythm, +S1, +S2 - GI/Abdominal Exam GI & Abdominal Exam: Soft. absent: Distended, Tenderness - Extremities Exam Extremities Exam: absent: Pedal Edema, Tenderness Additional comments: bilateral varicosities of veins on lower extremities - Back Exam Back Exam: NORMAL INSPECTION - Neurological Exam Neurological Exam: Alert, Awake, CN II-XII Intact, Normal Gait, Oriented x3 - Psychiatric Exam Psychiatric exam: Normal Affect, Normal Mood - Skin Skin Exam: Dry, Normal Color, Warm Assessment and Plan - Assessment and Plan (Free Text) Assessment: Patient is a 67 yo female with Afib, CAD s/p stents, HTN, T2DM, and RA who presented after being sent by her assistant golf coach for acute drop in Hgb. Patient is asymptomatic. Her chemical process operator wanted to r/o GI bleed as she needs to be anticoagulated for her Afib. Patient's anemia is stable and no GI bleed on EGD. CT showed abnormalities of pancreas. Patient for stress test in anticipation of surgery. EUS Sunday 10/15. Lap [facility] Surgery (Yamil) 10/16, pending biopsy results. Plan: Pancreatic abnormality- suspicious for malignancy - CT A/P: Hypoattenuation of the liver compatible with hepatic steatosis. Splenomegaly. 3 mm too small to characterize hypodensity within the anterior aspect of the spleen, nonspecific. Heterogeneity/fullness of the pancreatic head; underlying neoplasm such as adenocarcinoma must be excluded. Alternatives such as focal pancreatitis may also be considered. No associated inflammatory changes are evident. No evidence of bulky adenopathy. Recommend correlation with amylase and lipase as well as CT pancreatic protocol for further evaluation. - MRCP: Poorly delineated region of decreased enhancement/heterogeneity noted at the pancreatic head on post-contrast imaging; infiltrating neoplasm must be excluded. A discrete pancreatic mass is not identified. No evidence of pancreatic duct dilatation. No peripancreatic inflammatory stranding evident. Splenomegaly. - Pancreatic protocol CT: Heterogeneous soft tissue density noted at the inferior aspect of a bulky appearing pancreatic head. This heterogeneous/hypodense region does not demonstrate discrete borders and does not enhance to the same extent as the remainder of the pancreas. Appearance concerning for infiltrating neoplasm. - Stress test- report pending - Amylase, lipase wnl - CA 19-9 elev (220), CA-125 elev (65) - AFP, CEA wnl - Hepatobiliary surgery consulted ([facility]) - GI consulted ([facility])- EUS Sunday 10/15 at 10 AM No acute path seen with pancreas gallbladder appears distended and w/ stones - Specimen sent for Path during Sx w/ Dr Lobo, f/u Gallbladder distention- suspect 2/2 to pancreatic abnormality - CT A/P: Gallbladder distension. Punctate density at the gallbladder neck, favored to reflect tiny gallstone. Common bile duct measures approximately 7 mm, mildly dilated. - Abd US: Cholelithiasis in a distended gallbladder. Top normal wall thickness o f 3 millimeters. No gross wall edema. Negative sonographic Collins's sign. Dilated common bile duct. Further evaluation with MRCP is recommended if clinically indicated to better evaluate for possible calculi within the common bile duct. Prominent liver measuring 17.2 centimeters in length with associated increased echogenicity of the hepatic parenchymal cortex suggestive for fatty infiltration versus hepatic parenchymal disease. Limited visualization of the pancreas. Prominent spleen measuring up to 12.5 centimeters in length. Midpole 1.5 centimeter left renal cyst. - MRCP: Marked gallbladder distension. Cholelithiasis. Gallstone noted at the gallbladder neck measuring approximately 11 mm. The common bile duct appears minimally dilated measuring approximately 7 mm without evidence of focal filling defect. - Pancreatic protocol CT: Severe distention of the gallbladder. Punctate filling defect at the gallbladder neck consistent with gallstone evident on MRI performed earlier the same day. Please note more extensive cholelithiasis evident on MRI which suggests noncalcified gallstones. The common bile duct measures approximately 8 mm. - Hepatobiliary surgery consulted ([facility]) Russ today Gallbladder was very distended, fluid filled, with large stone in CBD neck abnormal appearing pancreas head, specimen take, f/u biopsy results Asymptomatic anemia, acute, stable - Baseline Hgb 12-14, 9.4 on admission - MCV low (67) - UA: no blood - CT C/A/P: no signs of bleeding - FOBT negative - Iron low (13), ferritin low (6.9), % sat low (3), TIBC wnl (391) - B12, folate wnl - EGD: no active bleed - Monitor H&H daily - Vit K 10 mg SC in ED Atrial fibrillation on anticoagulation, chronic - EKG: NSR, LVH - Hold Xarelto, restart tmrw - Cardiology consulted ([facility]o) Coronary artery disease, chronic- s/p stents - EKG: NSR, LVH - Stress test- report pending - Crestor 10 mg PO QHS Hypertension, chronic - Vitals Q6H - Metoprolol 50 mg PO BID Type 2 diabetes mellitus, chronic - Accuchecks Q6H - Hypoglycemia protocol - ISS low Rheumatoid arthritis, chronic - Hold Baricitinib - Hold Sulfasalazine - Prednisone 5 mg PO daily Ppx: VTE: SCDs, Lovenox 80 mg SC Q12H hold tmrw AM dose GI: Protonix 40 mg IV daily Diet: Liq Diet, NPO past midnight Code status: DNR/DNI- POLST 12/2017 Healthcare proxy: Jerry Rivera [phone] Dispo: hoda knight 10/16 w/ Dr. Alexander, f/u specimen outpt, colonoscopy tmrw with Dr Mann Case discussed with attending, Dr. Thornton CK PGY1
[2018-10-17] MEDS ORDERED: Peg-Electrolyte Oral Soln 4L (Golytely) PO ONE (11:00)
--- NOTE | 2018-10-17 11:02 | CP.PCM.PN ---
<SanjeevemanuelCj - Last Filed: 10/17/18 10:59> Subjective - Date & Time of Evaluation Date of Evaluation: 10/17/18 Time of Evaluation: 10:59 - Subjective Subjective: Surgery Progress Note for Dr. Liu 67F seen and evaluated at bedside this morning. No acute events overnight. No complaints this morning except mild abdominal soreness. Patient tolerated clear liquids. Scheduled for colonoscopy later this admission. Denies f/c, n/v/d, SOB, CP, or urinary symptoms. Objective - Vital Signs/Intake and Output Vital Signs (last 24 hours): Temp Pulse Resp BP Pulse Ox 97.7 F 97 H 20 153/79 H 96 10/17/18 08:08 10/17/18 08:08 10/17/18 08:08 10/17/18 08:08 10/17/18 08:08 Intake and Output: 10/17/18 10/17/18 06:59 18:59 Intake Total 1280 Balance 1280 - Medications Medications: Current Medications Bisacodyl (Dulcolax) 10 mg PO ONCE ONE Stop: 10/17/18 17:01 Dextrose (Dextrose 50% Inj) 0 ml IV STAT PRN; Protocol PRN Reason: Hypoglycemia Protocol Dextrose (Glutose 15) 0 gm PO ONCE PRN; Protocol PRN Reason: Hypoglycemia Protocol Ferric Sodium Gluconate Complex (Ferrlecit) 125 mg IVPB DAILY [facility] Stop: 10/25/18 10:01 Last Admin: 10/17/18 10:05 Dose: 125 mg Glucagon (Glucagen Diagnostic Kit) 0 mg IM STAT PRN; Protocol PRN Reason: Hypoglycemia Protocol Hydromorphone HCl (Dilaudid) 2 mg PO Q4H PRN PRN Reason: Pain, severe (8-10) Last Admin: 10/17/18 10:02 Dose: 2 mg Lactated Ringer's (Lactated Ringer's) 1,000 mls @ 75 mls/hr IV .[id number] [facility] Last Admin: 10/17/18 05:47 Dose: 75 mls/hr Insulin Human Regular (Novolin R) 0 unit SC ACHS [facility]; Protocol Last Admin: 10/16/18 21:52 Dose: Not Given Metoclopramide HCl (Reglan) 5 mg IVP Q6H [facility] Stop: 10/19/18 06:00 Last Admin: 10/17/18 10:03 Dose: 5 mg Metoprolol Tartrate (Lopressor) 50 mg PO BID [facility] Last Admin: 10/17/18 10:04 Dose: 50 mg Pantoprazole Sodium (Protonix Inj) 40 mg IVP DAILY [facility] Last Admin: 10/17/18 10:03 Dose: 40 mg Polyethylene Glycol/Electrolytes (Golytely) 4,000 ml PO ONCE ONE Stop: 10/17/18 11:01 Prednisone (Prednisone Tab) 5 mg PO DAILY [facility] Last Admin: 10/17/18 10:04 Dose: 5 mg Rosuvastatin Calcium (Crestor) 10 mg PO HS [facility] Last Admin: 10/16/18 21:50 Dose: 10 mg - Labs Labs: 10/16/18 07:19 10/16/18 07:19 PT 12.4 SECONDS (9.7-12.2) H 10/15/18 07:07 INR 1.1 10/15/18 07:07 APTT 38.0 SECONDS (21-34) H 10/08/18 20:31 - Constitutional Appears: Well, Non-toxic, No Acute Distress - Head Exam Head Exam: ATRAUMATIC, NORMAL INSPECTION, NORMOCEPHALIC - Eye Exam Eye Exam: EOMI - ENT Exam ENT Exam: Mucous Membranes Moist - Respiratory Exam Respiratory Exam: NORMAL BREATHING PATTERN. absent: Wheezes, Respiratory Distress - GI/Abdominal Exam GI & Abdominal Exam: Soft, Tenderness, Normal Bowel Sounds. absent: Distended, Guarding, Rebound - Neurological Exam Neurological Exam: Alert, Awake, Oriented x3 - Psychiatric Exam Psychiatric exam: Normal Affect, Normal Mood - Skin Skin Exam: Dry, Intact, Normal Color, Warm Assessment and Plan - Assessment and Plan (Free Text) Assessment: 67F s/p laparoscopic cholecystectomy and pancreatic head biopsy POD1 Plan: Continue to advance diet as tolerated Monitor diet tolerance and bowel function F/u colonoscopy and GI recommendations Patient to follow up with Dr. Liu 2 weeks from discharge Please call in advance to schedule appointment No further surgical intervention indicated at this present time Cj Saini PGY1 <Rolo Lobo - Last Filed: 10/18/18 14:46> Objective - Vital Signs/Intake and Output Vital Signs (last 24 hours): Temp Pulse Resp BP Pulse Ox 98.2 F 76 13 148/60 100 10/18/18 00:00 10/18/18 12:55 10/18/18 12:55 10/18/18 12:55 10/18/18 12:55 Intake and Output: 10/18/18 10/18/18 06:59 18:59 Intake Total 5240 Output Total 7 Balance 5233 - Medications Medications: Current Medications Dextrose (Dextrose 50% Inj) 0 ml IV STAT PRN; Protocol PRN Reason: Hypoglycemia Protocol Dextrose (Glutose 15) 0 gm PO ONCE PRN; Protocol PRN Reason: Hypoglycemia Protocol Ferric Sodium Gluconate Complex (Ferrlecit) 125 mg IVPB DAILY [facility] Stop: 10/25/18 10:01 Last Admin: 10/18/18 09:54 Dose: 125 mg Glucagon (Glucagen Diagnostic Kit) 0 mg IM STAT PRN; Protocol PRN Reason: Hypoglycemia Protocol Hydromorphone HCl (Dilaudid) 2 mg PO Q4H PRN PRN Reason: Pain, severe (8-10) Last Admin: 10/17/18 10:02 Dose: 2 mg Lactated Ringer's (Lactated Ringer's) 1,000 mls @ 75 mls/hr IV .[id number] [facility] Last Admin: 10/18/18 05:34 Dose: 75 mls/hr Insulin Human Regular (Novolin R) 0 unit SC [facility]; Protocol Last Admin: 10/18/18 12:55 Dose: Not Given Metoclopramide HCl (Reglan) 5 mg IVP Q6H [facility] Stop: 10/19/18 06:00 Last Admin: 10/18/18 09:54 Dose: 5 mg Metoprolol Tartrate (Lopressor) 50 mg PO BID [facility] Last Admin: 10/18/18 11:04 Dose: 50 mg Pantoprazole Sodium (Protonix Inj) 40 mg IVP DAILY [facility] Last Admin: 10/18/18 09:53 Dose: 40 mg Prednisone (Prednisone Tab) 5 mg PO DAILY [facility] Last Admin: 10/18/18 09:54 Dose: 5 mg Rosuvastatin Calcium (Crestor) 10 mg PO HS [facility] Last Admin: 10/17/18 21:19 Dose: 10 mg - Labs Labs: 10/18/18 06:46 10/18/18 06:46 PT 12.4 SECONDS (9.7-12.2) H 10/15/18 07:07 INR 1.1 10/15/18 07:07 APTT 38.0 SECONDS (21-34) H 10/08/18 20:31 Assessment and Plan - Assessment and Plan (Free Text) Plan: All medical record entries made by the resident were at my direction. I have reviewed the chart and agree that the record accurately reflects my personal performance of the history, physical exam, and medical decision making. Still need explanation for anemia. Colonoscopy tomorrow
[2018-10-17 11:50] LABS: BASO % 0.3 % (0.0-2.0); EOS # 0.1 K/uL (0.0-0.7); EOS % 0.8 % (0.0-4.0); HEMOGLOBIN 9.1 g/dL (11.0-16.0); LYMPH # 0.8 K/uL (1.0-4.3); LYMPH % 7.4 % (20.0-40.0); MEAN CELL VOLUME 68.8 fL (81.0-99.0); MEAN CORPUSCULAR HEMOGLOBIN 21.6 pg (27.0-31.0); MEAN CORPUSCULAR HGB CONC 31.4 g/dL (33.0-37.0); MEAN PLATELET VOLUME 7.8 fL (7.2-11.7); MONO % 9.4 % (0.0-10.0); NEUT # 8.5 K/uL (1.8-7.0); NEUT % 82.1 % (50.0-75.0); PLATELET COUNT 277 K/uL (130-400); RBC 4.23 Mil/uL (3.80-5.20); RED CELL DISTRIBUTION WIDTH 19.4 % (11.5-14.5)
[2018-10-17 11:52] LABS: WHITE BLOOD COUNT 10.4 K/uL (4.8-10.8)
[2018-10-17 12:08] LABS: ALB/GLOB RATIO 1.1 (1.0-2.1); ALBUMIN 3.4 g/dL (3.5-5.0); ALT/SGPT 42 U/L (9-52); AST/SGOT 53 U/L (14-36); BLOOD UREA NITROGEN 7 mg/dL (7-17); CALCIUM 9.2 mg/dl (8.6-10.4); GFR NON-AFRICAN AMERICAN > 60
[2018-10-17 12:27] LABS: ANISOCYTOSIS MODERATE; BANDS 2 % (0-2); HYPOCHROMIC MODERATE; LYMPHOCYTE 10 % (20-40); MONOCYTE 7 % (0-10); NEUTROPHIL 81 % (50-75); OVALOCYTES SLIGHT; PLATELET ESTIMATE NORMAL (NORMAL); TOTAL CELLS COUNTED 100
--- NOTE | 2018-10-17 15:08 | PN ---
DATE: 10/17/2018 LOCATION: 357, bed B. SUBJECTIVE: This is a 67-year-old female seen and examined in rounds without significant clinical changes or reported active bleeding. The entire chart is reviewed including but not limited to the most recent lab and radiology study results, current and previous medication list, current and previous medical events. No reported vomiting, but intermittent period of nausea and mild dyspepsia. No chest pain, palpitation or significant increase of shortness of breath. On record, all the pancreatic workup turned out to be negative and the patient still has low hemoglobin and hematocrit with decreased indices highly suggestive of hypochromic microcytic anemia. Blood glucose level is still high of 195-194 today. Case discussed with hepatobiliary pancreatic surgeon and colonoscopy is to be scheduled due to the patient's hypochromic microcytic anemia. PHYSICAL EXAMINATION: GENERAL: A 67-year-old female reported in a status of DNR and DNI. VITAL SIGNS: Afebrile with pulse of 94, respiratory rate 20-22, blood pressure 150/72. HEENT: Showed pale, dry oral mucous membrane. Nonicteric sclerae. LUNGS: Few scattered crepitation. Decreased air entry at bases. HEART: Positive S1 and S2. ABDOMEN: Soft with mild generalized tenderness. No mass or organomegaly. No rebound tenderness or guarding. EXTREMITIES: Without significant clubbing, cyanosis or edema. No reported new neurological deficits, sensory or motor. No reported new focal deficits. The patient is status post cholecystectomy as reported yesterday. IMPRESSION: 1. Status post cholecystectomy due to cholelithiasis and impacted stone in the neck of the gallbladder. 2. Pancreatic fibrosis with head of the pancreas by recent radiology study results. 3. Hypochromic microcytic anemia, to rule out possible lower gastrointestinal tract source of blood loss. 4. Antireflux measures. SUGGESTIONS: 1. Agree with your plan. 2. The patient for colonoscopy if she is stable clinically at a.m. and after adequate preparation, otherwise close observation to follow. Braxton Koch MD
[2018-10-17] MEDS ORDERED: Bisacodyl 5mg EC Tab PO ONE (17:00)
[2018-10-18] MEDS: Lactated Ringer's 1,000 ML IV SCH (05:34)
--- NOTE | 2018-10-18 06:45 | CP.PCM.PN ---
Subjective - Date & Time of Evaluation Date of Evaluation: 10/17/18 Time of Evaluation: 19:40 - Subjective Subjective: Patient s/p lap Darshana No cardiac events noted Denies chest pain and dyspnea Objective - Additional Findings Additional findings: - Constitutional Appears: No Acute Distress - Head Exam Head Exam: ATRAUMATIC, NORMAL INSPECTION - Eye Exam Eye Exam: EOMI, Normal appearance - ENT Exam ENT Exam: Mucous Membranes Moist - Respiratory Exam Respiratory Exam: Clear to Ausculation Bilateral, NORMAL BREATHING PATTERN. absent: Rhonchi, Wheezes, Respiratory Distress - Cardiovascular Exam Cardiovascular Exam: Irregular Rhythm, +S1, +S2 - GI/Abdominal Exam GI & Abdominal Exam: Soft, Normal Bowel Sounds. absent: Tenderness - Extremities Exam Extremities Exam: Pedal Edema (mild pitting edema b/l extending from knee down). absent: Tenderness - Neurological Exam Neurological Exam: Alert, Awake, Oriented x3 - Psychiatric Exam Psychiatric exam: Normal Affect, Normal Mood - Skin Skin Exam: Dry, Normal Color, Warm Assessment and Plan - Assessment and Plan (Free Text) Assessment: 67 year old female with history of DM, HTN, RA, A fib on Xarelto Afib - Home medication: Xarelto 15mg PO daily- HELD for procedure. Replace Lovenox with Xarelto as soon as possible - Continue Metoprolol 50mg PO BID - Continue Lovenox 80mg BID Anemia - H/H 9.8/32.0 - baseline Hb in 11s - FOBT x3 pending (negative in ED) - On CT, Pancreatic abnormality- suspicious for malignancy. S/p EGD today. Will start Lovenox post procedure. CAD w/Stents - Crestor 10mg PO HS - EKG at admission: SR@98; LVH HTN - Continue Metoprolol 50mg PO BID Cardiac risk assessment, preop - EKG: SR@98; LVH - Echo (10/10/18): poor window, normal size of LA, LV, RA, RV, normal LV thickness and overall systolic function; EF 55-60%; inferoapical is hypokinetic, poss CAD; LV diastolic dysfunction; normal aortic, mitral, TV, and PV; moderate TR and trace PI; no pericardial effusion; normal aortic root root. -Stress Test: No evidence of stress induved ischemia Objective - Vital Signs/Intake and Output Vital Signs (last 24 hours): Temp Pulse Resp BP Pulse Ox 98.2 F 73 20 154/79 H 96 10/18/18 00:00 10/18/18 00:00 10/18/18 00:00 10/18/18 00:00 10/18/18 00:00 Intake and Output: 10/17/18 10/18/18 18:59 06:59 Intake Total 300 5240 Output Total 7 Balance 300 5233 - Medications Medications: Current Medications Dextrose (Dextrose 50% Inj) 0 ml IV STAT PRN; Protocol PRN Reason: Hypoglycemia Protocol Dextrose (Glutose 15) 0 gm PO ONCE PRN; Protocol PRN Reason: Hypoglycemia Protocol Ferric Sodium Gluconate Complex (Ferrlecit) 125 mg IVPB DAILY KIM Stop: 10/25/18 10:01 Last Admin: 10/17/18 10:05 Dose: 125 mg Glucagon (Glucagen Diagnostic Kit) 0 mg IM STAT PRN; Protocol PRN Reason: Hypoglycemia Protocol Hydromorphone HCl (Dilaudid) 2 mg PO Q4H PRN PRN Reason: Pain, severe (8-10) Last Admin: 10/17/18 10:02 Dose: 2 mg Lactated Ringer's (Lactated Ringer's) 1,000 mls @ 75 mls/hr IV .[id number] [facility] Last Admin: 10/18/18 05:34 Dose: 75 mls/hr Insulin Human Regular (Novolin R) 0 unit SC ACHS [facility]; Protocol Last Admin: 10/17/18 22:00 Dose: Not Given Metoclopramide HCl (Reglan) 5 mg IVP Q6H KIM Stop: 10/19/18 06:00 Last Admin: 10/18/18 03:23 Dose: 5 mg Metoprolol Tartrate (Lopressor) 50 mg PO BID [facility] Last Admin: 10/17/18 17:25 Dose: 50 mg Pantoprazole Sodium (Protonix Inj) 40 mg IVP DAILY [facility] Last Admin: 10/17/18 10:03 Dose: 40 mg Prednisone (Prednisone Tab) 5 mg PO DAILY [facility] Last Admin: 10/17/18 10:04 Dose: 5 mg Rosuvastatin Calcium (Crestor) 10 mg PO HS [facility] Last Admin: 10/17/18 21:19 Dose: 10 mg - Labs Labs: 10/17/18 11:28 10/17/18 11:28 PT 12.4 SECONDS (9.7-12.2) H 10/15/18 07:07 INR 1.1 10/15/18 07:07 APTT 38.0 SECONDS (21-34) H 10/08/18 20:31
[2018-10-18 06:56] LABS: BASO % 0.3 % (0.0-2.0); EOS # 0.1 K/uL (0.0-0.7); EOS % 1.9 % (0.0-4.0); HEMOGLOBIN 9.1 g/dL (11.0-16.0); LYMPH # 1.2 K/uL (1.0-4.3); LYMPH % 15.8 % (20.0-40.0); MEAN CORPUSCULAR HEMOGLOBIN 20.8 pg (27.0-31.0); MEAN CORPUSCULAR HGB CONC 30.6 g/dL (33.0-37.0); MEAN PLATELET VOLUME 7.8 fL (7.2-11.7); MONO # 0.8 K/uL (0.0-0.8); MONO % 10.6 % (0.0-10.0); NEUT # 5.5 K/uL (1.8-7.0); NEUT % 71.4 % (50.0-75.0); RBC 4.38 Mil/uL (3.80-5.20); RED CELL DISTRIBUTION WIDTH 19.4 % (11.5-14.5); WHITE BLOOD COUNT 7.7 K/uL (4.8-10.8)
[2018-10-18 07:37] LABS: ALB/GLOB RATIO 1.1 (1.0-2.1); ALBUMIN 3.4 g/dL (3.5-5.0); ALT/SGPT 39 U/L (9-52); AST/SGOT 40 U/L (14-36); BLOOD UREA NITROGEN 4 mg/dL (7-17); CALCIUM 9.7 mg/dl (8.6-10.4); GFR NON-AFRICAN AMERICAN > 60
[2018-10-18] MEDS: (Novolin R) Insulin Human Regular 100 units/ml vial SC SCH ×2 (07:42→12:55)
[2018-10-18] MEDS: Ferric Sodium Gluconat Complex 62.5 mg/5 ml Vial IVPB SCH (09:54)
[2018-10-18] MEDS ORDERED: Propofol 10 mg/ml Inj (20 ML) ONE (12:03)
[2018-10-18] MEDS ORDERED: Lactated Ringer's 1,000 ML IV ONE (12:05)
--- NOTE | 2018-10-18 15:01 | CP.PCM.DIS ---
Provider - Provider Date of Admission: 10/10/18 15:01 Attending physician: Komal Thornton DO Consults: 10/08/18 22:15 Gastroenterology Consult Stat Comment: Consulting Provider: Braxton Mann Consulting Physician: Braxton Mann Reason for Consult: anemia, on xarelto 10/08/18 23:43 Physician Consult Routine Comment: Consulting Provider: Driss Plascencia Consulting Physician: Driss Plascencia Reason for Consult: on Xarelto, drop in Hb 10/09/18 13:51 General Surgery Consult Routine Comment: Consulting Provider: Rolo Piper Consulting Physician: Rolo Piper Reason for Consult: Pancreatic Mass, Enlarged Gallbladder Time Spent in preparation of Discharge (in minutes): 45 Diagnosis - Discharge Diagnosis (1) Cholecystitis with cholelithiasis Status: Resolved (2) CAD (coronary artery disease) Status: Chronic (3) Pancreatic mass Status: Chronic (4) Anemia Status: Resolved (5) Atrial fibrillation Status: Chronic (6) Diabetes Status: Chronic (7) Hypertension Status: Chronic Hospital Course - Lab Results Lab Results: Micro Results 10/09/18 06:00 Urine Random Urine Culture - Final <10,000 CFU/ML. MULTIPLE SPECIES. PROBABLE CONTAMINATION. Most Recent Lab Values WBC 7.7 K/uL (4.8-10.8) 10/18/18 06:46 RBC 4.38 Mil/uL (3.80-5.20) 10/18/18 06:46 Hgb 9.1 g/dL (11.0-16.0) L 10/18/18 06:46 Hct 29.8 % (34.0-47.0) L 10/18/18 06:46 MCV 68.0 fL (81.0-99.0) L 10/18/18 06:46 MCH 20.8 pg (27.0-31.0) L 10/18/18 06:46 MCHC 30.6 g/dL (33.0-37.0) L 10/18/18 06:46 RDW 19.4 % (11.5-14.5) H 10/18/18 06:46 Plt Count 250 K/uL (130-400) 10/18/18 06:46 MPV 7.8 fL (7.2-11.7) 10/18/18 06:46 Neut % (Auto) 71.4 % (50.0-75.0) 10/18/18 06:46 Lymph % (Auto) 15.8 % (20.0-40.0) L 10/18/18 06:46 [place] % (Auto) 10.6 % (0.0-10.0) H 10/18/18 06:46 Eos % (Auto) 1.9 % (0.0-4.0) 10/18/18 06:46 Baso % (Auto) 0.3 % (0.0-2.0) 10/18/18 06:46 Neut # (Auto) 5.5 K/uL (1.8-7.0) 10/18/18 06:46 Lymph # (Auto) 1.2 K/uL (1.0-4.3) 10/18/18 06:46 [place] # (Auto) 0.8 K/uL (0.0-0.8) 10/18/18 06:46 Eos # (Auto) 0.1 K/uL (0.0-0.7) 10/18/18 06:46 Baso # (Auto) 0.0 K/uL (0.0-0.2) 10/18/18 06:46 Neutrophils % (Manual) 81 % (50-75) H 10/17/18 11:28 Band Neutrophils % 2 % (0-2) 10/17/18 11:28 Lymphocytes % (Manual) 10 % (20-40) L 10/17/18 11:28 Monocytes % (Manual) 7 % (0-10) 10/17/18 11:28 Differential Comment 10/08/18 20:31 Platelet Estimate Normal (NORMAL) 10/17/18 11:28 Hypochromasia (manual) Moderate 10/17/18 11:28 Anisocytosis (manual) Moderate 10/17/18 11:28 Ovalocytes Slight 10/17/18 11:28 Retic Count 1.3 % (0.5-1.5) 10/17/18 11:28 PT 12.4 SECONDS (9.7-12.2) H 10/15/18 07:07 INR 1.1 10/15/18 07:07 APTT 38.0 SECONDS (21-34) H 10/08/18 20:31 Sodium 138 mmol/L (132-148) 10/18/18 06:46 Potassium 3.6 mmol/L (3.6-5.2) 10/18/18 06:46 Chloride 98 mmol/L (98-107) 10/18/18 06:46 Carbon Dioxide 30 mmol/L (22-30) 10/18/18 06:46 Anion Gap 13 (10-20) 10/18/18 06:46 BUN 4 mg/dL (7-17) L 10/18/18 06:46 Creatinine 0.4 mg/dL (0.7-1.2) L 10/18/18 06:46 Est GFR ( Amer) > 60 10/18/18 06:46 Est GFR (Non-Af Amer) > 60 10/18/18 06:46 POC Glucose (mg/dL) 213 mg/dL (65-110) H 10/18/18 07:11 Random Glucose 164 mg/dL (65-105) H D 10/18/18 06:46 Calcium 9.7 mg/dl (8.6-10.4) 10/18/18 06:46 Phosphorus 2.9 mg/dL (2.5-4.5) 10/18/18 06:46 Magnesium 1.6 mg/dL (1.6-2.3) 10/18/18 06:46 Iron 13 ug/dL (37-170) L 10/09/18 11:15 TIBC 391 ug/dL (250-450) 10/09/18 11:15 % Saturation 3 (20-55) L 10/09/18 11:15 Ferritin 6.9 ng/mL 10/09/18 11:15 Total Bilirubin 0.4 mg/dL (0.2-1.3) 10/18/18 06:46 AST 40 U/L (14-36) H D 10/18/18 06:46 ALT 39 U/L (9-52) 10/18/18 06:46 Alkaline Phosphatase 75 U/L (38-126) 10/18/18 06:46 Total Protein 6.5 g/dL (6.3-8.3) 10/18/18 06:46 Albumin 3.4 g/dL (3.5-5.0) L 10/18/18 06:46 Globulin 3.1 gm/dL (2.2-3.9) 10/18/18 06:46 Albumin/Globulin Ratio 1.1 (1.0-2.1) 10/18/18 06:46 Amylase 72 U/L (30-110) 10/09/18 17:34 Lipase 146 U/L (23-300) 10/09/18 17:34 Alpha Fetoprotein 3.3 ng/mL (0.0-7.5) 10/09/18 17:34 Carcinoembryonic Ag 2.9 ng/mL (0-3.0) 10/09/18 17:34 CA 19-9 Antigen 220 U/mL (0-37) H 10/09/18 17:34 CA 125 Antigen 65.1 U/mL (0-35) H 10/09/18 17:34 Chromagranin A 164 ng/mL (25-140) H 10/10/18 07:23 Vitamin B12 336 pg/mL (239-931) 10/09/18 11:15 Folate 14.8 ng/mL 10/09/18 11:15 Urine Color Yellow (YELLOW) 10/09/18 03:19 Urine Clarity Clear (Clear) 10/09/18 03:19 Urine pH 5.0 (5.0-8.0) 10/09/18 03:19 Ur Specific [place] 1.018 (1.003-1.030) 10/09/18 03:19 Urine Protein Negative mg/dL (NEGATIVE) 10/09/18 03:19 Urine Glucose (UA) Normal mg/dL (Normal) 10/09/18 03:19 Urine Ketones Negative mg/dL (NEGATIVE) 10/09/18 03:19 Urine Blood Negative (NEGATIVE) 10/09/18 03:19 Urine Nitrate Negative (NEGATIVE) 10/09/18 03:19 Urine Bilirubin Negative (NEGATIVE) 10/09/18 03:19 Urine Urobilinogen Normal mg/dL (0.2-1.0) 10/09/18 03:19 Ur Leukocyte Esterase Neg Philip/uL (Negative) 10/09/18 03:19 Urine WBC (Auto) 2 /hpf (0-5) 10/09/18 03:19 Urine RBC (Auto) 1 /hpf (0-3) 10/09/18 03:19 Ur Squamous Epith Cells 3 /hpf (0-5) 10/09/18 03:19 Calcium Oxalate Crystal Occ /hpf (<OCC) H 10/09/18 03:19 IgG1 436 mg/dl 10/13/18 07:37 IgG2 264 mg/dl 10/13/18 07:37 IgG3 >220 mg/dl h 10/13/18 07:37 IgG4 173.7 mg/dl h 10/13/18 07:37 Blood Type A POSITIVE 10/16/18 10:45 Antibody Screen Negative 10/16/18 10:45 - Hospital Course Hospital Course: HPI: Patient is a 67 year old female with history of A fib on Xarelto who presents after she was sent in Dr. Ryan and Dr. Plascencia for a drop in Hb from 11.4 from January 2018 to 9.6 in September 2018. She denies any current bleeding however she admits that she had intermittent bright blood in her urine, about once every few days, from last fall until Jun 2018 which resolved after she had a procedure for kidney stones with Dr. San. She denies any current bleeding in her urine or stool. She has not had her period since age 34, no current vaginal bleeding. She admits to losing about 40lbs unintentionally over the past year, denies night sweats, unspecified if decreased appetite stating she doesn't usually eat much. She states she had her last colonoscopy 2 years ago which was normal. She states she has normal brown stools, with no change in stool size. She states she has a nonproductive cough currently, but states it is from allergies. She denies any blood in her cough. She denies fevers, chills, headache, lightheadedness, dizzness, sore throat, pain with swallowing, chest pain, palpitations, abdominal pain, nausea, vomiting, diarrhea, constipation, easy bruising, recent travel, sick contacts. Of note, she recently started Olumiant (Baricitinib 2mg one tablet daily last week) for her rheumatoid arthritis. PMH: CAD with stents, A fib, HTN, DM, RA PSH: cardiac stents, vein surgery, tonsillectomy, tubal ligation Family hx: Father of MS in 60s, Mother of stomach cancer in 70s Social hx: former smoker - quit 30 years, smoked 2ppd x20 years, denies alcohol or drug use. Retired 2 years ago, worked as [employer] and [employer]. Has 4 children. Home meds: Baricitinib 2mg once in AM, Prednisone 5mg once daily , Sulfasalazine 500mg 3 tabs BID, Tramadol 50mg QHS, Metformin 500mg PO BID, Glimepiride 4mg PO BID, Insulin 20 units in AM, Metoprolol 50mg PO BID, Xarelto 15mg daily, Crestor 10mg PO HS Allergies: PCN - unsure of reaction, she was told she was allergic, PMD: Dr. Arjun Trimble Endo: Dr. Lake Cardio: Temo Uro: Jaswinder DNR/DNI, confirmed with patient. POLST signed during last admission in December 2017 Healthcare proxy: Miguel Edwards [phone] Pt was admitted for anemia, Pt was found to have biliary distention and a pancreatic head mass seen on CT. Pt understand ERCP with Dr Booth, saw no signs of pancreatic abnormality, found to have billiary distention with a stone in the CBD. Dr Piper preformed a lap eugene, also saw abnormality on pancreatic head/ specimen was sent for pathology. Pt then had a colonoscopy with Dr Mann to [facility] for GI bleed, was found to have aleyda internal hemmrhoids. Pt dc home and may restart xarelto tmrw. Please follow up pathology and Ca markers PLAN Pt is to be discharged home on the following medications Baricitinib [Olumiant] 2 mg PO DAILY #14 tablet Glimepiride [amaRYL] 4 mg PO BID #24 tab metFORMIN [glucOPHAGE] 500 mg PO BID #28 tab Metoprolol Tartrate [Lopressor] 50 mg PO DAILY #14 tablet predniSONE [predniSONE Tab] 5 mg PO DAILY #14 tab Rosuvastatin Calcium [Crestor] 10 mg PO HS #14 tab Xarelto 15mg PO daily #30 tab- start on 10/19/18 Please follow up in office with Dr Piper within 7 days Resume regular diet as tolerated Activity as tolerated. No heavy lifting greater than 15 lbs for 4 weeks Ok to shower. Avoid baths, pools for 2 weeks Over the counter Tylenol for pain Please follow up with your PMD Dr Trimble within 7 days please note: CA 19-9 to be repeated in one month outpatient Please follow up with Dr Mann within 5 weeks Please seek medical attention immediately if symptoms return take care and be well CK PGY1 Discharge Exam - Head Exam Head Exam: ATRAUMATIC, NORMAL INSPECTION, NORMOCEPHALIC - Additional Findings Additional findings: - Constitutional Appears: No Acute Distress - Head Exam Head Exam: ATRAUMATIC, NORMAL INSPECTION - Eye Exam Eye Exam: EOMI, Normal appearance - ENT Exam ENT Exam: Mucous Membranes Moist - Respiratory Exam Respiratory Exam: Clear to Ausculation Bilateral, NORMAL BREATHING PATTERN. absent: Rhonchi, Wheezes, Respiratory Distress - Cardiovascular Exam Cardiovascular Exam: Irregular Rhythm, +S1, +S2 - GI/Abdominal Exam GI & Abdominal Exam: Soft, Normal Bowel Sounds. absent: Tenderness - Extremities Exam Extremities Exam: Pedal Edema (mild pitting edema b/l extending from knee down). absent: Tenderness - Neurological Exam Neurological Exam: Alert, Awake, Oriented x3 - Psychiatric Exam Psychiatric exam: Normal Affect, Normal Mood - Skin Skin Exam: Dry, Normal Color, Warm Discharge Plan - Discharge Medications Prescriptions: Baricitinib [Olumiant] 2 mg PO DAILY #14 tablet Glimepiride [amaRYL] 4 mg PO BID #24 tab metFORMIN [glucOPHAGE] 500 mg PO BID #28 tab Metoprolol Tartrate [Lopressor] 50 mg PO DAILY #14 tablet predniSONE [predniSONE Tab] 5 mg PO DAILY #14 tab Rivaroxaban [Xarelto] 15 mg PO DAILY #30 tab Rosuvastatin Calcium [Crestor] 10 mg PO HS #14 tab - Follow Up Plan Condition: FAIR Disposition: HOME/ ROUTINE Additional Instructions: Pt is to be discharged home on the following medications Baricitinib [Olumiant] 2 mg PO DAILY #14 tablet Glimepiride [amaRYL] 4 mg PO BID #24 tab metFORMIN [glucOPHAGE] 500 mg PO BID #28 tab Metoprolol Tartrate [Lopressor] 50 mg PO DAILY #14 tablet predniSONE [predniSONE Tab] 5 mg PO DAILY #14 tab Rosuvastatin Calcium [Crestor] 10 mg PO HS #14 tab Xarelto 15mg PO daily #30 tab- start on 10/19/18 Please follow up in office with Dr Piper within 7 days Resume regular diet as tolerated Activity as tolerated. No heavy lifting greater than 15 lbs for 4 weeks Ok to shower. Avoid baths, pools for 2 weeks Over the counter Tylenol for pain Please follow up with your PMD Dr Trimble within 7 days please note: CA 19-9 to be repeated in one month outpatient Please follow up with Dr Mann within 5 weeks Please seek medical attention immediately if symptoms return take care and be well CK PGY1 Referrals: Rolo Piper MD [Staff Provider] - Shaunna Booth MD [Staff Provider] - Tala Trimble MD [Staff Provider] -
[2018-10-18 16:03] VITALS: BP 166/91; PULSE 95; RESP 20; TEMP 98; O2SAT 96
== END 2018-10-18 17:18 | disposition home or self-care (01) | DRG 419 ==
LOC: C.ER 16:32 → C.9E 22:05 → C.3T 22:33 → OBSVTOIN 10-10 15:01
PROVIDERS: ADMIT Hospitalist; ATTEND Hospitalist
PROC: 0DB68ZX Excision of Stomach, Via Natural or Artificial Opening Endoscopic, Diagnostic (ICD-10-PCS; 2018-10-10)
PROC: BD15ZZZ Fluoroscopy of Upper GI (ICD-10-PCS; 2018-10-15)
PROC: 0FT44ZZ Resection of Gallbladder, Percutaneous Endoscopic Approach (ICD-10-PCS; principal; 2018-10-15 10:00)
PROC: 0FBG4ZX Excision of Pancreas, Percutaneous Endoscopic Approach, Diagnostic (ICD-10-PCS; 2018-10-15 10:00)
PROC: 0DBM8ZX Excision of Descending Colon, Via Natural or Artificial Opening Endoscopic, Diagnostic (ICD-10-PCS; 2018-10-18)
DX: K80.12 Calculus of gallbladder with acute and chronic cholecystitis without obstruction (principal); D50.9 Iron deficiency anemia, unspecified; E11.65 Type 2 diabetes mellitus with hyperglycemia; G89.29 Other chronic pain; I10 Essential (primary) hypertension; I25.10 Atherosclerotic heart disease of native coronary artery without angina pectoris; I44.7 Left bundle-branch block, unspecified; I48.91 Unspecified atrial fibrillation; J45.909 Unspecified asthma, uncomplicated; K29.70 Gastritis, unspecified, without bleeding; K44.9 Diaphragmatic hernia without obstruction or gangrene; Z79.4 Long term (current) use of insulin; Z79.01 Long term (current) use of anticoagulants; Z66 Do not resuscitate; Z87.891 Personal history of nicotine dependence; Z95.5 Presence of coronary angioplasty implant and graft; K29.80 Duodenitis without bleeding; K64.8 Other hemorrhoids; K64.4 Residual hemorrhoidal skin tags; K57.30 Diverticulosis of large intestine without perforation or abscess without bleeding; K86.89 Other specified diseases of pancreas; M06.9 Rheumatoid arthritis, unspecified; Z53.09 Procedure and treatment not carried out because of other contraindication; K52.9 Noninfective gastroenteritis and colitis, unspecified